=== PATIENT | male | born 1955 | race Caucasian/White ===

== ENCOUNTER → 2023-03-08 | Outpatient (CLI) | payer BC, SELFPAY ==
[2023-03-08 15:49] LABS: Bacteria 0 SEEN /hpf (None Seen); Mucous, Urine 0 SEEN /hpf (<or=2+); Squamous Epithelial Cells - UA 0 SEEN /hpf (0-5)
[2023-03-08 16:47] LABS: Absolute Lymphocyte Count 1.38 X10^3/uL (0.83-4.51); Absolute Neutrophil Count 6.7 X10^3/uL (2.0-7.7); Basophil# 0.11 X10^3/uL; Basophil% 1.2 % (0-1); Eosinophil# 0.16 X10^3/uL; Eosinophils% 1.8 % (0-5); Hematocrit 39.8 % (40-54); Hemoglobin 11.2 g/dL (13.0-16.5); Lymphocyte # 1.38 X10^3/ul (0.83-4.51); Lymphocyte % 15.4 % (19-41); Mean Corp Hgb Conc 28.1 g/dL (32-36); Mean Corpuscular Hgb 24.2 pg (27.0-32.0); Mean Corpuscular Volume 86.1 fL (80-94); Mean Platelet Vol. 9.8 fl (6.2-12.0); Monocyte# 0.64 X10^3/uL; Monocyte% 7.1 % (0-10); NRBC Flagged by Analyzer 0 % (0-5); Neutrophil # 6.67 X10^3/uL (2.7-7.7); Neutrophil % 74.3 % (47-70); Platelet Count 542 K/mm3 (150-450); RBC Distribution Width CV 19.8 % (11.6-14.6); RBC Distribution Width SD 61.5 fl (35.1-43.9); Red Blood Count 4.62 M/mm3 (4.6-6.2)
[2023-03-08 17:01] LABS: Color, Urine Yellow (Yellow); Glucose, Dipstick Normal (Normal); Ketone-Dipstick 15 mg/dl (Negative); Leukocyte Esterase-Dipstick Negative /ul (Negative); Nitrite-Dipstick Negative (Negative); Occult Blood-Urine Negative /ul (Negative); Protein-Dipstick Negative (Negative); Specific Gravity, Urine 1.015 (1.002-1.030); Urine Bilirubin Dipstick Negative (Negative); Urine Clarity Clear (Clear); Urine Urobilinogen Normal (Normal)
[2023-03-08 17:16] LABS: Vitamin D,25 Hydroxy 37.9 ng/mL
[2023-03-08 17:16] LABS: Red Blood Cells-Urine 0-5 SEEN /hpf (0-5); White Blood Cells 0-5 SEEN /hpf (0-5)
[2023-03-08 17:25] LABS: ALB/GLOB Ratio 0.9 RATIO (0.9-2.4); AST(SGOT) 18 U/L (15-37); Alanine Aminotransfer ALT/SGPT 22 U/L (16-61); Albumin, Serum 3.9 g/dL (3.2-5.0); Alkaline Phosphatase 112 U/L (45-117); Anion Gap 6 (5-15); BUN 17 mg/dL (7-18); BUN/Creat Ratio 18.3 RATIO (10-20); Chloride 103 mmol/L (98-107); Cholesterol 117 mg/dL (200); Creatinine, Serum 0.93 mg/dL (0.70-1.30); EST Glomerular Filtration Rate 86 mL/min (>60); Est Glom Filt Rate - Afr Amer 104 mL/min (>60); Globulin 4.3 g/dL (2.2-4.2); Glucose 106 mg/dL (74-106); High Density Lipoprotein 55 mg/dL; PSA,Total- Diagnostic 2.85 ng/mL (0.0-4.0); Potassium 4.1 mmol/L (3.5-5.1); Protein, Total 8.2 g/dL (6.4-8.2); Sodium Level 136 mmol/L (136-145); Thyroid Stim Hormone (TSH) 2.21 uIU/mL (0.358-3.74); Triglycerides 95 mg/dL; Very Low Density Lipoprotein 19 mg/dL (5-40)
== END | disposition home or self-care (01) ==
LOC: BIMLAB 15:38
PROVIDERS: PCP Internal Medicine; Visit Provider Internal Medicine
DX: Z13.6 Encounter for screening for cardiovascular disorders (principal); J44.9 Chronic obstructive pulmonary disease, unspecified; R39.11 Hesitancy of micturition; R10.9 Unspecified abdominal pain; F32.A Depression, unspecified
CPT/HCPCS: 36415; 80053; 80061; 81001; 82306; 84153; 84443; 85025

== ENCOUNTER 2023-03-27 11:08 | Inpatient (IN) | payer MEDICARE, SELFPAY ==
[2023-03-27] VITALS (24 sets, daily range): BP systolic 53–160; BP diastolic 38–92; PULSE 77–106; RESP 12–19; TEMP 36.2–37.3; O2SAT 81–100; BMI 18.8; BMI 18.5
--- NOTE | 2023-03-27 11:33 | EX.ED.DYSGE1 ---
HPI History of Present Illness Chief Complaint: Shortness of Breath Narrative Narrative: 67-year-old male presents via EMS with multiple complaints, mainly shortness of breath that he has had for at least the last few days if not longer. He states that his primary care provider is supposed to be doing a cancer work-up on him including CT scan and laboratory work. He states that with a history of bleeding ulcers, he has had vomiting over the last few days to weeks that is dark brown in color. Additionally, he has had black stools. His girlfriend/ at home called EMS today because he has not been feeling well and has been more short of breath. Per EMS, he was hypotensive in the 80s, and tachypneic. He may have had a low pulse ox as well. While he states that he has been short of breath, he does not see a sales architect, is a former smoker, and does not wear oxygen at home. [facility] Medical History Alcohol abuse Cataract COPD (chronic obstructive pulmonary disease) History of COVID-19 History of kidney stones History of pneumonia Ulcer Home Medications albuterol sulfate 90 mcg/actuation aerosol inhaler 2 puff inhalation Q6H PRN shortness of breath or wheezing #8.5 grams 02/14/23 [Rx Last Taken Unknown] fluticasone fur. 100 mcg-umeclid 62.5 mcg-vilant 25 mcg inhalat.powder (Trelegy Ellipta) 1 inh inhalation DAILY #28 ea 02/14/23 [Rx Last Taken Unknown] tamsulosin 0.4 mg capsule 0.4 mg PO DAILY #30 caps 02/14/23 [Rx Last Taken Unknown] albuterol sulfate 0.63 mg/3 mL solution for nebulization 0.63 mg (3 mL) inhalation Q6H PRN shortness of breath or wheezing #90 mL 03/08/23 [Rx Last Taken Unknown] blood pressure test kit-medium #1 ea 03/08/23 [Rx Last Taken Unknown] escitalopram oxalate 10 mg tablet (Lexapro) 10 mg PO DAILY #30 tabs 03/08/23 [Rx Last Taken Unknown] ipratropium bromide 0.02 % solution for inhalation 2.5 ml inhalation Q6H PRN shortness of breath or wheezing #150 mL 03/08/23 [Rx Last Taken Unknown] nebulizer and compressor (Comp-Air Nebulizer Compressor) #1 ea 03/08/23 [Rx Last Taken Unknown] Allergy/AdvReac Type Severity Reaction Status Date / Time No Known Allergies Allergy Verified 03/27/23 11:15 Family History Mother Heart disease Grandmother Cancer colon Surgical History History of eye surgery History of lithotripsy Social History household members: significant other current occupational status: retired current occupation: construction Smoking Status: Former smoker quit date: 04/10/19 pack-years: 90 Electronic Cigarette Use: not used alcohol intake: former year quit: 2012 substance use type: former substance user Date of last use: cocaine do you feel safe at home: Yes ROS ROS ED ROS Narrative Constitutional: No fever, no chills. HEENT: No sore throat. No neck pain. No loss of vision. No rhinorrhea. Cardiovascular: No chest pain. No palpitations. No pedal edema. Respiratory: No cough, positive shortness of breath. Abdominal: No abdominal pain. Positive nausea and vomiting with dark brown emesis, no bright red blood. Positive black stool. Genitourinary: No dysuria. No hematuria. Musculoskeletal: No myalgias. No arthralgias. Neurologic: No headaches. No dizziness. No lightheadedness. Skin: No rash. No change in color. Psychiatric: No depression. No anxiety. EXAM Physical Exam Narrative Exam Narrative: Afebrile. Vital signs noted. Cachexia. HEENT: Normocephalic. Atraumatic. PERRL, EOMI. Neck soft and supple. No point tenderness or step off. Cardiovascular: Positive tachycardia. No murmurs, rubs, or gallops appreciated. Respiratory: Mild tachypnea. Lungs clear to auscultation bilaterally. Gastrointestinal: Abdomen soft, nontender, with normoactive bowel sounds. No rebound or guarding. Neurological: Awake. Alert. Nonfocal, nonlateralizing. Skin: No rash. Normal color. No pallor. Musculoskeletal: No pedal edema. Full range of motion extremities. Const Vital Signs: 03/27/23 11:09 03/27/23 11:15 03/27/23 11:17 Temperature 97.2 F L Temperature Source Temporal Pulse Rate 106 H Respiratory Rate 19 H Respiratory Effort Short of Breath Respiratory Depth Respiratory Pattern Normal Blood Pressure 53/38 L 72/39 L Blood Pressure Mean 43 50 Pulse Ox 81 Oxygen Delivery Method Room Air Oxygen Flow Rate (L/min) 03/27/23 11:18 03/27/23 11:30 03/27/23 11:48 Temperature Temperature Source Pulse Rate Respiratory Rate Respiratory Effort Short of Breath Respiratory Depth Normal Respiratory Pattern Normal Blood Pressure Blood Pressure Mean Pulse Ox 100 93 Oxygen Delivery Method Nasal Cannula Nasal Cannula Nasal Cannula Oxygen Flow Rate (L/min) 6 4 4 03/27/23 12:21 03/27/23 12:21 03/27/23 13:03 Temperature 98.2 F 97.6 F L Temperature Source Temporal Core Pulse Rate 85 85 86 Respiratory Rate 14 14 13 Respiratory Effort Respiratory Depth Respiratory Pattern Blood Pressure 73/48 L 73/48 L 109/69 Blood Pressure Mean 56 56 82 Pulse Ox 87 87 93 Oxygen Delivery Method Nasal Cannula Nasal Cannula Nasal Cannula Oxygen Flow Rate (L/min) 4 4 4 03/27/23 13:03 03/27/23 13:08 03/27/23 13:29 Temperature 97.6 F L 97.6 F L 97.5 F L Temperature Source Core Core Core Pulse Rate 85 85 89 Respiratory Rate 13 15 16 Respiratory Effort Respiratory Depth Respiratory Pattern Blood Pressure 109/69 109/69 100/72 Blood Pressure Mean 82 82 81 Pulse Ox 93 98 90 Oxygen Delivery Method Nasal Cannula Nasal Cannula Nasal Cannula Oxygen Flow Rate (L/min) 4 3 3 Sepsis Attestation Sepsis Alert: Yes Sepsis Attestation: Agree w/Sepsis Date exam was performed: 03/27/23 Time exam was performed: 12:40 Possible Source of Sepsis: Pulmonary Sepsis Organ Dysfunction Criteria Present: SBP < 90 mmHg or MAP < 65 mmHg, Creatinine > 2.0 mg/dL and Lactic Acid > 2 mmol/L Fluid Resuscitation Fluid resuscitation indicated?: Yes Fluid Resuscitation ordered: 30 ml/kg fluid bolus ordered Amount of fluid ordered: 1,500 Sepsis Note Date exam was performed: 03/27/23 Time exam was performed: 13:42 Sepsis Attestation: Sepsis re-evaluation was performed Response to fluids: Fluid responsive hypotension MDM MDM MDM Narrative Medical decision making narrative: In the differential diagnosis is GI bleeding with COPD exacerbation, pneumonia, and sepsis. While he is hypotensive upon arrival, he is very thin and cachectic, but IV fluids will be started immediately. Sepsis work-up was pursued. Stool sample was obtained and sent for fecal occult blood as it is black in color. EKG was obtained and interpreted by myself independently as normal sinus rhythm at 82 bpm without ectopy or acute ST changes. No STEMI. I reviewed his laboratory work from today and he has elevated white count of 17.8, hemoglobin low at 6.5, hematocrit 22.3, with platelet count elevated at 519 which may be an acute phase reactant. His coagulation studies are negative with an INR of 1.8 and APTT T slightly elevated at 39.5. Of significance on his electrolyte panel is an elevated BUN of 66 with acute kidney injury with creatinine 2.09. This is suspicious for upper GI bleed. His glucose is elevated appropriately at 126 with a normal anion gap of 8. AST and ALT are elevated above the thousand in each which may be secondary to shock liver. Urinalysis was obtained via catheterization which shows no evidence of infection. Chest x-ray in 1 view interpreted by myself shows bibasilar infiltrates. I reviewed the radiology report which confirms my independent interpretation. He was started on antibiotics as he is meeting sepsis criteria. Additionally, given his hypotension he may be having septic shock, however after 1500 mL of IV fluids, he is no longer hypotensive. I do not feel pressors are indicated. I do feel with his acute kidney injury as well that he may be having more dehydration issues. Another liter of normal saline was added. He was started on antibiotics for his pneumonia in the form of azithromycin and Rocephin. Given his GI bleeding which is suspected to be upper, NG tube will be inserted, and additionally he will be consented for blood transfusion. I discussed the patient with the hospitalist for admission. As there are no ICU beds, but his blood pressure has improved without use of vasopressors, it was felt that he could be admitted to the PCU. Disposition is admit in guarded but stable condition. History & Record Review Discussion w/independent historian: Patient Additional record(s) reviewed:: Prior ED visit and Prior labs Lab Data Attestation: I reviewed the patient's lab results. Labs: Laboratory Results - last 24 hr 03/27/23 03/27/23 11:35 12:15 WBC 17.8 H RBC 2.69 L Hgb 6.5 L Hct 22.3 L MCV 82.9 MCH 24.2 L MCHC 29.1 L RDW Std Deviation 63.4 H RDW Coeff of Monalisa 21.0 H Plt Count 519 H MPV 9.9 Immature Gran % (Auto) 0.600 Neut % (Auto) 85.8 H Lymph % (Auto) 8.1 L Menard % (Auto) 4.8 Eos % (Auto) 0.3 Baso % (Auto) 0.4 Absolute Neuts (auto) 15.2 H Absolute Lymphs (auto) 1.44 Nucleated RBC % 0.2 Anisocytosis 1+ PT 20.6 H INR 1.8 APTT 39.5 H Sodium 138 Potassium 4.3 Chloride 106 Carbon Dioxide 24.0 Anion Gap 8 BUN 66 H Creatinine 2.09 H Estim Creat Clear Calc 24.44 Est GFR (MDRD) Af Amer 41 L Est GFR (MDRD) Non-Af 34 L BUN/Creatinine Ratio 31.6 H Glucose 126 H Lactic Acid 4.9 H* Calcium 8.5 Total Bilirubin 0.60 AST 1139 H ALT 1162 H Alkaline Phosphatase 101 Troponin I High Sens 9 Total Protein 5.8 L Albumin 2.1 L Globulin 3.7 Albumin/Globulin Ratio 0.6 L Urine Color Yellow Urine Clarity Sl. Cloudy Urine pH 6.0 Ur Specific [place] 1.015 Urine Protein 30 H Urine Glucose (UA) Normal Urine Ketones 5 H Urine Occult Blood 50 H Urine Nitrite Negative Urine Bilirubin 3 H Urine Urobilinogen Normal Ur Leukocyte Esterase 25 H Urine RBC 5-10 SEEN Urine WBC 0-5 SEEN Ur Squamous Epith Cells 0 SEEN Urine Bacteria RARE Urine Mucus 0 SEEN Crossmatch See Detail ABG Data ABG results: ABG 03/27/23 12:43 Specimen Type ART Sample Site L Radial pH 7.39 Bicarbonate Actual 23.1 Total CO2 24 Base Excess -2 O2 Saturation 99 O2 % 6.0 ABG pCO2 38.0 ABG pO2 116 H Ulysses Test Positive O2 Delivery Device Cannula Vent Mode Not entered Radiography Diagnostic Testing: Clinical Impression(s) from Imaging Studies Chest X-Ray 03/27/23 11:40 IMPRESSION: Bibasilar infiltrates more prominent on the left side. Electronically Signed: Vinicio Naqvi MD at 12:16 EDT , Management Discussion w/another healthcare provider: Hospitalist (Dr. Kyara Morley) Critical Care Time Critical Care Time: Yes Critical care time (excluding procedures): 30-74 minutes (32 minutes), Discussing w/Patient &/or Family/Acid Crane Operator, Discussing w/Consultants, Arranging Admission or Transfer and Performing Direct Patient Care at Bedside Discharge Plan Dx/Rx/DC Orders Clinical Impression: Acute kidney injury, Sepsis, Upper GI bleeding, Pneumonia Disposition Disposition: Acute Care Hospital [facility]
[2023-03-27] MEDS: 0.9% Normal Saline (1000mL) 1,000 ML 999 ML IV ×3 (11:39→13:25)
--- NOTE | 2023-03-27 11:40 | RAD_ITS ---
STUDY: X-RAY CHEST REASON FOR EXAM: Male, 67 years old. Shortness of Breath . 3 day history of nausea and vomiting. TECHNIQUE: Single AP portable view of the chest. COMPARISON: None. FINDINGS: EKG electrodes are seen. Increased markings at both lung bases more prominent at the left base suggestive of bibasilar infiltrates. There is no demonstrated pleural abnormality. Normal size heart. Normal mediastinum and danilo. Normal visualized pulmonary arteries. There is atherosclerotic calcification of the aortic arch with tortuosity. There are degenerative changes of the visualized thoracic spine. Normal visualized ribs, clavicles, and shoulders. There is no demonstrated abnormality of the visualized soft tissue structures of the upper abdomen. RAD/Chest 1 View (Portable) IMPRESSION: Bibasilar infiltrates more prominent on the left side. Electronically Signed: Vinicio Naqvi MD at 12:16 EDT ,
[2023-03-27 11:53] LABS: Absolute Lymphocyte Count 1.44 X10^3/uL (0.83-4.51); Absolute Neutrophil Count 15.2 X10^3/uL (2.0-7.7); Basophil# 0.08 X10^3/uL; Basophil% 0.4 % (0-1); Eosinophil# 0.06 X10^3/uL; Eosinophils% 0.3 % (0-5); Hematocrit 22.3 % (40-54); Hemoglobin 6.5 g/dL (13.0-16.5); Lymphocyte # 1.44 X10^3/ul (0.83-4.51); Lymphocyte % 8.1 % (19-41); Mean Corp Hgb Conc 29.1 g/dL (32-36); Mean Corpuscular Hgb 24.2 pg (27.0-32.0); Mean Corpuscular Volume 82.9 fL (80-94); Mean Platelet Vol. 9.9 fl (6.2-12.0); Monocyte# 0.85 X10^3/uL; Monocyte% 4.8 % (0-10); NRBC Flagged by Analyzer 0.2 % (0-5); Neutrophil # 15.24 X10^3/uL (2.7-7.7); Neutrophil % 85.8 % (47-70); POSITIVE MORPHOLOGY YES; Platelet Count 519 K/mm3 (150-450); RBC Distribution Width SD 63.4 fl (35.1-43.9); Red Blood Count 2.69 M/mm3 (4.6-6.2); White Blood Count 17.8 K/mm3 (4.4-11.0)
[2023-03-27 11:54] LABS: Differential Indicated SCAN CRITERIA MET
[2023-03-27 12:04] LABS: International Normalized Ratio 1.8; Prothrombin Time (Protime)PT. 20.6 SECONDS (11.7-14.9)
[2023-03-27 12:05] LABS: Partial Thromboplast Time 39.5 Seconds (24.1-36.2)
[2023-03-27 12:15] LABS: ALB/GLOB Ratio 0.6 RATIO (0.9-2.4); AST(SGOT) 1139 U/L (15-37); Alanine Aminotransfer ALT/SGPT 1162 U/L (16-61); Albumin, Serum 2.1 g/dL (3.2-5.0); Alkaline Phosphatase 101 U/L (45-117); Anion Gap 8 (5-15); BUN 66 mg/dL (7-18); BUN/Creat Ratio 31.6 RATIO (10-20); Calcium,Total 8.5 mg/dL (8.5-10.1); Chloride 106 mmol/L (98-107); Creatinine, Serum 2.09 mg/dL (0.70-1.30); EST Glomerular Filtration Rate 34 mL/min (>60); Est Glom Filt Rate - Afr Amer 41 mL/min (>60); Estimated Creatinine Clearance 24.44 ml/min; Globulin 3.7 g/dL (2.2-4.2); Glucose 126 mg/dL (74-106); Potassium 4.3 mmol/L (3.5-5.1); Protein, Total 5.8 g/dL (6.4-8.2); Sodium Level 138 mmol/L (136-145); Troponin-I HS 9 pg/mL (3.0-78.0)
[2023-03-27 12:21] LABS: Mucous, Urine 0 SEEN /hpf (<or=2+); Squamous Epithelial Cells - UA 0 SEEN /hpf (0-5)
[2023-03-27 12:26] LABS: Anisocytosis 1+
[2023-03-27 12:31] LABS: Lactic Acid 4.9 mmol/L (0.4-1.9)
--- NOTE | 2023-03-27 12:42 | NURSING ---
this rn confirmed with dr. odonnell that patient is to receive a total of 1500 mls of fluids as a part of sepsis fluid resuscitation. first 1000 mls is infused, remaining 500 mls is currently infusing.
[2023-03-27 12:47] LABS: Allen Test Positive; Base Excess -2 mmol/L (-2 to +2); Bicarbonate 23.1 mmol/L (22-26); Blood Gas Specimen Type ART; Mode Not entered; O2 Delivery Device Cannula; PO2 116 mmHG (75-100); SITE L Radial; SO2 99 % (95-99); Total Carbon Dioxide 24 mmol/L; pH 7.39 (7.35-7.45)
[2023-03-27 12:49] LABS: Color, Urine Yellow (Yellow); Glucose, Dipstick Normal (Normal); Ketone-Dipstick 5 mg/dl (Negative); Leukocyte Esterase-Dipstick 25 /ul (Negative); Nitrite-Dipstick Negative (Negative); Occult Blood-Urine 50 /ul (Negative); Protein-Dipstick 30 mg/dl (Negative); Specific Gravity, Urine 1.015 (1.002-1.030); Urine Clarity Sl. Cloudy (Clear); Urine Urobilinogen Normal (Normal)
[2023-03-27 12:52] LABS: Urine Bilirubin Dipstick 3 mg/dL (Negative)
[2023-03-27] MEDS: Ceftriaxone 2 GM in 0.9% Normal Saline (50mL MB+) 50 ML IV (12:59)
[2023-03-27] MEDS: Azithromycin 500 MG in Dextrose 5%-Water (250mL Bag) 250 ML 250 MG IV (12:59)
[2023-03-27 13:09] LABS: Red Blood Cells-Urine 5-10 SEEN /hpf (0-5); White Blood Cells 0-5 SEEN /hpf (0-5)
[2023-03-27 13:10] LABS: Bacteria RARE /hpf (None Seen)
--- NOTE | 2023-03-27 13:28 | CT_ITS ---
STUDY: CT CHEST, ABDOMEN T PELVIS WITHOUT CONTRAST REASON FOR EXAM: Male, 67 years old. anemia RADIATION DOSAGE (If Supplied By Facility): CTDIvol = ( ) mGy, DLP = ( ) mGycm TECHNIQUE: Transaxial imaging was performed without the administration of intravenous contrast material. Individualized dose optimization techniques were used for this CT. COMPARISON: No relevant priors. FINDINGS: CHEST Mild patchy consolidation is present in the posterior lateral aspect of the left upper lobe in the middle to inferior regions. Mild to moderate chronic appearing interstitial fibrosis and architectural distortion is present in the superior to middle one third aspect of the left lower lobe and base. Both lungs are hyperinflated with moderate cystic emphysematous changes. No visualized spiculated nodules or masses. A trace left pleural effusion is present. Normal heart and pericardium. There are calcifications of the coronary arteries. Normal mediastinum. Normal hilar regions. Normal unenhanced pulmonary arteries. There is atherosclerotic calcification of the aortic arch with tortuosity and elongation of the aortic arch and descending thoracic aorta. There are multi-level degenerative changes of the thoracic spine. There is no demonstrated abnormality of the visualized upper abdomen. ABDOMEN Normal liver. Normal gallbladder and extrahepatic biliary system. There are multiple benign calcified granulomata of the spleen. Normal pancreas. Normal bilateral adrenal glands. Large simple benign cyst is present in the upper pole of the right kidney measuring 7.93 cm and does not requiring additional imaging. Several smaller cysts are scattered throughout the remaining aspects of both kidneys. Multiple calyceal stones are scattered throughout both kidneys as well without active hydronephrosis. The largest stone on the right is in the midpole measuring 9.5 mm and on the left mid pole measuring 7.3 mm. High density fluid seen in the colon is presumably related to an [id number] oral preparation or small amount of oral contrast. If there is concern for GI bleeding obtained in [facility]''s nuclear medicine scan or CTA exam for further assessment. Normal visualized stomach. A feeding tube is present in the stomach. Normal small intestine. There are multiple colonic diverticula consistent with diverticulosis. The appendix is visualized and appears normal. There is diffuse atherosclerotic calcification of the abdominal aorta, without a demonstrated aneurysm. Normal inferior vena cava. Normal retroperitoneum. Normal abdominal wall. There are diffuse degenerative changes of the visualized lumbar spine. PELVIS Normal urinary bladder. Normal visualized small intestine. There are multiple colonic diverticula of the sigmoid colon consistent with chronic diverticulosis. There is no pelvic fluid. There is no pelvic lymphadenopathy or mass lesion. There is diffuse atherosclerotic calcification of the pelvic arteries. Normal abdominal wall. There are diffuse degenerative changes of the visualized lumbar spine. Chronic compression deformity of L3 and L1 vertebral bodies. CT/CT Chest, Abd, Pelvis WO Cont IMPRESSION: 1. Chest: Mild patchy pneumonic infiltrates of the left upper lobe 2. COPD 3. Interstitial fibrosis 4. Colonic diverticulosis 5. Multiple bilateral kidney stones without hydronephrosis 6. High density fluid seen in the colon is presumably related to an [id number] oral preparation or small amount of oral contrast. If there is concern for GI bleeding obtained in [facility]bc''s nuclear medicine scan or CTA exam for further assessment Electronically Signed: Jaskaran Hebert MD at 15:32 EDT ,
--- NOTE | 2023-03-27 13:48 | HP.PCM.HOS_ITS ---
HPI - General General Date of Service: 03/27/23 Chief Complaint: SOB/Poor Appetite HPI Narrative REGINALD LEVI, is a 67 M who presented to department at [facility] on 03/27/2023 with multiple complaints. Patient's had ongoing weight loss over the last 3 years. He states at baseline he typically weighs about 160 pounds and is now down to 110 pounds. He has remote history of tobacco abuse, cocaine abuse, and alcohol abuse all in remission. He states he is also had recent shortness of breath worse than his baseline. He states that he does have COPD at baseline but is not oxygen dependent typically. He has had some cough with sputum production above his baseline but denies fever or chills. He has had nausea and vomiting with intermittent abdominal pain worse in the epigastrium and right upper quadrant. His p.o. intake has been dramatically reduced and in the last 2 days he is really not had anything to eat or drink. His vomitus is been coffee-ground in nature and he believes his stool have been dark and tarry. He is concerned with his weight loss that he may have some kind of malignancy and states that he has seen a new primary care physician after he moved from [place] and they have been discussing work-up of detecting malignancy but nothing has been done as of yet. Vital signs on presentation yielded a temperature of 97.2, heart rate 106, blood pressure of 53/38, respiratory rate was 19 and oxygen saturations were 81% on room air. He was placed on nasal cannula 6 L and his sats came up to 100%. Since that time his oxygen has been weaned to 3 L with sats between 90 and 98. He was given 2-1/2 L bolus IV fluids and his blood pressure has improved dramatically now with a MAP of 82. Heart rates have normalized. CBC shows a leukocytosis with a left shift. White count is 17.8, hemoglobin was 6.5 with most recent hemoglobin being greater than 11 earlier this month, platelet count is elevated at 519,000. He has an 85.8% neutrophilia. His coags are abnormal and patient does not take any medications to affect his coagulation status. INR was 1.8. An ABG was obtained and his pH was 7.39 with a PCO2 of 38, PO2 was 116 on 4 L nasal cannula. His chemistry panel showed normal electrolytes however his BUN and creatinine were markedly elevated at 66 and 2.09 (baseline serum creatinine is between 0.8 and 1.0). His liver functions are markedly elevated with an AST of 1138 and an ALT of 1162. Bilirubin is normal. Has albumin is 2.1. His calcium is 4.9. His EKG shows normal sinus rhythm with low voltage, poor R wave progression but no ST-T wave changes concerning for acute ischemia. Intervals are normal. Chest x-ray shows hyperinflation with bibasilar infiltrates greater on the left than the right. [facility] Medical History Alcohol abuse Cataract COPD (chronic obstructive pulmonary disease) History of COVID-19 History of kidney stones History of pneumonia Tobacco abuse Ulcer Home Medications albuterol sulfate 90 mcg/actuation aerosol inhaler 2 puff inhalation Q6H PRN shortness of breath or wheezing #8.5 grams 02/14/23 [Rx Last Taken Unknown] fluticasone fur. 100 mcg-umeclid 62.5 mcg-vilant 25 mcg inhalat.powder (Trelegy Ellipta) 1 inh inhalation DAILY #28 ea 02/14/23 [Rx Last Taken Unknown] tamsulosin 0.4 mg capsule 0.4 mg PO DAILY #30 caps 02/14/23 [Rx Last Taken Unknown] albuterol sulfate 0.63 mg/3 mL solution for nebulization 0.63 mg (3 mL) inhalation Q6H PRN shortness of breath or wheezing #90 mL 03/08/23 [Rx Last Taken Unknown] blood pressure test kit-medium #1 ea 03/08/23 [Rx Last Taken Unknown] escitalopram oxalate 10 mg tablet (Lexapro) 10 mg PO DAILY #30 tabs 03/08/23 [Rx Last Taken Unknown] ipratropium bromide 0.02 % solution for inhalation 2.5 ml inhalation Q6H PRN shortness of breath or wheezing #150 mL 03/08/23 [Rx Last Taken Unknown] nebulizer and compressor (Comp-Air Nebulizer Compressor) #1 ea 03/08/23 [Rx Last Taken Unknown] Allergy/AdvReac Type Severity Reaction Status Date / Time No Known Allergies Allergy Verified 03/27/23 11:15 Family History Mother Heart disease Grandmother Cancer colon Surgical History History of eye surgery History of lithotripsy Social History household members: significant other current occupational status: retired current occupation: construction Smoking Status: Former smoker quit date: 04/10/19 pack-years: 90 Electronic Cigarette Use: not used alcohol intake: former year quit: 2012 substance use type: former substance user Date of last use: cocaine do you feel safe at home: Yes ROS Constitutional Constitutional: Reports anorexia, change in weight, fatigue, malaise and weakness; Denies chills, fever(s), night sweats or other Eyes Eyes: Denies blurry vision, change in eye color, change in vision, discharge from eye(s), double vision, erythema, eye pain, loss of vision or other ENT HEENT: Denies abnormal hearing, dysphagia, ear pain, epistaxis, headache(s), hearing loss, nasal congestion, nasal discharge, post nasal drip, sinus pressure, sore throat or other Cardiovascular Cardiovascular: Reports dyspnea on exertion; Denies chest pain, claudication, edema, lightheadedness, orthopnea, palpitations, paroxysmal nocturnal dyspnea, rapid heart rate, syncope or other Respiratory/Chest Respiratory/Chest: Reports cough, dyspnea, productive cough and shortness of breath with exertion; Denies excessive phlegm production, hemoptysis, shortness of breath at rest, wheezing or other Gastrointestinal Gastrointestinal: Reports abdominal pain, coffee ground emesis, dyspepsia, melena, nausea and vomiting; Denies constipation, diarrhea, hematemesis, hematochezia, loose stools or other Genitourinary Genitourinary: Reports difficulty urinating and urinary hesitancy; Denies burning urination, dysuria, hematuria, nocturia, urinary frequency, urinary incontinence, urinary urgency or other Musculoskeletal Musculoskeletal: Reports back pain; Denies arthralgias, joint pain, joint stiffness, joint swelling, myalgias, neck pain or other Neurologic Neurologic: Denies abnormal gait, abnormal speech, confusion, disequilibrium, dizziness, focal weakness, headache(s), numbness, paresthesias, seizure-like activity, seizures, syncope, tingling, tremor(s) or other Psychiatric Psychiatric: Reports depression; Denies anxiety, homicidal ideation, suicidal ideation or other Endocrine Endocrinology: Denies change in body appearance, cold intolerance, excessive sweating, heat intolerance, polydipsia, polyuria or other Hematologic/Lymphatic Hematologic/Lymphatic: Reports easy bruising; Denies anemia, easy bleeding, lymphadenopathy or other Allergic/Immunologic Allergic/Immunologic: Denies rhinitis, hives, eczemia, asthma or other Vital Signs Vital Signs Vital Signs: 03/27/23 11:09 03/27/23 11:15 03/27/23 11:17 Temperature 97.2 F L Temperature Source Temporal Pulse Rate 106 H Respiratory Rate 19 H Respiratory Effort Short of Breath Respiratory Depth Respiratory Pattern Normal Blood Pressure 53/38 L 72/39 L Blood Pressure Mean 43 50 Pulse Ox 81 Oxygen Delivery Method Room Air Oxygen Flow Rate (L/min) 03/27/23 11:18 03/27/23 11:30 03/27/23 11:48 Temperature Temperature Source Pulse Rate Respiratory Rate Respiratory Effort Short of Breath Respiratory Depth Normal Respiratory Pattern Normal Blood Pressure Blood Pressure Mean Pulse Ox 100 93 Oxygen Delivery Method Nasal Cannula Nasal Cannula Nasal Cannula Oxygen Flow Rate (L/min) 6 4 4 03/27/23 12:21 03/27/23 12:21 03/27/23 13:03 Temperature 98.2 F 97.6 F L Temperature Source Temporal Core Pulse Rate 85 85 86 Respiratory Rate 14 14 13 Respiratory Effort Respiratory Depth Respiratory Pattern Blood Pressure 73/48 L 73/48 L 109/69 Blood Pressure Mean 56 56 82 Pulse Ox 87 87 93 Oxygen Delivery Method Nasal Cannula Nasal Cannula Nasal Cannula Oxygen Flow Rate (L/min) 4 4 4 03/27/23 13:03 03/27/23 13:08 03/27/23 13:29 Temperature 97.6 F L 97.6 F L 97.5 F L Temperature Source Core Core Core Pulse Rate 85 85 89 Respiratory Rate 13 15 16 Respiratory Effort Respiratory Depth Respiratory Pattern Blood Pressure 109/69 109/69 100/72 Blood Pressure Mean 82 82 81 Pulse Ox 93 98 90 Oxygen Delivery Method Nasal Cannula Nasal Cannula Nasal Cannula Oxygen Flow Rate (L/min) 4 3 3 Weight Weight: 49.697 kg Body Mass Index (BMI) 18.8 Physical Exam Const alert, oriented x3 and no apparent distress; Negative for average body habitus, healthy appearing or well nourished Constitutional Narrative: Cachectic, upper middle-aged, white male, appears much older than stated age, appears comfortable and nontoxic currently after fluid resuscitation General Appearance: cooperative HEENT normocephalic, head/scalp atraumatic and hearing grossly normal bilaterally; Negative for moist oral mucous membranes or dentition normal HEENT Narrative: Dentition is poor, Mallampati is 1, no thrush, mucous membranes are exceedingly dry Eyes PERRL and EOMs intact bilaterally Eyes Narrative: Conjunctival are markedly pale, no scleral icterus Neck no lymphadenopathy, supple, no JVD and no carotid bruits Neck Narrative: Trachea midline, no thyroid enlargement Resp normal respiratory effort, no retractions and no use of accessory muscles Resp Narrative: Diffusely diminished but no adventitious sounds Auscultation: Negative for rales, rhonchi or wheezes Cardio regular rate, regular rhythm, S1 normal heart sound, S2 normal heart sound, no murmurs, no rub, no gallops and no clicks GI normal to inspection, nondistended, normoactive bowel sounds and soft to palpation GI Narrative: Mild tenderness in the epigastrium to right upper quadrant, scaphoid abdomen Extremity no clubbing, cyanosis or edema Extremity Narrative: Markedly reduced lean muscle mass Skin no rashes or lesions noted, no wounds, skin turgor normal, no jaundice, no petechiae and no mottling Skin Narrative: Few scattered tattoos, markedly pale Neuro oriented x3, CN's II-XII intact bilaterally, moves all extremities and no focal motor deficits Neuro Narrative: Significant generalized weakness noted with proximal musculature weaker than distal musculature upper and lower extremities bilaterally Speech: speech normal Psych affect normal Psych Narrative: Contact is good, patient interacts appropriately Results Lab / Micro Data 03/27/23 11:35 03/27/23 11:35 Labs: Laboratory Results - last 24 hr 03/27/23 11:35: WBC 17.8 H, RBC 2.69 L, Hgb 6.5 L, Hct 22.3 L, MCV 82.9, MCH 24.2 L, MCHC 29.1 L, RDW Std Deviation 63.4 H, RDW Coeff of Monalisa 21.0 H, Plt Count 519 H, MPV 9.9, Immature Gran % (Auto) 0.600, Neut % (Auto) 85.8 H, Lymph % (Auto) 8.1 L, Coal % (Auto) 4.8, Eos % (Auto) 0.3, Baso % (Auto) 0.4, Absolute Neuts (auto) 15.2 H, Absolute Lymphs (auto) 1.44, Nucleated RBC % 0.2, Anisocytosis 1+, PT 20.6 H, INR 1.8, APTT 39.5 H, Sodium 138, Potassium 4.3, Chloride 106, Carbon Dioxide 24.0, Anion Gap 8, BUN 66 H, Creatinine 2.09 H, Estim Creat Clear Calc 24.44, Est GFR (MDRD) Af Amer 41 L, Est GFR (MDRD) Non-Af 34 L, BUN/Creatinine Ratio 31.6 H, Glucose 126 H, Lactic Acid 4.9 H*, Calcium 8.5, Total Bilirubin 0.60, AST 1139 H, ALT 1162 H, Alkaline Phosphatase 101, Troponin I High Sens 9, Total Protein 5.8 L, Albumin 2.1 L, Globulin 3.7, Albumin/Globulin Ratio 0.6 L, Crossmatch See Detail 03/27/23 12:15: Urine Color Yellow, Urine Clarity Sl. Cloudy, Urine pH 6.0, Ur Specific [place] 1.015, Urine Protein 30 H, Urine Glucose (UA) Normal, Urine Ketones 5 H, Urine Occult Blood 50 H, Urine Nitrite Negative, Urine Bilirubin 3 H, Urine Urobilinogen Normal, Ur Leukocyte Esterase 25 H, Urine RBC 5-10 SEEN, Urine WBC 0-5 SEEN, Ur Squamous Epith Cells 0 SEEN, Urine Bacteria RARE, Urine Mucus 0 SEEN Micro: Microbiology 03/27/23 11:35 Stool Stool Occult Blood (PADMA) - Final Occult Blood Positive ABG Data ABG results: ABG 03/27/23 12:43 Specimen Type ART Sample Site L Radial pH 7.39 Bicarbonate Actual 23.1 Total CO2 24 Base Excess -2 O2 Saturation 99 O2 % 6.0 ABG pCO2 38.0 ABG pO2 116 H Ulysses Test Positive O2 Delivery Device Cannula Vent Mode Not entered Radiology Impression Chest X-Ray 03/27/23 11:40 IMPRESSION: Bibasilar infiltrates more prominent on the left side. Electronically Signed: Vinicio Naqvi MD at 12:16 EDT , Assessment & Plan Assessment/Plan (1) Hypoxia: (2) Sepsis: (3) Hypotension: (4) Severe anemia: (5) Transaminitis: (6) Coagulopathy: (7) Severe malnutrition: (8) Pneumonia: (9) Upper GI bleeding: (10) Acute kidney injury: (11) Poor fluid intake: (12) Leukocytosis: (13) Thrombocytosis: (14) Lactic acidosis: PLAN: Plan Sepsis secondary to suspected pneumonia -Meets sepsis criteria with shock liver, elevated serum creatinine, lactic acidosis, leukocytosis and a source -Has received 30 cc of IV fluids per kilogram in the emergency department and thus far blood pressure has been fluid responsive with current pressure 100/72 -Chest x-ray shows bilateral infiltrates -Check COVID-19 -Check respiratory viral panel -Check strep pneumo and Legionella antigens -Check CT of the chest -Ceftriaxone azithromycin initiated the emergency department and will continue on admission for now -Sputum, blood, urine cultures pending -Sepsis order set in place Hypoxia -Secondary to above -CT of the chest is pending -Continue antibiotics as above -I-S -Acapella as ordered -Duo nebs and as needed albuterol -Patient is not oxygen dependent at baseline but currently requiring 3 L to maintain oxygen saturations greater than 88% -Infectious work-up pending as noted above Lactic acidosis -4.9 on presentation -Likely multifactorial from hypotension and severe anemia -Repeat lactates per sepsis protocol Transaminitis -Likely related to shock liver -We will check acute hepatitis studies -Check Tylenol level -It appears that earlier this month his liver functions were within normal limits -Fluid resuscitation as above -Keep MAP greater than 65 -Check CT of the abdomen and pelvis without contrast due to renal function -GI consultation -Repeat CMP in a.m. BAKARI -Likely multifactorial from hypotension and severe anemia and dehydration/poor p.o. intake -Fluid resuscitation in progress and will continue IV fluids after boluses are completed -Hold home Flomax -We will hold on more extensive work-up for now but if does not improve may need further work-up including urine electrolytes and imaging -Place [place] -Patient does have history of nephrolithiasis -Baseline serum creatinine appears to be between 0.8 and 1 -Avoid nephrotoxins as able Coagulopathy -Etiology is unclear -May be from a liver disease versus poor nutrition -IV vitamin K x10 mg one-time -Repeat coags in a.m. Leukocytosis/thrombocytosis -Sepsis work-up in progress -Empiric antibiotics -Leukocytosis may also be related to dehydration and reactive from GI bleeding -Thrombocytosis could been from infection and anemia as well -We will trend Acute anemia -Hemoglobin earlier this month was greater than 11 -Currently 6.5 on presentation -Iron studies obtained and consistent with iron deficiency -We will dose with IV iron -Guaiac is positive -Cycle H&H every 6 hours -GI consultation GI bleed -Suspect upper -NG in place -History of peptic ulcer disease -Start Protonix drip after bolus -CT of chest/abdomen and pelvis is pending -Every 6 hour H&H's as above -GI consult pending-discussed with Dr. Calero Severe malnutrition/poor p.o. intake -Currently n.p.o. due to upper GI bleed -Dietitian consultation -We will likely require supplementation after p.o. can be reinitiated BPH -Hold home Flomax due to hypotension COPD -Hold home inhalers -As needed and scheduled aerosols as above History of nephrolithiasis -Imaging pending -Has had to have previous surgical intervention via lithotripsy Depression -Hold home Lexapro while n.p.o. and restart once able to start p.o. Tobacco abuse -Remote -Quit in 2019 with a [id number] history History of alcohol abuse -No use since 2013 History of cocaine abuse -Remote DVT prophylaxis -Subcu heparin 5000 units twice daily CODE STATUS Full code Sepsis Attestation Sepsis Alert: Yes Sepsis Attestation: Agree w/Sepsis Date exam was performed: 03/27/23 Time exam was performed: 13:55 Possible Source of Sepsis: Pulmonary Sepsis Organ Dysfunction Criteria Present: SBP < 90 mmHg or MAP < 65 mmHg, Creatinine > 2.0 mg/dL, INR > 1.5 or aPTT > 60 sec and Lactic Acid > 2 mmol/L Charges/Coding Visit Charges Inpatient E&M: 57374 Init Hosp L3
[2023-03-27] MEDS: Oxymetazoline 0.05% 1 SPRAY SPRAY.BTL 2 SPRAY NASAL (13:51)
[2023-03-27 13:52] LABS: Ferritin 267 ng/mL (26-388); Iron 20 ug/dL (65-175); Iron Binding Capacity,Total 315 ug/dL (250-450); PERCENT IRON SATURATION 6.3 % (15.0-55.0)
[2023-03-27 14:20] LABS: Acetaminophen (Tylenol) Level 4.5 ug/mL (10.0-30.0)
--- NOTE | 2023-03-27 14:25 | RAD_ITS ---
STUDY: X-RAY - ABDOMEN/PELVIS REASON FOR EXAM: Male, 67 years old. ng tube placement -- KUB with both diaphragms for NG/OG Verification TECHNIQUE: Single AP view of the abdomen / pelvis. COMPARISON: None. FINDINGS: The tip of the nasogastric tube is in the distal portion of the body of the stomach. There is an unremarkable bowel gas pattern. RAD/Abdomen Single View (Portable) IMPRESSION: The tip of the nasogastric tube is in the distal portion of the body of the stomach. Electronically Signed: Vinicio Naqvi MD at 14:41 EDT ,
[2023-03-27 15:47] LABS: Reflex Lactate? Y
[2023-03-27 17:12] LABS: Lactic Acid 1.4 mmol/L (0.4-1.9)
--- NOTE | 2023-03-27 17:38 | EX.PCM.CON.G ---
HPI Consult Data Date of Consult: 03/27/23 HPI Narrative Reason for Consultation: GI bleeding HPI Narrative: REGINALD LEVI, is a 67-year-old male with past medical history of COPD not on home oxygen, hypertension, weight loss presents via EMS with multiple complaints. His main issue is shortness of breath that he has had for at least the last few days if not longer. He states that his primary care provider is supposed to be doing a cancer work-up on him including CT scan and laboratory work. He states that with a history of bleeding ulcers, he has had vomiting over the last few days to weeks that is dark brown in color. Additionally, he has had black stools. His girlfriend/ at home called EMS today because he has not been feeling well and has been more short of breath. Per EMS, he was hypotensive in the 80s, and tachypneic. He may have had a low pulse ox as well. While he states that he has been short of breath, he does not see a emergency department, is a former smoker, and does not wear oxygen at home. He has had nausea and vomiting with intermittent abdominal pain worse in the epigastrium and right upper quadrant. His p.o. intake has been dramatically reduced and in the last 2 days he is really not had anything to eat or drink. His vomitus is been coffee-ground in nature and he believes his stool have been dark and tarry. He is concerned with his weight loss that he may have some kind of malignancy and states that he has seen a new primary care physician after he moved from [place] and they have been discussing work-up of detecting malignancy but nothing has been done as of yet. Vital signs- temperature of 97.2, heart rate 106, blood pressure of 53/38, respiratory rate was 19 and oxygen saturations were 81% on room air. He was placed on nasal cannula 6 L and his sats came up to 100%. S CBC shows a leukocytosis with a left shift. White count is 17.8, hemoglobin was 6.5 with most recent hemoglobin being greater than 11 earlier this month, platelet count is elevated at 519,000. He has an 85.8% neutrophilia. His coags are abnormal and patient does not take any medications to affect his coagulation status. INR was 1.8. An ABG was obtained and his pH was 7.39 with a PCO2 of 38, PO2 was 116 on 4 L nasal cannula. His chemistry panel showed normal electrolytes however his BUN and creatinine were markedly elevated at 66 and 2.09 (baseline serum creatinine is between 0.8 and 1.0). His liver functions are markedly elevated with an AST of 1138 and an ALT of 1162. [facility] Medical History Alcohol abuse Cataract COPD (chronic obstructive pulmonary disease) History of COVID-19 History of kidney stones History of pneumonia Tobacco abuse Ulcer Home Medications albuterol sulfate 90 mcg/actuation aerosol inhaler 2 puff inhalation Q6H PRN shortness of breath or wheezing #8.5 grams 02/14/23 [Rx Last Taken Unknown] fluticasone fur. 100 mcg-umeclid 62.5 mcg-vilant 25 mcg inhalat.powder (Trelegy Ellipta) 1 inh inhalation DAILY #28 ea 02/14/23 [Rx Last Taken Unknown] tamsulosin 0.4 mg capsule 0.4 mg PO DAILY #30 caps 02/14/23 [Rx Last Taken Unknown] albuterol sulfate 0.63 mg/3 mL solution for nebulization 0.63 mg (3 mL) inhalation Q6H PRN shortness of breath or wheezing #90 mL 03/08/23 [Rx Last Taken Unknown] blood pressure test kit-medium #1 ea 03/08/23 [Rx Last Taken Unknown] escitalopram oxalate 10 mg tablet (Lexapro) 10 mg PO DAILY #30 tabs 03/08/23 [Rx Last Taken Unknown] ipratropium bromide 0.02 % solution for inhalation 2.5 ml inhalation Q6H PRN shortness of breath or wheezing #150 mL 03/08/23 [Rx Last Taken Unknown] nebulizer and compressor (Comp-Air Nebulizer Compressor) #1 ea 03/08/23 [Rx Last Taken Unknown] Allergy/AdvReac Type Severity Reaction Status Date / Time No Known Allergies Allergy Verified 03/27/23 11:15 Family History Mother Heart disease Grandmother Cancer colon Surgical History History of eye surgery History of lithotripsy Social History household members: significant other current occupational status: retired current occupation: construction Smoking Status: Former smoker quit date: 04/10/19 pack-years: 90 Electronic Cigarette Use: not used alcohol intake: former year quit: 2012 substance use type: former substance user Date of last use: cocaine do you feel safe at home: Yes ROS Constitutional Constitutional: Reports anorexia, change in weight, fatigue, malaise and weakness; Denies chills, fever(s), night sweats or other Eyes Eyes: Denies blurry vision, change in eye color, change in vision, discharge from eye(s), double vision, erythema, eye pain, loss of vision or other ENT HEENT: Denies abnormal hearing, dysphagia, ear pain, epistaxis, headache(s), hearing loss, nasal congestion, nasal discharge, post nasal drip, sinus pressure, sore throat or other Cardiovascular Cardiovascular: Reports dyspnea on exertion; Denies chest pain, claudication, edema, lightheadedness, orthopnea, palpitations, paroxysmal nocturnal dyspnea, rapid heart rate, syncope or other Respiratory/Chest Respiratory/Chest: Reports cough, dyspnea, productive cough and shortness of breath with exertion; Denies excessive phlegm production, hemoptysis, shortness of breath at rest, wheezing or other Gastrointestinal Gastrointestinal: Reports abdominal pain, coffee ground emesis, dyspepsia, melena, nausea and vomiting; Denies constipation, diarrhea, hematemesis, hematochezia, loose stools or other Genitourinary Genitourinary: Reports difficulty urinating and urinary hesitancy; Denies burning urination, dysuria, hematuria, nocturia, urinary frequency, urinary incontinence, urinary urgency or other Musculoskeletal Musculoskeletal: Reports back pain; Denies arthralgias, joint pain, joint stiffness, joint swelling, myalgias, neck pain or other Neurologic Neurologic: Denies abnormal gait, abnormal speech, confusion, disequilibrium, dizziness, focal weakness, headache(s), numbness, paresthesias, seizure-like activity, seizures, syncope, tingling, tremor(s) or other Psychiatric Psychiatric: Reports depression; Denies anxiety, homicidal ideation, suicidal ideation or other Endocrine Endocrinology: Denies change in body appearance, cold intolerance, excessive sweating, heat intolerance, polydipsia, polyuria or other Hematologic/Lymphatic Hematologic/Lymphatic: Reports easy bruising; Denies anemia, easy bleeding, lymphadenopathy or other Allergic/Immunologic Allergic/Immunologic: Denies rhinitis, hives, eczemia, asthma or other Physical Exam Const alert, oriented x3 and no apparent distress; Negative for average body habitus, healthy appearing or well nourished Constitutional Narrative: Cachectic General Appearance: cooperative HEENT normocephalic, head/scalp atraumatic and hearing grossly normal bilaterally; Negative for moist oral mucous membranes or dentition normal HEENT Narrative: Dentition is poor, Mallampati is 1, no thrush, mucous membranes are exceedingly dry Eyes PERRL and EOMs intact bilaterally Eyes Narrative: Conjunctival are markedly pale, no scleral icterus Neck no lymphadenopathy, supple, no JVD and no carotid bruits Neck Narrative: Trachea midline, no thyroid enlargement Resp normal respiratory effort, no retractions and no use of accessory muscles Resp Narrative: Diffusely diminished but no adventitious sounds Auscultation: Negative for rales, rhonchi or wheezes Cardio regular rate, regular rhythm, S1 normal heart sound, S2 normal heart sound, no murmurs, no rub, no gallops and no clicks GI normal to inspection, nondistended, normoactive bowel sounds and soft to palpation GI Narrative: Mild tenderness in the epigastrium to right upper quadrant, scaphoid abdomen Extremity no clubbing, cyanosis or edema Extremity Narrative: Markedly reduced lean muscle mass Skin no rashes or lesions noted, no wounds, skin turgor normal, no jaundice, no petechiae and no mottling Skin Narrative: Few scattered tattoos, markedly pale Neuro oriented x3, CN's II-XII intact bilaterally, moves all extremities and no focal motor deficits Neuro Narrative: Significant generalized weakness noted with proximal musculature weaker than distal musculature upper and lower extremities bilaterally Speech: speech normal Psych affect normal Psych Narrative: Contact is good, patient interacts appropriately Lab / Micro Data 03/27/23 11:35 03/27/23 11:35 Labs: Laboratory Results - last 24 hr 03/27/23 11:35: WBC 17.8 H, RBC 2.69 L, Hgb 6.5 L, Hct 22.3 L, MCV 82.9, MCH 24.2 L, MCHC 29.1 L, RDW Std Deviation 63.4 H, RDW Coeff of Monalisa 21.0 H, Plt Count 519 H, MPV 9.9, Immature Gran % (Auto) 0.600, Neut % (Auto) 85.8 H, Lymph % (Auto) 8.1 L, Gage % (Auto) 4.8, Eos % (Auto) 0.3, Baso % (Auto) 0.4, Absolute Neuts (auto) 15.2 H, Absolute Lymphs (auto) 1.44, Nucleated RBC % 0.2, Anisocytosis 1+, PT 20.6 H, INR 1.8, APTT 39.5 H, Sodium 138, Potassium 4.3, Chloride 106, Carbon Dioxide 24.0, Anion Gap 8, BUN 66 H, Creatinine 2.09 H, Estim Creat Clear Calc 24.44, Est GFR (MDRD) Af Amer 41 L, Est GFR (MDRD) Non-Af 34 L, BUN/Creatinine Ratio 31.6 H, Glucose 126 H, Lactic Acid 4.9 H*, Calcium 8.5, Iron 20 L, TIBC 315, Iron Saturation 6.3 L, Ferritin 267, Total Bilirubin 0.60, AST 1139 H, ALT 1162 H, Alkaline Phosphatase 101, Troponin I High Sens 9, Total Protein 5.8 L, Albumin 2.1 L, Globulin 3.7, Albumin/Globulin Ratio 0.6 L, Acetaminophen 4.5 L, Blood Type O POSITIVE, Antibody Screen NEGATIVE, Crossmatch See Detail 03/27/23 12:15: Urine Color Yellow, Urine Clarity Sl. Cloudy, Urine pH 6.0, Ur Specific [place] 1.015, Urine Protein 30 H, Urine Glucose (UA) Normal, Urine Ketones 5 H, Urine Occult Blood 50 H, Urine Nitrite Negative, Urine Bilirubin 3 H, Urine Urobilinogen Normal, Ur Leukocyte Esterase 25 H, Urine RBC 5-10 SEEN, Urine WBC 0-5 SEEN, Ur Squamous Epith Cells 0 SEEN, Urine Bacteria RARE, Urine Mucus 0 SEEN 03/27/23 16:30: Lactic Acid 1.4 Micro: Microbiology 03/27/23 14:08 Nasal Secretion SARS-CoV-2 Antigen (Rapid) - Final 03/27/23 11:35 Stool Stool Occult Blood (PADMA) - Final Occult Blood Positive ABG Data ABG results: ABG 03/27/23 12:43 Specimen Type ART Sample Site L Radial pH 7.39 Bicarbonate Actual 23.1 Total CO2 24 Base Excess -2 O2 Saturation 99 O2 % 6.0 ABG pCO2 38.0 ABG pO2 116 H Ulysses Test Positive O2 Delivery Device Cannula Vent Mode Not entered Radiology Impression Chest X-Ray 03/27/23 11:40 IMPRESSION: Bibasilar infiltrates more prominent on the left side. Electronically Signed: Vinicio Naqvi MD at 12:16 EDT , Chest/Abdomen/Pelvis CT 03/27/23 13:28 IMPRESSION: 1. Chest: Mild patchy pneumonic infiltrates of the left upper lobe 2. COPD 3. Interstitial fibrosis 4. Colonic diverticulosis 5. Multiple bilateral kidney stones without hydronephrosis 6. High density fluid seen in the colon is presumably related to an [id number] oral preparation or small amount of oral contrast. If there is concern for GI bleeding obtained in rbc''s nuclear medicine scan or CTA exam for further assessment Electronically Signed: Jaskaran Hebert MD at 15:32 EDT , KUB X-Ray 03/27/23 14:25 IMPRESSION: The tip of the nasogastric tube is in the distal portion of the body of the stomach. Electronically Signed: Vinicio Naqvi MD at 14:41 EDT , Assessment & Plan Assessment/Plan (1) Hypoxia: (2) Sepsis: (3) Hypotension: (4) Severe anemia: (5) Transaminitis: (6) Coagulopathy: (7) Severe malnutrition: (8) Pneumonia: (9) Upper GI bleeding: (10) Acute kidney injury: (11) Poor fluid intake: (12) Leukocytosis: (13) Thrombocytosis: (14) Lactic acidosis: PLAN: Plan 67-year-old with progressive weight loss abdominal pain and melanotic stools who was discovered to have increased liver enzymes, anemia, lactic acidosis, acute kidney injury possibly secondary to underlying pneumonia. Transaminitis -Likely related to shock liver. Also the differential diagnosis would include ischemic hepatitis, autoimmune hepatitis, viral hepatitis. I will check ROBERT, ANCA, ESR, CRP, CPK and aldolase. -We will check acute hepatitis studies -Agree with Tylenol level -I will start on N-acetylcysteine GI bleed -Suspect upper -NG in place -History of peptic ulcer disease -Start Protonix drip after bolus -CT of chest/abdomen and pelvis is pending -Every 6 hour H&H's as above -Recommend EGD tomorrow Charges/Coding Visit Charges Inpatient E&M: 69841 Init Hosp L3
[2023-03-27] MEDS: Phytonadione (Vit K) 10 MG in 0.9% Normal Saline (50mL Bag) 50 ML 150 MG IV (18:26)
[2023-03-27] MEDS: 0.9% Saline Lock 10 ML Syringe IV (18:27)
[2023-03-27] MEDS: Pantoprazole Sodium 80 MG in 0.9% Normal Saline (50mL Bag) 15 ML 420 MG IV BOLUS (18:27)
[2023-03-27] MEDS: Pantoprazole Sodium 80 MG in 0.9% Normal Saline (100mL Bag) 80 ML 10 MG CONT INF (18:34)
[2023-03-27] MEDS: 0.9% Normal Saline (1000mL) 1,000 ML 75 ML IV (18:34)
[2023-03-27 18:48] LABS: AST(SGOT) 1171 U/L (15-37); Alanine Aminotransfer ALT/SGPT 1205 U/L (16-61); Albumin, Serum 2.2 g/dL (3.2-5.0); Alkaline Phosphatase 102 U/L (45-117); Bilirubin, Direct 0.22 mg/dL (0.00-0.30); Globulin 3.7 g/dL (2.2-4.2); Protein, Total 5.9 g/dL (6.4-8.2)
[2023-03-27] MEDS: Sodium Ferric Gluconat/Sucrose 250 MG in 0.9% Normal Saline (250mL Bag) 250 ML 135 MG IV (19:36)
[2023-03-27 21:04] LABS: Hemoglobin 8.9 g/dL (13.0-16.5)
[2023-03-27 21:24] LABS: Erythrocyte Sedimentation Rate 27 mm/hr (0-20)
[2023-03-28] VITALS (13 sets, daily range): BP systolic 116–160; BP diastolic 66–80; PULSE 84–98; RESP 14–20; TEMP 36.6–37.7; O2SAT 90–98
[2023-03-28] MEDS: Pantoprazole Sodium 80 MG in 0.9% Normal Saline (100mL Bag) 80 ML 10 MG CONT INF ×3 (02:15→23:43)
[2023-03-28] MEDS: 0.9% Normal Saline (1000mL) 1,000 ML 75 ML IV ×3 (05:44→23:43)
[2023-03-28 05:59] LABS: Absolute Lymphocyte Count 1.11 X10^3/uL (0.83-4.51); Absolute Neutrophil Count 14.6 X10^3/uL (2.0-7.7); Basophil% 0.6 % (0-1); Eosinophil# 0.38 X10^3/uL; Eosinophils% 2.2 % (0-5); Hematocrit 26.9 % (40-54); Hemoglobin 9.1 g/dL (13.0-16.5); Lymphocyte # 1.11 X10^3/ul (0.83-4.51); Lymphocyte % 6.4 % (19-41); Mean Corp Hgb Conc 33.8 g/dL (32-36); Mean Corpuscular Hgb 26.9 pg (27.0-32.0); Mean Corpuscular Volume 79.6 fL (80-94); Monocyte# 1.02 X10^3/uL; Monocyte% 5.9 % (0-10); NRBC Flagged by Analyzer 0 % (0-5); Neutrophil # 14.55 X10^3/uL (2.7-7.7); Platelet Count 367 K/mm3 (150-450); RBC Distribution Width CV 17.7 % (11.6-14.6); RBC Distribution Width SD 51.5 fl (35.1-43.9); Red Blood Count 3.38 M/mm3 (4.6-6.2); White Blood Count 17.3 K/mm3 (4.4-11.0)
[2023-03-28 06:08] LABS: International Normalized Ratio 1.5; Prothrombin Time (Protime)PT. 18.2 SECONDS (11.7-14.9)
[2023-03-28 06:33] LABS: ALB/GLOB Ratio 0.6 RATIO (0.9-2.4); AST(SGOT) 1160 U/L (15-37); Alanine Aminotransfer ALT/SGPT 1483 U/L (16-61); Alkaline Phosphatase 90 U/L (45-117); Anion Gap 7 (5-15); BUN 45 mg/dL (7-18); BUN/Creat Ratio 35.4 RATIO (10-20); Calcium,Total 7.3 mg/dL (8.5-10.1); Chloride 114 mmol/L (98-107); Creatinine, Serum 1.27 mg/dL (0.70-1.30); EST Glomerular Filtration Rate 60 mL/min (>60); Est Glom Filt Rate - Afr Amer 73 mL/min (>60); Estimated Creatinine Clearance 39.64 ml/min; Globulin 3.6 g/dL (2.2-4.2); Glucose 102 mg/dL (74-106); Magnesium 1.8 mg/dL (1.6-2.6); Phosphorus 1.4 mg/dL (2.5-4.9); Protein, Total 5.6 g/dL (6.4-8.2); Sodium Level 144 mmol/L (136-145)
[2023-03-28] MEDS: Sodium Ferric Gluconat/Sucrose 250 MG in 0.9% Normal Saline (250mL Bag) 250 ML 135 MG IV (09:25)
[2023-03-28] MEDS: Azithromycin 500 MG in Dextrose 5%-Water (250mL Bag) 250 ML 250 MG IV (09:26)
[2023-03-28] MEDS: 0.9% Saline Lock 10 ML Syringe IV ×2 (09:26→15:17)
[2023-03-28] MEDS: Ceftriaxone 2 GM in 0.9% Normal Saline (50mL MB+) 50 ML IV (10:54)
[2023-03-28] MEDS: Ipratropium/Albuterol Sulfate 3 ML AMPUL.NEB INHALATION (11:45)
--- NOTE | 2023-03-28 11:45 | EGD_PTH ---
PATIENT: REGINALD PAEZ LOC: [facility] U#:[id number] AGE/SX: 67/M ROOM: [facility] RE03/27/[address]: Dr. Enoch Reyes DO : 1955 BED: 1 DIS: 04/06/2023 SPEC #: [id number] RECD: 03/28/23 13:48 STATUS: ROXANA YUEN #: [id number] ARCADIO: 03/28/23 11:[address]: Kory Calero DEPT: SURGICAL PATHOLOGY RECD BY: Rahul Brito ENTERED: 03/29/23 07:38 SP TYPE: EGD BIOPSY [facility] DR: MD Dr. Cristina Raines DO Dr. Nicholas F Kotsonis, MD Tissues: Duodenum, NOS Procedures: Surgery Specimen Level IV HEADER OPERATION: EGD, biopsy PRE-OP DIAGNOSIS: Hypoxia, sepsis, severe anemia, severe malnutrition, upper GI bleeding TISSUE SUBMITTED: Duodenal bulb ulcer biopsy MICROSCOPIC DIAGNOSIS Duodenal bulb ulcer, biopsy: Fragments of duodenal mucosa with focal ulceration and associated acute inflammation. RANDALL:mic 03/30/2023 MICROSCOPIC DESCRIPTION Slides are reviewed. GROSS DESCRIPTION Received in fixative is one container labeled with the patient's name and designated duodenal bulb ulcer biopsy. The specimen consists of two irregular fragments of light davidson soft tissue that in aggregate measure 0.7 x 0.3 x 0.1 cm. The specimen is totally submitted in one cassette. / AM:mic 03/29/2023 TC:2 CPT: 40421
--- NOTE | 2023-03-28 12:50 | OP.CCLET_ITS ---
03/28/2023 Peggy Uribe Md Re : Upper GI endoscopy procedure for Yasir Acevedo Dear Rony This procedure was performed on Tuesday, March 28, 2023. My impressions and recommendations are as follows: Impressions : - Medium-sized hiatal hernia. - Normal stomach. - Oozing duodenal ulcer with a visible vessel. Injected. - Oozing duodenal ulcer with a visible vessel. Treated with a monopolar probe. - Non-bleeding duodenal ulcer with no stigmata of bleeding. Biopsied. - Chronic duodenitis. Recommendations : - [facility]. - Clear liquid diet. - Continue present medications. - Await pathology results. - Full liquids - Carafate 1 gm three times a day - Protonix 40mg IV Q12 -Gastric Emptying study -Possible Duodenal stent My findings are described in the full procedure note, which is enclosed. If I can be of further assistance, please feel free to contact me at . Sincerely, Kory Calero, 03/28/2023 12:50:15 PM This report has been signed electronically.
--- NOTE | 2023-03-28 12:50 | OP.EGD_ITS ---
Patient Name: Yasir Acevedo Procedure Date: 03/28/2023 12:14 PM Date of : 1955 Age: 67 Procedure: Upper GI endoscopy Indications: Iron deficiency anemia Providers: Kory Calero DO Medicines: Monitored Anesthesia Care Complications: No immediate complications. Procedure: Pre-Anesthesia Assessment: - Prior to the procedure, a History and Physical was performed, and patient medications and allergies were reviewed. The risks and benefits of the procedure and the sedation options and risks were discussed with the patient. All questions were answered and informed consent was obtained. Patient identification and proposed procedure were verified by the physician in the pre-procedure area. Mental Status Examination: alert and oriented. Airway Examination: normal oropharyngeal airway and neck mobility. Respiratory Examination: clear to auscultation. CV Examination: normal. Prophylactic Antibiotics: The patient does not require prophylactic antibiotics. Prior Anticoagulants: The patient has taken no anticoagulant or antiplatelet agents. ASA Grade Assessment: III - A patient with severe systemic disease. After reviewing the risks and benefits, the patient was deemed in satisfactory condition to undergo the procedure. The anesthesia plan was to use monitored anesthesia care (MAC). Immediately prior to administration of medications, the patient was re-assessed for adequacy to receive sedatives. The heart rate, respiratory rate, oxygen saturations, blood pressure, adequacy of pulmonary ventilation, and response to care were monitored throughout the procedure. The physical status of the patient was re-assessed after the procedure. After obtaining informed consent, the endoscope was passed under direct vision. Throughout the procedure, the patient's blood pressure, pulse, and oxygen saturations were monitored continuously. The gastroscope was introduced through the mouth, and advanced to the second part of duodenum. The upper GI endoscopy was accomplished without difficulty. The patient tolerated the procedure well. Scope In: 12:25:32 PM Scope Out: 12:34:41 PM Total Procedure Duration Time 0 hours 9 minutes 9 seconds Findings: A medium-sized hiatal hernia was present. The entire examined stomach was normal. One oozing cratered duodenal ulcer with a visible vessel was found in the duodenal bulb. The lesion was 21 mm in largest dimension. Area was successfully injected with 9 mL of a 0.1 mg/mL solution of epinephrine for drug delivery. Estimated blood loss was minimal. One oozing cratered duodenal ulcer with a visible vessel was found in the duodenal bulb. The lesion was 4 mm in largest dimension. Coagulation for hemostasis using monopolar probe was successful. One non-bleeding cratered duodenal ulcer with no stigmata of bleeding was found in the duodenal bulb. The lesion was 5 mm in largest dimension. Biopsies were taken with a cold forceps for histology. Verification of patient identification for the specimen was done. Estimated blood loss was minimal. Diffuse moderate inflammation characterized by congestion (edema), erosions, erythema, friability and granularity was found in the first portion of the duodenum, in the second portion of the duodenum and in the third portion of the duodenum. Impression: - Medium-sized hiatal hernia. - Normal stomach. - Oozing duodenal ulcer with a visible vessel. Injected. - Oozing duodenal ulcer with a visible vessel. Treated with a monopolar probe. - Non-bleeding duodenal ulcer with no stigmata of bleeding. Biopsied. - Chronic duodenitis. Recommendation: - Return patient to [facility] for ongoing care. - Clear liquid diet. - Continue present medications. - Await pathology results. - Full liquids - Carafate 1 gm three times a day - Protonix 40mg IV Q12 -Gastric Emptying study -Possible Duodenal stent Procedure Code(s): --- Professional --- 18775, 59, Esophagogastroduodenoscopy, flexible, transoral; with control of bleeding, any method 34810, Esophagogastroduodenoscopy, flexible, transoral; with biopsy, single or multiple 11598, 59,51, Esophagogastroduodenoscopy, flexible, transoral; with directed submucosal injection(s), any substance CPT copyright 2021 [employer]. All rights reserved. The codes documented in this report are preliminary and upon application development specialist review may be revised to meet current compliance requirements. Kory Calero DO 03/28/2023 12:50:15 PM This report has been signed electronically. Number of Addenda: 0 Note Initiated On: 03/28/2023 12:14 PM
--- NOTE | 2023-03-28 13:18 | CT_ITS ---
STUDY: CTA ABDOMEN AND PELVIS WITH CONTRAST REASON FOR EXAM: Male, 67 years old. Duodenal ulcer RADIATION DOSAGE (If Supplied By Facility): CTDIvol = ( 20.99 ) mGy, DLP = ( 310.61 ) mGycm TECHNIQUE: Transaxial images were obtained from the dome of the diaphragm to the symphysis pubis without oral contrast. IV 100mL Isovue-370 was administered. Sagittal and coronal images were reconstructed. 3-D images were reconstructed. Individualized dose optimization techniques were used for this CT. COMPARISON: Comparison is made with prior examination dated March 27, 2023. FINDINGS: Patchy infiltrate is seen in the posterior aspect of the lingular segment of the left upper lobe as well as small left pleural effusion and left basilar infiltrate. Mild increased markings at the right lung base. The visualized portions of the heart are within normal limits. There is decreased attenuation of the liver consistent with steatosis. Normal gallbladder and extrahepatic biliary system. There are multiple benign calcified granulomata of the spleen. Normal pancreas. Normal bilateral adrenal glands. Stable multiple bilateral renal cysts. The largest cyst in the right kidney measures 6.6 cm x 7.6 cm. This is at the upper pole. The largest cyst in the left kidney measures 6.3 cm x 5.5 cm in the posterior upper pole of the left kidney. There is evidence of bilateral cortical thinning. Once again, there are multiple nonobstructive bilateral intrarenal calculi. Normal visualized stomach. Normal small intestine. There is diverticulosis, with thickening of the colon wall, and pericolonic inflammation changes consistent with acute diverticulitis. There is non-visualization of the appendix. There is diffuse atherosclerotic calcification of the abdominal aorta, without a demonstrated aneurysm. Normal inferior vena cava. Normal retroperitoneum. A Guadalupe catheter is seen within the urinary bladder. There is a mild degree of diffuse bladder wall thickening. Normal abdominal wall. Demineralization of the lumbar vertebrae. Almost complete collapse of the L3 vertebrae with loss of height of the L1 vertebrae. CT/CTA Abd/Pelvis W/WO Contrast IMPRESSION: Left lower lobe and lingular infiltrates with small left pleural effusion. Mild increased markings at the right lung base. Diffuse fatty infiltration of the liver. Mild degree of sigmoid diverticulitis. Diffuse atherosclerotic calcification of the abdominal aorta. Multiple bilateral renal cysts as well as nonobstructive bilateral intrarenal calculi. Electronically Signed: Vinicio Naqvi MD at 15:13 EDT ,
--- NOTE | 2023-03-28 15:32 | PN.HOSP_ITS ---
Reason for Visit Reason for Visit: Diagnoses Sepsis, unspecified organism (03/27/23) Anemia, unspecified (03/27/23) Coagulation defect, unspecified (03/27/23) Elevated white blood cell count, unspecified (03/27/23) Thrombocytosis, unspecified (03/27/23) Unspecified severe protein-calorie malnutrition (03/27/23) Acidosis, unspecified (03/27/23) Hypotension, unspecified (03/27/23) Pneumonia, unspecified organism (03/27/23) Gastrointestinal hemorrhage, unspecified (03/27/23) Acute kidney failure, unspecified (03/27/23) Hypoxemia (03/27/23) Other symptoms and signs concerning food and fluid intake (03/27/23) Elevation of levels of liver transaminase levels (03/27/23) Subjective Subjective Feels a little bit better today he had his EGD which demonstrated some duodenal ulcers Objective Data Objective Data Vital Signs: Vital Signs Temp Pulse Resp BP Pulse Ox O2 Del Method O2 Flow Rate 98 F 88 18 135/76 H 94 Nasal Cannula 2 03/28/23 15:14 03/28/23 15:14 03/28/23 15:14 03/28/23 15:14 03/28/23 15:14 03/28/23 15:14 03/28/23 15:14 Oxygen Flow Rate (L/min) 2 Oxygen Delivery Method Nasal Cannula Weight: 108 lb Body Mass Index (BMI) 18.5 Intake & Output: Intake and Output for Last 24 Hours 03/27/23 03/28/23 03/29/23 03:59 03:59 03:59 Intake Total 3535.33 / 3535.33 2613.50 / 2613.50 Output Total 725 / 725 1500 / 1500 Balance 2810.33 / 2810.33 1113.50 / 1113.50 Lab / Micro Data 03/28/23 05:46 03/28/23 05:46 Labs: Laboratory Results - last 24 hr 03/27/23 11:35: Total Bilirubin 0.60, Direct Bilirubin 0.22, AST 1171 H, ALT 1205 H, Alkaline Phosphatase 102, C-React Prot Ext Range 99.40 H, Total Protein 5.9 L, Albumin 2.2 L, Globulin 3.7, Antibody Screen NEGATIVE, Crossmatch See Detail 03/27/23 16:30: Lactic Acid 1.4 03/27/23 20:45: Hgb 8.9 L, ESR 27 H 03/27/23 : Hgb Cancelled 03/28/23 01:30: Hgb 9.0 L 03/28/23 05:46: WBC 17.3 H, RBC 3.38 L, Hgb 9.1 L, Hct 26.9 L, MCV 79.6 L, MCH 26.9 L, MCHC 33.8 D, RDW Std Deviation 51.5 H, RDW Coeff of Monalisa 17.7 H, Plt Count 367, MPV 9.0, Immature Gran % (Auto) 0.900, Neut % (Auto) 84.0 H, Lymph % (Auto) 6.4 L, [place] % (Auto) 5.9, Eos % (Auto) 2.2, Baso % (Auto) 0.6, Absolute Neuts (auto) 14.6 H, Absolute Lymphs (auto) 1.11, Nucleated RBC % 0, PT 18.2 H, INR 1.5, Sodium 144, Potassium 3.0 L, Chloride 114 H, Carbon Dioxide 23.0, Anion Gap 7, BUN 45 H, Creatinine 1.27, Estim Creat Clear Calc 39.64, Est GFR (MDRD) Af Amer 73, Est GFR (MDRD) Non-Af 60, BUN/Creatinine Ratio 35.4 H, Glucose 102, Calcium 7.3 L, Phosphorus 1.4 L, Magnesium 1.8, Total Bilirubin 0.40, AST 1160 H , ALT 1483 H, Alkaline Phosphatase 90, Total Protein 5.6 L, Albumin 2.0 L, Glob ulin 3.6, Albumin/Globulin Ratio 0.6 L Micro: Microbiology 03/27/23 12:15 Urine Catheter - [facility]upe Legionella Antigen - Final 03/27/23 12:15 Urine Catheter - [facility] Streptococcus pneumoniae Antigen (M - Final 03/27/23 15:12 Mucosa - Nose Respiratory Panel (PCR) - Final 03/27/23 14:08 Nasal Secretion SARS-CoV-2 Antigen (Rapid) - Final 03/27/23 11:35 Stool Stool Occult Blood (PADMA) - Final Occult Blood Positive Radiography Diagnostic Testing: Radiology Impression Chest/Abdomen/Pelvis CT 03/27/23 13:28 IMPRESSION: 1. Chest: Mild patchy pneumonic infiltrates of the left upper lobe 2. COPD 3. Interstitial fibrosis 4. Colonic diverticulosis 5. Multiple bilateral kidney stones without hydronephrosis 6. High density fluid seen in the colon is presumably related to an [id number] oral preparation or small amount of oral contrast. If there is concern for GI bleeding obtained in rbc''s nuclear medicine scan or CTA exam for further assessment Electronically Signed: Jaskaran Hebert MD at 15:32 EDT , Abdomen/Pelvis CTA 03/28/23 13:18 IMPRESSION: Left lower lobe and lingular infiltrates with small left pleural effusion. Mild increased markings at the right lung base. Diffuse fatty infiltration of the liver. Mild degree of sigmoid diverticulitis. Diffuse atherosclerotic calcification of the abdominal aorta. Multiple bilateral renal cysts as well as nonobstructive bilateral intrarenal calculi. Electronically Signed: Vinicio Naqvi MD at 15:13 EDT , Physical Exam Narrative General: Alert, Oriented x3, Cooperative, No apparent distress HEENT: Atraumatic, PERRLA, EOMI, Normocephalic Oral: Moist Mucosa Neck: Supple, No JVD Lungs: Diminished, Normal air movement, No rhonchi, No wheeze, No rales Cardiovascular: Regular rate, Regular Rhythm, Normal S1, Normal S2, No murmurs Abdomen: Soft, Non Tender, Non-Distended, No Hepato-splenomegaly Extremities: No edema, Capillary Refill Less than 3 Seconds Skin: No rashes, No breakdown Musculoskeletal: No Tenderness to Palpation of Joints or Extremities Neurological: Cranial nerves II-XII grossly intact, Motor Exam 5/5 strength throughout, Sensory exam intact to light touch and pain Psych/Mental Status: Normal Affect, Appropriate Assessment & Plan Assessment/Plan (1) Hypoxia: (2) Sepsis: (3) Pneumonia: (4) Upper GI bleeding: (5) Acute kidney injury: PLAN: Plan 1. Sepsis secondary to community-acquired pneumonia with hypoxia in the setting of COPD/transaminitis from likely shock liver with coagulopathy/BAKARI ? He did receive sepsis fluids in the ER ? Viral studies are negative ? Continue with antibiotics ? Legionella antigen and streptococcal antigen are negative, sputum culture still pending ? Appreciate gastroenterology's assistance with both his transaminitis and likely GI bleed ? BAKARI has resolved we will monitor ? INR improved to 1.5 after the vitamin K, this could be due to malnutrition 2. Upper GI bleed with acute blood loss anemia ? Hemoglobin appears to be stable after transfusion ? Also received IV iron ? EGD demonstrates duodenal ulcers with visible vessel that was treated, will continue with PPI ? Appreciate gastroenterology's since 3. Severe malnutrition with poor p.o. intake ? Consult nutrition 4. Anxiety/depression ? Stable ? Can resume home medications 5. BPH ? Stable ? Can resume Flomax as he is able to take p.o. and blood pressures stabilized DVT: SCDs Charges/Coding Visit Charges Inpatient E&M: 03403 Subs Hosp L2
--- NOTE | 2023-03-28 18:07 | CASEMGMT ---
Social Work Attempted to meet with patient for initial CM/SW discharge planning assessment. Patient was on the phone and asked this tech writer to complete at a later time. Let patient know someone would be back on 03.29.23. Patient agreeable. -CK Alves
[2023-03-29] VITALS (21 sets, daily range): BP systolic 84–144; BP diastolic 43–89; PULSE 83–110; RESP 14–18; TEMP 36.3–37.3; O2SAT 92–100
[2023-03-29] MEDS: 0.9% Saline Lock 10 ML Syringe IV ×3 (09:35→17:08)
[2023-03-29] MEDS: Ceftriaxone 2 GM in 0.9% Normal Saline (50mL MB+) 50 ML IV (09:35)
[2023-03-29] MEDS: Azithromycin 500 MG in Dextrose 5%-Water (250mL Bag) 250 ML 250 MG IV (09:43)
[2023-03-29] MEDS: Pantoprazole Sodium 80 MG in 0.9% Normal Saline (100mL Bag) 80 ML 100 MG CONT INF (10:24)
[2023-03-29] MEDS: Sodium Ferric Gluconat/Sucrose 250 MG in 0.9% Normal Saline (250mL Bag) 250 ML 135 MG IV (10:25)
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
[2023-03-29] MEDS: 0.9% Normal Saline (1000mL) 1,000 ML 75 ML IV (12:17)
[2023-03-29] MEDS: Ipratropium/Albuterol Sulfate 3 ML AMPUL.NEB INHALATION (12:58)
[2023-03-29 13:07] LABS: Anti-Centromere B Ab <0.2 AI (0.0-0.9); Anti-Chromatin 2.2 AI (0.0-0.9); Anti-Jo <0.2 AI (0.0-0.9); Anti-Scleroderma-70 AB 1.6 AI (0.0-0.9); Anti-dsDNA Ab <1 IU/mL (0-9); RNP Ab 0.3 AI (0.0-0.9); SJOGREN'S Anti-SS-A test < 0.2 AI (0.0-0.9); SJOGREN'S Anti-SS-B test < 0.2 AI (0.0-0.9); Smith Ab <0.2 AI (0.0-0.9)
--- NOTE | 2023-03-29 13:10 | RAD_ITS ---
PROCEDURE: Duodenal stent placement. DATE OF EXAMINATION: March 29, 2023 INDICATION: Male, 67 years old. Duodenal ulcer. FLUOROSCOPY TIME (if supplied): (34.3 seconds) minutes/seconds. 4.3 mGy. 6 images were submitted. RAD/Fluoroscopy 1 Hr or Less IMPRESSION: Fluoroscopic imaging provided for endoluminal stent grafting of the duodenum. Electronically Signed: Vinicio Naqvi MD at 14:42 EDT ,
[2023-03-29] MEDS: 0.9% Normal Saline (Pres. free 10 ML Vial (14:20)
[2023-03-29] MEDS: Epinephrine (1 mg/ml) 1 MG/ML VIAL (14:20)
[2023-03-29 14:53] LABS: Hemoglobin 6.5 g/dL (13.0-16.5)
--- NOTE | 2023-03-29 15:03 | OP.EGD_ITS ---
Patient Name: Yasir Acevedo Procedure Date: 03/29/2023 12:48 PM Date of : 1955 Age: 67 Procedure: Upper GI endoscopy Indications: Epigastric abdominal pain, Melena, Stenosis of the duodenum Providers: Kory Calero DO Medicines: Monitored Anesthesia Care Patient Profile: This is a 67 year old male. Refer to note in patient chart for documentation of history and physical. Patient has symptoms of acute epigastric abdominal pain. His most recent EGD for treatment of bleeding was recently. Complications: No immediate complications. Procedure: Pre-Anesthesia Assessment: - Prior to the procedure, a History and Physical was performed, and patient medications and allergies were reviewed. The patient is competent. The risks and benefits of the procedure and the sedation options and risks were discussed with the patient. All questions were answered and informed consent was obtained. Patient identification and proposed procedure were verified by the physician. Mental Status Examination: alert and oriented. Airway Examination: normal oropharyngeal airway and neck mobility. Prophylactic Antibiotics: The patient does not require prophylactic antibiotics. Prior Anticoagulants: The patient has taken no anticoagulant or antiplatelet agents. ASA Grade Assessment: III - A patient with severe systemic disease. After reviewing the risks and benefits, the patient was deemed in satisfactory condition to undergo the procedure. The anesthesia plan was to use monitored anesthesia care (MAC). Immediately prior to administration of medications, the patient was re-assessed for adequacy to receive sedatives. The heart rate, respiratory rate, oxygen saturations, blood pressure, adequacy of pulmonary ventilation, and response to care were monitored throughout the procedure. The physical status of the patient was re-assessed after the procedure. After obtaining informed consent, the endoscope was passed under direct vision. Throughout the procedure, the patient's blood pressure, pulse, and oxygen saturations were monitored continuously. The Endoscope was introduced through the mouth, and advanced to the second part of duodenum. The upper GI endoscopy was accomplished without difficulty. The patient tolerated the procedure well. Scope In: 1:17:42 PM Scope Out: 2:24:45 PM Total Procedure Duration Time 1 hour 7 minutes 3 seconds Findings: The examined esophagus was normal. A medium-sized hiatal hernia was present. Red blood was found in the stomach. One spurting cratered duodenal ulcer with a visible vessel was found in the duodenal bulb. The lesion was 30 mm in largest dimension. Area was successfully injected with 10 mL of a 0.1 mg/mL solution of epinephrine for drug delivery. Estimated blood loss was minimal. Coagulation for hemostasis using heater probe was successful. Estimated blood loss was minimal. An acquired benign-appearing, intrinsic severe stenosis was found in the duodenal bulb and was traversed after dilation. A TTS dilator was passed through the scope. Dilation with a 15 mm pyloric balloon dilator was performed under fluoroscopic guidance. The dilation site was examined and showed moderate improvement in luminal narrowing. Estimated blood loss was minimal. This was stented with a 22 mm x 9 cm WallFlex stent under fluoroscopic guidance. Estimated blood loss was minimal. Impression: - Normal esophagus. - Medium-sized hiatal hernia. - Red blood in the stomach. - Spurting duodenal ulcer with a visible vessel. Injected. Treated with a heater probe. - No specimens collected. Recommendation: - [facility] patient to [facility] for [facility] care. - Clear liquid diet. - Continue present medications. Procedure Code(s): --- Professional --- 24682, Esophagogastroduodenoscopy, flexible, transoral; with placement of endoscopic stent (includes pre- and post-dilation and guide wire passage, when performed) 63463, 59, Esophagogastroduodenoscopy, flexible, transoral; with control of bleeding, any method 50903, 59, Esophagogastroduodenoscopy, flexible, transoral; with directed submucosal injection(s), any substance 76662, 26, Intraluminal dilation of strictures and/or obstructions (eg, esophagus), radiological supervision and interpretation CPT copyright 2021 [employer]. All rights reserved. The codes documented in this report are preliminary and upon certified medical records coder review may be revised to meet current compliance requirements. Kory Calero DO 03/29/2023 3:03:42 PM This report has been signed electronically. Number of Addenda: 0 Note Initiated On: 03/29/2023 12:48 PM
--- NOTE | 2023-03-29 15:04 | OP.CCLET_ITS ---
03/29/2023 Peggy Uribe Md Re : Upper GI endoscopy procedure for Yasir Acevedo Dear Rony This procedure was performed on March. My impressions and recommendations are as follows: Impressions : - Normal esophagus. - Medium-sized hiatal hernia. - Red blood in the stomach. - Spurting duodenal ulcer with a visible vessel. Injected. Treated with a heater probe. - No specimens collected. Recommendations : - Return patient to [facility] for ongoing care. - Clear liquid diet. - Continue present medications. My findings are described in the full procedure note, which is enclosed. If I can be of further assistance, please feel free to contact me at . Sincerely, Kory Calero, 03/29/2023 3:03:42 PM This report has been signed electronically.
--- NOTE | 2023-03-29 15:31 | PN.HOSP_ITS ---
Subjective Subjective No issues overnight, was seen after his EGD and he is sleepy from anesthesia Objective Data Objective Data Vital Signs: Vital Signs Temp Pulse Resp BP Pulse Ox O2 Del Method O2 Flow Rate 97.4 F L 104 H 16 137/65 H 97 Nasal Cannula 2 03/29/23 15:11 03/29/23 15:11 03/29/23 15:11 03/29/23 15:11 03/29/23 15:11 03/29/23 15:11 03/29/23 15:11 Oxygen Flow Rate (L/min) 2 Oxygen Delivery Method Nasal Cannula Weight: 108 lb 0.001 oz Body Mass Index (BMI) 18.5 Intake & Output: Intake and Output for Last 24 Hours 03/28/23 03/29/23 03/30/23 03:59 03:59 03:59 Intake Total 3535.33 / 3535.33 3441.58 / 3441.58 1347.5 / 1347.5 Output Total 725 / 725 2600 / 2600 1700 / 1700 Balance 2810.33 / 2810.33 841.58 / 841.58 -352.5 / -352.5 Medical Nutrition Assessment Dietitian: Malnutrition Criteria Met Start: 03/28/23 15:40 Freq: Status: Active Protocol: Document 03/28/23 15:51 AG (Rec: 03/28/23 15:51 AG [id number]) Nutrition Malnutrition Evidence of Malnutrition Exists Yes Malnutrition (severe): Chronic Evidenced By Suboptimal Energy Intake ( Severe),Physical Changes ( Severe) Clinical Problem Chronic Disease or Condition Related Malnutrition Etiology severe chronic malnutrition related to inadequate energy intake w/ possible increased energy needs d/t COPD, GI dysfunction Signs/Symptoms as evidenced by estimated PO intake meeting <75% of estimated energy needs > 3 months, severe muscle wasting/ fat loss per physical exam, BMI 18.5 Status Active Problem Recommendation Dietitian Recommendations/Changes recommend advance diet as tolerated to regular; ensure w / medpass when PO diet is advanced. Lab / Micro Data 03/29/23 14:08 03/28/23 05:46 Labs: Laboratory Results - last 24 hr 03/27/23 20:45: GAGE-1 Antibody <0.2, SS-A/Ro IgG Antibody < 0.2, SS-B/La IgG Anti body < 0.2, Sm ([place]) Antibody <0.2, ALPINE PATROLLER Antibody 0.3, Scl-70 Scleroderma Ab 1.6 H, Double Strand DNA Ab <1, Centromere B Antibody <0.2 03/29/23 14:08: Hgb 6.5 L, Hct 20.0 L Micro: Microbiology 03/27/23 12:15 Urine Catheter - [facility] Urine Culture - Final Culture exhibits no growth. 03/27/23 11:35 Blood Culture (Wb) - Anticubital Left Blood Culture - Preliminary No growth in 48 hours. 03/27/23 11:35 Blood Culture (Wb) - Anticubital Right Blood Culture - Preliminary No growth in 48 hours. 03/27/23 12:15 Urine Catheter - [facility]upe Legionella Antigen - Final 03/27/23 12:15 Urine Catheter - [facility] Streptococcus pneumoniae Antigen (M - Final 03/27/23 15:12 Mucosa - Nose Respiratory Panel (PCR) - Final 03/27/23 14:08 Nasal Secretion SARS-CoV-2 Antigen (Rapid) - Final 03/27/23 11:35 Stool Stool Occult Blood (PADMA) - Final Occult Blood Positive Radiography Diagnostic Testing: Radiology Impression Fluoroscopy 03/29/23 13:10 IMPRESSION: Fluoroscopic imaging provided for endoluminal stent grafting of the duodenum. Electronically Signed: Vinicio Naqvi MD at 14:42 EDT , Physical Exam Narrative General: Drowsy as he is returning from EGD, Cooperative, No apparent distress HEENT: Atraumatic, PERRLA, EOMI, Normocephalic Oral: Moist Mucosa Neck: Supple, No JVD Lungs: Diminished, Normal air movement, No rhonchi, No wheeze, No rales Cardiovascular: Tachycardic, Regular Rhythm, Normal S1, Normal S2, No murmurs Abdomen: Soft, Non Tender, Non-Distended, No Hepato-splenomegaly Extremities: No edema, Capillary Refill Less than 3 Seconds Skin: No rashes, No breakdown Musculoskeletal: No Tenderness to Palpation of Joints or Extremities Neurological: Cranial nerves II-XII grossly intact, Motor Exam 5/5 strength throughout, Sensory exam intact to light touch and pain Psych/Mental Status: Normal Affect, Appropriate Assessment & Plan Assessment/Plan (1) Hypoxia: (2) Sepsis: (3) Pneumonia: (4) Upper GI bleeding: (5) Acute kidney injury: PLAN: Plan 1. Sepsis secondary to community-acquired pneumonia with hypoxia in the setting of COPD/transaminitis from likely shock liver with coagulopathy/BAKARI ? He did receive sepsis fluids in the ER ? Viral studies are negative ? Continue with antibiotics ? Legionella antigen and streptococcal antigen are negative, sputum culture still pending ? Appreciate gastroenterology's assistance with both his transaminitis and GI bleed ? BAKARI has resolved we will monitor ? INR improved to 1.5 after the vitamin K, this could be due to malnutrition 2. Upper GI bleed with acute blood loss anemia ? Hemoglobin dropped to 6.5 today we will transfuse another 2 units on top of the 2 he received in the ER on admission ? Also received IV iron ? EGD demonstrates duodenal ulcers with visible vessel that was treated, will continue with PPI ? Appreciate gastroenterology's assistance, had a repeat EGD today for possible stent placement and was found to have another duodenal ulcer that was bleeding that was treated. 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 Severe malnutrition with poor p.o. intake ? Consult nutrition 4. Anxiety/depression ? Stable ? Can resume home medications 5. BPH ? Stable ? Can resume Flomax as he is able to take p.o. and blood pressures stabilized DVT: SCDs Charges/Coding Visit Charges Inpatient E&M: 25712 Subs Hosp L2
[2023-03-29] MEDS: Ensure Clear 120 ML Liquid PO (17:07)
[2023-03-29] MEDS: Potassium Phosphate 30 MM in 0.9% Normal Saline (250mL Bag) 250 ML 42 MM IV (17:07)
[2023-03-29] MEDS: HYDROmorphone Inj 0.2 MG/ML SYRINGE IV (20:55)
[2023-03-29] MEDS: Pantoprazole Sodium 80 MG in 0.9% Normal Saline (100mL Bag) 80 ML 10 MG CONT INF (20:55)
[2023-03-30] VITALS (11 sets, daily range): BP systolic 117–147; BP diastolic 61–70; PULSE 86–89; RESP 16–18; TEMP 36.5–37.3; O2SAT 94–100
[2023-03-30] MEDS: HYDROmorphone Inj 0.2 MG/ML SYRINGE IV ×7 (01:16→23:22)
[2023-03-30] MEDS: Pantoprazole Sodium 80 MG in 0.9% Normal Saline (100mL Bag) 80 ML 10 MG CONT INF ×2 (05:30→16:26)
[2023-03-30 06:27] LABS: Absolute Lymphocyte Count 0.76 X10^3/uL (0.83-4.51); Absolute Neutrophil Count 11.2 X10^3/uL (2.0-7.7); Basophil# 0.12 X10^3/uL; Basophil% 0.8 % (0-1); Eosinophil# 0.55 X10^3/uL; Eosinophils% 3.8 % (0-5); Hematocrit 29.5 % (40-54); Hemoglobin 9.6 g/dL (13.0-16.5); Lymphocyte # 0.76 X10^3/ul (0.83-4.51); Lymphocyte % 5.2 % (19-41); Mean Corp Hgb Conc 32.5 g/dL (32-36); Mean Corpuscular Hgb 27.3 pg (27.0-32.0); Mean Corpuscular Volume 83.8 fL (80-94); Mean Platelet Vol. 9.5 fl (6.2-12.0); Monocyte# 1.45 X10^3/uL; Monocyte% 9.9 % (0-10); NRBC Flagged by Analyzer 0.8 % (0-5); Neutrophil # 11.24 X10^3/uL (2.7-7.7); Neutrophil % 76.9 % (47-70); Platelet Count 339 K/mm3 (150-450); RBC Distribution Width SD 54.2 fl (35.1-43.9); Red Blood Count 3.52 M/mm3 (4.6-6.2); White Blood Count 14.6 K/mm3 (4.4-11.0)
[2023-03-30 06:54] LABS: International Normalized Ratio 1.1; Prothrombin Time (Protime)PT. 14.3 SECONDS (11.7-14.9)
[2023-03-30 06:57] LABS: Anion Gap 4 (5-15); BUN 15 mg/dL (7-18); BUN/Creat Ratio 18.1 RATIO (10-20); Calcium,Total 7.3 mg/dL (8.5-10.1); Chloride 110 mmol/L (98-107); Creatinine, Serum 0.83 mg/dL (0.70-1.30); EST Glomerular Filtration Rate 99 mL/min (>60); Est Glom Filt Rate - Afr Amer 119 mL/min (>60); Estimated Creatinine Clearance 60.66 ml/min; Glucose 96 mg/dL (74-106); Magnesium 1.7 mg/dL (1.6-2.6); Sodium Level 141 mmol/L (136-145)
[2023-03-30 07:06] LABS: Phosphorus 3.1 mg/dL (2.5-4.9)
[2023-03-30] MEDS: 0.9% Saline Lock 10 ML Syringe IV ×6 (08:51→18:44)
[2023-03-30] MEDS: Potassium Chloride Oral Tablet 20 MEQ 60 MEQ PO (09:58)
[2023-03-30] MEDS: Magnesium Sulfate 2 GM in Dextrose 5%-Water (100mL Bag) 100 ML IV (09:58)
[2023-03-30] MEDS: 0.9% Normal Saline (1000mL) 1,000 ML 75 ML IV (10:20)
[2023-03-30] MEDS: Ceftriaxone 2 GM in 0.9% Normal Saline (50mL MB+) 50 ML IV (10:21)
[2023-03-30] MEDS: Azithromycin 500 MG in Dextrose 5%-Water (250mL Bag) 250 ML 250 MG IV (11:14)
[2023-03-30] MEDS: Tamsulosin HCl 0.4 MG Capsule PO (11:16)
[2023-03-30] MEDS: Escitalopram Oxalate 10 MG Tablet PO (11:16)
--- NOTE | 2023-03-30 12:29 | PN.HOSP_ITS ---
Subjective Subjective Feels little bit better today after transfusions Objective Data Objective Data Vital Signs: Vital Signs Temp Pulse Resp BP Pulse Ox O2 Del Method O2 Flow Rate 97.7 F L 86 18 124/61 H 100 Nasal Cannula 3 03/30/23 09:05 03/30/23 09:05 03/30/23 09:05 03/30/23 09:05 03/30/23 09:05 03/30/23 09:05 03/30/23 09:05 Oxygen Flow Rate (L/min) 3 Oxygen Delivery Method Nasal Cannula Weight: 108 lb 0.001 oz Body Mass Index (BMI) 18.5 Intake & Output: Intake and Output for Last 24 Hours 03/29/23 03/30/23 03/31/23 03:59 03:59 03:59 Intake Total 3441.58 / 3441.58 3897.5 / 3897.5 515.83 / 515.83 Output Total 2600 / 2600 3250 / 3250 1400 / 1400 Balance 841.58 / 841.58 647.5 / 647.5 -884.17 / -884.17 Medical Nutrition Assessment Dietitian: Malnutrition Criteria Met Start: 03/28/23 15:40 Freq: Status: Active Protocol: Document 03/28/23 15:51 AG (Rec: 03/28/23 15:51 AG [id number]) Nutrition Malnutrition Evidence of Malnutrition Exists Yes Malnutrition (severe): Chronic Evidenced By Suboptimal Energy Intake ( Severe),Physical Changes ( Severe) Clinical Problem Chronic Disease or Condition Related Malnutrition Etiology severe chronic malnutrition related to inadequate energy intake w/ possible increased energy needs d/t COPD, GI dysfunction Signs/Symptoms as evidenced by estimated PO intake meeting <75% of estimated energy needs > 3 months, severe muscle wasting/ fat loss per physical exam, BMI 18.5 Status Active Problem Recommendation Dietitian Recommendations/Changes recommend advance diet as tolerated to regular; ensure w / medpass when PO diet is advanced. Lab / Micro Data 03/30/23 05:50 03/30/23 05:50 Labs: Laboratory Results - last 24 hr 03/27/23 11:35: Crossmatch See Detail 03/27/23 20:45: GAGE-1 Antibody <0.2, SS-A/Ro IgG Antibody < 0.2, SS-B/La IgG Antibody < 0.2, Sm ([place]) Antibody <0.2, [employer] Antibody 0.3, Scl-70 Scleroderma Ab 1.6 H, Double Strand DNA Ab <1, Centromere B Antibody <0.2 03/29/23 14:08: Hgb 6.5 L, Hct 20.0 L 03/30/23 05:50: WBC 14.6 H, RBC 3.52 L, Hgb 9.6 L, Hct 29.5 L, MCV 83.8 D, MCH 27.3, MCHC 32.5, RDW Std Deviation 54.2 H, RDW Coeff of Monalisa 18.0 H, Plt Count 339, MPV 9.5, Immature Gran % (Auto) 3.400 H, Neut % (Auto) 76.9 H, Lymph % (Auto) 5.2 L, [place] % (Auto) 9.9, Eos % (Auto) 3.8, Baso % (Auto) 0.8, Absolute Neuts (auto) 11.2 H, Absolute Lymphs (auto) 0.76 L, Nucleated RBC % 0.8, PT 14.3, INR 1.1, Sodium 141, Potassium 3.0 L, Chloride 110 H, Carbon Dioxide 27.0, Anion Gap 4 L, BUN 15, Creatinine 0.83, Estim Creat Clear Calc 60.66, Est GFR (MDRD) Af Amer 119, Est GFR (MDRD) Non-Af 99, BUN/Creatinine Ratio 18.1, Glucose 96, Calcium 7.3 L, Phosphorus 3.1, Magnesium 1.7 Micro: Microbiology 03/27/23 12:15 Urine Catheter - [place] Urine Culture - Final Culture exhibits no growth. 03/27/23 11:35 Blood Culture (Wb) - Anticubital Left Blood Culture - Preliminary No growth in 48 hours. 03/27/23 11:35 Blood Culture (Wb) - Anticubital Right Blood Culture - Preliminary No growth in 48 hours. 03/27/23 12:15 Urine Catheter - [place] Legionella Antigen - Final 03/27/23 12:15 Urine Catheter - [place] Streptococcus pneumoniae Antigen (M - Final 03/27/23 15:12 Mucosa - Nose Respiratory Panel (PCR) - Final 03/27/23 14:08 Nasal Secretion SARS-CoV-2 Antigen (Rapid) - Final 03/27/23 11:35 Stool Stool Occult Blood (PADMA) - Final Occult Blood Positive Radiography Diagnostic Testing: Radiology Impression Fluoroscopy 03/29/23 13:10 IMPRESSION: Fluoroscopic imaging provided for endoluminal stent grafting of the duodenum. Electronically Signed: Vinicio Naqvi MD at 14:42 EDT , Physical Exam Narrative General: Alert, oriented x3, Cooperative, No apparent distress HEENT: Atraumatic, PERRLA, EOMI, Normocephalic Oral: Moist Mucosa Neck: Supple, No JVD Lungs: Diminished, Normal air movement, No rhonchi, No wheeze, No rales Cardiovascular: Regular rate, Regular Rhythm, Normal S1, Normal S2, No murmurs Abdomen: Soft, Non Tender, Non-Distended, No Hepato-splenomegaly Extremities: No edema, Capillary Refill Less than 3 Seconds Skin: No rashes, No breakdown Musculoskeletal: No Tenderness to Palpation of Joints or Extremities Neurological: Cranial nerves II-XII grossly intact, Motor Exam 5/5 strength throughout, Sensory exam intact to light touch and pain Psych/Mental Status: Normal Affect, Appropriate Assessment & Plan Assessment/Plan (1) Hypoxia: (2) Sepsis: (3) Pneumonia: (4) Upper GI bleeding: (5) Acute kidney injury: PLAN: Plan 1. Sepsis secondary to community-acquired pneumonia with hypoxia in the setting of COPD/transaminitis from likely shock liver with coagulopathy/BAKARI ? He did receive sepsis fluids in the ER ? Viral studies are negative ? Continue with antibiotics ? Legionella antigen and streptococcal antigen are negative, sputum culture still pending ? Appreciate gastroenterology's assistance with both his transaminitis and GI bleed ? BAKARI has resolved we will monitor ? INR improved to 1.5 after the vitamin K, this could be due to malnutrition 2. Upper GI bleed with acute blood loss anemia ? Hemoglobin is 9.6 today after 2 units of blood yesterday, recheck H&H this afternoon ? Also received IV iron ? EGD demonstrates duodenal ulcers with visible vessel that was treated, will continue with PPI ? Appreciate gastroenterology's assistance, had a repeat EGD 03/29/2023 for possible stent placement and was found to have another duodenal ulcer that was bleeding that was treated. 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 Severe malnutrition with poor p.o. intake ? Consult nutrition 4. Anxiety/depression ? Stable ? Can resume home medications 5. BPH ? Stable ? Can resume Flomax as he is able to take p.o. and blood pressures stabilized DVT: SCDs Charges/Coding Visit Charges Inpatient E&M: 72237 Subs Hosp L2
[2023-03-30] MEDS: Ondansetron 4 MG/2 ML Vial IV ×2 (12:36→18:44)
[2023-03-30 13:17] LABS: Hematocrit 28.6 % (40-54); Hemoglobin 9.4 g/dL (13.0-16.5)
--- NOTE | 2023-03-30 18:49 | PN.GI_ITS ---
Subjective Subjective Patient underwent a repeat upper endoscopy yesterday for gastric outlet obstruction secondary to duodenal stricture along with the recurrent upper GI bleed secondary to large duodenal ulcer. Objective Data Objective Data Vital Signs: Vital Signs Temp Pulse Resp BP Pulse Ox O2 Del Method O2 Flow Rate 97.8 F 86 18 117/68 96 Nasal Cannula 2 03/30/23 15:15 03/30/23 18:00 03/30/23 18:00 03/30/23 15:15 03/30/23 18:00 03/30/23 18:00 03/30/23 18:00 Oxygen Flow Rate (L/min) 2 Oxygen Delivery Method Nasal Cannula Weight: 108 lb 0.001 oz Body Mass Index (BMI) 18.5 Intake & Output: Intake and Output for Last 24 Hours 03/28/23 03/29/23 03/30/23 23:59 23:59 23:59 Intake Total 3548.41 / 3548.41 3237.5 / 3237.5 2354.83 / 2354.83 Output Total 3025 / 3025 3250 / 3250 2600 / 2600 Balance 523.41 / 523.41 -12.5 / -12.5 -245.17 / -245.17 Medical Nutrition Assessment Dietitian: Malnutrition Criteria Met Start: 03/28/23 15:40 Freq: Status: Active Protocol: Document 03/28/23 15:51 AG (Rec: 03/28/23 15:51 [id number]) Nutrition Malnutrition Evidence of Malnutrition Exists Yes Malnutrition (severe): Chronic Evidenced By Suboptimal Energy Intake ( Severe),Physical Changes ( Severe) Clinical Problem Chronic Disease or Condition Related Malnutrition Etiology severe chronic malnutrition related to inadequate energy intake w/ possible increased energy needs d/t COPD, GI dysfunction Signs/Symptoms as evidenced by estimated PO intake meeting <75% of estimated energy needs > 3 months, severe muscle wasting/ fat loss per physical exam, BMI 18.5 Status Active Problem Recommendation Dietitian Recommendations/Changes recommend advance diet as tolerated to regular; ensure w / medpass when PO diet is advanced. Lab / Micro Data 03/30/23 13:03 03/30/23 05:50 Labs: Laboratory Results - last 24 hr 03/27/23 11:35: Crossmatch See Detail 03/30/23 05:50: WBC 14.6 H, RBC 3.52 L, Hgb 9.6 L, Hct 29.5 L, MCV 83.8 D, MCH 27.3, MCHC 32.5, RDW Std Deviation 54.2 H, RDW Coeff of Monalisa 18.0 H, Plt Count 339, MPV 9.5, Immature Gran % (Auto) 3.400 H, Neut % (Auto) 76.9 H, Lymph % (Auto) 5.2 L, [place] % (Auto) 9.9, Eos % (Auto) 3.8, Baso % (Auto) 0.8, Absolute Neuts (auto) 11.2 H, Absolute Lymphs (auto) 0.76 L, Nucleated RBC % 0.8, PT 14.3, INR 1.1, Sodium 141, Potassium 3.0 L, Chloride 110 H, Carbon Dioxide 27.0, Anion Gap 4 L, BUN 15, Creatinine 0.83, Estim Creat Clear Calc 60.66, Est GFR (MDRD) Af Amer 119, Est GFR (MDRD) Non-Af 99, BUN/Creatinine Ratio 18.1, Glucose 96, Calcium 7.3 L, Phosphorus 3.1, Magnesium 1.7 03/30/23 13:03: Hgb 9.4 L, Hct 28.6 L Micro: Microbiology 03/27/23 12:15 Urine Catheter - [place] Urine Culture - Final Culture exhibits no growth. 03/27/23 11:35 Blood Culture (Wb) - Anticubital Left Blood Culture - Preliminary No growth in 48 hours. 03/27/23 11:35 Blood Culture (Wb) - Anticubital Right Blood Culture - Preliminary No growth in 48 hours. 03/27/23 12:15 Urine Catheter - [place] Legionella Antigen - Final 03/27/23 12:15 Urine Catheter - [place] Streptococcus pneumoniae Antigen (M - Final 03/27/23 15:12 Mucosa - Nose Respiratory Panel (PCR) - Final 03/27/23 14:08 Nasal Secretion SARS-CoV-2 Antigen (Rapid) - Final 03/27/23 11:35 Stool Stool Occult Blood (PADMA) - Final Occult Blood Positive Physical Exam Narrative General: Alert, oriented x3, Cooperative, No apparent distress HEENT: Atraumatic, PERRLA, EOMI, Normocephalic Oral: Moist Mucosa Neck: Supple, No JVD Lungs: Diminished, Normal air movement, No rhonchi, No wheeze, No rales Cardiovascular: Regular rate, Regular Rhythm, Normal S1, Normal S2, No murmurs Abdomen: Soft, Non Tender, Non-Distended, No Hepato-splenomegaly Extremities: No edema, Capillary Refill Less than 3 Seconds Skin: No rashes, No breakdown Musculoskeletal: No Tenderness to Palpation of Joints or Extremities Neurological: Cranial nerves II-XII grossly intact, Motor Exam 5/5 strength throughout, Sensory exam intact to light touch and pain Psych/Mental Status: Normal Affect, Appropriate Assessment & Plan Assessment/Plan (1) Severe malnutrition: (2) Severe anemia: (3) Upper GI bleeding: (4) Gastric outlet obstruction: PLAN: Plan 67-year-old with severe weight loss, protein, nutrition, muscle wasting secondary to abdominal pain when eating and was discovered to have massive upper GI bleed secondary to duodenal ulcer resulting in gastric outlet obstruction. He had a temporary duodenal stent placed yesterday. He is tolerating a clear liquid diet. He can be advanced to a soft diet. Charges/Coding Visit Charges Inpatient E&M: 60427 Subs Hosp L3
--- NOTE | 2023-03-30 18:55 | NURSING ---
reviewed charting with Heidi Dominguez RN
[2023-03-31] VITALS (8 sets, daily range): BP systolic 121–144; BP diastolic 69–78; PULSE 96–105; RESP 14–18; TEMP 36.6–36.8; O2SAT 95–99
[2023-03-31] MEDS: Ondansetron 4 MG/2 ML Vial IV ×3 (01:03→20:27)
[2023-03-31] MEDS: 0.9% Normal Saline (1000mL) 1,000 ML 75 ML IV ×2 (01:03→17:46)
[2023-03-31] MEDS: Pantoprazole Sodium 80 MG in 0.9% Normal Saline (100mL Bag) 80 ML 10 MG CONT INF ×3 (01:04→23:35)
[2023-03-31] MEDS: HYDROmorphone Inj 0.2 MG/ML SYRINGE IV ×2 (02:28→05:54)
[2023-03-31 07:07] LABS: Absolute Lymphocyte Count 0.56 X10^3/uL (0.83-4.51); Absolute Neutrophil Count 17.1 X10^3/uL (2.0-7.7); Basophil# 0.05 X10^3/uL; Basophil% 0.3 % (0-1); Eosinophil# 0.43 X10^3/uL; Eosinophils% 2.2 % (0-5); Hematocrit 29.7 % (40-54); Hemoglobin 9.3 g/dL (13.0-16.5); Lymphocyte # 0.56 X10^3/ul (0.83-4.51); Lymphocyte % 2.8 % (19-41); Mean Corp Hgb Conc 31.3 g/dL (32-36); Mean Corpuscular Volume 86.1 fL (80-94); Mean Platelet Vol. 10.1 fl (6.2-12.0); Monocyte# 1.36 X10^3/uL; Monocyte% 6.9 % (0-10); NRBC Flagged by Analyzer 0.2 % (0-5); Neutrophil # 17.05 X10^3/uL (2.7-7.7); Neutrophil % 86.5 % (47-70); POSITIVE DIFFERENTIAL YES; Platelet Count 370 K/mm3 (150-450); RBC Distribution Width CV 18.9 % (11.6-14.6); RBC Distribution Width SD 57.8 fl (35.1-43.9); Red Blood Count 3.45 M/mm3 (4.6-6.2); White Blood Count 19.7 K/mm3 (4.4-11.0)
[2023-03-31 07:17] LABS: Differential Indicated SCAN CRITERIA MET
[2023-03-31] MEDS: Albuterol 2.5 MG/3 ML VIAL.NEB. INHALATION (07:35)
[2023-03-31 07:43] LABS: ALB/GLOB Ratio 0.5 RATIO (0.9-2.4); AST(SGOT) 58 U/L (15-37); Alanine Aminotransfer ALT/SGPT 447 U/L (16-61); Alkaline Phosphatase 81 U/L (45-117); Anion Gap 3 (5-15); BUN 6 mg/dL (7-18); BUN/Creat Ratio 9.4 RATIO (10-20); Calcium,Total 7.3 mg/dL (8.5-10.1); Chloride 105 mmol/L (98-107); Creatinine, Serum 0.64 mg/dL (0.70-1.30); EST Glomerular Filtration Rate 132 mL/min (>60); Est Glom Filt Rate - Afr Amer 160 mL/min (>60); Estimated Creatinine Clearance 50.35 ml/min; Globulin 3.7 g/dL (2.2-4.2); Glucose 114 mg/dL (74-106); Potassium 3.3 mmol/L (3.5-5.1); Protein, Total 5.7 g/dL (6.4-8.2); Sodium Level 138 mmol/L (136-145)
[2023-03-31 07:52] LABS: Hypersegmented Neutrophils 1+
[2023-03-31] MEDS: HYDROmorphone 0.5 MG/0.5 ML SYRINGE 0.2 MG IV (09:18)
[2023-03-31] MEDS: Ceftriaxone 2 GM in 0.9% Normal Saline (50mL MB+) 50 ML IV (10:29)
[2023-03-31] MEDS: Escitalopram Oxalate 10 MG Tablet PO (10:30)
[2023-03-31] MEDS: Tamsulosin HCl 0.4 MG Capsule PO (10:31)
--- NOTE | 2023-03-31 11:11 | PN.HOSP_ITS ---
Subjective Subjective Has some back pain likely from his duodenal ulcers. He feels fine otherwise Objective Data Objective Data Vital Signs: Vital Signs Temp Pulse Resp BP Pulse Ox O2 Del Method O2 Flow Rate 98.1 F 96 16 138/72 H 96 Nasal Cannula 2 03/31/23 08:51 03/31/23 08:51 03/31/23 08:51 03/31/23 08:51 03/31/23 08:51 03/31/23 08:51 03/31/23 08:51 Oxygen Flow Rate (L/min) 2 Oxygen Delivery Method Nasal Cannula Weight: 108 lb 0.001 oz Body Mass Index (BMI) 18.5 Intake & Output: Intake and Output for Last 24 Hours 03/30/23 03/31/23 04/01/23 03:59 03:59 03:59 Intake Total 3897.5 / 3897.5 3641.16 / 3641.16 50 / 50 Output Total 3250 / 3250 4325 / 4325 1200 / 1200 Balance 647.5 / 647.5 -683.84 / -683.84 -1150 / -1150 Medical Nutrition Assessment Dietitian: Malnutrition Criteria Met Start: 03/28/23 15:40 Freq: Status: Active Protocol: Document 03/28/23 15:51 AG (Rec: 03/28/23 15:51 AG [id number]) Nutrition Malnutrition Evidence of Malnutrition Exists Yes Malnutrition (severe): Chronic Evidenced By Suboptimal Energy Intake ( Severe),Physical Changes ( Severe) Clinical Problem Chronic Disease or Condition Related Malnutrition Etiology severe chronic malnutrition related to inadequate energy intake w/ possible increased energy needs d/t COPD, GI dysfunction Signs/Symptoms as evidenced by estimated PO intake meeting <75% of estimated energy needs > 3 months, severe muscle wasting/ fat loss per physical exam, BMI 18.5 Status Active Problem Recommendation Dietitian Recommendations/Changes recommend advance diet as tolerated to regular; ensure w / medpass when PO diet is advanced. Lab / Micro Data 03/31/23 06:45 03/31/23 06:45 Labs: Laboratory Results - last 24 hr 03/30/23 13:03: Hgb 9.4 L, Hct 28.6 L 03/31/23 06:45: WBC 19.7 H, RBC 3.45 L, Hgb 9.3 L, Hct 29.7 L, MCV 86.1, MCH 27.0, MCHC 31.3 L, RDW Std Deviation 57.8 H, RDW Coeff of Monalisa 18.9 H, Plt Count 370, MPV 10.1, Immature Gran % (Auto) 1.300 H, Neut % (Auto) 86.5 H, Lymph % (Auto) 2.8 L, [place] % (Auto) 6.9, Eos % (Auto) 2.2, Baso % (Auto) 0.3, Absolute Neuts (auto) 17.1 H, Absolute Lymphs (auto) 0.56 L, Nucleated RBC % 0.2, Diff Path Review October, Hypersegmented Neuts 1+ H, Sodium 138, Potassium 3.3 L, Chloride 105, Carbon Dioxide 30.0, Anion Gap 3 L, BUN 6 L, Creatinine 0.64 L, Estim Creat Clear Calc 50.35, Est GFR (MDRD) Af Amer 160, Est GFR (MDRD) Non-Af 132, BUN/Creatinine Ratio 9.4 L, Glucose 114 H, Calcium 7.3 L, Total Bilirubin 0.30, AST 58 H, ALT 447 H, Alkaline Phosphatase 81, Total Protein 5.7 L, Albumin 2.0 L, Globulin 3.7, Albumin/Globulin Ratio 0.5 L Micro: Microbiology 03/27/23 12:15 Urine Catheter - [place] Urine Culture - Final Culture exhibits no growth. 03/27/23 11:35 Blood Culture (Wb) - Anticubital Left Blood Culture - Preliminary No growth in 48 hours. 03/27/23 11:35 Blood Culture (Wb) - Anticubital Right Blood Culture - Preliminary No growth in 48 hours. 03/27/23 12:15 Urine Catheter - [place] Legionella Antigen - Final 03/27/23 12:15 Urine Catheter - [place] Streptococcus pneumoniae Antigen (M - Final 03/27/23 15:12 Mucosa - Nose Respiratory Panel (PCR) - Final 03/27/23 14:08 Nasal Secretion SARS-CoV-2 Antigen (Rapid) - Final 03/27/23 11:35 Stool Stool Occult Blood (PADMA) - Final Occult Blood Positive Physical Exam Narrative General: Alert, oriented x3, Cooperative, No apparent distress HEENT: Atraumatic, PERRLA, EOMI, Normocephalic Oral: Moist Mucosa Neck: Supple, No JVD Lungs: Diminished, Normal air movement, No rhonchi, No wheeze, No rales Cardiovascular: Regular rate, Regular Rhythm, Normal S1, Normal S2, No murmurs Abdomen: Soft, Non Tender, Non-Distended, No Hepato-splenomegaly Extremities: No edema, Capillary Refill Less than 3 Seconds Skin: No rashes, No breakdown Musculoskeletal: No Tenderness to Palpation of Joints or Extremities Neurological: Cranial nerves II-XII grossly intact, Motor Exam 5/5 strength throughout, Sensory exam intact to light touch and pain Psych/Mental Status: Normal Affect, Appropriate Assessment & Plan Assessment/Plan (1) Hypoxia: (2) Sepsis: (3) Pneumonia: (4) Upper GI bleeding: (5) Acute kidney injury: PLAN: Plan 1. Sepsis secondary to community-acquired pneumonia with hypoxia in the setting of COPD/transaminitis from likely shock liver with coagulopathy/BAKARI ? He did receive sepsis fluids in the ER ? Viral studies are negative ? Continue with antibiotics he did complete 3 days of azithromycin so this will be discontinued ? Legionella antigen and streptococcal antigen are negative, sputum culture still pending ? Appreciate gastroenterology's assistance with both his transaminitis and GI bleed ? BAKARI has resolved we will monitor 2. Upper GI bleed with acute blood loss anemia ?Hemoglobin is stable, will continue to monitor ? Also received IV iron ? EGD demonstrates duodenal ulcers with visible vessel that was treated, will continue with PPI ? Appreciate gastroenterology's assistance, had a repeat EGD 03/29/2023 for possible stent placement and was found to have another duodenal ulcer that was bleeding that was treated. 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 Severe malnutrition with poor p.o. intake ? Consult nutrition 4. Anxiety/depression ? Stable ? Can resume home medications 5. BPH ? Stable ? Can resume Flomax as he is able to take p.o. and blood pressures stabilized DVT: SCDs Charges/Coding Visit Charges Inpatient E&M: 46925 Subs Hosp L2
[2023-03-31] MEDS: oxyCODONE 5 MG Tablet PO ×2 (12:29→18:36)
--- NOTE | 2023-03-31 13:49 | CASEMGMT ---
Social Work SW met w/pt in room in regard to completing LW/POA. Pt is not up for completing the documents at this time. He may be up for it on Sunday. SW on Sunday to follow up w/pt as time allows. CECILE Rojas
[2023-03-31] MEDS: 0.9% Saline Lock 10 ML Syringe IV (20:28)
[2023-04-01] VITALS (12 sets, daily range): BP systolic 90–134; BP diastolic 61–76; PULSE 95–111; RESP 16–20; TEMP 36.3–36.8; O2SAT 96–100
[2023-04-01] MEDS: oxyCODONE 5 MG Tablet PO ×4 (00:42→20:09)
[2023-04-01] MEDS: 0.9% Normal Saline (1000mL) 1,000 ML 75 ML IV ×2 (05:19→18:22)
[2023-04-01 07:09] LABS: Absolute Lymphocyte Count 0.72 X10^3/uL (0.83-4.51); Absolute Neutrophil Count 14.7 X10^3/uL (2.0-7.7); Basophil# 0.08 X10^3/uL; Basophil% 0.5 % (0-1); Eosinophil# 0.38 X10^3/uL; Eosinophils% 2.2 % (0-5); Hematocrit 26.8 % (40-54); Hemoglobin 8.3 g/dL (13.0-16.5); Lymphocyte # 0.72 X10^3/ul (0.83-4.51); Lymphocyte % 4.2 % (19-41); Mean Corpuscular Hgb 27.1 pg (27.0-32.0); Mean Corpuscular Volume 87.6 fL (80-94); Mean Platelet Vol. 9.9 fl (6.2-12.0); Monocyte# 1.29 X10^3/uL; Monocyte% 7.5 % (0-10); NRBC Flagged by Analyzer 0.1 % (0-5); Neutrophil # 14.68 X10^3/uL (2.7-7.7); Neutrophil % 85.1 % (47-70); Platelet Count 429 K/mm3 (150-450); RBC Distribution Width CV 18.8 % (11.6-14.6); RBC Distribution Width SD 58.1 fl (35.1-43.9); Red Blood Count 3.06 M/mm3 (4.6-6.2); White Blood Count 17.2 K/mm3 (4.4-11.0)
[2023-04-01 07:42] LABS: ALB/GLOB Ratio 0.5 RATIO (0.9-2.4); AST(SGOT) 30 U/L (15-37); Alanine Aminotransfer ALT/SGPT 300 U/L (16-61); Albumin, Serum 1.9 g/dL (3.2-5.0); Alkaline Phosphatase 77 U/L (45-117); Anion Gap 1 (5-15); BUN 11 mg/dL (7-18); BUN/Creat Ratio 17.5 RATIO (10-20); Calcium,Total 7.1 mg/dL (8.5-10.1); Chloride 104 mmol/L (98-107); Creatinine, Serum 0.63 mg/dL (0.70-1.30); EST Glomerular Filtration Rate 135 mL/min (>60); Est Glom Filt Rate - Afr Amer 164 mL/min (>60); Estimated Creatinine Clearance 50.35 ml/min; Globulin 3.5 g/dL (2.2-4.2); Glucose 99 mg/dL (74-106); Potassium 3.2 mmol/L (3.5-5.1); Protein, Total 5.4 g/dL (6.4-8.2); Sodium Level 138 mmol/L (136-145)
[2023-04-01] MEDS: Mag Hydrox/Al Hydrox/Simeth 30 ML UDC PO (08:08)
[2023-04-01] MEDS: Ceftriaxone 2 GM in 0.9% Normal Saline (50mL MB+) 50 ML IV (08:08)
[2023-04-01] MEDS: Ensure Clear 120 ML Liquid PO (08:08)
[2023-04-01] MEDS: Escitalopram Oxalate 10 MG Tablet PO (08:09)
[2023-04-01] MEDS: Tamsulosin HCl 0.4 MG Capsule PO (08:09)
--- NOTE | 2023-04-01 09:37 | PCM.PN.HOSP ---
Subjective Subjective Little bit better, breathing little bit easier though he thinks that he would benefit from some inhalers he had some albuterol ordered as as needed but it does not appear that he is received any Objective Data Objective Data Vital Signs: Vital Signs Temp Pulse Resp BP Pulse Ox O2 Del Method O2 Flow Rate 98.0 F 99 16 120/69 100 Nasal Cannula 1 04/01/23 08:04 04/01/23 08:04 04/01/23 08:04 04/01/23 08:04 04/01/23 08:04 04/01/23 08:04 04/01/23 08:04 FiO2 1 04/01/23 01:14 Oxygen Flow Rate (L/min) 1 Oxygen Delivery Method Nasal Cannula Weight: 108 lb 0.001 oz Body Mass Index (BMI) 18.5 Intake & Output: Intake and Output for Last 24 Hours 03/31/23 04/01/23 04/02/23 03:59 03:59 03:59 Intake Total 3641.16 / 3641.16 1396 / 1396 866.25 / 866.25 Output Total 4325 / 4325 1550 / 1550 1050 / 1050 Balance -683.84 / -683.84 -154 / -154 -183.75 / -183.75 Medical Nutrition Assessment Dietitian: Malnutrition Criteria Met Start: 03/28/23 15:40 Freq: Status: Active Protocol: Document 03/28/23 15:51 AG (Rec: 03/28/23 15:51 AG [id number]) Nutrition Malnutrition Evidence of Malnutrition Exists Yes Malnutrition (severe): Chronic Evidenced By Suboptimal Energy Intake ( Severe),Physical Changes ( Severe) Clinical Problem Chronic Disease or Condition Related Malnutrition Etiology severe chronic malnutrition related to inadequate energy intake w/ possible increased energy needs d/t COPD, GI dysfunction Signs/Symptoms as evidenced by estimated PO intake meeting <75% of estimated energy needs > 3 months, severe muscle wasting/ fat loss per physical exam, BMI 18.5 Status Active Problem Recommendation Dietitian Recommendations/Changes recommend advance diet as tolerated to regular; ensure w / medpass when PO diet is advanced. Lab / Micro Data 04/01/23 06:05 04/01/23 06:05 Labs: Laboratory Results - last 24 hr 04/01/23 06:05: WBC 17.2 H, RBC 3.06 L, Hgb 8.3 L, Hct 26.8 L, MCV 87.6, MCH 27.1, MCHC 31.0 L, RDW Std Deviation 58.1 H, RDW Coeff of Monalisa 18.8 H, Plt Count 429, MPV 9.9, Immature Gran % (Auto) 0.500, Neut % (Auto) 85.1 H, Lymph % (Auto) 4.2 L, [place] % (Auto) 7.5, Eos % (Auto) 2.2, Baso % (Auto) 0.5, Absolute Neuts (auto) 14.7 H, Absolute Lymphs (auto) 0.72 L, Nucleated RBC % 0.1, Sodium 138, Potassium 3.2 L, Chloride 104, Carbon Dioxide 33.0 H, Anion Gap 1 L, BUN 11, Creatinine 0.63 L, Estim Creat Clear Calc 50.35, Est GFR (MDRD) Af Amer 164, Est GFR (MDRD) Non-Af 135, BUN/Creatinine Ratio 17.5, Glucose 99, Calcium 7.1 L, Total Bilirubin 0.30, AST 30, ALT 300 H, Alkaline Phosphatase 77, Total Protein 5.4 L, Albumin 1.9 L, Globulin 3.5, Albumin/Globulin Ratio 0.5 L Micro: Microbiology 03/27/23 12:15 Urine Catheter - [place] Urine Culture - Final Culture exhibits no growth. 03/27/23 11:35 Blood Culture (Wb) - Anticubital Left Blood Culture - Preliminary No growth in 48 hours. 03/27/23 11:35 Blood Culture (Wb) - Anticubital Right Blood Culture - Preliminary No growth in 48 hours. 03/27/23 12:15 Urine Catheter - [place] Legionella Antigen - Final 03/27/23 12:15 Urine Catheter - [place] Streptococcus pneumoniae Antigen (M - Final 03/27/23 15:12 Mucosa - Nose Respiratory Panel (PCR) - Final 03/27/23 14:08 Nasal Secretion SARS-CoV-2 Antigen (Rapid) - Final 03/27/23 11:35 Stool Stool Occult Blood (PADMA) - Final Occult Blood Positive Physical Exam Narrative General: Alert, oriented x3, Cooperative, No apparent distress HEENT: Atraumatic, PERRLA, EOMI, Normocephalic Oral: Moist Mucosa Neck: Supple, No JVD Lungs: Diminished, Normal air movement, No rhonchi, No wheeze, No rales Cardiovascular: Regular rate, Regular Rhythm, Normal S1, Normal S2, No murmurs Abdomen: Soft, Non Tender, Non-Distended, No Hepato-splenomegaly Extremities: No edema, Capillary Refill Less than 3 Seconds Skin: No rashes, No breakdown Musculoskeletal: No Tenderness to Palpation of Joints or Extremities Neurological: Cranial nerves II-XII grossly intact, Motor Exam 5/5 strength throughout, Sensory exam intact to light touch and pain Psych/Mental Status: Normal Affect, Appropriate Assessment & Plan Assessment/Plan (1) Hypoxia: (2) Sepsis: (3) Pneumonia: (4) Upper GI bleeding: (5) Acute kidney injury: PLAN: Plan 1. Sepsis secondary to community-acquired pneumonia with hypoxia in the setting of COPD/transaminitis from likely shock liver with coagulopathy/BAKARI ? He did receive sepsis fluids in the ER ? Viral studies are negative ? Continue with antibiotics he did complete 3 days of azithromycin so this will be discontinued ? Legionella antigen and streptococcal antigen are negative, sputum culture still pending ? Appreciate gastroenterology's assistance with both his transaminitis and GI bleed ? BAKARI has resolved we will monitor 2. Upper GI bleed with acute blood loss anemia ? Hemoglobin dropped to 8.3 from 9.3, will obtain an H&H at around noon ? He has received a total of 4 units of blood and a dose of IV iron ? EGD demonstrates duodenal ulcers with visible vessel that was treated, will continue with PPI ? Appreciate gastroenterology's assistance, had a repeat EGD 03/29/2023 for possible stent placement and was found to have another duodenal ulcer that was bleeding that was treated. 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 Severe malnutrition with poor p.o. intake ? Consult nutrition 4. Anxiety/depression ? Stable ? Can resume home medications 5. BPH ? Stable ? Can resume Flomax as he is able to take p.o. and blood pressures stabilized DVT: SCDs Charges/Coding Visit Charges Inpatient E&M: 21307 Subs Hosp L2
[2023-04-01] MEDS: Pantoprazole Sodium 80 MG in 0.9% Normal Saline (100mL Bag) 80 ML 10 MG CONT INF ×2 (10:45→20:09)
[2023-04-01] MEDS: Ipratropium/Albuterol Sulfate 3 ML AMPUL.NEB INHALATION ×3 (10:53→19:58)
[2023-04-01 11:53] LABS: Hematocrit 25.9 % (40-54); Hemoglobin 8.1 g/dL (13.0-16.5)
[2023-04-01] MEDS: Sucralfate 1 GM Tablet PO ×3 (12:34→22:09)
[2023-04-01] MEDS: Ensure Plus High Protein 120 ML LIQUID PO (18:23)
[2023-04-02] VITALS (12 sets, daily range): BP systolic 119–135; BP diastolic 70–80; PULSE 104–114; RESP 16–20; TEMP 36.5–36.9; O2SAT 95–98
[2023-04-02] MEDS: oxyCODONE 5 MG Tablet PO (02:05)
[2023-04-02] MEDS: 0.9% Saline Lock 10 ML Syringe IV ×2 (03:42→22:13)
[2023-04-02] MEDS: HYDROmorphone 0.5 MG/0.5 ML SYRINGE 0.2 MG IV ×2 (03:42→22:09)
[2023-04-02 03:57] LABS: Absolute Lymphocyte Count 0.68 X10^3/uL (0.83-4.51); Absolute Neutrophil Count 18.1 X10^3/uL (2.0-7.7); Basophil# 0.05 X10^3/uL; Basophil% 0.2 % (0-1); Eosinophil# 0.12 X10^3/uL; Eosinophils% 0.6 % (0-5); Hematocrit 25.3 % (40-54); Hemoglobin 7.7 g/dL (13.0-16.5); Lymphocyte # 0.68 X10^3/ul (0.83-4.51); Lymphocyte % 3.3 % (19-41); Mean Corp Hgb Conc 30.4 g/dL (32-36); Mean Corpuscular Hgb 26.8 pg (27.0-32.0); Mean Corpuscular Volume 88.2 fL (80-94); Mean Platelet Vol. 9.8 fl (6.2-12.0); Monocyte# 1.79 X10^3/uL; Monocyte% 8.6 % (0-10); NRBC Flagged by Analyzer 0.1 % (0-5); Neutrophil # 18.05 X10^3/uL (2.7-7.7); Neutrophil % 86.7 % (47-70); POSITIVE DIFFERENTIAL YES; Platelet Count 453 K/mm3 (150-450); RBC Distribution Width CV 19.7 % (11.6-14.6); RBC Distribution Width SD 59.2 fl (35.1-43.9); Red Blood Count 2.87 M/mm3 (4.6-6.2); White Blood Count 20.8 K/mm3 (4.4-11.0)
[2023-04-02 04:00] LABS: Differential Indicated SCAN CRITERIA MET
[2023-04-02 04:21] LABS: Anion Gap 2 (5-15); BUN 12 mg/dL (7-18); BUN/Creat Ratio 18.6 RATIO (10-20); Calcium,Total 7.3 mg/dL (8.5-10.1); Chloride 103 mmol/L (98-107); Creatinine, Serum 0.64 mg/dL (0.70-1.30); EST Glomerular Filtration Rate 132 mL/min (>60); Est Glom Filt Rate - Afr Amer 159 mL/min (>60); Estimated Creatinine Clearance 50.35 ml/min; Glucose 115 mg/dL (74-106); Sodium Level 139 mmol/L (136-145)
[2023-04-02] MEDS: 0.9% Normal Saline (1000mL) 1,000 ML 75 ML IV ×2 (04:57→22:19)
[2023-04-02] MEDS: Pantoprazole Sodium 80 MG in 0.9% Normal Saline (100mL Bag) 80 ML 10 MG CONT INF ×2 (04:57→17:26)
[2023-04-02 05:32] LABS: Anisocytosis 2+; Platelet Estimate SLT INC (ADEQ); Red Cell Morphology NORM C+C NORMAL (NORM C&C)
[2023-04-02 05:34] LABS: Hypochromasia 1+
[2023-04-02] MEDS: Sucralfate 1 GM Tablet PO ×3 (06:35→21:42)
[2023-04-02 07:53] LABS: Magnesium 1.6 mg/dL (1.6-2.6); Phosphorus 1.3 mg/dL (2.5-4.9)
[2023-04-02] MEDS: Ipratropium/Albuterol Sulfate 3 ML AMPUL.NEB INHALATION ×4 (07:55→20:07)
[2023-04-02] MEDS: Escitalopram Oxalate 10 MG Tablet PO (08:24)
[2023-04-02] MEDS: Tamsulosin HCl 0.4 MG Capsule PO (08:24)
[2023-04-02] MEDS: Ceftriaxone 2 GM in 0.9% Normal Saline (50mL MB+) 50 ML IV (08:24)
[2023-04-02] MEDS: Ensure Plus High Protein 120 ML LIQUID PO (08:27)
[2023-04-02] MEDS: Potassium Chloride 10mEq/100mL 10 MEQ/100 ML IV.SOLN. 100 MEQ IV BOLUS ×4 (09:15→18:49)
--- NOTE | 2023-04-02 09:52 | PN.HOSP_ITS ---
Subjective Subjective Has some abdominal pain with a rising white count he is also had some diarrhea. We will obtain a C. difficile and may need to proceed with a CT of the abdomen Objective Data Objective Data Vital Signs: Vital Signs Temp Pulse Resp BP Pulse Ox O2 Del Method O2 Flow Rate 98.1 F 110 H 16 125/70 H 98 Nasal Cannula 2 04/02/23 08:30 04/02/23 08:30 04/02/23 08:30 04/02/23 08:30 04/02/23 08:30 04/02/23 08:30 04/02/23 08:30 FiO2 1 04/01/23 01:14 Oxygen Flow Rate (L/min) 2 Oxygen Delivery Method Nasal Cannula Weight: 108 lb 0.001 oz Body Mass Index (BMI) 18.5 Intake & Output: Intake and Output for Last 24 Hours 04/01/23 04/02/23 04/03/23 03:59 03:59 03:59 Intake Total 1396 / 1396 2329.00 / 2329.00 881.75 / 881.75 Output Total 1550 / 1550 2049 / 2049 1200 / 1200 Balance -154 / -154 279.00 / 279.00 -318.25 / -318.25 Medical Nutrition Assessment Dietitian: Malnutrition Criteria Met Start: 03/28/23 15:40 Freq: Status: Active Protocol: Document 03/28/23 15:51 (Rec: 03/28/23 15:51 [id number]) Nutrition Malnutrition Evidence of Malnutrition Exists Yes Malnutrition (severe): Chronic Evidenced By Suboptimal Energy Intake ( Severe),Physical Changes ( Severe) Clinical Problem Chronic Disease or Condition Related Malnutrition Etiology severe chronic malnutrition related to inadequate energy intake w/ possible increased energy needs d/t COPD, GI dysfunction Signs/Symptoms as evidenced by estimated PO intake meeting <75% of estimated energy needs > 3 months, severe muscle wasting/ fat loss per physical exam, BMI 18.5 Status Active Problem Recommendation Dietitian Recommendations/Changes recommend advance diet as tolerated to regular; ensure w / medpass when PO diet is advanced. Lab / Micro Data 04/02/23 03:32 04/02/23 03:32 Labs: Laboratory Results - last 24 hr 04/01/23 11:40: Hgb 8.1 L, Hct 25.9 L 04/02/23 03:32: WBC 20.8 H, RBC 2.87 L, Hgb 7.7 L, Hct 25.3 L, MCV 88.2, MCH 26.8 L, MCHC 30.4 L, RDW Std Deviation 59.2 H, RDW Coeff of Monalisa 19.7 H, Plt Count 453 H, MPV 9.8, Immature Gran % (Auto) 0.600, Neut % (Auto) 86.7 H, Lymph % (Auto) 3.3 L, [place] % (Auto) 8.6, Eos % (Auto) 0.6, Baso % (Auto) 0.2, Absolute Neuts (auto) 18.1 H, Absolute Lymphs (auto) 0.68 L, Nucleated RBC % 0.1, Diff Path Review October, Platelet Estimate SLT INC, RBC Morphology NORM C+C, Hypochromasia 1+, Anisocytosis 2+, Sodium 139, Potassium 3.0 L, Chloride 103, Carbon Dioxide 34.0 H, Anion Gap 2 L, BUN 12, Creatinine 0.64 L, Estim Creat Clear Calc 50.35, Est GFR (MDRD) Af Amer 159, Est GFR (MDRD) Non-Af 132, BUN/Creatinine Ratio 18.6, Glucose 115 H, Calcium 7.3 L, Phosphorus 1.3 L, Magnesium 1.6 Micro: Microbiology 03/27/23 11:35 Blood Culture (Wb) - Anticubital Left Blood Culture - Final No growth in 5 days. 03/27/23 11:35 Blood Culture (Wb) - Anticubital Right Blood Culture - Final No growth in 5 days. 03/27/23 12:15 Urine Catheter - [place]upe Urine Culture - Final Culture exhibits no growth. 03/27/23 12:15 Urine Catheter - [place] Legionella Antigen - Final 03/27/23 12:15 Urine Catheter - [place] Streptococcus pneumoniae Antigen (M - Final 03/27/23 15:12 Mucosa - Nose Respiratory Panel (PCR) - Final 03/27/23 14:08 Nasal Secretion SARS-CoV-2 Antigen (Rapid) - Final 03/27/23 11:35 Stool Stool Occult Blood (PADMA) - Final Occult Blood Positive Physical Exam Narrative General: Alert, oriented x3, Cooperative, No apparent distress HEENT: Atraumatic, PERRLA, EOMI, Normocephalic Oral: Moist Mucosa Neck: Supple, No JVD Lungs: Diminished, poor air movement, No rhonchi, No wheeze, No rales Cardiovascular: Regular rate, Regular Rhythm, Normal S1, Normal S2, No murmurs Abdomen: Soft, mild tender, Non-Distended, No Hepato-splenomegaly Extremities: No edema, Capillary Refill Less than 3 Seconds Skin: No rashes, No breakdown Musculoskeletal: No Tenderness to Palpation of Joints or Extremities Neurological: Cranial nerves II-XII grossly intact, Motor Exam 5/5 strength throughout, Sensory exam intact to light touch and pain Psych/Mental Status: Normal Affect, Appropriate Assessment & Plan Assessment/Plan (1) Hypoxia: (2) Sepsis: (3) Pneumonia: (4) Upper GI bleeding: (5) Acute kidney injury: PLAN: Plan 1. Sepsis secondary to community-acquired pneumonia with hypoxia in the setting of COPD/transaminitis from likely shock liver with coagulopathy/ABKARI ? He did receive sepsis fluids in the ER ? Viral studies are negative, feels little bit better with the breathing treatments ? Continue with antibiotics he did complete 3 days of azithromycin so this will be discontinued ? Legionella antigen and streptococcal antigen are negative, sputum culture still pending ? Appreciate gastroenterology's assistance with both his transaminitis and GI bleed ? BAKARI has resolved we will monitor ? Given the rising white count with his abdominal pain and his diarrhea will obtain a C. difficile test especially since he has been on antibiotics for the last 7 days if this is negative may need to proceed with a CT scan ? Repeat blood cultures are also pending as well as urinalysis 2. Upper GI bleed with acute blood loss anemia ? Hemoglobin has continued to drop now down to 7.7, will repeat and monitor in the morning ? He has received a total of 4 units of blood and a dose of IV iron ? EGD demonstrates duodenal ulcers with visible vessel that was treated, will continue with PPI ? Appreciate gastroenterology's assistance, had a repeat EGD 03/29/2023 for possible stent placement and was found to have another duodenal ulcer that was bleeding that was treated. 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 Severe malnutrition with poor p.o. intake ? Consult nutrition 4. Anxiety/depression ? Stable ? Can resume home medications 5. BPH ? Stable ? Can resume Flomax as he is able to take p.o. and blood pressures stabilized DVT: SCDs Charges/Coding Visit Charges Inpatient E&M: 31709 Subs Hosp L2
[2023-04-02] MEDS: oxyCODONE 5 MG Tablet 10 MG PO ×2 (10:37→16:43)
[2023-04-02 13:18] LABS: Pathologist Review Reviewed
[2023-04-02 13:47] LABS: Bacteria 0 SEEN /hpf (None Seen); Mucous, Urine 0 SEEN /hpf (<or=2+); Red Blood Cells-Urine 0 SEEN /hpf (0-5); Squamous Epithelial Cells - UA 0 SEEN /hpf (0-5); White Blood Cells 0 SEEN /hpf (0-5)
[2023-04-02 14:01] LABS: Color, Urine Yellow (Yellow); Glucose, Dipstick Normal (Normal); Ketone-Dipstick Negative (Negative); Leukocyte Esterase-Dipstick Negative /ul (Negative); Nitrite-Dipstick Negative (Negative); Occult Blood-Urine Negative /ul (Negative); Protein-Dipstick 15 mg/dl (Negative); Specific Gravity, Urine 1.015 (1.002-1.030); Urine Bilirubin Dipstick Negative (Negative); Urine Clarity Clear (Clear); Urine Urobilinogen Normal (Normal); Urine pH 6.5 (5.0 - 8.0)
[2023-04-02] MEDS: Piperacil/Tazobactam 3.375 GM in 0.9% Normal Saline (50mL MB+) 50 ML IV ×2 (15:05→22:30)
[2023-04-02] MEDS: Vancomycin HCl 1,250 MG in 0.9% Normal Saline (250mL Bag) 250 ML 167 MG IV (16:01)
--- NOTE | 2023-04-02 17:41 | PCM.RX.CS ---
Consult Antibiotic Management Pharmacy has been consulted to manage selected antiobiotic: Vancomycin Type of Intervention Type of Consult: New start Suspected Infection Suspected Infection: Sepsis and Pneumonia Prior Doses of Antibiotics Prior Doses of Antibiotics Received/Current Regimen: Received 1250mg iv loading dose x 1. Labs Labs: Sodium 139 mmol/L (136-145) 04/02/23 03:32 Potassium 3.0 mmol/L (3.5-5.1) L 04/02/23 03:32 Chloride 103 mmol/L (98-107) 04/02/23 03:32 Carbon Dioxide 34.0 mmol/L (21.0-32.0) H 04/02/23 03:32 Anion Gap 2 (5-15) L 04/02/23 03:32 BUN 12 mg/dL (7-18) 04/02/23 03:32 Creatinine 0.64 mg/dL (0.70-1.30) L 04/02/23 03:32 Est GFR (MDRD) Af Amer 159 mL/min (>60) 04/02/23 03:32 Est GFR (MDRD) Non-Af 132 mL/min (>60) 04/02/23 03:32 BUN/Creatinine Ratio 18.6 RATIO (10-20) 04/02/23 03:32 Glucose 115 mg/dL (74-106) H 04/02/23 03:32 Microbiology Microbiology: Microbiology 03/27/23 11:35 Blood Culture (Wb) - Anticubital Left Blood Culture - Final No growth in 5 days. 03/27/23 11:35 Blood Culture (Wb) - Anticubital Right Blood Culture - Final No growth in 5 days. 03/27/23 12:15 Urine Catheter - [place]upe Urine Culture - Final Culture exhibits no growth. 03/27/23 12:15 Urine Catheter - [place] Legionella Antigen - Final 03/27/23 12:15 Urine Catheter - [place] Streptococcus pneumoniae Antigen (M - Final 03/27/23 15:12 Mucosa - Nose Respiratory Panel (PCR) - Final 03/27/23 14:08 Nasal Secretion SARS-CoV-2 Antigen (Rapid) - Final 03/27/23 11:35 Stool Stool Occult Blood (PADMA) - Final Occult Blood Positive Dosing Weight Weight used for dosin.9 kg Estimated Creatinine Clearance Estimated Creatinine Clearance: 50 ml/min Goal Trough Goal Trough: 15-20 mcg/mL Pharmacy Plan for Drug Dosing Pharmacy Plan for Drug Dosing: Recommend a starting dose of 500mg iv q12h with trough level before 4th dose. Pharmacy Service will continue to monitor and adjust dosing as required. Follow-Up Labs Follow-Up Labs: Trough: Vancomycin (10.4.23 @0330)
[2023-04-03] VITALS (16 sets, daily range): BP systolic 101–127; BP diastolic 58–77; PULSE 100–114; RESP 16–20; TEMP 36.7–36.9; O2SAT 83–98
[2023-04-03] MEDS: oxyCODONE 5 MG Tablet 10 MG PO ×3 (00:11→18:44)
[2023-04-03 00:14] LABS: Hematocrit 26.6 % (40-54); Hemoglobin 8.2 g/dL (13.0-16.5)
[2023-04-03] MEDS: Ipratropium/Albuterol Sulfate 3 ML AMPUL.NEB INHALATION ×5 (01:06→19:41)
[2023-04-03] MEDS: Pantoprazole Sodium 80 MG in 0.9% Normal Saline (100mL Bag) 80 ML 10 MG CONT INF ×3 (02:18→21:38)
[2023-04-03] MEDS: Vancomycin IV 500 MG/100 ML BAG 100 MG IV ×2 (04:14→17:56)
[2023-04-03] MEDS: guaiFENesin 600 MG Tablet PO ×2 (04:18→21:34)
[2023-04-03] MEDS: Piperacil/Tazobactam 3.375 GM in 0.9% Normal Saline (50mL MB+) 50 ML IV ×3 (05:47→21:36)
[2023-04-03] MEDS: Sucralfate 1 GM Tablet PO ×4 (06:25→21:32)
[2023-04-03 07:10] LABS: Absolute Lymphocyte Count 0.98 X10^3/uL (0.83-4.51); Absolute Neutrophil Count 19.5 X10^3/uL (2.0-7.7); Basophil# 0.08 X10^3/uL; Basophil% 0.4 % (0-1); Eosinophil# 0.31 X10^3/uL; Eosinophils% 1.4 % (0-5); Hematocrit 26.4 % (40-54); Lymphocyte # 0.98 X10^3/ul (0.83-4.51); Lymphocyte % 4.3 % (19-41); Mean Corp Hgb Conc 30.3 g/dL (32-36); Mean Corpuscular Hgb 27.3 pg (27.0-32.0); Mean Corpuscular Volume 90.1 fL (80-94); Mean Platelet Vol. 9.7 fl (6.2-12.0); Monocyte% 7.1 % (0-10); NRBC Flagged by Analyzer 0 % (0-5); Neutrophil # 19.54 X10^3/uL (2.7-7.7); Neutrophil % 86.3 % (47-70); POSITIVE DIFFERENTIAL YES; Platelet Count 555 K/mm3 (150-450); RBC Distribution Width CV 19.9 % (11.6-14.6); RBC Distribution Width SD 62.3 fl (35.1-43.9); Red Blood Count 2.93 M/mm3 (4.6-6.2); White Blood Count 22.6 K/mm3 (4.4-11.0)
[2023-04-03 07:16] LABS: Differential Indicated SCAN CRITERIA MET
[2023-04-03 07:40] LABS: ALB/GLOB Ratio 0.5 RATIO (0.9-2.4); AST(SGOT) 17 U/L (15-37); Alanine Aminotransfer ALT/SGPT 168 U/L (16-61); Alkaline Phosphatase 90 U/L (45-117); Anion Gap 2 (5-15); BUN 14 mg/dL (7-18); BUN/Creat Ratio 18.9 RATIO (10-20); Calcium,Total 7.3 mg/dL (8.5-10.1); Chloride 103 mmol/L (98-107); Creatinine, Serum 0.74 mg/dL (0.70-1.30); EST Glomerular Filtration Rate 112 mL/min (>60); Est Glom Filt Rate - Afr Amer 135 mL/min (>60); Estimated Creatinine Clearance 50.35 ml/min; Globulin 3.8 g/dL (2.2-4.2); Glucose 92 mg/dL (74-106); Protein, Total 5.8 g/dL (6.4-8.2); Sodium Level 138 mmol/L (136-145)
[2023-04-03 07:52] LABS: Differential Comment SCANNED
[2023-04-03 09:28] LABS: Pathologist Review Reviewed
--- NOTE | 2023-04-03 10:24 | PCM.CONS.GEN ---
Assessment & Plan Assessment/Plan (1) Leukocytosis: PLAN: Concern for new LUE infection vs DVT. Will order doppler and CT arm. Cont vanc/zosyn. Will follow, thank you (2) Transaminitis: (3) Pneumonia: (4) Acute kidney injury: (5) COPD (chronic obstructive pulmonary disease): QUALIFIERS: COPD type: unspecified COPD Qualified Code(s): J44.9 - Chronic obstructive pulmonary disease, unspecified HPI Consult Data Date of Consult: 04/03/23 HPI Narrative Reason for Consultation: leukocytosis HPI Narrative: REGINALD PAEZ, is a 67 M with h/o COPD, presented 03/27 with 50lb weight loss, abd pain, tarry stool. Found to have hypoxia, shock liver, BAKARI, and GI bleed. Admitted on azithro/ceftriaxone, seen by GI, EGD done 03/28 and 03/29. 04/02 some elevated wbc, loose stool, LUE swelling/redness/pain/reported purulence at old iv site. Abx changed to vanc/zosyn, cdiff was neg. Still some dry cough, some upper abd pain. Full ROS performed and neg except as noted above. [facility] Medical History Alcohol abuse Cataract COPD (chronic obstructive pulmonary disease) History of COVID-19 History of kidney stones History of pneumonia Tobacco abuse Ulcer Home Medications albuterol sulfate 90 mcg/actuation aerosol inhaler 2 puff inhalation Q6H PRN shortness of breath or wheezing #8.5 grams 02/14/23 [Rx Last Taken Unknown] fluticasone fur. 100 mcg-umeclid 62.5 mcg-vilant 25 mcg inhalat.powder (Trelegy Ellipta) 1 inh inhalation DAILY #28 ea 02/14/23 [Rx Last Taken Unknown] tamsulosin 0.4 mg capsule 0.4 mg PO DAILY #30 caps 02/14/23 [Rx Last Taken Unknown] albuterol sulfate 0.63 mg/3 mL solution for nebulization 0.63 mg (3 mL) inhalation Q6H PRN shortness of breath or wheezing #90 mL 03/08/23 [Rx Last Taken Unknown] blood pressure test kit-medium #1 ea 03/08/23 [Rx Last Taken Unknown] escitalopram oxalate 10 mg tablet (Lexapro) 10 mg PO DAILY #30 tabs 03/08/23 [Rx Last Taken Unknown] ipratropium bromide 0.02 % solution for inhalation 2.5 ml inhalation Q6H PRN shortness of breath or wheezing #150 mL 03/08/23 [Rx Last Taken Unknown] nebulizer and compressor (Comp-Air Nebulizer Compressor) #1 ea 03/08/23 [Rx Last Taken Unknown] Allergy/AdvReac Type Severity Reaction Status Date / Time No Known Allergies Allergy Verified 03/27/23 11:15 Family History Mother Heart disease Grandmother Cancer colon Surgical History History of eye surgery History of lithotripsy Social History household members: significant other current occupational status: retired current occupation: construction Smoking Status: Former smoker quit date: 04/10/19 pack-years: 90 Electronic Cigarette Use: not used alcohol intake: former year quit: 2012 substance use type: former substance user Date of last use: cocaine do you feel safe at home: Yes Physical Exam Const alert, oriented x3 and no apparent distress General Appearance: cooperative and well developed HEENT normocephalic and head/scalp atraumatic Eyes PERRL and EOMs intact bilaterally Neck supple and No nodes Resp Auscultation: diminished lung sounds Cardio regular rate and regular rhythm GI soft to palpation and non-distended GI Narrative: mild soreness Extremity Extremity Narrative: LUE diffuse swelling, redness, warmth Skin no rashes or lesions noted Neuro CN's II-XII intact bilaterally Medical Records Data Medical Nutrition Assessment Dietitian: Malnutrition Criteria Met Start: 03/28/23 15:40 Freq: Status: Active Protocol: Document 04/02/23 15:52 RMA (Rec: 04/02/23 15:52 RMA [id number]) Nutrition Malnutrition Evidence of Malnutrition Exists Yes Malnutrition (severe): Chronic Evidenced By Suboptimal Energy Intake ( Severe),Physical Changes ( Severe) Clinical Problem Chronic Disease or Condition Related Malnutrition Etiology severe chronic malnutrition related to inadequate energy intake w/ possible increased energy needs d/t COPD, GI dysfunction Signs/Symptoms as evidenced by estimated PO intake meeting <75% of estimated energy needs > 3 months, severe muscle wasting/ fat loss per physical exam, BMI 18.5, PO less than 50% meals x 2 days Status Active Problem Recommendation Dietitian Recommendations/Changes Continue regular diet and ensure plus high protein 3xdaily w/ medpass as ordered. Will add magic cup BID w/ lunch and dinner meals. Lab / Micro Data Attestation: I reviewed the patient's lab results. 04/03/23 06:25 04/03/23 06:25 Labs: Laboratory Results - last 24 hr 03/31/23 06:45: Diff Path Review Reviewed 04/02/23 03:32: Diff Path Review Reviewed 04/02/23 13:30: Urine Color Yellow, Urine Clarity Clear, Urine pH 6.5, Ur Specific [place] 1.015, Urine Protein 15 H, Urine Glucose (UA) Normal, Urine Ketones Negative, Urine Occult Blood Negative, Urine Nitrite Negative, Urine Bilirubin Negative, Urine Urobilinogen Normal, Ur Leukocyte Esterase Negative, Urine RBC 0 SEEN, Urine WBC 0 SEEN, Ur Squamous Epith Cells 0 SEEN, Urine Bacteria 0 SEEN, Urine Mucus 0 SEEN 04/02/23 23:57: Hgb 8.2 L, Hct 26.6 L 04/03/23 06:25: WBC 22.6 H, RBC 2.93 L, Hgb 8.0 L, Hct 26.4 L, MCV 90.1, MCH 27.3, MCHC 30.3 L, RDW Std Deviation 62.3 H, RDW Coeff of Monalisa 19.9 H, Plt Count 555 H, MPV 9.7, Immature Gran % (Auto) 0.500, Neut % (Auto) 86.3 H, Lymph % (Auto) 4.3 L, [place] % (Auto) 7.1, Eos % (Auto) 1.4, Baso % (Auto) 0.4, Absolute Neuts (auto) 19.5 H, Absolute Lymphs (auto) 0.98, Nucleated RBC % 0, Differential Comment SCANNED, Diff Path Review May foll, Sodium 138, Potassium 3.0 L, Chloride 103, Carbon Dioxide 33.0 H, Anion Gap 2 L, BUN 14, Creatinine 0.74, Estim Creat Clear Calc 50.35, Est GFR (MDRD) Af Amer 135, Est GFR (MDRD) Non-Af 112, BUN/Creatinine Ratio 18.9, Glucose 92, Calcium 7.3 L, Total Bilirubin 0.30, AST 17, ALT 168 H, Alkaline Phosphatase 90, Total Protein 5.8 L, Albumin 2.0 L, Globulin 3.8, Albumin/Globulin Ratio 0.5 L Micro: Microbiology 04/02/23 21:20 Stool C. difficile DNA Amplification - Final
--- NOTE | 2023-04-03 10:29 | VDUE_ITS ---
Reason For Study: Left arm swelling Left Proximal Left jugular vein is spontaneous, widely patent, phasic, with no intraluminal echogenicity noted. Left subclavian vein is spontaneous, widely patent, phasic, with no intraluminal echogenicity noted. Left Arm Left axillary vein is spontaneous, patent, phasic, competent, compressible and demonstrates augmentation. Left brachial vein is compressible. Superfical vein thrombosis is noted in the left cephalic vein from the mid bicep to wrist and median cubital vein. Left basilic vein is compressible. Left Lower Arm Left radial vein is compressible. Left ulnar vein is compressible. Patient Safety Preliminary report given to Sarah PRATER. VL/Venous Duplex US, Unilateral Interpretation Summary Superficial vein thrombosis noted in the left cephalic vein and median cubital vein Deep veins of the left upper extremity are patent and compressible segmentally. There is no evidence of deep vein thrombosis. Ordering Physician: Rebel Sung Referring Physician: Peggy Uribe Performed By: Keke Houston RVT ???
--- NOTE | 2023-04-03 10:29 | CT_ITS ---
STUDY: CT SCAN OF UPPER EXTREMITY LEFT REASON FOR EXAM: Male, 67 years old. Abscess due to IV infiltration. RADIATION DOSAGE (If Supplied By Facility): CTDIvol = ( 9.46 ) mGy, DLP = ( 402.85 ) mGycm. Individualized dose optimization techniques were used for this CT.? TECHNIQUE: Multiple axial tomographic images of the left upper extremity were obtained. Coronal and sagittal reconstruction was obtained as well. COMPARISON: None. FINDINGS: There is diffuse subcutaneous thickening more prominent in the proximal left upper extremity with overlying skin thickening. Fluid is seen surrounding the deep musculature of the left upper arm. This extends just distal to the elbow joint. No focal abscess is seen. CT/Extremity Upper WITH Contrast IMPRESSION: Diffuse subcutaneous infiltration of fluid with overlying skin thickening more prominent in the upper arm down to the region of the elbow joint. No focal abscess is seen. Electronically Signed: Vinicio Naqvi MD at 12:19 EDT ,
[2023-04-03] MEDS: Potassium Chloride Oral Tablet 20 MEQ 40 MEQ PO (11:26)
[2023-04-03] MEDS: 0.9% Normal Saline (1000mL) 1,000 ML 75 ML IV ×2 (11:27→22:55)
[2023-04-03] MEDS: Tamsulosin HCl 0.4 MG Capsule PO (11:29)
[2023-04-03] MEDS: Escitalopram Oxalate 10 MG Tablet PO (11:30)
[2023-04-03] MEDS: Ensure Plus High Protein 120 ML LIQUID PO ×2 (11:33→17:56)
[2023-04-03 13:29] LABS: Pathologist Review Reviewed
--- NOTE | 2023-04-03 13:37 | CASEMGMT ---
SW reviewed therapy notes and patient is not doing well. SW met with patient and discussed how he feels he is doing. Patient said he feels he is a lot weaker than normal. Patient said he doesn't want to go to a penitentiary, but he feels like he probably should. SW let patient know SW will print a list of facilities that take his insurance. Patient will then need to pick 3 or so facilities he would be okay with and SW will check with the facilities on availability. Lily Farooq [facility] NE[facility]
--- NOTE | 2023-04-03 14:28 | CASEMGMT ---
Discharge Planning A list of?SNF?providers including quality and resource use data and consistent with the patient's preferred geographic region, medical needs, and insurance network was created in [employer] Guide.? This list was provided to the SW. Patricia Dash, Discharge Planning Asst.
--- NOTE | 2023-04-03 15:18 | CASEMGMT ---
SW provided patient with a list of nursing home facility providers including quality and resource use data and consistent with patient?s preferred geographic region, medical needs, and insurance network were provided from the [employer] Guide. SW reminded patient that he needs to pick 3 or so places he would be okay with and SW will take care of contacting the facilities. Lily Farooq [employer]
--- NOTE | 2023-04-03 18:54 | PN.HOSP_ITS ---
Reason for Visit Reason for Visit: Diagnoses Sepsis, unspecified organism (03/27/23) Anemia, unspecified (03/27/23) Coagulation defect, unspecified (03/27/23) Elevated white blood cell count, unspecified (03/27/23) Thrombocytosis, unspecified (03/27/23) Unspecified severe protein-calorie malnutrition (03/27/23) Acidosis, unspecified (03/27/23) Hypotension, unspecified (03/27/23) Pneumonia, unspecified organism (03/27/23) Chronic obstructive pulmonary disease, unspecified (03/27/23) Adult hypertrophic pyloric stenosis (03/27/23) Gastrointestinal hemorrhage, unspecified (03/27/23) Acute kidney failure, unspecified (03/27/23) Hypoxemia (03/27/23) Other symptoms and signs concerning food and fluid intake (03/27/23) Elevation of levels of liver transaminase levels (03/27/23) Subjective Subjective Patient was seen and examined today, I had infectious diseases see the patient- he has a superficial phlebitis of his left arm, infectious diseases has elected to keep the patient on vancomycin and Zosyn for now. Patient's white count was elevated this morning. I have elected not to place the patient on aspirin at the present time due to his bleeding duodenal ulcer which was visualized on 03/29/2023. Objective Data Objective Data Vital Signs: Vital Signs Temp Pulse Resp BP Pulse Ox O2 Del Method O2 Flow Rate 98.5 F 109 H 16 101/63 96 Nasal Cannula 2 04/03/23 17:52 04/03/23 17:52 04/03/23 17:52 04/03/23 17:52 04/03/23 17:52 04/03/23 17:52 04/03/23 17:52 FiO2 1 04/01/23 01:14 Oxygen Flow Rate (L/min) 2 Oxygen Delivery Method Nasal Cannula Weight: 48.988 kg Body Mass Index (BMI) 18.5 Intake & Output: Intake and Output for Last 24 Hours 04/01/23 04/02/23 04/03/23 23:59 23:59 23:59 Intake Total 2329.00 / 2329.00 3116.75 / 3116.75 2423.67 / 2423.67 Output Total 1050 / 2050 3750 / 3750 1250 / 1250 Balance 1279.00 / 279.00 -633.25 / -633.25 1173.67 / 1173.67 Medical Nutrition Assessment Dietitian: Malnutrition Criteria Met Start: 03/28/23 15:40 Freq: Status: Active Protocol: Document 04/02/23 15:52 RMA (Rec: 04/02/23 15:52 RMA [id number]) Nutrition Malnutrition Evidence of Malnutrition Exists Yes Malnutrition (severe): Chronic Evidenced By Suboptimal Energy Intake ( Severe),Physical Changes ( Severe) Clinical Problem Chronic Disease or Condition Related Malnutrition Etiology severe chronic malnutrition related to inadequate energy intake w/ possible increased energy needs d/t COPD, GI dysfunction Signs/Symptoms as evidenced by estimated PO intake meeting <75% of estimated energy needs > 3 months, severe muscle wasting/ fat loss per physical exam, BMI 18.5, PO less than 50% meals x 2 days Status Active Problem Recommendation Dietitian Recommendations/Changes Continue regular diet and ensure plus high protein 3xdaily w/ medpass as ordered. Will add magic cup BID w/ lunch and dinner meals. Lab / Micro Data 04/03/23 06:25 04/03/23 06:25 Labs: Laboratory Results - last 24 hr 04/02/23 03:32: Diff Path Review Reviewed 04/02/23 23:57: Hgb 8.2 L, Hct 26.6 L 04/03/23 06:25: WBC 22.6 H, RBC 2.93 L, Hgb 8.0 L, Hct 26.4 L, MCV 90.1, MCH 27.3, MCHC 30.3 L, RDW Std Deviation 62.3 H, RDW Coeff of Monalisa 19.9 H, Plt Count 555 H, MPV 9.7, Immature Gran % (Auto) 0.500, Neut % (Auto) 86.3 H, Lymph % (Auto) 4.3 L, [place] % (Auto) 7.1, Eos % (Auto) 1.4, Baso % (Auto) 0.4, Absolute Neuts (auto) 19.5 H, Absolute Lymphs (auto) 0.98, Nucleated RBC % 0, Differential Comment SCANNED, Diff Path Review Reviewed, Sodium 138, Potassium 3.0 L, Chloride 103, Carbon Dioxide 33.0 H, Anion Gap 2 L, BUN 14, Creatinine 0.74, Estim Creat Clear Calc 50.35, Est GFR (MDRD) Af Amer 135, Est GFR (MDRD) Non-Af 112, BUN/Creatinine Ratio 18.9, Glucose 92, Calcium 7.3 L, Total Bilirubin 0.30, AST 17, ALT 168 H, Alkaline Phosphatase 90, Total Protein 5.8 L, Albumin 2.0 L, Globulin 3.8, Albumin/Globulin Ratio 0.5 L Micro: Microbiology 04/02/23 21:20 Stool C. difficile DNA Amplification - Final 03/27/23 11:35 Blood Culture (Wb) - Anticubital Left Blood Culture - Final No growth in 5 days. 03/27/23 11:35 Blood Culture (Wb) - Anticubital Right Blood Culture - Final No growth in 5 days. 03/27/23 12:15 Urine Catheter - Guadalupe Urine Culture - Final Culture exhibits no growth. 03/27/23 12:15 Urine Catheter - Guadalupe Legionella Antigen - Final 03/27/23 12:15 Urine Catheter - Guadalupe Streptococcus pneumoniae Antigen (M - Final 03/27/23 15:12 Mucosa - Nose Respiratory Panel (PCR) - Final 03/27/23 14:08 Nasal Secretion SARS-CoV-2 Antigen (Rapid) - Final 03/27/23 11:35 Stool Stool Occult Blood (PADMA) - Final Occult Blood Positive Radiography Diagnostic Testing: Radiology Impression Upper Extremity CT 04/03/23 10:29 IMPRESSION: Diffuse subcutaneous infiltration of fluid with overlying skin thickening more prominent in the upper arm down to the region of the elbow joint. No focal abscess is seen. Electronically Signed: Vinicio Naqvi MD at 12:19 EDT , Venous Doppler Study 04/03/23 10:29 Interpretation Summary Superficial vein thrombosis noted in the left cephalic vein and median cubital v ein Deep veins of the left upper extremity are patent and compressible segmentally. There is no evidence of deep vein thrombosis. Ordering Physician: Rebel Sung Referring Physician: Peggy Uribe Performed By: Keke Houston RVT ??? Physical Exam Const alert, oriented x3 and no apparent distress Constitutional Narrative: Patient appears much older than his stated age General Appearance: cooperative, well kempt and well developed Orientation / Consciousness: awake, oriented to person, oriented to place and oriented to time HEENT normocephalic, head/scalp atraumatic and moist oral mucous membranes Eyes PERRL, EOMs intact bilaterally and conjunctivae normal Neck supple, no JVD, thyroid normal and no carotid bruits General: trachea midline Resp normal respiratory effort, no retractions, no use of accessory muscles and clear to auscultation bilaterally Auscultation: Negative for rales, rhonchi or wheezes Cardio regular rate, regular rhythm, S1 normal heart sound, S2 normal heart sound, no murmurs, no rub and no gallops GI normal to inspection, nondistended, normoactive bowel sounds, soft to palpation, non-tender and non-distended Extremity no clubbing, cyanosis or edema Skin no rashes or lesions noted General Skin Exam: no breakdown Neuro CN's II-XII intact bilaterally, moves all extremities, no focal motor deficits and no sensory deficits noted Sensorium / Orientation: awake, alert, oriented to person and oriented to place Speech: speech normal Psych affect normal Assessment & Plan Assessment/Plan (1) Severe malnutrition: PLAN: Plan 1. Sepsis secondary to community-acquired pneumonia with hypoxia and overlying COPD-patient is currently on Zosyn and vancomycin, infectious diseases is participating in his care #2 upper GI bleed with acute blood loss anemia requiring blood transfusion- patient's hemoglobin today was 8 which is similar to his hemoglobin yesterday. CBC will be rechecked tomorrow #3 severe chronic protein and caloric malnutrition-related to inadequate energy intake due to COPD and GI dysfunction as evidenced by estimated p.o. intake meeting less than 75% of estimated energy needs for more than 3 months, severe muscle wasting/fat loss for physical exam-patient remains on a regular diet with Ensure with [employer], nutritional services is seeing patient #4 hypoxia secondary to suspected pneumonia-patient's currently requiring 2 L of oxygen via nasal cannula #5 duodenal ulcer with acute upper GI bleed-patient is on Carafate and Protonix #6 chronic obstructive pulmonary disease-patient is on aerosol treatments, pulse ox is being monitored #7 superficial phlebitis of the left arm-due to the patient's recent upper GI bleed, patient cannot be placed on antiplatelet drugs or anticoagulants #8 possible left upper extremity cellulitis-again patient is on Zosyn and vancomycin, patient is being seen by infectious diseases #9 hypokalemia-patient was given supplemental oral potassium today, labs will be rechecked tomorrow Total clinical time spent by myself addressing the patient's medical issues, rev iewing all of his data, and collaborating with patient's care team: 35 minutes Charges/Coding Visit Charges Inpatient E&M: 13218 Subs Hosp L2
[2023-04-03] MEDS: HYDROmorphone 0.5 MG/0.5 ML SYRINGE 0.2 MG IV (23:11)
[2023-04-03] MEDS: 0.9% Saline Lock 10 ML Syringe IV (23:25)
[2023-04-04] VITALS (11 sets, daily range): BP systolic 100–130; BP diastolic 60–76; PULSE 91–117; RESP 16–18; TEMP 36.6–36.8; O2SAT 88–96
[2023-04-04] MEDS: oxyCODONE 5 MG Tablet 10 MG PO ×3 (03:48→23:31)
[2023-04-04 05:36] LABS: Absolute Lymphocyte Count 0.98 X10^3/uL (0.83-4.51); Absolute Neutrophil Count 16.3 X10^3/uL (2.0-7.7); Basophil# 0.07 X10^3/uL; Basophil% 0.4 % (0-1); Eosinophil# 0.37 X10^3/uL; Eosinophils% 1.9 % (0-5); Hematocrit 25.8 % (40-54); Hemoglobin 7.5 g/dL (13.0-16.5); Lymphocyte # 0.98 X10^3/ul (0.83-4.51); Lymphocyte % 5.1 % (19-41); Mean Corp Hgb Conc 29.1 g/dL (32-36); Mean Corpuscular Hgb 26.7 pg (27.0-32.0); Mean Corpuscular Volume 91.8 fL (80-94); Mean Platelet Vol. 10.1 fl (6.2-12.0); Monocyte# 1.54 X10^3/uL; Monocyte% 7.9 % (0-10); NRBC Flagged by Analyzer 0.1 % (0-5); Neutrophil # 16.32 X10^3/uL (2.7-7.7); Neutrophil % 84.2 % (47-70); POSITIVE DIFFERENTIAL YES; POSITIVE MORPHOLOGY YES; Platelet Count 597 K/mm3 (150-450); RBC Distribution Width CV 20.2 % (11.6-14.6); RBC Distribution Width SD 64.6 fl (35.1-43.9); Red Blood Count 2.81 M/mm3 (4.6-6.2); White Blood Count 19.4 K/mm3 (4.4-11.0)
[2023-04-04 05:39] LABS: Differential Indicated SCAN CRITERIA MET
[2023-04-04] MEDS: Vancomycin HCl 750 MG in 0.9% Normal Saline (250mL Bag) 250 ML 250 MG IV (05:50)
--- NOTE | 2023-04-04 05:57 | PCM.RX.CS ---
Consult Antibiotic Management Pharmacy has been consulted to manage selected antiobiotic: Vancomycin Type of Intervention Type of Consult: Follow-up Suspected Infection Suspected Infection: Sepsis Microbiology Microbiology: Microbiology 04/02/23 21:20 Stool C. difficile DNA Amplification - Final 03/27/23 11:35 Blood Culture (Wb) - Anticubital Left Blood Culture - Final No growth in 5 days. 03/27/23 11:35 Blood Culture (Wb) - Anticubital Right Blood Culture - Final No growth in 5 days. 03/27/23 12:15 Urine Catheter - Guadalupe Urine Culture - Final Culture exhibits no growth. 03/27/23 12:15 Urine Catheter - Guadalupe Legionella Antigen - Final 03/27/23 12:15 Urine Catheter - Guadalupe Streptococcus pneumoniae Antigen (M - Final 03/27/23 15:12 Mucosa - Nose Respiratory Panel (PCR) - Final 03/27/23 14:08 Nasal Secretion SARS-CoV-2 Antigen (Rapid) - Final 03/27/23 11:35 Stool Stool Occult Blood (PADMA) - Final Occult Blood Positive Dosing Weight Weight used for dosin kg Estimated Creatinine Clearance Estimated Creatinine Clearance: 50 Goal Trough Goal Trough: 15-20 mcg/mL Pharmacy Plan for Drug Dosing Pharmacy Plan for Drug Dosing: Vancomycin trough level (received during [employer] computer downtime) was 11.5. This was below the target range of 15-20. Will increase dose to 750mg q12h and re-draw a trough prior to fourth dose of the new regimen. Pharmacy Service will continue to monitor and adjust dosing as required. Follow-Up Labs Follow-Up Labs: Trough: Vancomycin Date/Time Labs Ordered Labs to be done on [date and time ordered]: 04/05/23 @1711
[2023-04-04 06:14] LABS: Anisocytosis 2+
[2023-04-04 06:15] LABS: Hypochromasia 1+
[2023-04-04 06:25] LABS: Anion Gap 1 (5-15); BUN 12 mg/dL (7-18); BUN/Creat Ratio 17.5 RATIO (10-20); Calcium,Total 7.6 mg/dL (8.5-10.1); Chloride 108 mmol/L (98-107); Creatinine, Serum 0.68 mg/dL (0.70-1.30); EST Glomerular Filtration Rate 123 mL/min (>60); Est Glom Filt Rate - Afr Amer 149 mL/min (>60); Estimated Creatinine Clearance 50.35 ml/min; Glucose 108 mg/dL (74-106); Potassium 3.2 mmol/L (3.5-5.1); Sodium Level 143 mmol/L (136-145)
[2023-04-04] MEDS: Sucralfate 1 GM Tablet PO ×3 (06:54→21:21)
[2023-04-04] MEDS: Pantoprazole Sodium 80 MG in 0.9% Normal Saline (100mL Bag) 80 ML 10 MG CONT INF ×2 (06:55→20:48)
[2023-04-04] MEDS: Piperacil/Tazobactam 3.375 GM in 0.9% Normal Saline (50mL MB+) 50 ML IV ×3 (06:55→21:21)
[2023-04-04 07:09] LABS: Albumin 2.5 g/dL (2.9-4.4); Alpha-1-Globulins 0.3 g/dL (0.0-0.4); Alpha-2-Globulins 0.7 g/dL (0.4-1.0); Anti-Smooth Muscle ABS 9 Units (0-19); Ceruloplasmin 16.7 mg/dL (16.0-31.0); Copper, Serum or Plasma 83 ug/dL (69-132); Cytoplasmic Ab (C-ANCA) 1:20 titer (Neg:<1:20); Gamma Globulin 0.8 g/dL (0.4-1.8); Immunoglobulin A 241 mg/dL (61-437); Immunoglobulin G 889 mg/dL (603-1613); Immunoglobulin M 50 mg/dL (20-172); Perinuclear Ab (P-ANCA) <1:20 titer (Neg:<1:20)
[2023-04-04] MEDS: Ipratropium/Albuterol Sulfate 3 ML AMPUL.NEB INHALATION ×4 (07:14→19:30)
[2023-04-04] MEDS: Tamsulosin HCl 0.4 MG Capsule PO (08:02)
[2023-04-04] MEDS: Escitalopram Oxalate 10 MG Tablet PO (08:02)
[2023-04-04] MEDS: Ensure Plus High Protein 120 ML LIQUID PO ×2 (08:02→17:03)
--- NOTE | 2023-04-04 09:20 | CASEMGMT ---
Per physician patient is interested in [place]. SW asked Patricia d/c retail planning manager to please send a referral to [place]. Lily Farooq JAZZ MUSICIAN [employer]
--- NOTE | 2023-04-04 09:22 | CASEMGMT ---
Discharge Planning Referral sent to [facility] via [facility]. Patricia Dash, Discharge Planning Asst.
[2023-04-04 09:50] LABS: Vancomycin, Trough Level 11.5 ug/mL (5.0-15.0)
--- NOTE | 2023-04-04 13:09 | PCM.PN.ID ---
Physical Exam Narrative Still abd pain, arm feels a little better, no fever Const alert and no apparent distress General Appearance: cooperative Resp normal air movement and clear to auscultation bilaterally Cardio regular rate and regular rhythm GI soft to palpation and non-distended GI Narrative: mild tender Extremity General Extremity: edema Skin Skin Narrative: LUE swollen, a little less red ID ID: Route of nutrition/ use of supplements: [] Nutritional Intake: [] IV Site: [] Guadalupe Catheter: [] Assessment & Plan Assessment/Plan (1) Leukocytosis: PLAN: Doppler shows LUE SVT. Will stop vanc, cont zosyn for now. Will follow (2) Transaminitis: (3) Pneumonia: (4) Acute kidney injury: (5) COPD (chronic obstructive pulmonary disease): QUALIFIERS: COPD type: unspecified COPD Qualified Code(s): J44.9 - Chronic obstructive pulmonary disease, unspecified
[2023-04-04] MEDS: 0.9% Normal Saline (1000mL) 1,000 ML 75 ML IV (13:24)
--- NOTE | 2023-04-04 14:31 | PN.HOSP_ITS ---
Reason for Visit Reason for Visit: Diagnoses Sepsis, unspecified organism (03/27/23) Anemia, unspecified (03/27/23) Coagulation defect, unspecified (03/27/23) Elevated white blood cell count, unspecified (03/27/23) Thrombocytosis, unspecified (03/27/23) Unspecified severe protein-calorie malnutrition (03/27/23) Acidosis, unspecified (03/27/23) Hypotension, unspecified (03/27/23) Pneumonia, unspecified organism (03/27/23) Chronic obstructive pulmonary disease, unspecified (03/27/23) Adult hypertrophic pyloric stenosis (03/27/23) Gastrointestinal hemorrhage, unspecified (03/27/23) Acute kidney failure, unspecified (03/27/23) Hypoxemia (03/27/23) Other symptoms and signs concerning food and fluid intake (03/27/23) Elevation of levels of liver transaminase levels (03/27/23) Subjective Subjective Patient was seen and examined today, his white blood cell count was improved today, there is slightly less edema in the patient's left forearm noted today. I talked briefly with the patient concerning discharge planning, he feels he may be too weak to go home at this point and he has agreed to try temporary skilled placement at [facility], I let the social worker psychiatric know about this. Objective Data Objective Data Vital Signs: Vital Signs Temp Pulse Resp BP Pulse Ox O2 Del Method O2 Flow Rate 98.1 F 110 H 16 100/60 94 Nasal Cannula 2 04/04/23 11:55 04/04/23 11:55 04/04/23 11:55 04/04/23 11:55 04/04/23 11:55 04/04/23 11:55 04/04/23 11:55 FiO2 1 04/01/23 01:14 Oxygen Flow Rate (L/min) 2 Oxygen Delivery Method Nasal Cannula Weight: 48.988 kg Body Mass Index (BMI) 18.5 Intake & Output: Intake and Output for Last 24 Hours 04/02/23 04/03/23 04/04/23 23:59 23:59 23:59 Intake Total 3116.75 / 3116.75 3466.50 / 3466.50 1577.83 / 1577.83 Output Total 3750 / 3750 1250 / 1250 1100 / 1100 Balance -633.25 / -633.25 2216.50 / 2216.50 477.83 / 477.83 Medical Nutrition Assessment Dietitian: Malnutrition Criteria Met Start: 03/28/23 15:40 Freq: Status: Active Protocol: Document 04/02/23 15:52 RMA (Rec: 04/02/23 15:52 RMA [id number]) Nutrition Malnutrition Evidence of Malnutrition Exists Yes Malnutrition (severe): Chronic Evidenced By Suboptimal Energy Intake ( Severe),Physical Changes ( Severe) Clinical Problem Chronic Disease or Condition Related Malnutrition Etiology severe chronic malnutrition related to inadequate energy intake w/ possible increased energy needs d/t COPD, GI dysfunction Signs/Symptoms as evidenced by estimated PO intake meeting <75% of estimated energy needs > 3 months, severe muscle wasting/ fat loss per physical exam, BMI 18.5, PO less than 50% meals x 2 days Status Active Problem Recommendation Dietitian Recommendations/Changes Continue regular diet and ensure plus high protein 3xdaily w/ medpass as ordered. Will add magic cup BID w/ lunch and dinner meals. Lab / Micro Data 04/04/23 03:40 04/04/23 03:40 Labs: Laboratory Results - last 24 hr 03/27/23 20:45: Total Protein (PEP) 5.0 L, Globulin 2.5, Ceruloplasmin 16.7, Serum Copper 83, IgG 889, IgA 241, IgM 50, Immunofixation Screen Comment, Albumin (NORMA) 2.5 L, Albumin/Globulin (NORMA) 1.1, Sflic-[id number] NORMA 0.3, Ywxig-1-Ugoqqydoq NORMA 0.7, Beta-Globulins (NORMA) 0.6 L, Gamma Globulins (NORMA) 0.8, NORMA M-Candido , NORMA Comments Comment, c-ANCA Antibody 1:20 H, Atypical p-ANCA <1:20, p-ANCA Antibody <1:20, Anti-Smooth Muscle Ab 9 04/04/23 03:40: WBC 19.4 H, RBC 2.81 L, Hgb 7.5 L, Hct 25.8 L, MCV 91.8, MCH 26.7 L, MCHC 29.1 L, RDW Std Deviation 64.6 H, RDW Coeff of Monalisa 20.2 H, Plt Count 597 H, MPV 10.1, Immature Gran % (Auto) 0.500, Neut % (Auto) 84.2 H, Lymph % (Auto) 5.1 L, [place] % (Auto) 7.9, Eos % (Auto) 1.9, Baso % (Auto) 0.4, Absolute Neuts (auto) 16.3 H, Absolute Lymphs (auto) 0.98, Nucleated RBC % 0.1, Diff Path Review May foll, Hypochromasia 1+, Anisocytosis 2+, Sodium 143, Potassium 3.2 L, Chloride 108 H, Carbon Dioxide 34.0 H, Anion Gap 1 L, BUN 12, Creatinine 0.68 L, Estim Creat Clear Calc 50.35, Est GFR (MDRD) Af Amer 149, Est GFR (MDRD) Non-Af 123, BUN/Creatinine Ratio 17.5, Glucose 108 H, Calcium 7.6 L, Vancomycin Trough 11.5 Micro: Microbiology 04/02/23 07:39 Blood Culture (Wb) - Right Wrist Blood Culture - Preliminary No growth in 48 hours. 04/02/23 08:06 Blood Culture (Wb) - Left Hand Blood Culture - Preliminary No growth in 48 hours. 04/02/23 21:20 Stool C. difficile DNA Amplification - Final 03/27/23 11:35 Blood Culture (Wb) - Anticubital Left Blood Culture - Final No growth in 5 days. 03/27/23 11:35 Blood Culture (Wb) - Anticubital Right Blood Culture - Final No growth in 5 days. 03/27/23 12:15 Urine Catheter - Guadalupe Urine Culture - Final Culture exhibits no growth. 03/27/23 12:15 Urine Catheter - Guadalupe Legionella Antigen - Final 03/27/23 12:15 Urine Catheter - Guadalupe Streptococcus pneumoniae Antigen (M - Final 03/27/23 15:12 Mucosa - Nose Respiratory Panel (PCR) - Final 03/27/23 14:08 Nasal Secretion SARS-CoV-2 Antigen (Rapid) - Final 03/27/23 11:35 Stool Stool Occult Blood (PADMA) - Final Occult Blood Positive Radiography Diagnostic Testing: Radiology Impression Venous Doppler Study 04/03/23 10:29 Interpretation Summary Superficial vein thrombosis noted in the left cephalic vein and median cubital vein Deep veins of the left upper extremity are patent and compressible segmentally. There is no evidence of deep vein thrombosis. Ordering Physician: Rebel Sung Referring Physician: Peggy Uribe Performed By: Keke Houston RVT ??? Physical Exam Narrative alert, oriented x3 and no apparent distress Constitutional Narrative: Patient appears much older than his stated age General Appearance: cooperative, well kempt and well developed Orientation / Consciousness: awake, oriented to person, oriented to place and oriented to time HEENT normocephalic, head/scalp atraumatic and moist oral mucous membranes Eyes PERRL, EOMs intact bilaterally and conjunctivae normal Neck supple, no JVD, thyroid normal and no carotid bruits General: trachea midline Resp normal respiratory effort, no retractions, no use of accessory muscles and clear to auscultation bilaterally Auscultation: Negative for rales, rhonchi or wheezes Cardio regular rate, regular rhythm, S1 normal heart sound, S2 normal heart sound, no murmurs, no rub and no gallops GI normal to inspection, nondistended, normoactive bowel sounds, soft to palpation, non-tender and non-distended Extremity There is generalized edema noted over the patient's left forearm along with some induration and redness Skin no rashes or lesions noted General Skin Exam: no breakdown Neuro CN's II-XII intact bilaterally, moves all extremities, no focal motor deficits and no sensory deficits noted Sensorium / Orientation: awake, alert, oriented to person and oriented to place Speech: speech normal Psych affect normal Assessment & Plan Assessment/Plan (1) Upper GI bleeding: (2) Severe malnutrition: PLAN: Plan 1. Sepsis secondary to community-acquired pneumonia with hypoxia and overlying COPD-patient is currently on Zosyn and vancomycin, infectious diseases is participating in his care, patient's white blood cell count is improving #2 upper GI bleed with acute blood loss anemia requiring blood transfusion- patient's hemoglobin today was 7.5 which is similar to his hemoglobin yesterday. CBC will be rechecked tomorrow. #3 severe chronic protein and caloric malnutrition-related to inadequate energy intake due to COPD and GI dysfunction as evidenced by estimated p.o. intake meeting less than 75% of estimated energy needs for more than 3 months, severe muscle wasting/fat loss for physical exam-patient remains on a regular diet with Ensure with [employer], nutritional services is seeing patient #4 hypoxia secondary to suspected pneumonia-patient's currently requiring 2 L of oxygen via nasal cannula #5 duodenal ulcer with acute upper GI bleed-patient is on Carafate and Protonix #6 chronic obstructive pulmonary disease-patient is on aerosol treatments, pulse ox is being monitored #7 superficial phlebitis of the left arm-due to the patient's recent upper GI bleed, patient cannot be placed on antiplatelet drugs or anticoagulants #8 possible left upper extremity cellulitis-again patient is on Zosyn and van comycin, patient is being seen by infectious diseases #9 hypokalemia-patient was given supplemental oral potassium today, labs will be rechecked tomorrow Total clinical time spent by myself addressing the patient's medical issues, reviewing all of his data, and collaborating with patient's care team: 35 minutes Charges/Coding Visit Charges Inpatient E&M: 50749 Subs Hosp L2
[2023-04-04] MEDS: Potassium Chloride Oral Tablet 20 MEQ 40 MEQ PO (15:17)
[2023-04-04] MEDS: guaiFENesin 600 MG Tablet PO (15:25)
[2023-04-04] MEDS: Ondansetron 4 MG/2 ML Vial IV (20:08)
[2023-04-05] VITALS (18 sets, daily range): BP systolic 106–144; BP diastolic 55–94; PULSE 91–115; RESP 16–20; TEMP 36.6–37.1; O2SAT 92–100
[2023-04-05] MEDS: 0.9% Normal Saline (1000mL) 1,000 ML 75 ML IV ×2 (02:35→15:39)
[2023-04-05] MEDS: Piperacil/Tazobactam 3.375 GM in 0.9% Normal Saline (50mL MB+) 50 ML IV ×3 (05:07→22:15)
[2023-04-05] MEDS: oxyCODONE 5 MG Tablet 10 MG PO ×2 (06:15→18:03)
[2023-04-05] MEDS: Sucralfate 1 GM Tablet PO ×4 (06:17→22:17)
[2023-04-05] MEDS: Pantoprazole Sodium 80 MG in 0.9% Normal Saline (100mL Bag) 80 ML 10 MG CONT INF ×2 (06:24→16:55)
[2023-04-05 06:44] LABS: Absolute Lymphocyte Count 1.23 X10^3/uL (0.83-4.51); Absolute Neutrophil Count 11.6 X10^3/uL (2.0-7.7); Basophil# 0.07 X10^3/uL; Basophil% 0.5 % (0-1); Eosinophil# 0.34 X10^3/uL; Eosinophils% 2.3 % (0-5); Hemoglobin 6.5 g/dL (13.0-16.5); Lymphocyte # 1.23 X10^3/ul (0.83-4.51); Lymphocyte % 8.2 % (19-41); Mean Corp Hgb Conc 28.3 g/dL (32-36); Mean Corpuscular Hgb 26.6 pg (27.0-32.0); Mean Corpuscular Volume 94.3 fL (80-94); Mean Platelet Vol. 9.8 fl (6.2-12.0); Monocyte# 1.67 X10^3/uL; Monocyte% 11.1 % (0-10); NRBC Flagged by Analyzer 0.3 % (0-5); Neutrophil # 11.61 X10^3/uL (2.7-7.7); Neutrophil % 77.4 % (47-70); POSITIVE DIFFERENTIAL YES; POSITIVE MORPHOLOGY YES; Platelet Count 611 K/mm3 (150-450); RBC Distribution Width CV 20.1 % (11.6-14.6); RBC Distribution Width SD 67.4 fl (35.1-43.9); Red Blood Count 2.44 M/mm3 (4.6-6.2)
[2023-04-05 06:51] LABS: Differential Indicated SCAN CRITERIA MET
[2023-04-05] MEDS: Ipratropium/Albuterol Sulfate 3 ML AMPUL.NEB INHALATION ×4 (07:20→19:33)
[2023-04-05 07:23] LABS: Anisocytosis 2+; Platelet Estimate MKD INC (ADEQ)
[2023-04-05 07:28] LABS: Anion Gap 5 (5-15); BUN 9 mg/dL (7-18); BUN/Creat Ratio 11.5 RATIO (10-20); Calcium,Total 7.3 mg/dL (8.5-10.1); Chloride 110 mmol/L (98-107); Creatinine, Serum 0.78 mg/dL (0.70-1.30); EST Glomerular Filtration Rate 106 mL/min (>60); Est Glom Filt Rate - Afr Amer 128 mL/min (>60); Estimated Creatinine Clearance 50.35 ml/min; Glucose 94 mg/dL (74-106); Potassium 3.6 mmol/L (3.5-5.1); Sodium Level 145 mmol/L (136-145)
--- NOTE | 2023-04-05 08:07 | EKG12_ITS ---
Test Reason : CHEST PAIN Blood Pressure : / mmHG Vent. Rate : 115 BPM Atrial Rate : 115 BPM P-R Int : 154 ms QRS Dur : 076 ms QT Int : 316 ms P-R-T Axes : 080 059 073 degrees QTc Int : 437 ms Sinus tachycardia Otherwise normal ECG When compared with ECG of 27-MAR-2023 11:55, No significant change was found Confirmed by JONN GUERRA, MEI ([id number]), multimedia editor DONNA WARD ([id number]) on 04/19/2023 11:02:21 AM Referred By: Confirmed By:MEI LUNSFORD MD
[2023-04-05] MEDS: Escitalopram Oxalate 10 MG Tablet PO (09:17)
[2023-04-05] MEDS: Tamsulosin HCl 0.4 MG Capsule PO (09:17)
[2023-04-05] MEDS: Ensure Plus High Protein 120 ML LIQUID PO ×2 (09:17→15:40)
--- NOTE | 2023-04-05 09:53 | PCM.PN.ID ---
Physical Exam Narrative Feeling better, arm improved, no dyspnea, no fever Const alert and no apparent distress General Appearance: cooperative Resp normal air movement and clear to auscultation bilaterally Cardio regular rate and regular rhythm GI soft to palpation, non-tender and non-distended Skin no rashes or lesions noted ID ID: Route of nutrition/ use of supplements: [] Nutritional Intake: [] IV Site: [] Guadalupe Catheter: [] Assessment & Plan Assessment/Plan (1) Leukocytosis: PLAN: Doppler shows LUE SVT. On abx for CAP since 03/27, plan on stopping zosyn tomorrow. Wbc steadily improving. Will follow (2) Transaminitis: (3) Pneumonia: (4) Acute kidney injury: (5) COPD (chronic obstructive pulmonary disease): QUALIFIERS: COPD type: unspecified COPD Qualified Code(s): J44.9 - Chronic obstructive pulmonary disease, unspecified
[2023-04-05 09:57] LABS: Pathologist Review Reviewed
[2023-04-05 10:45] LABS: Pathologist Review Reviewed
--- NOTE | 2023-04-05 11:31 | CASEMGMT ---
Discharge Planning Updates sent to [facility] with request to submit precert. Patricia Dash, Discharge Planning Asst.
--- NOTE | 2023-04-05 12:24 | CASEMGMT ---
[facility] accepted patient and will start pre-cert. SW went to patient's room and let him know that [facility] accepted him and will work with his insurance to get approval. Plan: d/c to [facility] pending patient being medically ready and insurance approval. Lily Farooq DEHYDROGENATION SUPERVISOR VAL
--- NOTE | 2023-04-05 18:42 | PN.HOSP_ITS ---
Reason for Visit Reason for Visit: Diagnoses Sepsis, unspecified organism (03/27/23) Anemia, unspecified (03/27/23) Coagulation defect, unspecified (03/27/23) Elevated white blood cell count, unspecified (03/27/23) Thrombocytosis, unspecified (03/27/23) Unspecified severe protein-calorie malnutrition (03/27/23) Acidosis, unspecified (03/27/23) Hypotension, unspecified (03/27/23) Pneumonia, unspecified organism (03/27/23) Chronic obstructive pulmonary disease, unspecified (03/27/23) Adult hypertrophic pyloric stenosis (03/27/23) Gastrointestinal hemorrhage, unspecified (03/27/23) Acute kidney failure, unspecified (03/27/23) Hypoxemia (03/27/23) Other symptoms and signs concerning food and fluid intake (03/27/23) Elevation of levels of liver transaminase levels (03/27/23) Subjective Subjective Patient was seen and examined today, his hemoglobin today was 6.5, he had a brief episode of some chest discomfort that lasted about 20 minutes but it resolved on its own and he did not state that it was severe. According to infectious disease notes, they recommend stopping the patient's Zosyn tomorrow. Patient's white blood cell count today was improved. Objective Data Objective Data Vital Signs: Vital Signs Temp Pulse Resp BP Pulse Ox O2 Del Method O2 Flow Rate 98.6 F 115 H 16 122/72 H 92 Nasal Cannula 3 04/05/23 17:52 04/05/23 17:52 04/05/23 17:52 04/05/23 17:52 04/05/23 17:52 04/05/23 17:52 04/05/23 17:52 FiO2 1 04/01/23 01:14 Oxygen Flow Rate (L/min) 3 Oxygen Delivery Method Nasal Cannula Weight: 48.988 kg Body Mass Index (BMI) 18.5 Intake & Output: Intake and Output for Last 24 Hours 04/03/23 04/04/23 04/05/23 23:59 23:59 23:59 Intake Total 3466.50 / 3466.50 1847.83 / 1957.83 3578.75 / 3578.75 Output Total 1250 / 1250 1100 / 2350 2800 / 2800 Balance 2216.50 / 2216.50 747.83 / -392.17 778.75 / 778.75 Medical Nutrition Assessment Dietitian: Malnutrition Criteria Met Start: 03/28/23 15:40 Freq: Status: Active Protocol: Document 04/02/23 15:52 RMA (Rec: 04/02/23 15:52 RMA [id number]) Nutrition Malnutrition Evidence of Malnutrition Exists Yes Malnutrition (severe): Chronic Evidenced By Suboptimal Energy Intake ( Severe),Physical Changes ( Severe) Clinical Problem Chronic Disease or Condition Related Malnutrition Etiology severe chronic malnutrition related to inadequate energy intake w/ possible increased energy needs d/t COPD, GI dysfunction Signs/Symptoms as evidenced by estimated PO intake meeting <75% of estimated energy needs > 3 months, severe muscle wasting/ fat loss per physical exam, BMI 18.5, PO less than 50% meals x 2 days Status Active Problem Recommendation Dietitian Recommendations/Changes Continue regular diet and ensure plus high protein 3xdaily w/ medpass as ordered. Will add magic cup BID w/ lunch and dinner meals. Lab / Micro Data 04/05/23 06:04 04/05/23 06:04 Labs: Laboratory Results - last 24 hr 04/04/23 03:40: Diff Path Review Reviewed 04/05/23 06:04: WBC 15.0 H, RBC 2.44 L, Hgb 6.5 L, Hct 23.0 L, MCV 94.3 H, MCH 26.6 L, MCHC 28.3 L, RDW Std Deviation 67.4 H, RDW Coeff of Monalisa 20.1 H, Plt Count 611 H, MPV 9.8, Immature Gran % (Auto) 0.500, Neut % (Auto) 77.4 H, Lymph % (Auto) 8.2 L, Grainger % (Auto) 11.1 H, Eos % (Auto) 2.3, Baso % (Auto) 0.5, Absolute Neuts (auto) 11.6 H, Absolute Lymphs (auto) 1.23, Nucleated RBC % 0.3, Diff Path Review Reviewed, Platelet Estimate MKD INC, Anisocytosis 2+, Sodium 145, Potassium 3.6, Chloride 110 H, Carbon Dioxide 30.0, Anion Gap 5, BUN 9, Creatinine 0.78, Estim Creat Clear Calc 50.35, Est GFR (MDRD) Af Amer 128, Est GFR (MDRD) Non-Af 106, BUN/Creatinine Ratio 11.5, Glucose 94, Calcium 7.3 L 04/05/23 09:47: Blood Type O POSITIVE, Antibody Screen NEGATIVE, Crossmatch See Detail Micro: Microbiology 04/02/23 07:39 Blood Culture (Wb) - Right Wrist Blood Culture - Preliminary No growth in 48 hours. 04/02/23 08:06 Blood Culture (Wb) - Left Hand Blood Culture - Preliminary No growth in 48 hours. 04/02/23 21:20 Stool C. difficile DNA Amplification - Final 03/27/23 11:35 Blood Culture (Wb) - Anticubital Left Blood Culture - Final No growth in 5 days. 03/27/23 11:35 Blood Culture (Wb) - Anticubital Right Blood Culture - Final No growth in 5 days. 03/27/23 12:15 Urine Catheter - [place] Urine Culture - Final Culture exhibits no growth. 03/27/23 12:15 Urine Catheter - [place] Legionella Antigen - Final 03/27/23 12:15 Urine Catheter - [place] Streptococcus pneumoniae Antigen (M - Final 03/27/23 15:12 Mucosa - Nose Respiratory Panel (PCR) - Final 03/27/23 14:08 Nasal Secretion SARS-CoV-2 Antigen (Rapid) - Final 03/27/23 11:35 Stool Stool Occult Blood (PADMA) - Final Occult Blood Positive Physical Exam Narrative alert, oriented x3 and no apparent distress Constitutional Narrative: Patient appears much older than his stated age General Appearance: cooperative, well kempt and well developed Orientation / Consciousness: awake, oriented to person, oriented to place and oriented to time HEENT normocephalic, head/scalp atraumatic and moist oral mucous membranes Eyes PERRL, EOMs intact bilaterally and conjunctivae normal Neck supple, no JVD, thyroid normal and no carotid bruits General: trachea midline Resp normal respiratory effort, no retractions, no use of accessory muscles and clear to auscultation bilaterally Auscultation: Negative for rales, rhonchi or wheezes Cardio regular rate, regular rhythm, S1 normal heart sound, S2 normal heart sound, no murmurs, no rub and no gallops GI normal to inspection, nondistended, normoactive bowel sounds, soft to palpation, non-tender and non-distended Extremity There is generalized edema noted over the patient's left forearm along with some induration and redness Skin no rashes or lesions noted General Skin Exam: no breakdown Neuro CN's II-XII intact bilaterally, moves all extremities, no focal motor deficits and no sensory deficits noted Sensorium / Orientation: awake, alert, oriented to person and oriented to place Speech: speech normal Psych affect normal Assessment & Plan Assessment/Plan (1) Severe anemia: (2) Upper GI bleeding: (3) Severe malnutrition: PLAN: Plan 1. Sepsis secondary to community-acquired pneumonia with hypoxia and overlying COPD-patient is currently on Zosyn and vancomycin, infectious diseases is participating in his care, patient's white blood cell count is improving #2 upper GI bleed with acute blood loss anemia requiring blood transfusion- patient's hemoglobin today was 7.5 which is similar to his hemoglobin yesterday. CBC will be rechecked tomorrow. #3 severe chronic protein and caloric malnutrition-related to inadequate energy intake due to COPD and GI dysfunction as evidenced by estimated p.o. intake meeting less than 75% of estimated energy needs for more than 3 months, severe muscle wasting/fat loss for physical exam-patient remains on a regular diet with Ensure with [facility], nutritional services is seeing patient #4 hypoxia secondary to suspected pneumonia-patient's currently requiring 2 L of oxygen via nasal cannula #5 duodenal ulcer with acute upper GI bleed-patient is on Carafate and Protonix #6 chronic obstructive pulmonary disease-patient is on aerosol treatments, pulse ox is being monitored #7 superficial phlebitis of the left arm-due to the patient's recent upper GI bleed, patient cannot be placed on antiplatelet drugs or anticoagulants #8 possible left upper extremity cellulitis-again patient is on Zosyn and vancomycin, patient is being seen by infectious diseases #9 hypokalemia-patient was given supplemental oral potassium today, labs will be rechecked tomorrow Total clinical time spent by myself addressing the patient's medical issues, reviewing all of his data, and collaborating with patient's care team: 35 minutes Charges/Coding Visit Charges Inpatient E&M: 95382 Subs Hosp L2
--- NOTE | 2023-04-05 20:07 | PCM.HOSP.N ---
Hospitalist Note Patient on last unit PRBC, crackles noted, oxygenation requirements increased, will dose with lasix 20 mg x 1.
[2023-04-05] MEDS: Furosemide 20 MG/2 ML VIAL IV (20:44)
[2023-04-05] MEDS: HYDROmorphone Inj 0.2 MG/ML SYRINGE IV (21:12)
[2023-04-06] VITALS (7 sets, daily range): BP systolic 86–126; BP diastolic 57–114; PULSE 78–115; RESP 15–18; TEMP 36.1–36.9; O2SAT 90–100
[2023-04-06] MEDS: oxyCODONE 5 MG Tablet 10 MG PO ×3 (00:26→15:34)
[2023-04-06] MEDS: 0.9% Normal Saline (1000mL) 1,000 ML 75 ML IV (03:33)
[2023-04-06] MEDS: Pantoprazole Sodium 80 MG in 0.9% Normal Saline (100mL Bag) 80 ML 10 MG CONT INF ×2 (03:33→13:59)
[2023-04-06] MEDS: Ondansetron 4 MG/2 ML Vial IV (03:33)
[2023-04-06] MEDS: Piperacil/Tazobactam 3.375 GM in 0.9% Normal Saline (50mL MB+) 50 ML IV (06:12)
[2023-04-06] MEDS: Sucralfate 1 GM Tablet PO ×3 (06:13→15:36)
[2023-04-06 06:19] LABS: Absolute Lymphocyte Count 0.93 X10^3/uL (0.83-4.51); Absolute Neutrophil Count 8.4 X10^3/uL (2.0-7.7); Basophil# 0.08 X10^3/uL; Basophil% 0.7 % (0-1); Eosinophil# 0.29 X10^3/uL; Eosinophils% 2.6 % (0-5); Hematocrit 28.5 % (40-54); Hemoglobin 9.1 g/dL (13.0-16.5); Lymphocyte # 0.93 X10^3/ul (0.83-4.51); Lymphocyte % 8.3 % (19-41); Mean Corp Hgb Conc 31.9 g/dL (32-36); Mean Corpuscular Hgb 29.1 pg (27.0-32.0); Mean Corpuscular Volume 91.1 fL (80-94); Monocyte# 1.38 X10^3/uL; Monocyte% 12.3 % (0-10); NRBC Flagged by Analyzer 1.2 % (0-5); Neutrophil # 8.42 X10^3/uL (2.7-7.7); Neutrophil % 75.4 % (47-70); POSITIVE MORPHOLOGY YES; Platelet Count 514 K/mm3 (150-450); RBC Distribution Width CV 17.7 % (11.6-14.6); RBC Distribution Width SD 57.3 fl (35.1-43.9); Red Blood Count 3.13 M/mm3 (4.6-6.2); White Blood Count 11.2 K/mm3 (4.4-11.0)
[2023-04-06 06:21] LABS: Differential Indicated SCAN CRITERIA MET
[2023-04-06 06:46] LABS: Anisocytosis 1+; Platelet Estimate MOD INC (ADEQ); Platelet Morphology LARGE; Polychromasia 1+
[2023-04-06] MEDS: Ipratropium/Albuterol Sulfate 3 ML AMPUL.NEB INHALATION ×3 (07:09→15:31)
[2023-04-06] MEDS: Escitalopram Oxalate 10 MG Tablet PO (08:12)
[2023-04-06] MEDS: Tamsulosin HCl 0.4 MG Capsule PO (08:13)
[2023-04-06] MEDS: Ensure Plus High Protein 120 ML LIQUID PO ×3 (08:56→15:36)
--- NOTE | 2023-04-06 13:37 | CASEMGMT ---
Discharge Planning [facility] has obtained auth. SW updated. Patricia Dash, Discharge Planning Asst.
--- NOTE | 2023-04-06 13:39 | CASEMGMT ---
SW notified physician that patient was approved for [facility]. Physician will send patient today. SW completed a PASRR in [facility] system. Plan: d/c to [facility] under skilled level of care on a PASRR. Physicians will transport patient. Lily NEAL
--- NOTE | 2023-04-06 13:49 | TREXTCAR_ITS ---
Diet Diet Order/Speech Therapy: 03/31/23 11:19 Diet: Regular - General Food consistency:: Regular Liquid Consistency:: Regular/Thin Type of Dietary Supplement:: Magic Cup Dessert Is pt able to select menu?: No Diet Comments: magic cup w/ lunch and dinner meals Routine Orders/Code Status O2 Liters per Minute: 3 O2 Frequency: Continuous Routine Lab Work: CBC (on 04/09/23) Code Status: Full Code Therapies Weight Bearing: Full weight bearing Physical Therapy: Eval and Treat Occupational Therapy: Eval and Treat Problem/Diagnosis (1) Severe anemia: Status: Acute Code(s): D64.9 - Anemia, unspecified (2) Upper GI bleeding: Status: Acute Code(s): K92.2 - Gastrointestinal hemorrhage, unspecified (3) Severe malnutrition: Status: Acute Code(s): E43 - Unspecified severe protein-calorie malnutrition (4) Osteoarthritis: Status: Acute Code(s): M19.90 - Unspecified osteoarthritis, unspecified site Plan 1. Sepsis secondary to community-acquired pneumonia with hypoxia and overlying COPD-patient is currently on Zosyn and vancomycin, infectious diseases is participating in his care, patient's white blood cell count is improving #2 upper GI bleed with acute blood loss anemia requiring blood transfusion- patient's hemoglobin today was 7.5 which is similar to his hemoglobin yesterday. CBC will be rechecked tomorrow. #3 severe chronic protein and caloric malnutrition-related to inadequate energy intake due to COPD and GI dysfunction as evidenced by estimated p.o. intake meeting less than 75% of estimated energy needs for more than 3 months, severe muscle wasting/fat loss for physical exam-patient remains on a regular diet with Ensure with [employer], nutritional services is seeing patient #4 hypoxia secondary to suspected pneumonia-patient's currently requiring 3 L of oxygen via nasal cannula #5 duodenal ulcer with acute upper GI bleed-patient is on Carafate and Protonix #6 chronic obstructive pulmonary disease-patient is on aerosol treatments, pulse ox is being monitored #7 superficial phlebitis of the left arm-due to the patient's recent upper GI bleed, patient cannot be placed on antiplatelet drugs or anticoagulants #8 possible left upper extremity cellulitis-again patient is on Zosyn and vancomycin, patient is being seen by infectious diseases #9 hypokalemia-patient was given supplemental oral potassium today, labs will be rechecked tomorrow #10 chemical cellulitis of the left arm-this appears to be resolving slowly Total clinical time spent by myself addressing the patient's medical issues, reviewing all of his data, and collaborating with patient's care team: 35 minutes Allergies/Procedures Done in Hospital Allergies No Known Allergies Allergy (Verified 03/27/23 11:15) Procedures: Blood transfusion and EGD Type of Care/Length of Stay Estimated LOS: Convalescent Care Less Than 30 days Type of Care Needed: Skilled Rehab Potential: Good Prognosis: Good Additional Orders/Day of Discharge H&P will serve as current which was dated: 03/27/23 Day of Discharge: 04/06/23 Dietary and Speech Recommendations Dietitian Recommendations/Changes: Continue regular diet and ensure plus high protein 3xdaily w/ medpass as ordered. Will add magic cup BID w/ lunch and dinner meals. Discharge Plan Admission Admit Date/Time: 03/27/23 13:35 Primary Reason for Your Visit: Sepsis secondary to pneumonia, hypoxia, anemia, acute kidney injury Attending Provider: Enoch Reyes Primary Care Provider: Peggy Uribe Consulting Providers: Cristina Morley; Jeremy Villafana; Rebel Sung Instructions Additional Instructions / Restrictions: Recommend no use of nonsteroidal anti-inflammatory medications for pain due to history of GI bleed No use of aspirin recommended due to history of GI bleed Follow-up with gastroenterology( Dr. Calero) for removal of duodenal stent-this has to occur in 2 months Discharge Orders/Prescriptions Prescriptions: New oxycodone 5 mg Tablet 10 mg PO Q6H PRN PRN (Reason: Pain Score 6-10) 2 Days Qty: 15 0RF Ensure Plus High Protein 0.08 gram-1.5 kcal/mL Liquid 120 ml PO TIDCM Qty: 1 0RF sucralfate 1 gram Tablet 1 g PO 1HR_ACHS Qty: 0 0RF pantoprazole [Protonix] 40 mg tablet,delayed release (DR/EC) 40 mg PO BID Qty: 1 0RF Continued albuterol sulfate 0.63 mg/3 mL solution for nebulization 0.63 mg inhalation Q6H PRN (Reason: shortness of breath or wheezing) Qty: 90 5RF escitalopram oxalate [Lexapro] 10 mg tablet 10 mg PO DAILY Qty: 30 1RF Trelegy Ellipta 100-62.5-25 mcg blister with device 1 inh inhalation DAILY Qty: 28 1RF tamsulosin 0.4 mg capsule 0.4 mg PO DAILY Qty: 30 1RF Discontinued ipratropium bromide 0.02 % solution 2.5 ml inhalation Q6H PRN (Reason: shortness of breath or wheezing) Qty: 150 1RF albuterol sulfate 90 mcg/actuation HFA aerosol inhaler 2 puff inhalation Q6H PRN (Reason: shortness of breath or wheezing) Qty: 8.5 1RF No Action (DME) blood pressure test kit-medium Kit See Rx Instructions .Route Qty: 1 0RF Rx Instructions: As directed (DME) nebulizer and compressor [Comp-Air Nebulizer Compressor] Device See Rx Instructions .ROUTE .COMPLEX Qty: 1 0RF Dose Instruction: USE DIRECTED Rx Instructions: USE DIRECTED Referrals / Follow Up: Peggy Uribe MD [Primary Care Provider] - Kory Calero DO [Med Staff - Active Staff] - See Referral Note (Follow-up in 2 months for duodenal stent removal) Disposition Disposition (needs filled in before D/C Order can be placed): Residential Facility
--- NOTE | 2023-04-06 14:32 | PCM.DC.SUM ---
Providers Date of Admission: 03/27/23 Date of Discharge: 04/06/23 Primary Care Physician: Dr. Peggy Uribe MD Consultations 03/27/23 17:31 Consult: Gastroenterology Routine Consulting Provider: [facility] Reason for Consult: Severe Anemia EMERGENT Consult: No Notified: Yes Date Notified: 03/27/23 Time Notified: 13:42 Method of Notification: Verbal 04/03/23 08:32 Consult: Infectious Disease Routine Consulting Provider: Rebel Sung Reason for Consult: antibiotic de-escalation EMERGENT Consult: No Notified: Yes Date Notified: 04/03/23 Time Notified: 08:33 Method of Notification: Text Reason For Visit: SEPSIS 2/2 PNA SEVERE ANEMIA Diagnosis Discharge Diagnosis (1) Severe anemia: Status: Acute Code(s): D64.9 - Anemia, unspecified (2) Upper GI bleeding: Status: Acute Code(s): K92.2 - Gastrointestinal hemorrhage, unspecified (3) Severe malnutrition: Status: Acute Code(s): E43 - Unspecified severe protein-calorie malnutrition (4) Osteoarthritis: Status: Acute Code(s): M19.90 - Unspecified osteoarthritis, unspecified site Plan 1. Sepsis secondary to community-acquired pneumonia with hypoxia and overlying COPD-patient is currently on Zosyn and vancomycin, infectious diseases is participating in his care, patient's white blood cell count is improving #2 upper GI bleed with acute blood loss anemia requiring blood transfusion-patient's hemoglobin today was 7.5 which is similar to his hemoglobin yesterday. CBC will be rechecked tomorrow. #3 severe chronic protein and caloric malnutrition-related to inadequate energy intake due to COPD and GI dysfunction as evidenced by estimated p.o. intake meeting less than 75% of estimated energy needs for more than 3 months, severe muscle wasting/fat loss for physical exam-patient remains on a regular diet with Ensure with [employer], nutritional services is seeing patient #4 hypoxia secondary to suspected pneumonia-patient's currently requiring 3 L of oxygen via nasal cannula #5 duodenal ulcer with acute upper GI bleed-patient is on Carafate and Protonix #6 chronic obstructive pulmonary disease-patient is on aerosol treatments, pulse ox is being monitored #7 superficial phlebitis of the left arm-due to the patient's recent upper GI bleed, patient cannot be placed on antiplatelet drugs or anticoagulants #8 possible left upper extremity cellulitis-again patient is on Zosyn and vancomycin, patient is being seen by infectious diseases #9 hypokalemia-patient was given supplemental oral potassium today, labs will be rechecked tomorrow #10 chemical cellulitis of the left arm-this appears to be resolving slowly Total clinical time spent by myself addressing the patient's medical issues, reviewing all of his data, and collaborating with patient's care team: 35 minutes Medications at Discharge Home Medications fluticasone fur. 100 mcg-umeclid 62.5 mcg-vilant 25 mcg inhalat.powder (Trelegy Ellipta) 1 inh inhalation DAILY #28 ea 02/14/23 tamsulosin 0.4 mg capsule 0.4 mg PO DAILY #30 caps 02/14/23 albuterol sulfate 0.63 mg/3 mL solution for nebulization 0.63 mg (3 mL) inhalation Q6H PRN shortness of breath or wheezing #90 mL 03/08/23 blood pressure test kit-medium #1 ea 03/08/23 escitalopram oxalate 10 mg tablet (Lexapro) 10 mg PO DAILY #30 tabs 03/08/23 nebulizer and compressor (Comp-Air Nebulizer Compressor) #1 ea 03/08/23 food supplemt, lactose-reduced 0.08 gram-1.5 kcal/mL oral liquid (Ensure Plus High Protein) 120 ml PO TIDCM #1 mL 04/06/23 oxycodone 5 mg tablet 10 mg (2 x 5 mg) PO Q6H PRN PRN Pain Score 6-10 2 days #15 tabs 04/06/23 pantoprazole 40 mg tablet,delayed release (Protonix) 40 mg PO BID #1 TAB 04/06/23 sucralfate 1 gram tablet 1 g PO 1HR_ACHS #0 tabs 04/06/23 Hospital Course Operations None Procedures EGD (With duodenal stent placement) Summary of Care Provided Minutes Spent on Discharge: 31 Hospital Course: This 67-year-old white male was seen in the emergency room at [facility] with complaints of shortness of breath times several days. Patient also complained of black stools. Evaluation in the emergency room revealed the patient to be hypotensive and requiring supplemental oxygen on room air. CBC revealed a low hemoglobin at 6.5, white blood cell count was elevated at 17.8, BUN was elevated at 66 and creatinine was elevated at 2.09. Patient's chest x-ray showed bibasilar infiltrates, he was started on antibiotics and his blood pressure responded to fluids in the emergency room. Patient was admitted for sepsis and he was placed on PCU on IV antibiotics and fluids. Iron studies were obtained and revealed he was iron deficient, patient was given IV iron and due to guaiac positive stools, GI was consulted, patient received blood transfusions, and NG was inserted and the patient was placed on a Protonix drip. Patient underwent an EGD which showed oozing duodenal ulcer with a visible vessel which was injected, there was also another duodenal ulcer that was treated with a monopolar probe. The following day, the patient underwent a second EGD or a duodenal stent was placed, a duodenal ulcer with a visible vessel was injected and treated with a heater probe. Patient was seen in consultation by PT and OT, he was maintained on IV antibiotics and Protonix and Carafate, patient had some swelling of his left forearm after an IV infiltrated, he was seen in consultation by infectious diseases who ordered a venous duplex of the left arm-this showed only a superficial phlebitis, patient was not a candidate to go on aspirin due to the fact he had a GI bleed. Patient was transfused a total of 6 units of packed red blood cells during his hospitalization. On 04/06/2023, patient was seen and examined:alert, oriented x3 and no apparent distress Constitutional Narrative: Patient appears much older than his stated age General Appearance: cooperative, well kempt and well developed Orientation / Consciousness: awake, oriented to person, oriented to place and oriented to time HEENT normocephalic, head/scalp atraumatic and moist oral mucous membranes Eyes PERRL, EOMs intact bilaterally and conjunctivae normal Neck supple, no JVD, thyroid normal and no carotid bruits General: trachea midline Resp normal respiratory effort, no retractions, no use of accessory muscles and clear to auscultation bilaterally Auscultation: Negative for rales, rhonchi or wheezes Cardio regular rate, regular rhythm, S1 normal heart sound, S2 normal heart sound, no murmurs, no rub and no gallops GI normal to inspection, nondistended, normoactive bowel sounds, soft to palpation, non-tender and non-distended Extremity There is generalized edema noted over the patient's left forearm along with some induration and redness Skin no rashes or lesions noted General Skin Exam: no breakdown Neuro CN's II-XII intact bilaterally, moves all extremities, no focal motor deficits and no sensory deficits noted Sensorium / Orientation: awake, alert, oriented to person and oriented to place Speech: speech normal Psych affect normal Patient appears stable for discharge to an extended care facility for short-term rehab services on 04/06/2023. Medical Records Data Medical Nutrition Assessment Dietitian: Malnutrition Criteria Met Start: 03/28/23 15:40 Freq: Status: Active Protocol: Document 04/02/23 15:52 RMA (Rec: 04/02/23 15:52 RMA [id number]) Nutrition Malnutrition Evidence of Malnutrition Exists Yes Malnutrition (severe): Chronic Evidenced By Suboptimal Energy Intake ( Severe),Physical Changes ( Severe) Clinical Problem Chronic Disease or Condition Related Malnutrition Etiology severe chronic malnutrition related to inadequate energy intake w/ possible increased energy needs d/t COPD, GI dysfunction Signs/Symptoms as evidenced by estimated PO intake meeting <75% of estimated energy needs > 3 months, severe muscle wasting/ fat loss per physical exam, BMI 18.5, PO less than 50% meals x 2 days Status Active Problem Recommendation Dietitian Recommendations/Changes Continue regular diet and ensure plus high protein 3xdaily w/ medpass as ordered. Will add magic cup BID w/ lunch and dinner meals. Weight / BMI Weight Weight: 48.988 kg Body Mass Index (BMI) 18.5 ABG / Lab / Microbiology Data 04/06/23 06:08 04/05/23 06:04 Laboratory: Laboratory Results - last 24 hr 04/05/23 09:47: Blood Type O POSITIVE, Antibody Screen NEGATIVE, Crossmatch See Detail 04/06/23 06:08: WBC 11.2 H, RBC 3.13 L, Hgb 9.1 L, Hct 28.5 L, MCV 91.1, MCH 29.1, MCHC 31.9 L D, RDW Std Deviation 57.3 H, RDW Coeff of Monalisa 17.7 H, Plt Count 514 H, MPV 9.0, Immature Gran % (Auto) 0.700, Neut % (Auto) 75.4 H, Lymph % (Auto) 8.3 L, [place] % (Auto) 12.3 H, Eos % (Auto) 2.6, Baso % (Auto) 0.7, Absolute Neuts (auto) 8.4 H, Absolute Lymphs (auto) 0.93, Nucleated RBC % 1.2, Platelet Estimate MOD INC, Plt Morphology Comment LARGE, Polychromasia 1+, Anisocytosis 1+ Microbiology: Microbiology 04/02/23 07:39 Blood Culture (Wb) - Right Wrist Blood Culture - Preliminary No growth in 48 hours. 04/02/23 08:06 Blood Culture (Wb) - Left Hand Blood Culture - Preliminary No growth in 48 hours. 04/02/23 21:20 Stool C. difficile DNA Amplification - Final 03/27/23 11:35 Blood Culture (Wb) - Anticubital Left Blood Culture - Final No growth in 5 days. 03/27/23 11:35 Blood Culture (Wb) - Anticubital Right Blood Culture - Final No growth in 5 days. 03/27/23 12:15 Urine Catheter - [place] Urine Culture - Final Culture exhibits no growth. 03/27/23 12:15 Urine Catheter - [place] Legionella Antigen - Final 03/27/23 12:15 Urine Catheter - [place] Streptococcus pneumoniae Antigen (M - Final 03/27/23 15:12 Mucosa - Nose Respiratory Panel (PCR) - Final 03/27/23 14:08 Nasal Secretion SARS-CoV-2 Antigen (Rapid) - Final 03/27/23 11:35 Stool Stool Occult Blood (PADMA) - Final Occult Blood Positive Meaningful Use Info Meaningful Use Diagnoses (Choose all that apply): None applicable Discharge Plan Admission Admit Date/Time: 03/27/23 13:35 Primary Reason for Your Visit: Sepsis secondary to pneumonia, hypoxia, anemia, acute kidney injury Attending Provider: Enoch Reyes Primary Care Provider: Peggy Uribe Consulting Providers: Cristina Morley; Jeremy Villafana; Rebel Sung Instructions Additional Instructions / Restrictions: Recommend no use of nonsteroidal anti-inflammatory medications for pain due to history of GI bleed No use of aspirin recommended due to history of GI bleed Follow-up with gastroenterology( Dr. Calero) for removal of duodenal stent-this has to occur in 2 months Discharge Orders/Prescriptions Prescriptions: New oxycodone 5 mg Tablet 10 mg PO Q6H PRN PRN (Reason: Pain Score 6-10) 2 Days Qty: 15 0RF Ensure Plus High Protein 0.08 gram-1.5 kcal/mL Liquid 120 ml PO TIDCM Qty: 1 0RF sucralfate 1 gram Tablet 1 g PO 1HR_ACHS Qty: 0 0RF pantoprazole [Protonix] 40 mg tablet,delayed release (DR/EC) 40 mg PO BID Qty: 1 0RF Continued albuterol sulfate 0.63 mg/3 mL solution for nebulization 0.63 mg inhalation Q6H PRN (Reason: shortness of breath or wheezing) Qty: 90 5RF escitalopram oxalate [Lexapro] 10 mg tablet 10 mg PO DAILY Qty: 30 1RF Trelegy Ellipta 100-62.5-25 mcg blister with device 1 inh inhalation DAILY Qty: 28 1RF tamsulosin 0.4 mg capsule 0.4 mg PO DAILY Qty: 30 1RF Discontinued ipratropium bromide 0.02 % solution 2.5 ml inhalation Q6H PRN (Reason: shortness of breath or wheezing) Qty: 150 1RF albuterol sulfate 90 mcg/actuation HFA aerosol inhaler 2 puff inhalation Q6H PRN (Reason: shortness of breath or wheezing) Qty: 8.5 1RF No Action (DME) blood pressure test kit-medium Kit See Rx Instructions .Route Qty: 1 0RF Rx Instructions: As directed (DME) nebulizer and compressor [Comp-Air Nebulizer Compressor] Device See Rx Instructions .ROUTE .COMPLEX Qty: 1 0RF Dose Instruction: USE DIRECTED Rx Instructions: USE DIRECTED Referrals / Follow Up: Peggy Uribe MD [Primary Care Provider] - Kory Calero DO [Med Staff - Active Staff] - See Referral Note (Follow-up in 2 months for duodenal stent removal) Disposition Disposition (needs filled in before D/C Order can be placed): Group Home Facility Charges/Coding Visit Charges Inpatient E&M: 60940 Disch Hosp >30min
--- NOTE | 2023-04-06 14:40 | PHA.DC_ITS ---
Pharmacy [place] Med Reconciliation Pharmacy Service has performed discharge medication reconciliation for this patient upon transfer to [facility]. The patient's discharge medication list was reviewed for discrepancies and discrepancies were resolved. Medications at Discharge Home Medications fluticasone fur. 100 mcg-umeclid 62.5 mcg-vilant 25 mcg inhalat.powder (Trelegy Ellipta) 1 inh inhalation DAILY #28 ea 02/14/23 tamsulosin 0.4 mg capsule 0.4 mg PO DAILY #30 caps 02/14/23 albuterol sulfate 0.63 mg/3 mL solution for nebulization 0.63 mg (3 mL) inhalation Q6H PRN shortness of breath or wheezing #90 mL 03/08/23 blood pressure test kit-medium #1 ea 03/08/23 escitalopram oxalate 10 mg tablet (Lexapro) 10 mg PO DAILY #30 tabs 03/08/23 nebulizer and compressor (Comp-Air Nebulizer Compressor) #1 ea 03/08/23 food supplemt, lactose-reduced 0.08 gram-1.5 kcal/mL oral liquid (Ensure Plus High Protein) 120 ml PO TIDCM #1 mL 04/06/23 oxycodone 5 mg tablet 10 mg (2 x 5 mg) PO Q6H PRN PRN Pain Score 6-10 2 days #15 tabs 04/06/23 pantoprazole 40 mg tablet,delayed release (Protonix) 40 mg PO BID #1 TAB 04/06/23 sucralfate 1 gram tablet 1 g PO 1HR_ACHS #0 tabs 04/06/23
--- NOTE | 2023-04-06 15:57 | CASEMGMT ---
YOLETTE sent patient's Covid test to [place] via [facility]. Lily Farooq [employer]
--- NOTE | 2023-04-06 15:59 | CASEMGMT ---
Discharge Planning Discharge orders, signed med list, covid results, and transport time sent to [facility] via [facility]. [facility] will transport patient by wheelchair at 4p. Nursing, SW, and patient updated. Patricia Dash, Discharge Planning Asst.
== END 2023-04-06 17:00 | DRG 871 ==
LOC: ED 13:35 → PCU 16:00
PROVIDERS: Family Medicine; Internal Medicine Gastroenterology; Admitting Provider Internal Medicine; Emergency Provider Emergency Medicine; PCP Internal Medicine; Visit Provider Internal Medicine
PROC: 0DJ08ZZ Inspection of Upper Intestinal Tract, Via Natural or Artificial Opening Endoscopic (ICD-10-PCS; CPT 43235; principal; 2023-03-28 11:40)
DX: A41.9 Sepsis, unspecified organism (principal); K26.4 Chronic or unspecified duodenal ulcer with hemorrhage; K72.00 Acute and subacute hepatic failure without coma; E43 Unspecified severe protein-calorie malnutrition; K29.81 Duodenitis with bleeding; J18.9 Pneumonia, unspecified organism; K57.11 Diverticulosis of small intestine without perforation or abscess with bleeding; K31.1 Adult hypertrophic pyloric stenosis; N17.9 Acute kidney failure, unspecified; J44.0 Chronic obstructive pulmonary disease with (acute) lower respiratory infection; D62 Acute posthemorrhagic anemia; I82.612 Acute embolism and thrombosis of superficial veins of left upper extremity; K31.5 Obstruction of duodenum; Z68.1 Body mass index [BMI] 19.9 or less, adult; L03.114 Cellulitis of left upper limb; F14.11 Cocaine abuse, in remission; D50.9 Iron deficiency anemia, unspecified; F10.11 Alcohol abuse, in remission; F32.A Depression, unspecified; I80.8 Phlebitis and thrombophlebitis of other sites; K44.9 Diaphragmatic hernia without obstruction or gangrene; E87.6 Hypokalemia; F41.9 Anxiety disorder, unspecified; Y90.9 Presence of alcohol in blood, level not specified; N40.0 Benign prostatic hyperplasia without lower urinary tract symptoms; R09.02 Hypoxemia; Z79.899 Other long term (current) drug therapy; Z86.16 Personal history of COVID-19; Z87.442 Personal history of urinary calculi; Z87.891 Personal history of nicotine dependence
CPT/HCPCS: 36415; 36600; 51702; 71045; 71250; 73201; 74018; 74174; 74176; 76000; 80048; 80053; 80076; 80202; 80329; 81001; 82274; 82390; 82525; 82728; 82784; 82803; 83516; 83540; 83550; 83605; 83735; 84100; 84165; 84484; 85014; 85018; 85025; 85610; 85652; 85730; 86140; 86225; 86235; 86256; 86334; 86850; 86900; 86901; 86920; 86922; 87040; 87086; 87449; 87493; 87633; 87811; 88305; 93005; 93971; 94640; 94668; 94762; 97110; 97162; 97165; 97530; 97535; 97802; 97803; 99252; 99285; J7030; J7040; J7050; P9016; Q9967; A4216; G0463; G0480; J0696; J1940; J2405; J2916; J3490

== ENCOUNTER 2023-04-07 02:00 | Emergency (ER) | payer MEDICARE, SELFPAY ==
[2023-04-07] VITALS (10 sets, daily range): BP systolic 111–135; BP diastolic 52–72; PULSE 110–120; RESP 14–22; TEMP 37.1–38.3; O2SAT 64–100; BMI 22.0
--- NOTE | 2023-04-07 02:41 | ED.VIS.GI ---
HPI HPI - GI History of Present Illness Chief Complaint: GI Bleed Detail of Chief Complaint: GI bleed. Fever. Informant: patient and SNF Abdominal Pain/Flank Pain Onset: Today Context: Gradual Onset Timing: Intermittent Nausea/Vomiting/Emesis GI Symptom: Negative for Nausea or Vomiting Diarrhea/Melena/Hematochezia GI Symptom: Positive for Hematochezia; Negative for Diarrhea or Melena Severity: Mild Associated Symptoms Associated Symptoms: Negative for Dysuria, Frequency or Hematuria Narrative Narrative: 67-year-old male history of alcohol abuse but he quit drinking. COPD, anemia and recent hospitalization for GI bleed. Patient was discharged from the hospital within the last 24 hours to [facility] for rehabilitation. They noticed bright red blood per rectum and sent him to be evaluated. Patient denies any nausea, vomiting or diarrhea. No anticoagulation. States he recently was diagnosed with peptic ulcer disease that was bleeding. Prior similar symptoms: Yes Recent Illness/Hospitalization: Yes [facility] Medical History Acute duodenal ulcer with hemorrhage Acute kidney failure, unspecified Alcohol abuse BPH (benign prostatic hyperplasia) Cataract COPD (chronic obstructive pulmonary disease) Depression Elevation of levels of liver transaminase levels Gastrointestinal hemorrhage, unspecified History of COVID-19 History of kidney stones History of pneumonia Pneumonia, unspecified organism Tobacco abuse Ulcer Home Medications fluticasone fur. 100 mcg-umeclid 62.5 mcg-vilant 25 mcg inhalat.powder (Trelegy Ellipta) 1 inh inhalation DAILY #28 ea 02/14/23 [Rx Last Taken Unknown] tamsulosin 0.4 mg capsule 0.4 mg PO DAILY #30 caps 02/14/23 [Rx Last Taken Unknown] albuterol sulfate 0.63 mg/3 mL solution for nebulization 0.63 mg (3 mL) inhalation Q6H PRN shortness of breath or wheezing #90 mL 03/08/23 [Rx Last Taken Unknown] blood pressure test kit-medium #1 ea 03/08/23 [Rx Last Taken Unknown] escitalopram oxalate 10 mg tablet (Lexapro) 10 mg PO DAILY #30 tabs 03/08/23 [Rx Last Taken Unknown] nebulizer and compressor (Comp-Air Nebulizer Compressor) #1 ea 03/08/23 [Rx Last Taken Unknown] food supplemt, lactose-reduced 0.08 gram-1.5 kcal/mL oral liquid (Ensure Plus High Protein) 120 ml PO TIDCM #1 mL 04/06/23 [Rx Last Taken Unknown] oxycodone 5 mg tablet 10 mg (2 x 5 mg) PO Q6H PRN PRN Pain Score 6-10 2 days #15 tabs 04/06/23 [Rx Last Taken Unknown] pantoprazole 40 mg tablet,delayed release (Protonix) 40 mg PO BID #1 TAB 04/06/23 [Rx Last Taken Unknown] sucralfate 1 gram tablet 1 g PO 1HR_ACHS #0 tabs 04/06/23 [Rx Last Taken Unknown] Allergy/AdvReac Type Severity Reaction Status Date / Time No Known Allergies Allergy Verified 04/07/23 02:26 Family History Mother Heart disease Grandmother Cancer colon Surgical History History of eye surgery History of lithotripsy Social History household members: significant other current occupational status: retired current occupation: construction Smoking Status: Former smoker quit date: 04/10/19 pack-years: 90 Electronic Cigarette Use: not used alcohol intake: former year quit: 2012 substance use type: former substance user Date of last use: cocaine do you feel safe at home: Yes ROS ROS ED ROS Narrative Fever. Review of Systems ROS Unobtainable: Denies due to encephalopathy Constitutional Constitutional ED: Reports fever(s) and subjective; Denies chills ENT ENT ED: Denies ear pain Cardiovascular Cardiovascular: Denies chest pain Respiratory/Chest Respiratory/Chest: Denies cough or dyspnea Gastrointestinal Gastrointestinal: Denies abdominal pain Genitourinary Genitourinary ED: Denies dysuria or hematuria Musculoskeletal Musculoskeletal: Denies arthralgias or back pain Integumentary Denies abscess or Abrasions Neurologic Neurologic: Denies headache(s) Psychiatric Psychiatric: Denies anxiety or depression Endocrine Endocrinology: Denies polydipsia Hematologic/Lymphatic Hematologic/Lymphatic: Denies easy bleeding Allergic/Immunologic Allergic/Immunologic ED: Denies mouth swelling or tongue swelling EXAM Physical Exam Narrative Exam Narrative: 67-year-old male. Vital signs are stable he is tachycardic at 120. Temperature 100.9. Initial blood pressure 135/62. He does not look septic or toxic. HEENT exam unremarkable. Posterior pharynx unremarkable. Moist mucous membranes. Neck nontender. No lymphadenopathy. No meningismus. Lungs clear to auscultation bilaterally. Heart tachycardic 120 no murmur. Chest wall nontender. Abdomen soft nontender. No peritoneal signs. Rectal exam no external hemorrhoids. No gross blood. Loose brown stool. No mass. Moving all 4 extremities. Nontender. Neurologically is awake and alert. Answering questions following commands. Moving all 4 extremities. Const Vital Signs: 04/07/23 02:01 04/07/23 02:26 04/07/23 02:20 Temperature 100.9 F H 100.9 F H Temperature Source Temporal Temporal Pulse Rate 120 H 117 H Respiratory Rate 20 H 20 H Blood Pressure 135/62 H 135/62 H Blood Pressure Mean 86 86 Pulse Ox 94 96 64 Oxygen Delivery Method Nasal Cannula Room Air Room Air Oxygen Flow Rate (L/min) 3 04/07/23 02:35 04/07/23 05:06 04/07/23 03:21 Temperature 100 F H Temperature Source Temporal Pulse Rate 114 H 112 H Respiratory Rate 15 14 Blood Pressure 111/57 L 133/72 H Blood Pressure Mean 75 92 Pulse Ox 98 100 98 Oxygen Delivery Method Nasal Cannula Nasal Cannula Oxygen Flow Rate (L/min) 3 04/07/23 04:21 04/07/23 05:00 04/07/23 05:30 Temperature 99.1 F 99 F 98.7 F Temperature Source Temporal Temporal Oral Pulse Rate 112 H 112 H 112 H Respiratory Rate 16 16 22 H Blood Pressure 111/57 L 111/65 111/52 L Blood Pressure Mean 75 80 71 Pulse Ox 99 99 100 Oxygen Delivery Method Oxygen Flow Rate (L/min) Positive well nourished and well developed; Negative for obese, cachectic, contractures or unkempt General Appearance ED: well developed and NAD; Negative for unkempt, cachectic, contractures or pallor Nutritional Appearance: Negative for cachectic or obese HEENT Reports moist mucous membranes normocephalic and atraumatic; Negative for trauma or tenderness Eyes PERRL and EOMs intact bilaterally General Eye ED: Negative for pale conjunctiva or scleral icterus Neck no lymphadenopathy, supple and no JVD General: Negative for tenderness Carotids: Negative for other Lymph Lymphatic: Negative for other Resp normal respiratory effort and clear to auscultation bilaterally Effort and Inspection: Negative for respiratory distress Auscultation: Negative for rales, rhonchi or wheezes Cardio regular rhythm, S1 normal heart sound, S2 normal heart sound and no murmurs; Negative for regular rate Rate: tachycardic Rhythm: Negative for abnormal rhythm GI non-tender, non-distended and no masses Inspection: Negative for abdominal distention Auscultation: normoactive bowel sounds Palpation: soft; Negative for tender or guarding Back/Spine no CVA tenderness General Back: Negative for CVA tenderness Cervical Spine: Negative for cervical spine tenderness Thoracic Spine / Upper Back: Negative for thoracic spinal tenderness Lumbar Spine / Lower Back: Negative for lumbar spinal tenderness Extremity full ROM General Extremety ED: Negative for edema or tenderness General Extremity: Negative for edema Neuro CN's II-XII intact bilaterally and moves all extremities Sensorium / Orientation: alert, oriented to person, oriented to place and oriented to time Motor Exam: strength 5/5 throughout Psych mental status grossly normal and thought process normal Appearance: Negative for unkempt Attitude: No agitated Mood & Affect: Negative for depressed or anxious Skin no wounds General Skin Exam: Negative for jaundice or pallor Lesions: no lesions Rashes: no rashes Trauma: Negative for abrasion or other Nails: Negative for discolored MDM MDM MDM Narrative Medical decision making narrative: 67-year-old male. Recently discharged from the hospital for an upper GI bleed. Sent in for possible rectal bleeding. He also has a low-grade fever 100.9. Undergoing infectious work-up. Also rule out acute bleeding. Repeat exam at 4:03 AM patient is doing well. Repeat exam at 5:55 AM patient is doing well. Resting comfortably. Exam unchanged. Vital signs are stable. He is currently afebrile after his p.o. Tylenol. I reviewed his labs and compared them to his prior labs are basically his baseline. There is no significant change in his chest x-ray. I am comfortable the patient going back to the [place] [facility]. Patient is comfortable with that plan also. History & Record Review Discussion w/independent historian: Patient Additional record(s) reviewed:: Prior inpatient record, Prior outpatient record, Prior ED visit and Prior labs Lab Data Attestation: I reviewed the patient's lab results. Lab results narrative: CBC shows a white count of 11.1. H&H is 7.5 and 24.2. Platelets 496. This is around his baseline anemia. Lites show a potassium of 3.1. Gap of 4. Normal BUN of 10 and creatinine 0.8. Glucose 108. Lactic acid is normal at 1.4. Liver enzymes are unremarkable. Urinalysis is negative. No infection. Labs: Laboratory Results - last 24 hr 04/07/23 04/07/23 02:45 02:53 WBC 11.1 H RBC 2.65 L Hgb 7.5 L Hct 24.2 L MCV 91.3 MCH 28.3 MCHC 31.0 L RDW Std Deviation 57.0 H RDW Coeff of Monalisa 17.4 H Plt Count 496 H MPV 8.9 Immature Gran % (Auto) 0.400 Neut % (Auto) 82.8 H Lymph % (Auto) 5.8 L [place] % (Auto) 8.0 Eos % (Auto) 2.5 Baso % (Auto) 0.5 Absolute Neuts (auto) 9.2 H Absolute Lymphs (auto) 0.64 L Nucleated RBC % 0.4 Differential Comment SCANNED Stomatocytes 1+ Sodium 144 Potassium 3.1 L Chloride 106 Carbon Dioxide 34.0 H Anion Gap 4 L BUN 10 Creatinine 0.80 Estim Creat Clear Calc 74.90 Est GFR (MDRD) Af Amer 124 Est GFR (MDRD) Non-Af 102 BUN/Creatinine Ratio 12.5 Glucose 108 H Lactic Acid 1.4 Calcium 7.4 L Total Bilirubin 0.30 AST 22 ALT 66 H Alkaline Phosphatase 74 Total Protein 5.7 L Albumin 1.8 L Globulin 3.9 Albumin/Globulin Ratio 0.5 L Urine Color Yellow Urine Clarity Clear Urine pH 6.0 Ur Specific [place] 1.015 Urine Protein 30 H Urine Glucose (UA) Normal Urine Ketones 15 H Urine Occult Blood 10 H Urine Nitrite Negative Urine Bilirubin Negative Urine Urobilinogen Normal Ur Leukocyte Esterase 25 H Urine RBC 0-5 SEEN Urine WBC 0-5 SEEN Ur Squamous Epith Cells 0 SEEN Calcium Oxalate Crystal 2+ Urine Bacteria 0 SEEN Urine Mucus 0 SEEN Radiography Chest X-Ray - ED: 1 View, Read by ED Physician, Heart, Lungs, Mediastinum, Bony Structures, No Acute Disease and Chronic Changes Diagnostic Testing: Chest x-ray, portable, single view, interpreted by myself shows no acute abnormality. Normal cardiac silhouette. Normal mediastinum. There are chronic lung changes and scarring but unchanged from recent chest x-ray taken about 1-1/2 to 2 weeks ago. Discharge Plan Triage Chief Complaint: GI Bleed ED Provider: Antione Reid Dx/Rx/DC Orders Clinical Impression: History of COPD, Fever, History of GI bleed, Chronic anemia Instructions: ED Lower GI Bleeding (Stable) Prescriptions: No Action albuterol sulfate 0.63 mg/3 mL solution for nebulization 0.63 mg inhalation Q6H PRN (Reason: shortness of breath or wheezing) Qty: 90 5RF (DME) blood pressure test kit-medium Kit See Rx Instructions .Route Qty: 1 0RF Rx Instructions: As directed escitalopram oxalate [Lexapro] 10 mg tablet 10 mg PO DAILY Qty: 30 1RF oxycodone 5 mg Tablet 10 mg PO Q6H PRN PRN (Reason: Pain Score 6-10) 2 Days Qty: 15 0RF Ensure Plus High Protein 0.08 gram-1.5 kcal/mL Liquid 120 ml PO TIDCM Qty: 1 0RF sucralfate 1 gram Tablet 1 g PO 1HR_ACHS Qty: 0 0RF pantoprazole [Protonix] 40 mg tablet,delayed release (DR/EC) 40 mg PO BID Qty: 1 0RF Trelegy Ellipta 100-62.5-25 mcg blister with device 1 inh inhalation DAILY Qty: 28 1RF tamsulosin 0.4 mg capsule 0.4 mg PO DAILY Qty: 30 1RF (DME) nebulizer and compressor [Comp-Air Nebulizer Compressor] Device See Rx Instructions .ROUTE .COMPLEX Qty: 1 0RF Dose Instruction: USE DIRECTED Rx Instructions: USE DIRECTED Primary Care Provider: Peggy Uribe Referrals: Peggy Uribe MD [Primary Care Provider] - 3-5 Days Activity Restrictions/Additional Instructions: Patient's labs are his baseline. Have his blood count rechecked in the next 3 days to ensure that does not getting significantly lower. Follow-up with his primary care physician. Disposition Disposition: Home, Self Care
[2023-04-07 02:53] LABS: Absolute Lymphocyte Count 0.64 X10^3/uL (0.83-4.51); Absolute Neutrophil Count 9.2 X10^3/uL (2.0-7.7); Basophil# 0.06 X10^3/uL; Basophil% 0.5 % (0-1); Eosinophil# 0.28 X10^3/uL; Eosinophils% 2.5 % (0-5); Hematocrit 24.2 % (40-54); Hemoglobin 7.5 g/dL (13.0-16.5); Lymphocyte # 0.64 X10^3/ul (0.83-4.51); Lymphocyte % 5.8 % (19-41); Mean Corpuscular Hgb 28.3 pg (27.0-32.0); Mean Corpuscular Volume 91.3 fL (80-94); Mean Platelet Vol. 8.9 fl (6.2-12.0); Monocyte# 0.89 X10^3/uL; NRBC Flagged by Analyzer 0.4 % (0-5); Neutrophil % 82.8 % (47-70); POSITIVE MORPHOLOGY YES; Platelet Count 496 K/mm3 (150-450); RBC Distribution Width CV 17.4 % (11.6-14.6); Red Blood Count 2.65 M/mm3 (4.6-6.2); White Blood Count 11.1 K/mm3 (4.4-11.0)
[2023-04-07 02:55] LABS: Differential Indicated SCAN CRITERIA MET
--- NOTE | 2023-04-07 03:00 | RAD_ITS ---
INDICATION: fever EXAMINATION/TECHNIQUE: X-RAY - XR Chest 1 View COMPARISON: March 27, [address] FINDINGS: LINES/DEVICES: None. LUNGS: Increased patchy airspace opacification in the left mid and lower lung. Mild chronic interstitial coarsening with relative hyperlucency in the right lung left upper lung. No effusion. No pneumothorax. MEDIASTINUM AND CARDIOVASCULAR STRUCTURES: Cardiac silhouette not enlarged. Mild aortic atherosclerosis. BONES AND SOFT TISSUES: Unremarkable. RAD/Chest 1 View (Portable) IMPRESSION: Findings concerning for left mid and lower lung pneumonia, superimposed on chronic obstructive pulmonary disease. Radiographic follow-up recommended after treatment to ensure resolution. Electronically Signed: Paulo Zamarripa MD at 5:55 EDT ,
[2023-04-07 03:04] LABS: Bacteria 0 SEEN /hpf (None Seen); Color, Urine Yellow (Yellow); Glucose, Dipstick Normal (Normal); Ketone-Dipstick 15 mg/dl (Negative); Leukocyte Esterase-Dipstick 25 /ul (Negative); Mucous, Urine 0 SEEN /hpf (<or=2+); Nitrite-Dipstick Negative (Negative); Occult Blood-Urine 10 /ul (Negative); Protein-Dipstick 30 mg/dl (Negative); Specific Gravity, Urine 1.015 (1.002-1.030); Squamous Epithelial Cells - UA 0 SEEN /hpf (0-5); Urine Bilirubin Dipstick Negative (Negative); Urine Clarity Clear (Clear); Urine Urobilinogen Normal (Normal)
[2023-04-07] MEDS: Acetaminophen 500 MG Tablet 1000 MG PO (03:04)
[2023-04-07] MEDS: 0.9% Normal Saline (500mL Bag) 500 ML 1000 ML IV (03:07)
[2023-04-07 03:15] LABS: ALB/GLOB Ratio 0.5 RATIO (0.9-2.4); AST(SGOT) 22 U/L (15-37); Alanine Aminotransfer ALT/SGPT 66 U/L (16-61); Albumin, Serum 1.8 g/dL (3.2-5.0); Alkaline Phosphatase 74 U/L (45-117); Anion Gap 4 (5-15); BUN 10 mg/dL (7-18); BUN/Creat Ratio 12.5 RATIO (10-20); Calcium,Total 7.4 mg/dL (8.5-10.1); Chloride 106 mmol/L (98-107); EST Glomerular Filtration Rate 102 mL/min (>60); Est Glom Filt Rate - Afr Amer 124 mL/min (>60); Globulin 3.9 g/dL (2.2-4.2); Glucose 108 mg/dL (74-106); Lactic Acid 1.4 mmol/L (0.4-1.9); Potassium 3.1 mmol/L (3.5-5.1); Protein, Total 5.7 g/dL (6.4-8.2); Sodium Level 144 mmol/L (136-145)
[2023-04-07 03:17] LABS: Differential Comment SCANNED
[2023-04-07 03:18] LABS: Stomatocyte 1+
[2023-04-07 03:49] LABS: White Blood Cells 0-5 SEEN /hpf (0-5)
[2023-04-07 03:52] LABS: Calcium Oxalate Crystals Ur 2+ /hpf (<or=2+); Red Blood Cells-Urine 0-5 SEEN /hpf (0-5)
--- NOTE | 2023-04-07 06:04 | NURSING ---
[facility] CALLED ETA 45 MIN
--- NOTE | 2023-04-07 06:10 | ED.RN ---
report called to [facility].
== END 2023-04-07 06:42 | disposition home or self-care (01) ==
PROVIDERS: Emergency Provider Emergency Medicine; PCP Internal Medicine; Visit Provider Emergency Medicine
DX: Z00.00 Encounter for general adult medical examination without abnormal findings (principal)
CPT/HCPCS: 51702; 99285; 36415; 71045; 80053; 81001; 83605; 85025; 87040; 87428; 90471; J7030; A4216

== ENCOUNTER 2023-04-09 11:21 | Inpatient (IN) | payer MEDICARE, SELFPAY ==
[2023-04-09] VITALS (17 sets, daily range): BP systolic 96–128; BP diastolic 57–82; PULSE 96–108; RESP 14–20; TEMP 36.3–37.2; O2SAT 94–100; BMI 24.7; BMI 22.0
--- NOTE | 2023-04-09 11:37 | EDS_ITS ---
<Statement entered by Antonio Brannon MD - 04/09/23 15:19> I have personally performed a face to face assessment of the patient and have reviewed the KARIN Note. HPI <BENJY Gomez - Last Filed: 04/09/23 13:27> History of Present Illness Chief Complaint: Abn Labs Narrative Narrative: 67-year-old male with history of alcohol abuse, COPD, currently dealing with multiple GI bleeds diagnosed with peptic ulcer disease, who presents to the emergency department for low hemoglobin of 5.5 at the skilled nursing. Patient states that he has intermittent abdominal pain, he was seen here on April 07, his hemoglobin is 7.7 he was sent back to the skilled nursing. He continues to have blood in his stool. Patient is now severely anemic and is here for evaluation and possible admission. He denies any fever or chills. Denies any nausea or vomiting, denies any blood in his vomit. He notes that his stool is black to maroon-colored. PFS <BENJY Gomez - Last Filed: 04/09/23 13:27> [facility] Medical History Acute duodenal ulcer with hemorrhage Acute kidney failure, unspecified Alcohol abuse BPH (benign prostatic hyperplasia) Cataract COPD (chronic obstructive pulmonary disease) Depression Elevation of levels of liver transaminase levels Gastrointestinal hemorrhage, unspecified History of COVID-19 History of kidney stones History of pneumonia Pneumonia, unspecified organism Tobacco abuse Ulcer Home Medications fluticasone fur. 100 mcg-umeclid 62.5 mcg-vilant 25 mcg inhalat.powder (Trelegy Ellipta) 1 inh inhalation DAILY SHORTNESS OF BREATH/WHEEZING #28 ea 02/14/23 [Rx Last Taken 04/09/23] tamsulosin 0.4 mg capsule 0.4 mg PO DAILY PROSTATE #30 caps 02/14/23 [Rx Last Taken 04/09/23] albuterol sulfate 0.63 mg/3 mL solution for nebulization 0.63 mg (3 mL) inhalation Q6H PRN SHORTNESS OF BREATH/WHEEZING #90 mL 03/08/23 [Rx Last Taken Unknown] blood pressure test kit-medium #1 ea 03/08/23 [Rx Last Taken Unknown] escitalopram oxalate 10 mg tablet (Lexapro) 10 mg PO DAILY DEPRESSION #30 tabs 03/08/23 [Rx Last Taken 04/09/23] nebulizer and compressor (Comp-Air Nebulizer Compressor) #1 ea 03/08/23 [Rx Last Taken Unknown] food supplemt, lactose-reduced 0.08 gram-1.5 kcal/mL oral liquid (Ensure Plus High Protein) 120 ml PO TIDCM SUPPLEMENT #1 mL 04/06/23 [Rx Last Taken 04/09/23] pantoprazole 40 mg tablet,delayed release (Protonix) 40 mg PO BID ACID REFLUX #1 TAB 04/06/23 [Rx Last Taken 04/09/23] oxycodone 5 mg tablet 10 mg PO Q6H PRN Pain Score 6-10 04/09/23 [History Last Taken Unknown] sucralfate 1 gram tablet 1 g PO 1HR_ACHS ULCERS 04/09/23 [History Last Taken 04/09/23] Allergy/AdvReac Type Severity Reaction Status Date / Time No Known Allergies Allergy Verified 04/07/23 02:26 Family History Mother Heart disease Grandmother Cancer colon Surgical History History of eye surgery History of lithotripsy Social History household members: significant other current occupational status: retired current occupation: construction Smoking Status: Former smoker quit date: 04/10/19 pack-years: 90 Electronic Cigarette Use: not used alcohol intake: former year quit: 2012 substance use type: former substance user Date of last use: cocaine do you feel safe at home: Yes ROS <BENJY Gomez - Last Filed: 04/09/23 13:27> ROS ED ROS Narrative Constitutional: Negative for fever, chills, weight loss. Positive for weakness Eyes: Negative for vision loss, vision change, double vision ENT: Negative for any sore throat, ear pain, congestion Cardiovascular: Negative for any chest pain, tightness, palpitations Respiratory: Negative for any cough, sputum production, hemoptysis, dyspnea, dyspnea on exertion, orthopnea Gastrointestinal: Negative for any nausea, vomiting, diarrhea, constipation,blood in vomit. Positive for blood in stool, generalized abdominal pain : Negative for any urinary frequency, dysuria, retention, blood in urine Muscle skeletal: Negative for any muscle joint pain, stiffness, myalgias, arthralgias, neck pain, back pain Neurological: Negative for any headache, syncope, numbness or tingling, dizziness Skin: Negative for any rashes, lumps, itching, abrasions, lacerations Psychiatric: Negative for any depression, anxiety, stress, suicidal ideation, homicidal ideation Hematologic: Negative for any easy bruising, excessive bruising, easy bleeding Allergies: Negative for any eczema, hives, rash EXAM <BENJY Gomez - Last Filed: 04/09/23 13:27> Physical Exam Narrative Exam Narrative: Vital signs reviewed. Patient is pale appearing. Patient alert and orient x4. HEET: Head normocephalic atraumatic, TMs clear bilaterally. Posterior pharynx is clear, moist mucous membranes. Nares clear bilaterally. Neck: Supple with no lymphadenopathy or tenderness. No signs of meningismus, negative jolt sign. Cardiac: Regular rate and rhythm no murmurs gallops or rubs, equal peripheral pulses bilaterally. Respiratory: Rhonchorous lung sounds. No chest tenderness. Abdomen: Soft. No abdominal bruit or pulsatile masses. No hepatosplenomegaly. Positive for mild distention, no peritoneal signs Extremities: No peripheral edema, no signs of gross trauma or deformity. Active full range of motion of all extremities. Neuro: Cranial nerves II through XII intact, no focal neurological deficits. Skin: Clean dry and intact with no rash, purpura, petechiae, vesicles or pustules. Backs/flank: No CVA tenderness, no midline spinal tenderness, no deformity. Psych: Normal mood and affect. No SI, HI or acute psychosis. Rectal: Rectal exam was completed with female nurse lens edge grinder machine. As well as ER physician. Patient did have maroon-colored stool, no gross hemorrhage, no byron blood. No acute hemorrhoids. Const Vital Signs: 04/09/23 11:22 04/09/23 11:36 04/09/23 13:16 Temperature 97.9 F Temperature Source Temporal Pulse Rate 99 107 H Respiratory Rate 18 19 H Respiratory Pattern Normal Blood Pressure 100/61 100/61 Blood Pressure Mean 74 74 Pulse Ox 94 94 Oxygen Delivery Method Nasal Cannula Oxygen Flow Rate (L/min) 2 Positive cachectic and unkempt General Appearance ED: unkempt and cachectic Nutritional Appearance: cachectic Psych Appearance: unkempt <Dr. Antonio Brannon MD - Last Filed: 04/09/23 15:22> Physical Exam Const Vital Signs: 04/09/23 11:22 04/09/23 11:36 04/09/23 13:16 Temperature 97.9 F Temperature Source Temporal Pulse Rate 99 107 H Respiratory Rate 18 19 H Respiratory Pattern Normal Blood Pressure 100/61 100/61 Blood Pressure Mean 74 74 Pulse Ox 94 94 Oxygen Delivery Method Nasal Cannula Oxygen Flow Rate (L/min) 2 MDM <BENJY Gomez - Last Filed: 04/09/23 13:27> MDM Lab Data Labs: Laboratory Results - last 24 hr 04/09/23 04/09/23 04/09/23 12:16 12:16 12:30 WBC 11.1 H RBC 2.04 L Hgb 5.8 L* Hct 19.3 L MCV 94.6 H MCH 28.4 MCHC 30.1 L RDW Std Deviation 62.3 H RDW Coeff of Monalisa 18.6 H Plt Count 495 H MPV 8.9 Immature Gran % (Auto) 2.000 H Neut % (Auto) 75.2 H Lymph % (Auto) 11.2 L [place] % (Auto) 8.7 Eos % (Auto) 2.4 Baso % (Auto) 0.5 Absolute Neuts (auto) 8.3 H Absolute Lymphs (auto) 1.24 Nucleated RBC % 0.7 Diff Path Review May foll Sodium 144 Potassium 3.1 L Chloride 105 Carbon Dioxide 37.0 H Anion Gap 2 L BUN 18 Creatinine 1.00 Estim Creat Clear Calc 58.48 Est GFR (MDRD) Af Amer 96 Est GFR (MDRD) Non-Af 79 BUN/Creatinine Ratio 18.0 Glucose 127 H Calcium 7.7 L Total Bilirubin 0.20 Direct Bilirubin 0.08 AST 29 ALT 46 Alkaline Phosphatase 77 Total Protein 5.6 L Albumin 1.7 L Globulin 3.9 Lipase < 10 L Urine Color Yellow Urine Clarity Clear Urine pH 6.5 Ur Specific [place] 1.010 Urine Protein 15 H Urine Glucose (UA) Normal Urine Ketones Negative Urine Occult Blood 10 H Urine Nitrite Negative Urine Bilirubin Negative Urine Urobilinogen Normal Ur Leukocyte Esterase 100 H Urine RBC 0-5 SEEN Urine WBC 0-5 SEEN Ur Squamous Epith Cells 0-5 SEEN Calcium Oxalate Crystal RARE Urine Bacteria 0 SEEN Urine Mucus 0 SEEN Blood Type O POSITIVE Antibody Screen NEGATIVE Crossmatch See Detail See Detail Radiography Diagnostic Testing: Clinical Impression(s) from Imaging Studies Chest X-Ray 04/09/23 12:55 IMPRESSION: Interval exam. Electronically Signed: Drew Colmenares MD at 13:55 EDT , EKG Atrial fibrillation: Interpretation: Atrial Fibrillation Comments: Rate 103 bpm, QRS duration [address] elevation, no acute infarct noted. Treatment and Re-Evaluation :: Patient on initial arrival did have a known hemoglobin of 5.5. Patient looks to be in no obvious distress however patient is slightly hypotensive, with a blood pressure of 90 systolic. Patient is alert and oriented x4. Patient will receive type and screen, transfuse 2 units of packed red blood cells, patient will receive further laboratory testing. Liver panel, lipase, PT/INR. I did reach out to Dr. Calero, he will see the patient inpatient. Patient will need to be admitted to the hospital for lower GI bleed, anemia that is significant. Patient is happy with the plan of care, I will discuss this case with the hospitalist. I spoke with hospitalist, patient will be admitted to PCU for. Patient received 2 units of packed red blood cells, I did give the patient Protonix. Patient's blood pressure remains 100 systolic. On reevaluation, the patient was in no discomfort. Patient stable for admission <Dr. Antonio Brannon MD - Last Filed: 04/09/23 15:22> [facility] MDM Narrative Medical decision making narrative: The patient was hypotensive, however now developed significant improvement in blood pressure, hemoglobin is 5.8. Patient be admitted to the stepdown unit. We discussed with GI and medicine. Lab Data Labs: Laboratory Results - last 24 hr 04/09/23 04/09/23 04/09/23 12:16 12:16 12:30 WBC 11.1 H RBC 2.04 L Hgb 5.8 L* Hct 19.3 L MCV 94.6 H MCH 28.4 MCHC 30.1 L RDW Std Deviation 62.3 H RDW Coeff of M[place]isa 18.6 H Plt Count 495 H MPV 8.9 Immature Gran % (Auto) 2.000 H Neut % (Auto) 75.2 H Lymph % (Auto) 11.2 L [place] % (Auto) 8.7 Eos % (Auto) 2.4 Baso % (Auto) 0.5 Absolute Neuts (auto) 8.3 H Absolute Lymphs (auto) 1.24 Nucleated RBC % 0.7 Diff Path Review May foll Sodium 144 Potassium 3.1 L Chloride 105 Carbon Dioxide 37.0 H Anion Gap 2 L BUN 18 Creatinine 1.00 Estim Creat Clear Calc 58.48 Est GFR (MDRD) Af Amer 96 Est GFR (MDRD) Non-Af 79 BUN/Creatinine Ratio 18.0 Glucose 127 H Calcium 7.7 L Total Bilirubin 0.20 Direct Bilirubin 0.08 AST 29 ALT 46 Alkaline Phosphatase 77 Total Protein 5.6 L Albumin 1.7 L Globulin 3.9 Lipase < 10 L Urine Color Yellow Urine Clarity Clear Urine pH 6.5 Ur Specific [place] 1.010 Urine Protein 15 H Urine Glucose (UA) Normal Urine Ketones Negative Urine Occult Blood 10 H Urine Nitrite Negative Urine Bilirubin Negative Urine Urobilinogen Normal Ur Leukocyte Esterase 100 H Urine RBC 0-5 SEEN Urine WBC 0-5 SEEN Ur Squamous Epith Cells 0-5 SEEN Calcium Oxalate Crystal RARE Urine Bacteria 0 SEEN Urine Mucus 0 SEEN Blood Type O POSITIVE Antibody Screen NEGATIVE Crossmatch See Detail See Detail Radiography Diagnostic Testing: Clinical Impression(s) from Imaging Studies Chest X-Ray 04/09/23 12:55 IMPRESSION: Interval exam. Electronically Signed: Drew Colmenares MD at 13:55 EDT , <Dr. Antonio Brannon MD - Last Filed: 04/09/23 15:22> Critical Care Time Critical Care Time: Yes Critical care time (excluding procedures): 30-74 minutes, Discussing w/Patient &/or Family/Straight Truck Driver, Discussing w/Consultants, Arranging Admission or Transfer, Performing Direct Patient Care at Bedside and - (35 minutes) Discharge Plan Dx/Rx/DC Orders Clinical Impression: Acute GI bleeding, Hypotension, Acute blood loss anemia Disposition Disposition: Acute Care Hospital [facility] Discharge Date/Time: 04/09/23 14:38
--- NOTE | 2023-04-09 11:47 | EKG12_ITS ---
Test Reason : ABN LAB Blood Pressure : / mmHG Vent. Rate : 103 BPM Atrial Rate : 000 BPM P-R Int : 000 ms QRS Dur : 080 ms QT Int : 344 ms P-R-T Axes : 000 067 077 degrees QTc Int : 450 ms Atrial fibrillation with rapid ventricular response Abnormal ECG Confirmed by JONN GUERRA, MEI ([id number]), associate editor FREDA MOELLER ([id number]) on 04/11/2023 10:42:23 AM Referred By: Confirmed By:MEI LUNSFORD MD
[2023-04-09 12:25] LABS: Absolute Lymphocyte Count 1.24 X10^3/uL (0.83-4.51); Absolute Neutrophil Count 8.3 X10^3/uL (2.0-7.7); Basophil# 0.06 X10^3/uL; Basophil% 0.5 % (0-1); Eosinophil# 0.27 X10^3/uL; Eosinophils% 2.4 % (0-5); Hematocrit 19.3 % (40-54); Hemoglobin 5.8 g/dL (13.0-16.5); Lymphocyte # 1.24 X10^3/ul (0.83-4.51); Lymphocyte % 11.2 % (19-41); Mean Corp Hgb Conc 30.1 g/dL (32-36); Mean Corpuscular Hgb 28.4 pg (27.0-32.0); Mean Corpuscular Volume 94.6 fL (80-94); Mean Platelet Vol. 8.9 fl (6.2-12.0); Monocyte# 0.97 X10^3/uL; Monocyte% 8.7 % (0-10); NRBC Flagged by Analyzer 0.7 % (0-5); Neutrophil # 8.33 X10^3/uL (2.7-7.7); Neutrophil % 75.2 % (47-70); POSITIVE COUNT YES; Platelet Count 495 K/mm3 (150-450); RBC Distribution Width CV 18.6 % (11.6-14.6); RBC Distribution Width SD 62.3 fl (35.1-43.9); Red Blood Count 2.04 M/mm3 (4.6-6.2); White Blood Count 11.1 K/mm3 (4.4-11.0)
[2023-04-09] MEDS: Pantoprazole Sodium 40 MG in 0.9% Normal Saline (100mL MB+) 100 ML 330 MG IV (12:25)
[2023-04-09 12:28] LABS: Differential Indicated SCAN CRITERIA MET
--- NOTE | 2023-04-09 12:32 | CM.ED ---
Social Work SW performed chart review; patient has not completed AD. Patient previously voiced interest in completing AD. SW met with patient and introduced self and role as [facility] SW. Patient lying in hospital bed and agreeable to speak with SW. SW engaged patient in conversation regarding completion of ADs. Patient confirmed LW and HCPOA documents have not been completed at this time. Patient declined assistance to complete the documents while in ED. Patient explained he isn't feeling up to it and is exhausted by his frequent visits between ED and SNF. SW provided emotional support and reviewed ways patient can be assisted in the future to complete documents in the community or at [facility]. Patient voiced understanding and reports no other needs. Kayleigh MARIE, VAL
[2023-04-09 12:35] LABS: Bacteria 0 SEEN /hpf (None Seen); Mucous, Urine 0 SEEN /hpf (<or=2+)
[2023-04-09 12:36] LABS: Color, Urine Yellow (Yellow); Glucose, Dipstick Normal (Normal); Ketone-Dipstick Negative (Negative); Leukocyte Esterase-Dipstick 100 /ul (Negative); Nitrite-Dipstick Negative (Negative); Occult Blood-Urine 10 /ul (Negative); Protein-Dipstick 15 mg/dl (Negative); Urine Bilirubin Dipstick Negative (Negative); Urine Clarity Clear (Clear); Urine Urobilinogen Normal (Normal); Urine pH 6.5 (5.0 - 8.0)
[2023-04-09 12:45] LABS: AST(SGOT) 29 U/L (15-37); Alanine Aminotransfer ALT/SGPT 46 U/L (16-61); Albumin, Serum 1.7 g/dL (3.2-5.0); Alkaline Phosphatase 77 U/L (45-117); Anion Gap 2 (5-15); BUN 18 mg/dL (7-18); Bilirubin, Direct 0.08 mg/dL (0.00-0.30); Calcium,Total 7.7 mg/dL (8.5-10.1); Chloride 105 mmol/L (98-107); EST Glomerular Filtration Rate 79 mL/min (>60); Est Glom Filt Rate - Afr Amer 96 mL/min (>60); Estimated Creatinine Clearance 58.48 ml/min; Globulin 3.9 g/dL (2.2-4.2); Glucose 127 mg/dL (74-106); Lipase < 10 U/L (13-75); Potassium 3.1 mmol/L (3.5-5.1); Protein, Total 5.6 g/dL (6.4-8.2); Sodium Level 144 mmol/L (136-145)
--- NOTE | 2023-04-09 12:55 | RAD_ITS ---
STUDY: X-RAY CHEST REASON FOR EXAM: Male, 67 years old. Cough TECHNIQUE: Frontal view of the chest COMPARISON: 04/07/2023 FINDINGS: There are stable patchy airspace opacity in the left mid to lower lung field. The right lung is clear. There are no pleural effusions. There is no pneumothorax. The heart is normal in size. The visualized osseous structures are within normal limits. RAD/Chest 1 View (Portable) IMPRESSION: Interval exam. Electronically Signed: Drew Colmenares MD at 13:55 EDT ,
[2023-04-09 12:56] LABS: Calcium Oxalate Crystals Ur RARE /hpf (<or=2+); Red Blood Cells-Urine 0-5 SEEN /hpf (0-5); Squamous Epithelial Cells - UA 0-5 SEEN /hpf (0-5); White Blood Cells 0-5 SEEN /hpf (0-5)
[2023-04-09 13:15] LABS: Pathologist Review May foll
[2023-04-09] MEDS: Pantoprazole Sodium 80 MG in 0.9% Normal Saline (100mL Bag) 80 ML 10 MG CONT INF ×2 (15:20→23:37)
[2023-04-09] MEDS: Albuterol 2.5 MG/3 ML VIAL.NEB. INHALATION (15:23)
[2023-04-09] MEDS: 0.9% Normal Saline (1000mL) 1,000 ML 75 ML IV (15:30)
[2023-04-09] MEDS: Morphine 2 MG/ML Syringe IV ×2 (17:50→21:24)
--- NOTE | 2023-04-09 17:52 | HP.PCM.HOS_ITS ---
HPI - General General Date of Admission: 04/09/23 Date of Service: 04/09/23 Chief Complaint: Anemia HPI Narrative REGINALD PAEZ, is a 67 M who presents to the emergency room at [facility] due to a low hemoglobin which was obtained from a blood test ordered while the patient was in an extended care facility, he was just transported there a few days ago from [facility] after a prolonged hospitalization for GI bleed and blood loss anemia. Labs obtained in the emergency room showed his hemoglobin to be 5.8, white blood cell count was 11.1, potassium was 3.1. Gastroenterology was contacted and agreed to see the patient while he was hospitalized, patient will be admitted to PCU for acute blood loss anemia from upper GI bleeding, he will be placed on a Protonix drip and he will be seen by gastroenterology, patient will be n.p.o., he will be given 2 units of packed red blood cells and labs will be monitored. [facility] Medical History Acute duodenal ulcer with hemorrhage Acute kidney failure, unspecified Alcohol abuse BPH (benign prostatic hyperplasia) Cataract COPD (chronic obstructive pulmonary disease) Depression Elevation of levels of liver transaminase levels Gastrointestinal hemorrhage, unspecified History of COVID-19 History of kidney stones History of pneumonia Pneumonia, unspecified organism Tobacco abuse Ulcer Home Medications fluticasone fur. 100 mcg-umeclid 62.5 mcg-vilant 25 mcg inhalat.powder (Trelegy Ellipta) 1 inh inhalation DAILY SHORTNESS OF BREATH/WHEEZING #28 ea 02/14/23 [Rx Last Taken 04/09/23] tamsulosin 0.4 mg capsule 0.4 mg PO DAILY PROSTATE #30 caps 02/14/23 [Rx Last Taken 04/09/23] albuterol sulfate 0.63 mg/3 mL solution for nebulization 0.63 mg (3 mL) inhalation Q6H PRN SHORTNESS OF BREATH/WHEEZING #90 mL 03/08/23 [Rx Last Taken Unknown] blood pressure test kit-medium #1 ea 03/08/23 [Rx Last Taken Unknown] escitalopram oxalate 10 mg tablet (Lexapro) 10 mg PO DAILY DEPRESSION #30 tabs 03/08/23 [Rx Last Taken 04/09/23] nebulizer and compressor (Comp-Air Nebulizer Compressor) #1 ea 03/08/23 [Rx Last Taken Unknown] food supplemt, lactose-reduced 0.08 gram-1.5 kcal/mL oral liquid (Ensure Plus High Protein) 120 ml PO TIDCM SUPPLEMENT #1 mL 04/06/23 [Rx Last Taken 04/09/23] pantoprazole 40 mg tablet,delayed release (Protonix) 40 mg PO BID ACID REFLUX #1 TAB 04/06/23 [Rx Last Taken 04/09/23] oxycodone 5 mg tablet 10 mg PO Q6H PRN Pain Score 6-10 04/09/23 [History Last Taken Unknown] sucralfate 1 gram tablet 1 g PO 1HR_ACHS ULCERS 04/09/23 [History Last Taken 04/09/23] Allergy/AdvReac Type Severity Reaction Status Date / Time No Known Allergies Allergy Verified 04/07/23 02:26 Family History Mother Heart disease Grandmother Cancer colon Surgical History History of eye surgery History of lithotripsy Social History household members: significant other current occupational status: retired current occupation: construction Smoking Status: Former smoker quit date: 04/10/19 pack-years: 90 Electronic Cigarette Use: not used alcohol intake: former year quit: 2012 substance use type: former substance user Date of last use: cocaine do you feel safe at home: Yes ROS Constitutional Constitutional: Denies anorexia, change in weight, chills, fatigue, fever(s), night sweats or weakness Eyes Eyes: Denies blurry vision, change in vision, discharge from eye(s) or eye pain Cardiovascular Cardiovascular: Denies chest pain, claudication, dyspnea on exertion, edema or palpitations Respiratory/Chest Respiratory/Chest: Denies cough, hemoptysis, shortness of breath at rest or shortness of breath with exertion Gastrointestinal Gastrointestinal: Reports abdominal pain and melena; Denies constipation, diarrhea, hematemesis, hematochezia, nausea or vomiting Genitourinary Genitourinary: Denies dysuria, hematuria, urinary frequency, urinary hesitancy, urinary incontinence or urinary urgency Musculoskeletal Musculoskeletal: Denies back pain, joint pain, joint stiffness, joint swelling, myalgias or neck pain Neurologic Neurologic: Denies abnormal gait, abnormal speech, confusion, disequilibrium, dizziness, focal weakness, headache(s), loss of vision, numbness, other visual disturbances, paresthesias, syncope or tingling Psychiatric Psychiatric: Denies anxiety, cognitive impairment, depression, irritability, mood swings or suicidal ideation Endocrine Endocrinology: Denies change in body appearance, cold intolerance, excessive sweating, heat intolerance, polydipsia or polyuria Hematologic/Lymphatic Hematologic/Lymphatic: Denies none, anemia, easy bleeding, easy bruising or lymphadenopathy Allergic/Immunologic Allergic/Immunologic: Denies rhinitis, urticaria, eczemia or asthma Vital Signs Vital Signs Vital Signs: 04/09/23 11:22 04/09/23 11:36 04/09/23 13:16 Temperature 97.9 F Temperature Source Temporal Pulse Rate 99 107 H Respiratory Rate 18 19 H Respiratory Pattern Normal Blood Pressure 100/61 100/61 Blood Pressure [BP] Blood Pressure Mean 74 74 Blood Pressure Mean [BP] Blood Pressure Source Blood Pressure Source [BP] Blood Pressure Position Blood Pressure Position [BP] Blood Pressure Location Pulse Ox 94 94 Oxygen Delivery Method Nasal Cannula Oxygen Flow Rate (L/min) 2 04/09/23 13:30 04/09/23 14:59 04/09/23 15:03 Temperature 97.6 F L 97.6 F L Temperature Source Tympanic Pulse Rate 102 H 104 H Respiratory Rate 18 14 Respiratory Pattern Blood Pressure 100/61 Blood Pressure [BP] 96/58 L Blood Pressure Mean 74 Blood Pressure Mean [BP] 70 Blood Pressure Source Blood Pressure Source [BP] Monitor Blood Pressure Position Blood Pressure Position [BP] Semi-Fowlers Blood Pressure Location Pulse Ox 96 94 Oxygen Delivery Method Nasal Cannula Oxygen Flow Rate (L/min) 04/09/23 15:24 04/09/23 15:24 04/09/23 17:10 Temperature 97.9 F Temperature Source Tympanic Pulse Rate 104 H 104 H Respiratory Rate 18 14 Respiratory Pattern Normal Blood Pressure 105/60 Blood Pressure [BP] Blood Pressure Mean 75 Blood Pressure Mean [BP] Blood Pressure Source Monitor Blood Pressure Source [BP] Blood Pressure Position Supine Blood Pressure Position [BP] Blood Pressure Location Right Arm Pulse Ox 100 Oxygen Delivery Method Nasal Cannula Nasal Cannula Oxygen Flow Rate (L/min) 2 2 04/09/23 17:25 Temperature 97.4 F L Temperature Source Tympanic Pulse Rate 96 Respiratory Rate 14 Respiratory Pattern Blood Pressure 96/78 Blood Pressure [BP] Blood Pressure Mean 84 Blood Pressure Mean [BP] Blood Pressure Source Monitor Blood Pressure Source [BP] Blood Pressure Position Semi-Fowlers Blood Pressure Position [BP] Blood Pressure Location Right Arm Pulse Ox Oxygen Delivery Method Nasal Cannula Oxygen Flow Rate (L/min) 2 Weight Weight: 56.5 kg Body Mass Index (BMI) 22.0 Physical Exam Const alert and no apparent distress Constitutional Narrative: Patient appears older than his stated age, he appears unwell General Appearance: cooperative, well kempt and well developed Orientation / Consciousness: awake, oriented to person and oriented to place HEENT normocephalic, head/scalp atraumatic, hearing grossly normal bilaterally and moist oral mucous membranes Eyes PERRL, EOMs intact bilaterally and conjunctivae normal Neck supple, no JVD, thyroid normal and no carotid bruits General: trachea midline Resp normal respiratory effort, no retractions, no use of accessory muscles and clear to auscultation bilaterally Auscultation: Negative for rales, rhonchi or wheezes Cardio regular rate, regular rhythm, S1 normal heart sound, S2 normal heart sound, no murmurs, no rub and no gallops GI normal to inspection, nondistended, normoactive bowel sounds, soft to palpation, non-tender and non-distended Extremity no clubbing, cyanosis or edema Skin no rashes or lesions noted General Skin Exam: no breakdown Neuro CN's II-XII intact bilaterally, moves all extremities, no focal motor deficits and no sensory deficits noted Sensorium / Orientation: awake, alert, oriented to person and oriented to place Speech: speech normal Psych affect normal Results Lab / Micro Data 04/09/23 12:16 04/09/23 12:16 Labs: Laboratory Results - last 24 hr 04/09/23 12:16: WBC 11.1 H, RBC 2.04 L, Hgb 5.8 L*, Hct 19.3 L, MCV 94.6 H, MCH 28.4, MCHC 30.1 L, RDW Std Deviation 62.3 H, RDW Coeff of Monalisa 18.6 H, Plt Count 495 H, MPV 8.9, Immature Gran % (Auto) 2.000 H, Neut % (Auto) 75.2 H, Lymph % (Auto) 11.2 L, [place] % (Auto) 8.7, Eos % (Auto) 2.4, Baso % (Auto) 0.5, Absolute Neuts (auto) 8.3 H, Absolute Lymphs (auto) 1.24, Nucleated RBC % 0.7, Diff Path Review October, Sodium 144, Potassium 3.1 L, Chloride 105, Carbon Dioxide 37.0 H, Anion Gap 2 L, BUN 18, Creatinine 1.00, Estim Creat Clear Calc 58.48, Est GFR (MDRD) Af Amer 96, Est GFR (MDRD) Non-Af 79, BUN/Creatinine Ratio 18.0, Glucose 127 H, Calcium 7.7 L, Total Bilirubin 0.20, Direct Bilirubin 0.08, AST 29, ALT 46, Alkaline Phosphatase 77, Total Protein 5.6 L, Albumin 1.7 L, Globulin 3.9, Lipase < 10 L, Blood Type O POSITIVE, Antibody Screen NEGATIVE, Crossmatch See Detail 04/09/23 12:16: Crossmatch See Detail 04/09/23 12:30: Urine Color Yellow, Urine Clarity Clear, Urine pH 6.5, Ur Specific [place] 1.010, Urine Protein 15 H, Urine Glucose (UA) Normal, Urine Ketones Negative, Urine Occult Blood 10 H, Urine Nitrite Negative, Urine Bilirubin Negative, Urine Urobilinogen Normal, Ur Leukocyte Esterase 100 H, Urine RBC 0-5 SEEN, Urine WBC 0-5 SEEN, Ur Squamous Epith Cells 0-5 SEEN, Calcium Oxalate Crystal RARE, Urine Bacteria 0 SEEN, Urine Mucus 0 SEEN Radiology Impression Chest X-Ray 04/09/23 12:55 IMPRESSION: Interval exam. Electronically Signed: Drew Colmenares MD at 13:55 EDT , Assessment & Plan Assessment/Plan (1) Acute blood loss anemia: PLAN: Plan 1. Acute blood loss anemia secondary to upper GI bleed-patient will be admitted to PCU, he will be placed on Protonix drip, labs will be monitored, he will receive 2 units of packed red blood cells. Patient will be seen by gastroenterology. #2 hypotension secondary to acute blood loss anemia-patient will be given IV fluids and packed red blood cells, blood pressure will be monitored #3 hypokalemia-patient will be given IV potassium #4 chronic obstructive pulmonary disease-patient will receive aerosol treatments, complicates care, medical course, recovery, and prognosis #5 severe protein and caloric malnutrition-related to inadequate energy intake due to COPD and GI dysfunction-patient will be seen by nutritional services #6 chronic hypoxic respiratory failure-patient is currently on 2 L/min via nasal cannula, pulse ox will be monitored Total clinical time spent by myself addressing the patient's medical issues, reviewing all of his data, and collaborating with patient's care team: 55 minutes Charges/Coding Visit Charges Inpatient E&M: 39319 Init Hosp L2
[2023-04-09] MEDS: Ipratropium/Albuterol Sulfate 3 ML AMPUL.NEB INHALATION (20:00)
[2023-04-10] VITALS (28 sets, daily range): BP systolic 84–136; BP diastolic 50–85; PULSE 81–115; RESP 12–24; TEMP 36.3–37; O2SAT 84–100; BMI 22.0
[2023-04-10] MEDS: 0.9% Saline Lock 10 ML Syringe IV (00:49)
[2023-04-10] MEDS: Morphine 2 MG/ML Syringe IV ×6 (00:49→23:58)
[2023-04-10] MEDS: Potassium Chloride 10mEq/100mL 10 MEQ/100 ML IV.SOLN. 100 MEQ IV BOLUS ×2 (00:54→02:17)
[2023-04-10] MEDS: Ipratropium/Albuterol Sulfate 3 ML AMPUL.NEB INHALATION ×4 (01:23→19:44)
[2023-04-10] MEDS: Ondansetron 4 MG/2 ML Vial IV ×2 (04:12→14:32)
[2023-04-10] MEDS: Albuterol 2.5 MG/3 ML VIAL.NEB. INHALATION (04:45)
--- NOTE | 2023-04-10 05:55 | EKG12_ITS ---
Test Reason : AM EKG Blood Pressure : / mmHG Vent. Rate : 102 BPM Atrial Rate : 102 BPM P-R Int : 168 ms QRS Dur : 082 ms QT Int : 354 ms P-R-T Axes : 080 045 053 degrees QTc Int : 461 ms Sinus tachycardia Otherwise normal ECG When compared with ECG of 09-APR-2023 12:07, MANUAL COMPARISON REQUIRED, DATA IS UNCONFIRMED Confirmed by JONN GUERRA, MEI ([id number]), video tape editor DONNA WARD ([id number]) on 04/26/2023 11:29:29 AM Referred By: Confirmed By:MEI LUNSFORD MD
--- NOTE | 2023-04-10 06:16 | PCM.PN.BLA ---
Progress Note Process the patient's left forearm is red and swollen from last admission IV infiltration and now it is using blood and pus. Wound culture ordered. ordered Keflex.
[2023-04-10 06:41] LABS: Absolute Lymphocyte Count 1.16 X10^3/uL (0.83-4.51); Absolute Neutrophil Count 7.5 X10^3/uL (2.0-7.7); Basophil# 0.06 X10^3/uL; Basophil% 0.6 % (0-1); Eosinophil# 0.14 X10^3/uL; Eosinophils% 1.4 % (0-5); Hematocrit 21.3 % (40-54); Hemoglobin 6.5 g/dL (13.0-16.5); Lymphocyte # 1.16 X10^3/ul (0.83-4.51); Lymphocyte % 11.4 % (19-41); Mean Corp Hgb Conc 30.5 g/dL (32-36); Mean Corpuscular Hgb 28.4 pg (27.0-32.0); Monocyte# 0.95 X10^3/uL; Monocyte% 9.4 % (0-10); NRBC Flagged by Analyzer 1.1 % (0-5); Neutrophil # 7.53 X10^3/uL (2.7-7.7); Neutrophil % 74.1 % (47-70); Platelet Count 359 K/mm3 (150-450); RBC Distribution Width SD 58.2 fl (35.1-43.9); Red Blood Count 2.29 M/mm3 (4.6-6.2); White Blood Count 10.2 K/mm3 (4.4-11.0)
[2023-04-10 07:05] LABS: International Normalized Ratio 1.2; Partial Thromboplast Time 31.8 Seconds (24.1-36.2); Prothrombin Time (Protime)PT. 15.2 SECONDS (11.7-14.9)
[2023-04-10 07:08] LABS: Anion Gap 0 (5-15); BUN 16 mg/dL (7-18); BUN/Creat Ratio 21.7 RATIO (10-20); Chloride 110 mmol/L (98-107); Creatinine, Serum 0.74 mg/dL (0.70-1.30); EST Glomerular Filtration Rate 113 mL/min (>60); Est Glom Filt Rate - Afr Amer 136 mL/min (>60); Estimated Creatinine Clearance 57.28 ml/min; Glucose 97 mg/dL (74-106); Potassium 3.8 mmol/L (3.5-5.1); Sodium Level 146 mmol/L (136-145)
[2023-04-10] MEDS: Pantoprazole Sodium 80 MG in 0.9% Normal Saline (100mL Bag) 80 ML 10 MG CONT INF ×2 (09:45→18:51)
[2023-04-10] MEDS: Menthol/Lanolin/Calamine/Znox 113 GM Tube 1 APPLIC TOPICAL ×2 (10:22→21:10)
--- NOTE | 2023-04-10 11:12 | CASEMGMT ---
Discharge Planning Updates sent to [facility] Patricia Dash, Discharge Planning Asst.
[2023-04-10] MEDS: 0.9% Normal Saline (1000mL) 1,000 ML 75 ML IV ×2 (13:14→17:09)
--- NOTE | 2023-04-10 13:30 | CASEMGMT ---
Discharge Planning Therapy evals sent to [facility] via [facility]. Patricia Dash, Discharge Planning Asst.
[2023-04-10] MEDS: 0.9% Normal Saline (Pres. free 10 ML Vial (15:11)
[2023-04-10] MEDS: Epinephrine (1 mg/ml) 1 MG/ML VIAL (15:11)
--- NOTE | 2023-04-10 15:50 | OP.EGD_ITS ---
Patient Name: Yasir Acevedo Procedure Date: 04/10/2023 2:55 PM Date of : 1955 Age: 68 Procedure: Upper GI endoscopy Indications: Melena Providers: Kory Calero DO Medicines: Monitored Anesthesia Care Patient Profile: This is a 68 year old male. Refer to note in patient chart for documentation of history and physical. Patient has symptoms. Complications: No immediate complications. Procedure: Pre-Anesthesia Assessment: - Prior to the procedure, a History and Physical was performed, and patient medications and allergies were reviewed. The patient is competent. The risks and benefits of the procedure and the sedation options and risks were discussed with the patient. All questions were answered and informed consent was obtained. Patient identification and proposed procedure were verified by the physician in the pre-procedure area. Mental Status Examination: alert and oriented. Airway Examination: normal oropharyngeal airway and neck mobility. Respiratory Examination: clear to auscultation. CV Examination: normal. Prophylactic Antibiotics: The patient does not require prophylactic antibiotics. Prior Anticoagulants: The patient has taken no anticoagulant or antiplatelet agents. ASA Grade Assessment: III - A patient with severe systemic disease. After reviewing the risks and benefits, the patient was deemed in satisfactory condition to undergo the procedure. The anesthesia plan was to use monitored anesthesia care (MAC). Immediately prior to administration of medications, the patient was re-assessed for adequacy to receive sedatives. The heart rate, respiratory rate, oxygen saturations, blood pressure, adequacy of pulmonary ventilation, and response to care were monitored throughout the procedure. The physical status of the patient was re-assessed after the procedure. After obtaining informed consent, the endoscope was passed under direct vision. Throughout the procedure, the patient's blood pressure, pulse, and oxygen saturations were monitored continuously. The Endoscope was introduced through the mouth, and advanced to the second part of duodenum. The upper GI endoscopy was accomplished without difficulty. The patient tolerated the procedure well. Scope In: 3:03:35 PM Scope Out: 3:25:28 PM Total Procedure Duration Time 0 hours 21 minutes 53 seconds Findings: The examined esophagus was normal. A medium-sized hiatal hernia was present. Red blood was found in the stomach. Fluid aspiration was performed through the scope suction channel. The amount of fluid collected was 500 mL. The fluid opaque. Verification of patient identification for the specimen was done. Estimated blood loss was minimal. One spurting cratered duodenal ulcer with a visible vessel was found in the duodenal bulb. The lesion was 21 mm in largest dimension. Area was successfully injected with 10 mL of a 0.1 mg/mL solution of epinephrine for drug delivery. Coagulation for hemostasis using heater probe was successful. Estimated blood loss was minimal. Impression: - Normal esophagus. - Medium-sized hiatal hernia. - Red blood in the stomach. Fluid aspiration performed. - Spurting duodenal ulcer with a visible vessel. Injected. Treated with a heater probe. Recommendation: - [facility]. - Full liquid diet today. - Continue present medications. Procedure Code(s): --- Professional --- 16511, Esophagogastroduodenoscopy, flexible, transoral; with control of bleeding, any method 50541, 59,51, Esophagogastroduodenoscopy, flexible, transoral; with directed submucosal injection(s), any substance CPT copyright 2021 [employer]. All rights reserved. The codes documented in this report are preliminary and upon textile machine operator review may be revised to meet current compliance requirements. Kory Calero DO 04/10/2023 3:49:50 PM This report has been signed electronically. Number of Addenda: 0 Note Initiated On: 04/10/2023 2:55 PM
--- NOTE | 2023-04-10 15:50 | OP.CCLET_ITS ---
04/10/2023 Peggy Uribe Md Re : Upper GI endoscopy procedure for Yasir Acevedo Dear Rony This procedure was performed on Monday, April 10, 2023. My impressions and recommendations are as follows: Impressions : - Normal esophagus. - Medium-sized hiatal hernia. - Red blood in the stomach. Fluid aspiration performed. - Spurting duodenal ulcer with a visible vessel. Injected. Treated with a heater probe. Recommendations : - Return [facility] to [facility] for [facility] care. - Full liquid diet today. - Continue present medications. My findings are described in the full procedure note, which is enclosed. If I can be of further assistance, please feel free to contact me at . Sincerely, Kory Calero, 04/10/2023 3:49:50 PM This report has been signed electronically.
--- NOTE | 2023-04-10 17:01 | PCM.PN.HOSP ---
Reason for Visit Reason for Visit: Diagnoses Acute posthemorrhagic anemia (04/09/23) Subjective Subjective Patient was seen and examined today, his hemoglobin this morning was low, I wrote for 2 units of packed red blood cells to be transfused. Patient had an EGD today which showed a bleeding duodenal ulcer. The night hospitalist early this morning placed the patient on Keflex due to concerns of a left forearm site that was oozing purulent material and blood. I have elected to continue the Keflex for now. Objective Data Objective Data Vital Signs: Vital Signs Temp Pulse Resp BP Pulse Ox O2 Del Method O2 Flow Rate 97.4 F L 108 H 16 136/72 H 99 Room Air 4 04/10/23 16:00 04/10/23 16:00 04/10/23 16:00 04/10/23 16:30 04/10/23 16:00 04/10/23 16:00 04/10/23 15:45 Oxygen Flow Rate (L/min) 4 Oxygen Delivery Method Room Air Weight: 56.5 kg Body Mass Index (BMI) 22.0 Intake & Output: Intake and Output for Last 24 Hours 04/08/23 04/09/23 04/10/23 23:59 23:59 23:59 Intake Total 1174.08 / 1174.08 1918.75 / 1918.75 Output Total 825 / 825 800 / 800 Balance 349.08 / 349.08 1118.75 / 1118.75 Lab / Micro Data 04/10/23 06:32 04/10/23 06:32 Labs: Laboratory Results - last 24 hr 04/09/23 12:16: Blood Type O POSITIVE, Antibody Screen NEGATIVE, Crossmatch See Detail 04/09/23 12:16: Crossmatch See Detail 04/10/23 06:32: WBC 10.2, RBC 2.29 L, Hgb 6.5 L, Hct 21.3 L, MCV 93.0, MCH 28.4, MCHC 30.5 L, RDW Std Deviation 58.2 H, RDW Coeff of Monalisa 18.0 H, Plt Count 359, MPV 9.0, Immature Gran % (Auto) 3.100 H, Neut % (Auto) 74.1 H, Lymph % (Auto) 11.4 L, [place] % (Auto) 9.4, Eos % (Auto) 1.4, Baso % (Auto) 0.6, Absolute Neuts (auto) 7.5, Absolute Lymphs (auto) 1.16, Nucleated RBC % 1.1, PT 15.2 H, INR 1.2, APTT 31.8, Sodium 146 H, Potassium 3.8, Chloride 110 H, Carbon Dioxide 36.0 H, Anion Gap 0 L, BUN 16, Creatinine 0.74, Estim Creat Clear Calc 57.28, Est GFR (MDRD) Af Amer 136, Est GFR (MDRD) Non-Af 113, BUN/Creatinine Ratio 21.7 H, Glucose 97, Calcium 7.0 L Micro: Microbiology 04/10/23 04:35 Wound - Arm Left Gram Stain - Final Physical Exam Narrative alert and no apparent distress Constitutional Narrative: Patient appears older than his stated age, he appears unwell General Appearance: cooperative, well kempt and well developed Orientation / Consciousness: awake, oriented to person and oriented to place HEENT normocephalic, head/scalp atraumatic, hearing grossly normal bilaterally and moist oral mucous membranes Eyes PERRL, EOMs intact bilaterally and conjunctivae normal Neck supple, no JVD, thyroid normal and no carotid bruits General: trachea midline Resp normal respiratory effort, no retractions, no use of accessory muscles and clear to auscultation bilaterally Auscultation: Negative for rales, rhonchi or wheezes Cardio regular rate, regular rhythm, S1 normal heart sound, S2 normal heart sound, no murmurs, no rub and no gallops GI normal to inspection, nondistended, normoactive bowel sounds, soft to palpation, non-tender and non-distended Extremity no clubbing, cyanosis or edema Skin There is some mild edema in the patient's left forearm, it is nontender to palpation Neuro CN's II-XII intact bilaterally, moves all extremities, no focal motor deficits and no sensory deficits noted Sensorium / Orientation: awake, alert, oriented to person and oriented to place Speech: speech normal Psych affect normal Assessment & Plan Assessment/Plan (1) Acute blood loss anemia: PLAN: Plan 1. Acute blood loss anemia secondary to upper GI bleed from duodenal ulcer-gastroenterology is participating in his care, continue IV Protonix, patient received 2 units of packed red blood cells today, repeat CBC at 9:00 tonight and again tomorrow morning #2 hypotension secondary to acute blood loss anemia-resolved at this time, monitor patient's blood pressure #3 hypokalemia-resolved at this time #4 chronic obstructive pulmonary disease-patient will receive aerosol treatments, complicates care, medical course, recovery, and prognosis #5 severe protein and caloric malnutrition-related to inadequate energy intake due to COPD and GI dysfunction-patient will be seen by nutritional services #6 chronic hypoxic respiratory failure-patient is currently on 2 L/min via nasal cannula, pulse ox will be monitored #7 localized cellulitis of the patient's left forearm-cultures were taken from the patient's left forearm earlier this morning, he was placed on Keflex, I will increase the Keflex to 3 times daily, await culture results #8 generalized debility-acute on chronic, patient will need to return to an extended care facility for short-term rehab services, he will need preapproval before this happens. Total clinical time spent by myself addressing the patient's medical issues, reviewing all of his data, and collaborating with patient's care team: 35 minutes Charges/Coding Visit Charges Inpatient E&M: 82641 Subs Hosp L2
[2023-04-10] MEDS: Octreotide 0.5 MG in Dextrose 5%-Water (250mL Bag) 249 ML 25 MG CONT INF (17:09)
[2023-04-10] MEDS: Cephalexin 500 MG Capsule PO (21:10)
[2023-04-10 21:25] LABS: Absolute Lymphocyte Count 0.88 X10^3/uL (0.83-4.51); Absolute Neutrophil Count 13.9 X10^3/uL (2.0-7.7); Basophil# 0.08 X10^3/uL; Basophil% 0.5 % (0-1); Eosinophil# 0.06 X10^3/uL; Eosinophils% 0.4 % (0-5); Hematocrit 24.2 % (40-54); Hemoglobin 7.6 g/dL (13.0-16.5); Lymphocyte # 0.88 X10^3/ul (0.83-4.51); Lymphocyte % 5.6 % (19-41); Mean Corp Hgb Conc 31.4 g/dL (32-36); Mean Corpuscular Hgb 29.8 pg (27.0-32.0); Mean Corpuscular Volume 94.9 fL (80-94); Mean Platelet Vol. 9.2 fl (6.2-12.0); Monocyte# 0.65 X10^3/uL; Monocyte% 4.1 % (0-10); NRBC Flagged by Analyzer 0.5 % (0-5); Neutrophil # 13.91 X10^3/uL (2.7-7.7); Neutrophil % 88.1 % (47-70); Platelet Count 324 K/mm3 (150-450); RBC Distribution Width CV 16.4 % (11.6-14.6); RBC Distribution Width SD 54.2 fl (35.1-43.9); Red Blood Count 2.55 M/mm3 (4.6-6.2); White Blood Count 15.8 K/mm3 (4.4-11.0)
[2023-04-11] VITALS (10 sets, daily range): BP systolic 95–130; BP diastolic 66–81; PULSE 90–100; RESP 14–20; TEMP 36.8–37.2; O2SAT 87–100
[2023-04-11] MEDS: Ipratropium/Albuterol Sulfate 3 ML AMPUL.NEB INHALATION ×4 (01:50→19:49)
[2023-04-11] MEDS: Octreotide 0.5 MG in Dextrose 5%-Water (250mL Bag) 249 ML 25 MG CONT INF ×3 (02:38→23:20)
[2023-04-11] MEDS: Morphine 2 MG/ML Syringe IV ×2 (03:04→06:16)
[2023-04-11] MEDS: Pantoprazole Sodium 80 MG in 0.9% Normal Saline (100mL Bag) 80 ML 10 MG CONT INF ×2 (04:10→17:32)
[2023-04-11] MEDS: 0.9% Normal Saline (1000mL) 1,000 ML 75 ML IV ×2 (04:11→17:37)
[2023-04-11] MEDS: Cephalexin 500 MG Capsule PO ×3 (06:22→21:42)
[2023-04-11 06:39] LABS: Absolute Lymphocyte Count 1.68 X10^3/uL (0.83-4.51); Absolute Neutrophil Count 12.7 X10^3/uL (2.0-7.7); Basophil# 0.09 X10^3/uL; Basophil% 0.5 % (0-1); Eosinophil# 0.46 X10^3/uL; Eosinophils% 2.8 % (0-5); Hematocrit 25.4 % (40-54); Hemoglobin 7.8 g/dL (13.0-16.5); Lymphocyte # 1.68 X10^3/ul (0.83-4.51); Lymphocyte % 10.1 % (19-41); Mean Corp Hgb Conc 30.7 g/dL (32-36); Mean Corpuscular Hgb 29.1 pg (27.0-32.0); Mean Corpuscular Volume 94.8 fL (80-94); Mean Platelet Vol. 9.2 fl (6.2-12.0); Monocyte# 1.48 X10^3/uL; Monocyte% 8.9 % (0-10); NRBC Flagged by Analyzer 0.5 % (0-5); Neutrophil # 12.72 X10^3/uL (2.7-7.7); Neutrophil % 76.3 % (47-70); Platelet Count 369 K/mm3 (150-450); Red Blood Count 2.68 M/mm3 (4.6-6.2); White Blood Count 16.7 K/mm3 (4.4-11.0)
[2023-04-11] MEDS: Morphine 4 MG/ML Syringe (09:19)
[2023-04-11] MEDS: 0.9% Saline Lock 10 ML Syringe IV (09:19)
[2023-04-11] MEDS: Menthol/Lanolin/Calamine/Znox 113 GM Tube 1 APPLIC TOPICAL ×2 (10:50→21:40)
--- NOTE | 2023-04-11 12:04 | PN.HOSP_ITS ---
Reason for Visit Reason for Visit: Diagnoses Acute posthemorrhagic anemia (04/09/23) Subjective Subjective Still has abdominal pain. Morphine helps, but wears off. Objective Data Objective Data Vital Signs: Vital Signs Temp Pulse Resp BP Pulse Ox O2 Del Method O2 Flow Rate 37.2 C 100 16 130/75 H 100 Nasal Cannula 5 04/11/23 09:26 04/11/23 09:26 04/11/23 09:26 04/11/23 09:26 04/11/23 10:49 04/11/23 10:47 04/11/23 10:49 Oxygen Flow Rate (L/min) 5 Oxygen Delivery Method Nasal Cannula Weight: 56.5 kg Body Mass Index (BMI) 22.0 Intake & Output: Intake and Output for Last 24 Hours 04/09/23 04/10/23 04/11/23 23:59 23:59 23:59 Intake Total 1174.08 / 1174.08 2803.50 / 3403.50 1956.09 / 1956.09 Output Total 825 / 825 1450 / 2050 1100 / 1100 Balance 349.08 / 349.08 1353.50 / 1353.50 856.09 / 856.09 Lab / Micro Data 04/11/23 06:26 04/10/23 06:32 Labs: Laboratory Results - last 24 hr 04/09/23 12:16: Crossmatch See Detail 04/09/23 12:16: Crossmatch See Detail 04/10/23 21:15: WBC 15.8 H, RBC 2.55 L, Hgb 7.6 L, Hct 24.2 L, MCV 94.9 H, MCH 29.8, MCHC 31.4 L, RDW Std Deviation 54.2 H, RDW Coeff of Monalisa 16.4 H, Plt Count 324, MPV 9.2, Immature Gran % (Auto) 1.300 H, Neut % (Auto) 88.1 H, Lymph % (Auto) 5.6 L, [place] % (Auto) 4.1, Eos % (Auto) 0.4, Baso % (Auto) 0.5, Absolute Neuts (auto) 13.9 H, Absolute Lymphs (auto) 0.88, Nucleated RBC % 0.5 04/11/23 06:26: WBC 16.7 H, RBC 2.68 L, Hgb 7.8 L, Hct 25.4 L, MCV 94.8 H, MCH 29.1, MCHC 30.7 L, RDW Std Deviation 55.0 H, RDW Coeff of Monalisa 17.0 H, Plt Count 369, MPV 9.2, Immature Gran % (Auto) 1.400 H, Neut % (Auto) 76.3 H, Lymph % (Auto) 10.1 L, [place] % (Auto) 8.9, Eos % (Auto) 2.8, Baso % (Auto) 0.5, Absolute Neuts (auto) 12.7 H, Absolute Lymphs (auto) 1.68, Nucleated RBC % 0.5 Micro: Microbiology 04/10/23 04:35 Wound - Arm Left Gram Stain - Final 04/10/23 04:35 Wound - Arm Left Wound Culture - Preliminary No growth-Final to follow Physical Exam Const alert and no apparent distress HEENT head/scalp atraumatic Resp normal respiratory effort, no retractions, no use of accessory muscles and clear to auscultation bilaterally Cardio regular rate, regular rhythm, S1 normal heart sound and S2 normal heart sound GI normal to inspection, nondistended, normoactive bowel sounds, soft to palpation, non-tender and non-distended Psych affect normal Assessment & Plan Assessment/Plan (1) Acute blood loss anemia: PLAN: improved s/p 2 units of PRBCs monitor (2) Acute GI bleeding: PLAN: 2/2 spurting duodenal ulcer. Treated with injection and heater probe On patoprazole gtt and octreotide gtt. GI following (3) Hypotension: QUALIFIERS: Hypotension type: other hypotension type Qualified Code(s): I95.89 - Other hypotension PLAN: resolved 2/2 anemia PLAN: Plan Chronic conditions: * chronic obstructive pulmonary disease-patient will receive aerosol treatments * severe protein and caloric malnutrition-related to inadequate energy intake due to COPD and GI dysfunction-patient will be seen by nutritional services * chronic hypoxic respiratory failure-patient is currently on 2 L/min via nasal cannula, pulse ox will be monitored * localized cellulitis of the patient's left forearm-cultures were taken from the patient's left forearm earlier this morning, he was placed on Keflex, I will increase the Keflex to 3 times daily, await culture results * generalized debility-acute on chronic, patient will need to return to an [facility] care facility for short-term rehab services, he will need preapproval before this happens. VTE prophylaxis: SCDs Charges/Coding Visit Charges Inpatient E&M: 69823 Subs Hosp L2
--- NOTE | 2023-04-11 13:13 | PN.GI_ITS ---
Subjective Subjective Patient underwent an upper endoscopy yesterday for acute GI bleeding. He did have big bloody bowel movement after the procedure. His hemoglobin seems to be stable at 7.6. Objective Data Objective Data Vital Signs: Vital Signs Temp Pulse Resp BP Pulse Ox O2 Del Method O2 Flow Rate 98.9 F 100 16 130/75 H 100 Nasal Cannula 5 04/11/23 09:26 04/11/23 09:26 04/11/23 09:26 04/11/23 09:26 04/11/23 10:49 04/11/23 10:47 04/11/23 10:49 Oxygen Flow Rate (L/min) 5 Oxygen Delivery Method Nasal Cannula Weight: 124 lb 8.979 oz Body Mass Index (BMI) 22.0 Intake & Output: Intake and Output for Last 24 Hours 04/09/23 04/10/23 04/11/23 23:59 23:59 23:59 Intake Total 1174.08 / 1174.08 2803.50 / 3403.50 2156.09 / 2156.09 Output Total 825 / 825 1450 / 2050 1900 / 1900 Balance 349.08 / 349.08 1353.50 / 1353.50 256.09 / 256.09 Lab / Micro Data 04/11/23 06:26 04/10/23 06:32 Labs: Laboratory Results - last 24 hr 04/09/23 12:16: Crossmatch See Detail 04/10/23 21:15: WBC 15.8 H, RBC 2.55 L, Hgb 7.6 L, Hct 24.2 L, MCV 94.9 H, MCH 29.8, MCHC 31.4 L, RDW Std Deviation 54.2 H, RDW Coeff of Monalisa 16.4 H, Plt Count 324, MPV 9.2, Immature Gran % (Auto) 1.300 H, Neut % (Auto) 88.1 H, Lymph % (Auto) 5.6 L, [place] % (Auto) 4.1, Eos % (Auto) 0.4, Baso % (Auto) 0.5, Absolute Neuts (auto) 13.9 H, Absolute Lymphs (auto) 0.88, Nucleated RBC % 0.5 04/11/23 06:26: WBC 16.7 H, RBC 2.68 L, Hgb 7.8 L, Hct 25.4 L, MCV 94.8 H, MCH 29.1, MCHC 30.7 L, RDW Std Deviation 55.0 H, RDW Coeff of Monalisa 17.0 H, Plt Count 369, MPV 9.2, Immature Gran % (Auto) 1.400 H, Neut % (Auto) 76.3 H, Lymph % (Auto) 10.1 L, [place] % (Auto) 8.9, Eos % (Auto) 2.8, Baso % (Auto) 0.5, Absolute Neuts (auto) 12.7 H, Absolute Lymphs (auto) 1.68, Nucleated RBC % 0.5 Micro: Microbiology 04/10/23 04:35 Wound - Arm Left Gram Stain - Final 04/10/23 04:35 Wound - Arm Left Wound Culture - Preliminary No growth-Final to follow Physical Exam Narrative alert and no apparent distress Constitutional Narrative: Patient appears older than his stated age, he appears unwell General Appearance: cooperative, well kempt and well developed Orientation / Consciousness: awake, oriented to person and oriented to place HEENT normocephalic, head/scalp atraumatic, hearing grossly normal bilaterally and moist oral mucous membranes Eyes PERRL, EOMs intact bilaterally and conjunctivae normal Neck supple, no JVD, thyroid normal and no carotid bruits General: trachea midline Resp normal respiratory effort, no retractions, no use of accessory muscles and clear to auscultation bilaterally Auscultation: Negative for rales, rhonchi or wheezes Cardio regular rate, regular rhythm, S1 normal heart sound, S2 normal heart sound, no murmurs, no rub and no gallops GI normal to inspection, nondistended, normoactive bowel sounds, soft to palpation, non-tender and non-distended Extremity no clubbing, cyanosis or edema Skin There is some mild edema in the patient's left forearm, it is nontender to palpation Neuro CN's II-XII intact bilaterally, moves all extremities, no focal motor deficits and no sensory deficits noted Sensorium / Orientation: awake, alert, oriented to person and oriented to place Speech: speech normal Psych affect normal Assessment & Plan Assessment/Plan (1) Acute blood loss anemia: PLAN: Plan Acute blood loss anemia secondary to upper GI bleed from duodenal ulcer- gastroenterology is participating in his care, continue IV Protonix, . The PPI drip and aprreotide can be stopped. PPI can be given 40 mg IV every 12 hours. hypotension secondary to acute blood loss anemia-resolved at this time, monitor patient's blood pressure severe protein and caloric malnutrition-related to inadequate energy intake due to COPD and GI dysfunction-patient will be seen by nutritional services Charges/Coding Visit Charges Inpatient E&M: 84226 [facility] Hosp L3
--- NOTE | 2023-04-11 13:17 | CASEMGMT ---
Discharge Planning Updates sent to [facility] via [employer]. Asked for precert to be started. Patricia Dash, Discharge Planning Asst.
[2023-04-11] MEDS: Acetaminophen 325 MG Tablet 650 MG PO ×3 (13:40→21:39)
[2023-04-11] MEDS: oxyCODONE 5 MG Tablet PO ×3 (13:40→21:39)
[2023-04-12] VITALS (10 sets, daily range): BP systolic 98–129; BP diastolic 58–81; PULSE 86–100; RESP 16–20; TEMP 36.6–36.9; O2SAT 95–100
[2023-04-12] MEDS: Ipratropium/Albuterol Sulfate 3 ML AMPUL.NEB INHALATION ×3 (00:17→19:50)
[2023-04-12] MEDS: oxyCODONE 5 MG Tablet PO ×5 (01:40→21:16)
[2023-04-12] MEDS: Acetaminophen 325 MG Tablet 650 MG PO ×5 (01:41→21:17)
[2023-04-12] MEDS: Pantoprazole Sodium 80 MG in 0.9% Normal Saline (100mL Bag) 80 ML 10 MG CONT INF (03:06)
[2023-04-12] MEDS: Albuterol 2.5 MG/3 ML VIAL.NEB. INHALATION (03:33)
[2023-04-12] MEDS: Cephalexin 500 MG Capsule PO ×3 (06:04→21:18)
[2023-04-12] MEDS: 0.9% Normal Saline (1000mL) 1,000 ML 75 ML IV ×2 (06:05→19:31)
[2023-04-12 06:16] LABS: Absolute Lymphocyte Count 0.81 X10^3/uL (0.83-4.51); Absolute Neutrophil Count 19.1 X10^3/uL (2.0-7.7); Basophil# 0.09 X10^3/uL; Basophil% 0.4 % (0-1); Eosinophil# 0.33 X10^3/uL; Eosinophils% 1.5 % (0-5); Hematocrit 24.3 % (40-54); Hemoglobin 7.4 g/dL (13.0-16.5); Lymphocyte # 0.81 X10^3/ul (0.83-4.51); Lymphocyte % 3.7 % (19-41); Mean Corp Hgb Conc 30.5 g/dL (32-36); Mean Corpuscular Hgb 29.5 pg (27.0-32.0); Mean Corpuscular Volume 96.8 fL (80-94); Mean Platelet Vol. 9.1 fl (6.2-12.0); NRBC Flagged by Analyzer 0.1 % (0-5); Neutrophil # 19.08 X10^3/uL (2.7-7.7); Neutrophil % 87.6 % (47-70); Platelet Count 362 K/mm3 (150-450); RBC Distribution Width CV 17.6 % (11.6-14.6); Red Blood Count 2.51 M/mm3 (4.6-6.2); White Blood Count 21.8 K/mm3 (4.4-11.0)
[2023-04-12 06:51] LABS: Anion Gap 4 (5-15); BUN 11 mg/dL (7-18); BUN/Creat Ratio 15.1 RATIO (10-20); Chloride 101 mmol/L (98-107); Creatinine, Serum 0.73 mg/dL (0.70-1.30); EST Glomerular Filtration Rate 114 mL/min (>60); Est Glom Filt Rate - Afr Amer 138 mL/min (>60); Estimated Creatinine Clearance 57.28 ml/min; Glucose 136 mg/dL (74-106); Potassium 4.2 mmol/L (3.5-5.1); Sodium Level 137 mmol/L (136-145)
--- NOTE | 2023-04-12 08:23 | PN.HOSP_ITS ---
Reason for Visit Reason for Visit: Diagnoses Acute posthemorrhagic anemia (04/09/23) Other hypotension (04/09/23) Gastrointestinal hemorrhage, unspecified (04/09/23) Subjective Subjective Still with abdominal pain. No BM in days. Objective Data Objective Data Vital Signs: Vital Signs Temp Pulse Resp BP Pulse Ox O2 Del Method O2 Flow Rate 36.9 C 89 18 129/71 H 100 Nasal Cannula 3 04/12/23 03:30 04/12/23 07:29 04/12/23 07:29 04/12/23 03:30 04/12/23 07:29 04/12/23 07:29 04/12/23 07:29 Oxygen Flow Rate (L/min) 3 Oxygen Delivery Method Nasal Cannula Weight: 56.5 kg Body Mass Index (BMI) 22.0 Intake & Output: Intake and Output for Last 24 Hours 04/10/23 04/11/23 04/12/23 23:59 23:59 23:59 Intake Total 2803.50 / 3403.50 4255.67 / 4655.67 1855.50 / 1855.50 Output Total 1450 / 2050 2500 / 3100 1200 / 1200 Balance 1353.50 / 1353.50 1755.67 / 1555.67 655.50 / 655.50 Lab / Micro Data 04/12/23 06:04 04/12/23 06:04 Labs: Laboratory Results - last 24 hr 04/12/23 06:04: WBC 21.8 H, RBC 2.51 L, Hgb 7.4 L, Hct 24.3 L, MCV 96.8 H, MCH 29.5, MCHC 30.5 L, RDW Std Deviation 56.0 H, RDW Coeff of Monalisa 17.6 H, Plt Count 362, MPV 9.1, Immature Gran % (Auto) 0.800, Neut % (Auto) 87.6 H, Lymph % (Auto) 3.7 L, [place] % (Auto) 6.0, Eos % (Auto) 1.5, Baso % (Auto) 0.4, Absolute Neuts (auto) 19.1 H, Absolute Lymphs (auto) 0.81 L, Nucleated RBC % 0.1, Sodium 137, Potassium 4.2, Chloride 101, Carbon Dioxide 32.0, Anion Gap 4 L, BUN 11, Creatinine 0.73, Estim Creat Clear Calc 57.28, Est GFR (MDRD) Af Amer 138, Est GFR (MDRD) Non-Af 114, BUN/Creatinine Ratio 15.1, Glucose 136 H, Calcium 7.0 L Micro: Microbiology 04/10/23 04:35 Wound - Arm Left Gram Stain - Final 04/10/23 04:35 Wound - Arm Left Wound Culture - Preliminary No growth-Final to follow Physical Exam Const alert and no apparent distress HEENT head/scalp atraumatic and moist oral mucous membranes Resp normal respiratory effort, no retractions, no use of accessory muscles and clear to auscultation bilaterally Cardio regular rate, regular rhythm, S1 normal heart sound, S2 normal heart sound and no murmurs GI normal to inspection, nondistended, normoactive bowel sounds, soft to palpation, non-tender and non-distended Extremity normal to inspection Assessment & Plan Assessment/Plan (1) Acute blood loss anemia: PLAN: improved s/p 2 units of PRBCs monitor (2) Acute GI bleeding: PLAN: 2/2 spurting duodenal ulcer. Treated with injection and heater probe on PPI. GI following (3) Hypotension: QUALIFIERS: Hypotension type: other hypotension type Qualified Code(s): I95.89 - Other hypotension PLAN: resolved 2/2 anemia PLAN: Plan Chronic conditions: * chronic obstructive pulmonary disease-patient will receive aerosol treatments * severe protein and caloric malnutrition-related to inadequate energy intake due to COPD and GI dysfunction-patient will be seen by nutritional services * chronic hypoxic respiratory failure-patient is currently on 2 L/min via nasal cannula, pulse ox will be monitored * localized cellulitis of the patient's left forearm-cultures were taken from the patient's left forearm earlier this morning, he was placed on Keflex, I will increase the Keflex to 3 times daily, await culture results * generalized debility-acute on chronic, patient will need to return to an ex [facility] care facility for short-term rehab services, he will need preapproval before this happens. VTE prophylaxis: SCDs Disposition: to SNF pending insurance authorization. Charges/Coding Visit Charges Inpatient E&M: 63601 Subs Hosp L2
[2023-04-12] MEDS: Pantoprazole Sodium 40 MG Tablet PO ×2 (10:13→21:17)
[2023-04-12] MEDS: Menthol/Lanolin/Calamine/Znox 113 GM Tube 1 APPLIC TOPICAL ×2 (10:13→21:18)
[2023-04-12] MEDS: Escitalopram Oxalate 10 MG Tablet PO (10:17)
[2023-04-12] MEDS: Bisacodyl 5 MG Tablet PO (10:18)
[2023-04-12] MEDS: Ondansetron 4 MG/2 ML Vial IV ×2 (11:38→21:18)
--- NOTE | 2023-04-12 13:35 | PN.GI_ITS ---
Subjective Subjective Patient is on a lot better today. He is tolerating a diet without any problems. There is slight decrease in his hemoglobin today. Objective Data Objective Data Vital Signs: Vital Signs Temp Pulse Resp BP Pulse Ox O2 Del Method O2 Flow Rate 98.0 F 100 18 98/58 L 99 Nasal Cannula 3 04/12/23 08:28 04/12/23 08:28 04/12/23 08:28 04/12/23 08:28 04/12/23 08:28 04/12/23 08:48 04/12/23 08:48 Oxygen Flow Rate (L/min) 3 Oxygen Delivery Method Nasal Cannula Weight: 124 lb 8.979 oz Body Mass Index (BMI) 22.0 Intake & Output: Intake and Output for Last 24 Hours 04/10/23 04/11/23 04/12/23 23:59 23:59 23:59 Intake Total 2803.50 / 3403.50 4255.67 / 4655.67 1855.50 / 1855.50 Output Total 1450 / 2050 2500 / 3100 1200 / 1200 Balance 1353.50 / 1353.50 1755.67 / 1555.67 655.50 / 655.50 Lab / Micro Data 04/12/23 06:04 04/12/23 06:04 Labs: Laboratory Results - last 24 hr 04/09/23 12:16: Crossmatch See Detail 04/12/23 06:04: WBC 21.8 H, RBC 2.51 L, Hgb 7.4 L, Hct 24.3 L, MCV 96.8 H, MCH 29.5, MCHC 30.5 L, RDW Std Deviation 56.0 H, RDW Coeff of Monalisa 17.6 H, Plt Count 362, MPV 9.1, Immature Gran % (Auto) 0.800, Neut % (Auto) 87.6 H, Lymph % (Auto) 3.7 L, [place] % (Auto) 6.0, Eos % (Auto) 1.5, Baso % (Auto) 0.4, Absolute Neuts (auto) 19.1 H, Absolute Lymphs (auto) 0.81 L, Nucleated RBC % 0.1, Sodium 137, Potassium 4.2, Chloride 101, Carbon Dioxide 32.0, Anion Gap 4 L, BUN 11, Creatinine 0.73, Estim Creat Clear Calc 57.28, Est GFR (MDRD) Af Amer 138, Est GFR (MDRD) Non-Af 114, BUN/Creatinine Ratio 15.1, Glucose 136 H, Calcium 7.0 L Micro: Microbiology 04/10/23 04:35 Wound - Arm Left Gram Stain - Final 04/10/23 04:35 Wound - Arm Left Wound Culture - Final No growth aerobically. Physical Exam Const alert and no apparent distress HEENT head/scalp atraumatic and moist oral mucous membranes Resp normal respiratory effort, no retractions, no use of accessory muscles and clear to auscultation bilaterally Cardio regular rate, regular rhythm, S1 normal heart sound, S2 normal heart sound and no murmurs GI normal to inspection, nondistended, normoactive bowel sounds, soft to palpation, non-tender and non-distended Extremity normal to inspection Assessment & Plan Assessment/Plan (1) Acute blood loss anemia: PLAN: improved s/p 2 units of PRBCs monitor (2) Acute GI bleeding: PLAN: 2/2 spurting duodenal ulcer. Treated with injection and heater probe on PPI. Advance diet as tolerated (3) Hypotension: QUALIFIERS: Hypotension type: other hypotension type Qualified Code(s): I95.89 - Other hypotension PLAN: resolved 2/2 anemia PLAN: Plan Chronic conditions: * chronic obstructive pulmonary disease-patient will receive aerosol treatments * severe protein and caloric malnutrition-related to inadequate energy intake due to COPD and GI dysfunction-patient will be seen by nutritional services * chronic hypoxic respiratory failure-patient is currently on 2 L/min via nasal cannula, pulse ox will be monitored * localized cellulitis of the patient's left forearm-cultures were taken from the patient's left forearm earlier this morning, he was placed on Keflex, I will increase the Keflex to 3 times daily, await culture results * generalized debility-acute on chronic, patient will need to return to an ext ended care facility for short-term rehab services, he will need preapproval before this happens. VTE prophylaxis: SCDs Disposition: to SNF pending insurance authorization. Charges/Coding Visit Charges Inpatient E&M: 15185 Subs Hosp L3
[2023-04-12] MEDS: proCHLORPERazine 10 MG/2 ML Vial 5 MG IV (16:34)
[2023-04-12] MEDS: 0.9% Saline Lock 10 ML Syringe IV (21:16)
[2023-04-13] VITALS (7 sets, daily range): BP systolic 100–104; BP diastolic 66–67; PULSE 80–88; RESP 16–21; TEMP 36.3–36.6; O2SAT 98–100
[2023-04-13] MEDS: Ipratropium/Albuterol Sulfate 3 ML AMPUL.NEB INHALATION ×3 (00:17→12:59)
[2023-04-13] MEDS: 0.9% Saline Lock 10 ML Syringe IV (01:16)
[2023-04-13] MEDS: proCHLORPERazine 10 MG/2 ML Vial 5 MG IV (01:16)
[2023-04-13] MEDS: oxyCODONE 5 MG Tablet PO ×3 (01:17→12:37)
[2023-04-13] MEDS: Acetaminophen 325 MG Tablet 650 MG PO ×3 (01:18→12:37)
[2023-04-13] MEDS: Ondansetron 4 MG/2 ML Vial IV (05:23)
[2023-04-13] MEDS: Cephalexin 500 MG Capsule PO ×2 (05:25→15:27)
[2023-04-13] MEDS: 0.9% Normal Saline (1000mL) 1,000 ML 75 ML IV (08:33)
--- NOTE | 2023-04-13 08:52 | PCM.PN.HOSP ---
Reason for Visit Reason for Visit: Diagnoses Acute posthemorrhagic anemia (04/09/23) Other hypotension (04/09/23) Gastrointestinal hemorrhage, unspecified (04/09/23) Subjective Subjective Had some vomiting yesterday, but currently resolved. Was able to tolerate some PO. Objective Data Objective Data Vital Signs: Vital Signs Temp Pulse Resp BP Pulse Ox O2 Del Method O2 Flow Rate 36.3 C L 88 21 H 104/67 98 Nasal Cannula 3 04/13/23 04:00 04/13/23 07:30 04/13/23 07:30 04/13/23 04:00 04/13/23 08:28 04/13/23 08:28 04/13/23 08:28 Oxygen Flow Rate (L/min) 3 Oxygen Delivery Method Nasal Cannula Weight: 56.5 kg Body Mass Index (BMI) 22.0 Intake & Output: Intake and Output for Last 24 Hours 04/11/23 04/12/23 04/13/23 23:59 23:59 23:59 Intake Total 4255.67 / 4655.67 3255.50 / 3825.50 2117.5 / 2117.5 Output Total 2500 / 3100 2250 / 2550 800 / 800 Balance 1755.67 / 1555.67 1005.50 / 1275.50 1317.5 / 1317.5 Lab / Micro Data 04/12/23 06:04 04/12/23 06:04 Labs: Laboratory Results - last 24 hr 04/09/23 12:16: Crossmatch See Detail Micro: Microbiology 04/10/23 04:35 Wound - Arm Left Gram Stain - Final 04/10/23 04:35 Wound - Arm Left Wound Culture - Final No growth aerobically. Physical Exam Const alert and no apparent distress HEENT head/scalp atraumatic and moist oral mucous membranes Resp normal respiratory effort, no retractions, no use of accessory muscles and clear to auscultation bilaterally Cardio regular rate, regular rhythm, S1 normal heart sound and S2 normal heart sound GI GI Narrative: distended. nontender. Assessment & Plan Assessment/Plan (1) Acute blood loss anemia: PLAN: improved s/p 2 units of PRBCs monitor (2) Acute GI bleeding: PLAN: 2/2 spurting duodenal ulcer. Treated with injection and heater probe on PPI. GI follow up as outpt. (3) Hypotension: QUALIFIERS: Hypotension type: other hypotension type Qualified Code(s): I95.89 - Other hypotension PLAN: Transient and resolved. Likely 2/2 anemia. PLAN: Plan Chronic conditions: chronic obstructive pulmonary disease-patient will receive aerosol treatments severe protein and caloric malnutrition-related to inadequate energy intake due to COPD and GI dysfunction-patient will be seen by nutritional services chronic hypoxic respiratory failure-patient is currently on 2 L/min via nasal cannula, pulse ox will be monitored localized cellulitis of the patient's left forearm-cultures were taken from the patient's left forearm Cxs are negative. Keflex TID generalized debility-acute on chronic, patient will need to return to an extended care facility for short-term rehab services, he will need preapproval before this happens. VTE prophylaxis: SCDs Disposition: to [facility] ([facility]
--- NOTE | 2023-04-13 08:56 | CASEMGMT ---
Discharge Planning Msg sent via [employer] to [facility] regarding the status of precert. Awaiting response. Patricia Dash, Discharge Planning Asst.
--- NOTE | 2023-04-13 09:52 | CASEMGMT ---
Discharge Planning [facility] has obtain auth. SW updated. Patricia Dash, Discharge Planning Asst.
[2023-04-13] MEDS: Pantoprazole Sodium 40 MG Tablet PO (10:47)
[2023-04-13] MEDS: Escitalopram Oxalate 10 MG Tablet PO (10:47)
[2023-04-13] MEDS: Menthol/Lanolin/Calamine/Znox 113 GM Tube 1 APPLIC TOPICAL (10:48)
--- NOTE | 2023-04-13 11:50 | PCM.TXEXTCAR ---
Diet Diet Order/Speech Therapy: 04/12/23 08:50 Diet: Transitional Is pt able to select menu?: No Routine Orders/Code Status O2 Frequency: Continuous Keep PO Greater than or Equal to (%): 90 Routine Lab Work: CBC (Mondays) and BMP (Mondays) Code Status: Full Code Wound(s) left nastril: Wound Type: Pressure Injury left fa: Wound Type: Puncture right hand: Wound Type: Puncture right posterior fa: Wound Type: Abrasion Therapies Physical Therapy: Eval and Treat Occupational Therapy: Eval and Treat Problem/Diagnosis (1) Acute blood loss anemia: Status: Acute Code(s): D62 - Acute posthemorrhagic anemia Plan: improved s/p 2 units of PRBCs monitor (2) Acute GI bleeding: Status: Acute Code(s): K92.2 - Gastrointestinal hemorrhage, unspecified Plan: 2/2 spurting duodenal ulcer. Treated with injection and heater probe on PPI. GI follow up as outpt. (3) Hypotension: Status: Acute Code(s): I95.9 - Hypotension, unspecified Plan: Transient and resolved. Likely 2/2 anemia. Plan Chronic conditions: chronic obstructive pulmonary disease-patient will receive aerosol treatments severe protein and caloric malnutrition-related to inadequate energy intake due to COPD and GI dysfunction-patient will be seen by nutritional services chronic hypoxic respiratory failure-patient is currently on 2 L/min via nasal cannula, pulse ox will be monitored localized cellulitis of the patient's left forearm-cultures were taken from the patient's left forearm Cxs are negative. Keflex TID generalized debility-acute on chronic, patient will need to return to an extended care facility for short-term rehab services, he will need preapproval before this happens. VTE prophylaxis: SCDs Disposition: to SNF ([facility]) Allergies/Procedures Done in Hospital Allergies No Known Allergies Allergy (Verified 04/07/23 02:26) Procedures: EGD Type of Care/Length of Stay Estimated LOS: Convalescent Care Less Than 30 days Type of Care Needed: Skilled Rehab Potential: Fair Prognosis: Good Additional Orders/Day of Discharge Day of Discharge: 04/13/23 Dietary and Speech Recommendations Dietitian Recommendations/Changes: Recommend advance diet as tolerated to Transitional with goal of Regular diet. Will add 120mL ensure clear 4 times per day w/ medpass. Additional ONS prn as diet advanced. Discharge Plan Admission Admit Date/Time: 04/09/23 13:23 Primary Reason for Your Visit: Gi bleed. Acute blood loss anemia. Attending Provider: Saúl Rollins Primary Care Provider: Peggy Uribe Consulting Providers: Enoch Reyes Discharge Orders/Prescriptions Prescriptions: New acetaminophen 325 mg Tablet 650 mg PO Q4H PRN PRN (Reason: Pain 1-10 Or Fever) Qty: 0 0RF cephalexin 500 mg Capsule 500 mg PO TID 2 Days Qty: 6 0RF menthol-zinc oxide [Calmoseptine] 0.44-20.6 % Ointment 1 applic topical BID Qty: 0 0RF Protocol: *Topical Application Instructions APPLICATION INSTRUCTIONS: rectal area Continued albuterol sulfate 0.63 mg/3 mL solution for nebulization 0.63 mg inhalation Q6H PRN (Reason: SHORTNESS OF BREATH/WHEEZING ) Qty: 90 5RF (DME) blood pressure test kit-medium Kit See Rx Instructions .Route Qty: 1 0RF Rx Instructions: As directed escitalopram oxalate [Lexapro] 10 mg tablet 10 mg PO DAILY Qty: 30 1RF Ensure Plus High Protein 0.08 gram-1.5 kcal/mL Liquid 120 ml PO TIDCM Qty: 1 0RF pantoprazole [Protonix] 40 mg tablet,delayed release (DR/EC) 40 mg PO BID Qty: 1 0RF sucralfate 1 gram Tablet 1 g PO 1HR_ACHS Rx Instructions: TAKE ONE TABLET BY MOUTH BEFORE MEALS AND AT BEDTIME Trelegy Ellipta 100-62.5-25 mcg blister with device 1 inh inhalation DAILY Qty: 28 1RF tamsulosin 0.4 mg capsule 0.4 mg PO DAILY Qty: 30 1RF (DME) nebulizer and compressor [Comp-Air Nebulizer Compressor] Device See Rx Instructions .ROUTE .COMPLEX Qty: 1 0RF Dose Instruction: USE DIRECTED Rx Instructions: USE DIRECTED Changed oxycodone 5 mg Tablet 5 mg PO Q6H PRN (Reason: Pain Score 6-10) 3 Days Qty: 12 0RF Referrals / Follow Up: [facility] [Provider Group] - Within 3 Months Peggy Uribe MD [Primary Care Provider] - Within 2 Weeks Disposition Disposition (needs filled in before D/C Order can be placed): [facility] Facility (3) Hypotension Qualifiers: Hypotension type: other hypotension type Qualified Code(s): I95.89 - Other hypotension
--- NOTE | 2023-04-13 11:57 | DS.PCM_ITS ---
Providers Date of Admission: 04/09/23 Primary Care Physician: Dr. Peggy Uribe MD Consultations 04/09/23 14:54 Consult: Gastroenterology Routine Consulting Provider: [facility] Reason for Consult: anemia, upper gi bleed EMERGENT Consult: No MD Notified: Yes Date Notified: 04/09/23 Time Notified: 13:25 Method of Notification: Verbal Reason For Visit: ACUTE BLOOD LOSS ANEMIA Diagnosis Discharge Diagnosis (1) Acute blood loss anemia: Status: Acute Code(s): D62 - Acute posthemorrhagic anemia Plan: improved s/p 2 units of PRBCs monitor (2) Acute GI bleeding: Status: Acute Code(s): K92.2 - Gastrointestinal hemorrhage, unspecified Plan: 2/2 spurting duodenal ulcer. Treated with injection and heater probe on PPI. GI follow up as outpt. (3) Hypotension: Status: Acute Code(s): I95.9 - Hypotension, unspecified Qualifiers: Hypotension type: other hypotension type Qualified Code(s): I95.89 - Other hypotension Plan: Transient and resolved. Likely 2/2 anemia. Plan Chronic conditions: * chronic obstructive pulmonary disease-patient will receive aerosol treatments * severe protein and caloric malnutrition-related to inadequate energy intake due to COPD and GI dysfunction-patient will be seen by nutritional services * chronic hypoxic respiratory failure-patient is currently on 2 L/min via nasal cannula, pulse ox will be monitored * localized cellulitis of the patient's left forearm-cultures were taken from the patient's left forearm Cxs are negative. Keflex TID * generalized debility-acute on chronic, patient will need to return to an extended care facility for short-term rehab services, he will need preapproval before this happens. VTE prophylaxis: SCDs Disposition: to SNF ([facility]) Medications at Discharge Home Medications fluticasone fur. 100 mcg-umeclid 62.5 mcg-vilant 25 mcg inhalat.powder (Trelegy Ellipta) 1 inh inhalation DAILY SHORTNESS OF BREATH/WHEEZING #28 ea 02/14/23 tamsulosin 0.4 mg capsule 0.4 mg PO DAILY PROSTATE #30 caps 02/14/23 albuterol sulfate 0.63 mg/3 mL solution for nebulization 0.63 mg (3 mL) inhalation Q6H PRN SHORTNESS OF BREATH/WHEEZING #90 mL 03/08/23 blood pressure test kit-medium #1 ea 03/08/23 escitalopram oxalate 10 mg tablet (Lexapro) 10 mg PO DAILY DEPRESSION #30 tabs 03/08/23 nebulizer and compressor (Comp-Air Nebulizer Compressor) #1 ea 03/08/23 food supplemt, lactose-reduced 0.08 gram-1.5 kcal/mL oral liquid (Ensure Plus High Protein) 120 ml PO TIDCM SUPPLEMENT #1 mL 04/06/23 pantoprazole 40 mg tablet,delayed release (Protonix) 40 mg PO BID ACID REFLUX #1 TAB 04/06/23 sucralfate 1 gram tablet 1 g PO 1HR_ACHS ULCERS 04/09/23 acetaminophen 325 mg tablet 650 mg (2 x 325 mg) PO Q4H PRN PRN Pain 1-10 Or Fever #0 tabs 04/13/23 cephalexin 500 mg capsule 500 mg PO TID 2 days #6 caps 04/13/23 menthol 0.44 %-zinc oxide 20.6 % topical ointment (Calmoseptine) 1 applic topical BID #0 grams 04/13/23 oxycodone 5 mg tablet 5 mg PO Q6H PRN Pain Score 6-10 3 days #12 tabs 04/13/23 Hospital Course Operations None Procedures EGD Summary of Care Provided Minutes Spent on Discharge: 35 Hospital Course: Six 8-year-old male presents to the emergency room with low hemoglobin. Hemoglobin found to be 5.8. Patient was transfused 3 units of packed red blood cells. Hemoglobin has remained stable in the sevens. Patient did undergo an EGD that showed a spurting duodenal ulcer with visible vessel. The vessel was injected and treated with heater probe. Patient was on Protonix as well as octreotide drip. Those were discontinued and patient was transitioned back over to twice daily pantoprazole. Patient did have some issues regards to abdominal pain and nausea vomiting but this seems to be improved. Patient will be discharged to [facility] in stable condition. Weight / BMI Weight Weight: 56.5 kg Body Mass Index (BMI) 22.0 ABG / Lab / Microbiology Data 04/12/23 06:04 04/12/23 06:04 Laboratory: Laboratory Results - last 24 hr 04/09/23 12:16: Crossmatch See Detail Microbiology: Microbiology 04/10/23 04:35 Wound - Arm Left Gram Stain - Final 04/10/23 04:35 Wound - Arm Left Wound Culture - Final No growth aerobically. D/C Instructions Discharge Diet: Bananas, Rice, Applesauce and [place] (Advance as tolerated) Meaningful Use Info Meaningful Use Diagnoses (Choose all that apply): None applicable Discharge Plan Admission Admit Date/Time: 04/09/23 13:23 Primary Reason for Your Visit: Gi bleed. Acute blood loss anemia. Attending Provider: Saúl Rollins Primary Care Provider: Peggy Uribe Consulting Providers: Enoch Reyes Discharge Orders/Prescriptions Prescriptions: New acetaminophen 325 mg Tablet 650 mg PO Q4H PRN PRN (Reason: Pain 1-10 Or Fever) Qty: 0 0RF cephalexin 500 mg Capsule 500 mg PO TID 2 Days Qty: 6 0RF menthol-zinc oxide [Calmoseptine] 0.44-20.6 % Ointment 1 applic topical BID Qty: 0 0RF Protocol: *Topical Application Instructions APPLICATION INSTRUCTIONS: rectal area Continued albuterol sulfate 0.63 mg/3 mL solution for nebulization 0.63 mg inhalation Q6H PRN (Reason: SHORTNESS OF BREATH/WHEEZING ) Qty: 90 5RF (DME) blood pressure test kit-medium Kit See Rx Instructions .Route Qty: 1 0RF Rx Instructions: As directed escitalopram oxalate [Lexapro] 10 mg tablet 10 mg PO DAILY Qty: 30 1RF Ensure Plus High Protein 0.08 gram-1.5 kcal/mL Liquid 120 ml PO TIDCM Qty: 1 0RF pantoprazole [Protonix] 40 mg tablet,delayed release (DR/EC) 40 mg PO BID Qty: 1 0RF sucralfate 1 gram Tablet 1 g PO 1HR_ACHS Rx Instructions: TAKE ONE TABLET BY MOUTH BEFORE MEALS AND AT BEDTIME Trelegy Ellipta 100-62.5-25 mcg blister with device 1 inh inhalation DAILY Qty: 28 1RF tamsulosin 0.4 mg capsule 0.4 mg PO DAILY Qty: 30 1RF (DME) nebulizer and compressor [Comp-Air Nebulizer Compressor] Device See Rx Instructions .ROUTE .COMPLEX Qty: 1 0RF Dose Instruction: USE DIRECTED Rx Instructions: USE DIRECTED Changed oxycodone 5 mg Tablet 5 mg PO Q6H PRN (Reason: Pain Score 6-10) 3 Days Qty: 12 0RF Referrals / Follow Up: [facility] [Provider Group] - Within 3 Months Peggy Uribe MD [Primary Care Provider] - Within 2 Weeks Disposition Disposition (needs filled in before D/C Order can be placed): [facility] Facility Charges/Coding Visit Charges Inpatient E&M: 53265 Disch Hosp >30min
--- NOTE | 2023-04-13 12:07 | CASEMGMT ---
Patient is ready for discharge back to [facility]. Plan: d/c back to [facility] under skilled level of care. [facility] will transport patient. Lily NEAL
--- NOTE | 2023-04-13 14:13 | CASEMGMT ---
Discharge Planning Discharge orders, signed med list, covid results, and transport time sent to [facility] via [facility]. [facility] transport patient by wheelchair at 3:30p. Nursing, SW, patient and his sig other updated. Patrciia Dash, Discharge Planning Asst.
--- NOTE | 2023-04-13 15:01 | PHA.DC_ITS ---
Pharmacy [facility] has performed discharge medication reconciliation and counseling for this patient. The patient's discharge medication list was reviewed for discrepancies and discrepancies were resolved. The patient was counseled on the following discharge medications and changes in medications for homegoing were reviewed. The Reason for Use, instructions for use, and potential side effects were reviewed for all new medications. The patient's questions regarding all of their medications were answered. 1. Cephalexin 500 mg PO TID x 2 days The patient was able to verbally demonstrate an understanding of their discharge medications. Medications at Discharge Home Medications fluticasone fur. 100 mcg-umeclid 62.5 mcg-vilant 25 mcg inhalat.powder (Trelegy Ellipta) 1 inh inhalation DAILY SHORTNESS OF BREATH/WHEEZING #28 ea 02/14/23 tamsulosin 0.4 mg capsule 0.4 mg PO DAILY PROSTATE #30 caps 02/14/23 albuterol sulfate 0.63 mg/3 mL solution for nebulization 0.63 mg (3 mL) inhalation Q6H PRN SHORTNESS OF BREATH/WHEEZING #90 mL 03/08/23 blood pressure test kit-medium #1 ea 03/08/23 escitalopram oxalate 10 mg tablet (Lexapro) 10 mg PO DAILY DEPRESSION #30 tabs 03/08/23 nebulizer and compressor (Comp-Air Nebulizer Compressor) #1 ea 03/08/23 food supplemt, lactose-reduced 0.08 gram-1.5 kcal/mL oral liquid (Ensure Plus High Protein) 120 ml PO TIDCM SUPPLEMENT #1 mL 04/06/23 pantoprazole 40 mg tablet,delayed release (Protonix) 40 mg PO BID ACID REFLUX #1 TAB 04/06/23 sucralfate 1 gram tablet 1 g PO 1HR_ACHS ULCERS 04/09/23 acetaminophen 325 mg tablet 650 mg (2 x 325 mg) PO Q4H PRN PRN Pain 1-10 Or Fever #0 tabs 04/13/23 cephalexin 500 mg capsule 500 mg PO TID 2 days #6 caps 04/13/23 menthol 0.44 %-zinc oxide 20.6 % topical ointment (Calmoseptine) 1 applic topical BID #0 grams 04/13/23 oxycodone 5 mg tablet 5 mg PO Q6H PRN Pain Score 6-10 3 days #12 tabs 04/13/23
--- NOTE | 2023-04-13 15:07 | NURSING ---
report called to Gregory martinez. grain picker [id number]
== END 2023-04-13 16:28 | disposition skilled nursing facility (03) | DRG 377 ==
LOC: ED 12:54 → PCU 14:13
PROVIDERS: Anesthesiology; Internal Medicine Gastroenterology; Nurse Practitioner; Admitting Provider Internal Medicine; Emergency Provider Emergency Medicine; PCP Internal Medicine
PROC: 0DJ08ZZ Inspection of Upper Intestinal Tract, Via Natural or Artificial Opening Endoscopic (ICD-10-PCS; CPT 43235; principal; 2023-04-10 14:40)
DX: K26.4 Chronic or unspecified duodenal ulcer with hemorrhage (principal); E43 Unspecified severe protein-calorie malnutrition; J96.11 Chronic respiratory failure with hypoxia; D62 Acute posthemorrhagic anemia; L03.114 Cellulitis of left upper limb; I95.89 Other hypotension; J44.9 Chronic obstructive pulmonary disease, unspecified; E87.6 Hypokalemia; F14.90 Cocaine use, unspecified, uncomplicated; K44.9 Diaphragmatic hernia without obstruction or gangrene; Z86.16 Personal history of COVID-19; Z87.891 Personal history of nicotine dependence; Z68.22 Body mass index [BMI] 22.0-22.9, adult
CPT/HCPCS: 36415; 51702; 71045; 80048; 80053; 80076; 81001; 83605; 83690; 85025; 85610; 85730; 86850; 86900; 86901; 86920; 86922; 87040; 87070; 87205; 87428; 87811; 90471; 93005; 94640; 96360; 97110; 97162; 97166; 97535; 97802; 97803; 99285; J7030; J7040; P9016; A4216; J2405; J3490

== ENCOUNTER 2023-04-17 10:26 | Outpatient (CLI) | payer MEDICARE, SELFPAY ==
[2023-04-17] MEDS: 0.9% Normal Saline (500mL Bag) 500 ML 15 ML IV (10:44)
[2023-04-17] MEDS: 0.9% NaCl Peripheral Flush Adult/Peds IV (10:44)
[2023-04-17 10:52] VITALS: BP 106/58; PULSE 96; RESP 18; TEMP 36.7; O2SAT 100; BMI 20.9
[2023-04-17 11:29] VITALS: BP 112/63; PULSE 94; RESP 16; TEMP 36.7; O2SAT 100
[2023-04-17 13:13] VITALS: BP 118/64; PULSE 90; RESP 16; TEMP 36.7
== END 2023-04-17 10:27 | disposition home or self-care (01) ==
LOC: MEDOUTP 10:27
PROVIDERS: PCP Internal Medicine; Referring Provider Nurse Practitioner Adult Health; Visit Provider Nurse Practitioner Adult Health
DX: Z00.00 Encounter for general adult medical examination without abnormal findings (principal)
CPT/HCPCS: 36430; 86850; 86900; 86901; 86920; 86922; J7040; P9016; A4216

== ENCOUNTER 2023-04-17 16:24 | Inpatient (IN) | payer MEDICARE, SELFPAY ==
[2023-04-17 16:25] VITALS: TEMP 37.3; BMI 25.2
[2023-04-17 16:31] VITALS: BP 125/72; PULSE 97; RESP 91
--- NOTE | 2023-04-17 16:57 | EDS_ITS ---
HPI History of Present Illness Chief Complaint: GI Bleed Narrative Narrative: Patient presents secondary to the recurrent or continued GI bleed. Patient was recently hospitalized for GI bleed. He states he had upper and lower scopes performed. He came in today for an outpatient transfusion. When he got back to the [facility] they noted bright red blood in his depends. Dr. Calero was contacted and advised patient should come back to the ER for admission. [facility] Medical History Acute duodenal ulcer with hemorrhage Acute kidney failure, unspecified Alcohol abuse BPH (benign prostatic hyperplasia) Cataract COPD (chronic obstructive pulmonary disease) Depression Elevation of levels of liver transaminase levels Gastrointestinal hemorrhage, unspecified History of COVID-19 History of kidney stones History of pneumonia Pneumonia, unspecified organism Tobacco abuse Ulcer Home Medications fluticasone fur. 100 mcg-umeclid 62.5 mcg-vilant 25 mcg inhalat.powder (Trelegy Ellipta) 1 inh inhalation DAILY SHORTNESS OF BREATH/WHEEZING #28 ea 02/14/23 [Rx Last Taken 04/09/23] tamsulosin 0.4 mg capsule 0.4 mg PO DAILY PROSTATE #30 caps 02/14/23 [Rx Last Taken 04/09/23] albuterol sulfate 0.63 mg/3 mL solution for nebulization 0.63 mg (3 mL) inhalation Q6H PRN SHORTNESS OF BREATH/WHEEZING #90 mL 03/08/23 [Rx Last Taken Unknown] blood pressure test kit-medium #1 ea 03/08/23 [Rx Last Taken Unknown] escitalopram oxalate 10 mg tablet (Lexapro) 10 mg PO DAILY DEPRESSION #30 tabs 03/08/23 [Rx Last Taken 04/09/23] nebulizer and compressor (Comp-Air Nebulizer Compressor) #1 ea 03/08/23 [Rx Last Taken Unknown] food supplemt, lactose-reduced 0.08 gram-1.5 kcal/mL oral liquid (Ensure Plus High Protein) 120 ml PO TIDCM SUPPLEMENT #1 mL 04/06/23 [Rx Last Taken 04/09/23] pantoprazole 40 mg tablet,delayed release (Protonix) 40 mg PO BID ACID REFLUX #1 TAB 04/06/23 [Rx Last Taken 04/09/23] sucralfate 1 gram tablet 1 g PO 1HR_ACHS ULCERS 04/09/23 [History Last Taken 04/09/23] acetaminophen 325 mg tablet 650 mg (2 x 325 mg) PO Q4H PRN PRN Pain 1-10 Or Fever #0 tabs 04/13/23 [Rx Last Taken Unknown] menthol 0.44 %-zinc oxide 20.6 % topical ointment (Calmoseptine) 1 applic topical BID #0 grams 04/13/23 [Rx Last Taken Unknown] oxycodone 5 mg tablet 5 mg PO Q6H PRN Pain Score 6-10 8 days #30 tabs 04/14/23 [Rx Last Taken Unknown] Allergy/AdvReac Type Severity Reaction Status Date / Time No Known Allergies Allergy Verified 04/17/23 10:50 Family History Mother Heart disease Grandmother Cancer colon Surgical History History of eye surgery History of lithotripsy Social History household members: significant other current occupational status: retired current occupation: construction Smoking Status: Former smoker quit date: 04/10/19 pack-years: 90 Electronic Cigarette Use: not used alcohol intake: former year quit: 2012 substance use type: former substance user Date of last use: cocaine do you feel safe at home: Yes ROS ROS ED Constitutional Constitutional ED: Denies chills or fever(s) Eyes Eyes: Denies discharge from eye(s) ENT ENT ED: Denies discharge from eye(s), rhinorrhea or sore throat Cardiovascular Cardiovascular: Denies chest pain or palpitations Respiratory/Chest Respiratory/Chest: Denies cough or dyspnea Gastrointestinal Gastrointestinal: Reports abdominal pain Musculoskeletal Musculoskeletal: Denies back pain or extremity pain Integumentary Denies Abrasions or rash Neurologic Neurologic: Reports weakness; Denies headache(s) Allergic/Immunologic Allergic/Immunologic ED: Denies lip swelling or urticaria EXAM Physical Exam Const Vital Signs: 04/17/23 16:25 04/17/23 16:31 Temperature 99.1 F Temperature Source Temporal Pulse Rate 97 Respiratory Rate 91 H Blood Pressure 125/72 H Blood Pressure Mean 89 Oxygen Delivery Method Nasal Cannula Oxygen Flow Rate (L/min) 4 Positive well nourished and well developed General Appearance ED: well developed HEENT Reports normocephalic and head/scalp atraumatic Eyes PERRL and EOMs intact bilaterally Neck supple Chest Wall inspection of chest normal and palpation of chest normal Resp normal respiratory effort Resp Narrative: Diminished breath sounds bilateral bases. Cardio regular rate and regular rhythm GI GI Narrative: Abdomen soft and slightly distended. Mild diffuse tenderness. No guarding or rebound. Palpation: soft Extremity normal to inspection Neuro oriented x3 and no sensory deficits noted Sensorium / Orientation: alert Psych mental status grossly normal Skin no rashes or lesions noted MDM MDM MDM Narrative Medical decision making narrative: IV line established. Labwork obtained to evaluate for leukocytosis, anemia, and electrolyte derangement. Patient given IV fluids. History & Record Review Discussion w/independent historian: Patient Additional record(s) reviewed:: Prior ED visit and Prior labs Lab Data Attestation: I reviewed the patient's lab results. Labs: Laboratory Results - last 24 hr 04/17/23 17:03 WBC 7.8 RBC 3.27 L Hgb 9.7 L Hct 31.0 L MCV 94.8 H MCH 29.7 MCHC 31.3 L D RDW Std Deviation 58.7 H RDW Coeff of Monalisa 17.4 H Plt Count 677 H MPV 9.2 Immature Gran % (Auto) 0.600 Neut % (Auto) 80.0 H Lymph % (Auto) 8.3 L [place] % (Auto) 9.6 Eos % (Auto) 0.9 Baso % (Auto) 0.6 Absolute Neuts (auto) 6.3 Absolute Lymphs (auto) 0.65 L Nucleated RBC % 0 PT 12.1 INR 0.9 APTT 21.9 L Sodium 140 Potassium 3.9 Chloride 100 Carbon Dioxide 37.0 H Anion Gap 3 L BUN 7 Creatinine 0.64 L Estim Creat Clear Calc 57.69 Est GFR (MDRD) Af Amer 160 Est GFR (MDRD) Non-Af 132 BUN/Creatinine Ratio 10.9 Glucose 131 H Calcium 7.0 L Total Bilirubin 0.20 Direct Bilirubin 0.12 AST 19 ALT 15 L Alkaline Phosphatase 96 Total Protein 5.3 L Albumin 1.4 L Globulin 3.9 Treatment and Re-Evaluation :: CBC was normal white count of 7.8 with hemoglobin of 9.7. Patient's hemoglobin was 7.0 prior to his transfusion today. Coags are unremarkable. Chemistry studies are normal. LFTs unremarkable. I spoke with Dr. Calero. He states the patient had upper scopes done but did not have a colonoscopy. I told the patient reports having bright red blood from his rectum since he was discharged and has been complaining of left lower quadrant abdominal pain. He states in light of this patient needs to be admitted for colonoscopy tomorrow. I will speak with hospitalist. He would like the patient to be given GoLytely to be cleaned out for his scope. Patient has been updated and is in agreement with the plan. Discharge Plan Triage Chief Complaint: GI Bleed ED Provider: Shannan Beltrán Dx/Rx/DC Orders Clinical Impression: Lower GI bleed Prescriptions: No Action albuterol sulfate 0.63 mg/3 mL solution for nebulization 0.63 mg inhalation Q6H PRN (Reason: SHORTNESS OF BREATH/WHEEZING ) Qty: 90 5RF (DME) blood pressure test kit-medium Kit See Rx Instructions .Route Qty: 1 0RF Rx Instructions: As directed escitalopram oxalate [Lexapro] 10 mg tablet 10 mg PO DAILY Qty: 30 1RF Ensure Plus High Protein 0.08 gram-1.5 kcal/mL Liquid 120 ml PO TIDCM Qty: 1 0RF pantoprazole [Protonix] 40 mg tablet,delayed release (DR/EC) 40 mg PO BID Qty: 1 0RF sucralfate 1 gram Tablet 1 g PO 1HR_ACHS Rx Instructions: TAKE ONE TABLET BY MOUTH BEFORE MEALS AND AT BEDTIME acetaminophen 325 mg Tablet 650 mg PO Q4H PRN PRN (Reason: Pain 1-10 Or Fever) Qty: 0 0RF menthol-zinc oxide [Calmoseptine] 0.44-20.6 % Ointment 1 applic topical BID Qty: 0 0RF Protocol: *Topical Application Instructions APPLICATION INSTRUCTIONS: rectal area Trelegy Ellipta 100-62.5-25 mcg blister with device 1 inh inhalation DAILY Qty: 28 1RF tamsulosin 0.4 mg capsule 0.4 mg PO DAILY Qty: 30 1RF (DME) nebulizer and compressor [Comp-Air Nebulizer Compressor] Device See Rx Instructions .ROUTE .COMPLEX Qty: 1 0RF Dose Instruction: USE DIRECTED Rx Instructions: USE DIRECTED oxycodone 5 mg tablet 5 mg PO Q6H PRN (Reason: Pain Score 6-10) 8 Days Qty: 30 0RF Primary Care Provider: Peggy Uribe Referrals: Peggy Uribe MD [Primary Care Provider] - Disposition Disposition: Acute Care [facility]
[2023-04-17 17:10] LABS: Absolute Lymphocyte Count 0.65 X10^3/uL (0.83-4.51); Absolute Neutrophil Count 6.3 X10^3/uL (2.0-7.7); Basophil# 0.05 X10^3/uL; Basophil% 0.6 % (0-1); Eosinophil# 0.07 X10^3/uL; Eosinophils% 0.9 % (0-5); Hemoglobin 9.7 g/dL (13.0-16.5); Lymphocyte # 0.65 X10^3/ul (0.83-4.51); Lymphocyte % 8.3 % (19-41); Mean Corp Hgb Conc 31.3 g/dL (32-36); Mean Corpuscular Hgb 29.7 pg (27.0-32.0); Mean Corpuscular Volume 94.8 fL (80-94); Mean Platelet Vol. 9.2 fl (6.2-12.0); Monocyte# 0.75 X10^3/uL; Monocyte% 9.6 % (0-10); NRBC Flagged by Analyzer 0 % (0-5); Neutrophil # 6.27 X10^3/uL (2.7-7.7); Platelet Count 677 K/mm3 (150-450); RBC Distribution Width CV 17.4 % (11.6-14.6); RBC Distribution Width SD 58.7 fl (35.1-43.9); Red Blood Count 3.27 M/mm3 (4.6-6.2); White Blood Count 7.8 K/mm3 (4.4-11.0)
[2023-04-17 17:18] LABS: International Normalized Ratio 0.9; Prothrombin Time (Protime)PT. 12.1 SECONDS (11.7-14.9)
[2023-04-17 17:19] LABS: Partial Thromboplast Time 21.9 Seconds (24.1-36.2)
[2023-04-17 17:31] LABS: AST(SGOT) 19 U/L (15-37); Alanine Aminotransfer ALT/SGPT 15 U/L (16-61); Albumin, Serum 1.4 g/dL (3.2-5.0); Alkaline Phosphatase 96 U/L (45-117); Anion Gap 3 (5-15); BUN 7 mg/dL (7-18); BUN/Creat Ratio 10.9 RATIO (10-20); Bilirubin, Direct 0.12 mg/dL (0.00-0.30); Chloride 100 mmol/L (98-107); Creatinine, Serum 0.64 mg/dL (0.70-1.30); EST Glomerular Filtration Rate 132 mL/min (>60); Est Glom Filt Rate - Afr Amer 160 mL/min (>60); Estimated Creatinine Clearance 57.69 ml/min; Globulin 3.9 g/dL (2.2-4.2); Glucose 131 mg/dL (74-106); Potassium 3.9 mmol/L (3.5-5.1); Protein, Total 5.3 g/dL (6.4-8.2); Sodium Level 140 mmol/L (136-145)
[2023-04-17] MEDS: 0.9% Normal Saline (1000mL) 1,000 ML 150 ML IV (17:48)
--- NOTE | 2023-04-17 18:05 | HP.PCM.HOS_ITS ---
HPI - General General Date of Admission: 04/17/23 Date of Service: 04/17/23 Chief Complaint: BRBPR, abdominal discomfort, PRBC administration on day of presentation. HPI Narrative The patient is a 68 y/o M w/ PMHx: Severe Chronic Protein-Calorie Malnutrition, Former EtOH abuse, Chronic anemia/Fe deficiency anemia, HTN, HLD, BPH, COPD w/ Chronic Hypoxic Respiratory Failure (2L NC), Former Tobacco use, Chronic LFT elevations, Anxiety and Depression, Hx Polysubstance abuse (cocaine), recent discharge 04/13/2023 following again recurrent admission for acute blood loss anemia with upper GI bleed secondary to spurting duodenal ulcer which was treated with injection and heater probe with PRBC administration during that admission who now represents to the [facility] ED on 04/17/23 with history of presentation for planned blood transfusion secondary to hemoglobin 04/16/2023 7.0 with 2 unit PRBC administered however upon return to facility staff noted bright red blood in the depends prompting call to his diet counselor Dr. Calero who advised patient to present to the ED for further evaluation and likely admission. He notes the discomfort is primarily in the left lower quadrant and he has had this chronically for many years but he does note that over the last 24 hours it has been worsened it is more crampy and aching but can be worsened by palpation as well. Patient was discharged on 04/13/2023 and since then repeat hemoglobins included as noted 04/16/2023 7.0. Work-up in the ED included T99.1, heart rate 97, BP 125/72, respiratory rate 16, 91% on 4 L nasal cannula, CBC with WC 7.8, hemoglobin 9.7, MCV 94.8, platelets 677 with lymphopenia, coags with PTT 21.9 otherwise not marked appearing, CMP with carbon oxide 37, BUN/creatinine 7/0.64, glucose 131, calcium 7.0 otherwise [place] profile not marked appearing. During had during recent presentations both upper and lower scopes with upper endoscopy most recently on 04/10/2023 notable for normal esophagus, medium size hiatal hernia, red blood in the stomach with fluid aspiration performed with noted spurting duodenal ulcer with visible vessel which was injected and treated with heater probe. He he also had upper scopes 03/28/2023, repeat 03/29/2023 secondary to gastric outlet obstruction secondary to duodenal stricture with recurrent upper GI bleeding with intervention for bleeding associated with duodenal ulcers. Patient also had recent localized left forearm cellulitis treated with Keflex and also the admission prior to this patient was also treated for sepsis secondary to community acquired pneumonia. In the ED patient administered maintenance IV fluids. [facility] Medical History (Updated 04/17/23 @ 18:[address] Jerilyn Lee MD) BPH (benign prostatic hyperplasia) Cataract Chronic hypoxic respiratory failure COPD (chronic obstructive pulmonary disease) Elevation of levels of liver transaminase levels Former tobacco use History of alcohol abuse History of COVID-19 History of duodenal ulcer History of GI bleed History of kidney stones Severe malnutrition Home Medications fluticasone fur. 100 mcg-umeclid 62.5 mcg-vilant 25 mcg inhalat.powder (Trelegy Ellipta) 1 inh inhalation DAILY SHORTNESS OF BREATH/WHEEZING #28 ea 02/14/23 [Rx Last Taken 04/09/23] tamsulosin 0.4 mg capsule 0.4 mg PO DAILY PROSTATE #30 caps 02/14/23 [Rx Last Taken 04/09/23] albuterol sulfate 0.63 mg/3 mL solution for nebulization 0.63 mg (3 mL) inhalation Q6H PRN SHORTNESS OF BREATH/WHEEZING #90 mL 03/08/23 [Rx Last Taken Unknown] blood pressure test kit-medium #1 ea 03/08/23 [Rx Last Taken Unknown] escitalopram oxalate 10 mg tablet (Lexapro) 10 mg PO DAILY DEPRESSION #30 tabs 03/08/23 [Rx Last Taken 04/09/23] nebulizer and compressor (Comp-Air Nebulizer Compressor) #1 ea 03/08/23 [Rx Last Taken Unknown] food supplemt, lactose-reduced 0.08 gram-1.5 kcal/mL oral liquid (Ensure Plus High Protein) 120 ml PO TIDCM SUPPLEMENT #1 mL 04/06/23 [Rx Last Taken 04/09/23] pantoprazole 40 mg tablet,delayed release (Protonix) 40 mg PO BID ACID REFLUX #1 TAB 04/06/23 [Rx Last Taken 04/09/23] sucralfate 1 gram tablet 1 g PO 1HR_ACHS ULCERS 04/09/23 [History Last Taken 1 ] acetaminophen 325 mg tablet 650 mg (2 x 325 mg) PO Q4H PRN PRN Pain 1-10 Or Fever #0 tabs 04/13/23 [Rx Last Taken Unknown] menthol 0.44 %-zinc oxide 20.6 % topical ointment (Calmoseptine) 1 applic topical BID #0 grams 04/13/23 [Rx Last Taken Unknown] oxycodone 5 mg tablet 5 mg PO Q6H PRN Pain Score 6-10 8 days #30 tabs 04/14/23 [Rx Last Taken Unknown] Allergy/AdvReac Type Severity Reaction Status Date / Time No Known Allergies Allergy Verified 04/17/23 10:50 Family History Mother Heart disease Grandmother Cancer colon Surgical History History of eye surgery History of lithotripsy S/P endoscopy Social History (Updated 04/17/23 @ 18:[address] Jerilyn Lee MD) housing: custodial current occupational status: retired current occupation: construction Smoking Status: Former smoker quit date: 04/10/19 pack-years: 90 Electronic Cigarette Use: not used alcohol intake: former year quit: 2012 substance use type: former substance user Date of last use: cocaine do you feel safe at home: Yes ROS ROS Narrative Admission Review of Systems: CONSTITUTIONAL: No weight loss, fever, chills, + weakness or fatigue. HEENT: Eyes: No visual loss, blurred vision, double vision or yellow sclerae. Ears, Nose, Throat: No hearing loss, sneezing, congestion, runny nose or sore throat. SKIN: No rash or itching, lesions, wounds. CARDIOVASCULAR: No chest pain, chest pressure or chest discomfort, palpitations, edema, orthopnea, syncopal events. RESPIRATORY: + Chronic dyspnea/oxygen supplementation. No new cough or sputum, wheezing, hemoptysis. GASTROINTESTINAL: + anorexia, abdominal discomfort, SNF reported BRPBR. No mar ked nausea, vomiting, diarrhea, melena. GENITOURINARY: + Chronic frequent. No dysuria, urgency or retention. NEUROLOGICAL: No headache, dizziness, syncope, paralysis, ataxia, numbness or tingling in the extremities, focal weakness, change in bowel or bladder control, seizure. MUSCULOSKELETAL: + muscle, back pain, joint pain or stiffness. HEMATOLOGIC: + anemia, bleeding or bruising. LYMPHATICS: No enlarged nodes. No history of splenectomy. PSYCHIATRIC: + history of depression or anxiety. ENDOCRINOLOGIC: No reports of sweating, cold or heat intolerance. No polyuria or polydipsia. ALLERGIES: No history of asthma, hives, eczema or rhinitis. Vital Signs Vital Signs Vital Signs: 04/17/23 16:25 04/17/23 16:31 Temperature 99.1 F Temperature Source Temporal Pulse Rate 97 Respiratory Rate 91 H Blood Pressure 125/72 H Blood Pressure Mean 89 Oxygen Delivery Method Nasal Cannula Oxygen Flow Rate (L/min) 4 Weight Weight: 142 lb 6.698 oz Body Mass Index (BMI) 25.2 Physical Exam Narrative Physical Examination: General: Awake, alert, oriented x 3 and cooperative, seated upright in the ED bed in no apparent distress, denies any lightheadedness or dizziness but does admit to ongoing left lower quadrant discomfort above his previous chronic baseline. Skin: Normal color, normal turgor, no icterus, no cyanosis except for very staged ecchymoses. HEENT: AT/NC, EOMI, PERRLA, mildly dry MM, no carotid bruits or JVD noted. Lungs: Mildly diminished, greater bases, appropriate effort, no rales, ronchi or wheezing. Heart: Regular rate and rhythm; no gallop, rub audible. Abdomen: Soft, mild discomfort to palpation in the left lower quadrant but no rebound or guarding, mildly tympanitic, hyperactive BS, no appreciated HSM. : Guadalupe catheter in place. Extremities: No cyanosis, no clubbing, significant pedal to proximal vasquez 3+ pitting edema. Neurological: Patient awake, alert, oriented as noted, cognitive function intact; pupils equally reactive to light and accommodation, cranial nerves II- XII grossly normal, moving all 4 extremities, no focal deficits, strength moderately to severely global decreased. Psychiatric: Affect appears fatigued otherwise normal, no acute evidence of depr essive or anxiety feelings. Results Lab / Micro Data 04/17/23 17:03 04/17/23 17:03 Labs: Laboratory Results - last 24 hr 04/17/23 17:03: WBC 7.8, RBC 3.27 L, Hgb 9.7 L, Hct 31.0 L, MCV 94.8 H, MCH 29.7, MCHC 31.3 L D, RDW Std Deviation 58.7 H, RDW Coeff of Monalisa 17.4 H, Plt Count 677 H, MPV 9.2, Immature Gran % (Auto) 0.600, Neut % (Auto) 80.0 H, Lymph % (Auto) 8.3 L, [place] % (Auto) 9.6, Eos % (Auto) 0.9, Baso % (Auto) 0.6, Absolute Neuts (auto) 6.3, Absolute Lymphs (auto) 0.65 L, Nucleated RBC % 0, PT 12.1, INR 0.9, APTT 21.9 L, Sodium 140, Potassium 3.9, Chloride 100, Carbon Dioxide 37.0 H , Anion Gap 3 L, BUN 7, Creatinine 0.64 L, Estim Creat Clear Calc 57.69, Est GFR (MDRD) Af Amer 160, Est GFR (MDRD) Non-Af 132, BUN/Creatinine Ratio 10.9, Glucose 131 H, Calcium 7.0 L, Total Bilirubin 0.20, Direct Bilirubin 0.12, AST 19, ALT 15 L, Alkaline Phosphatase 96, Total Protein 5.3 L, Albumin 1.4 L, Globulin 3.9 Assessment & Plan Assessment/Plan (1) Lower GI bleed: PLAN: Plan The patient is a 68 y/o M w/ PMHx: Severe Chronic Protein-Calorie Malnutrition, Former EtOH abuse, Chronic anemia/Fe deficiency anemia, HTN, HLD, BPH, COPD w/ Chronic Hypoxic Respiratory Failure (2L NC), Former Tobacco use, Chronic LFT elevations, Anxiety and Depression, Hx Polysubstance abuse (cocaine), recent discharge 04/13/2023 following again recurrent admission for acute blood loss anemia with upper GI bleed secondary to spurting duodenal ulcer which was treated with injection and heater probe with PRBC administration during that admission who now represents to the [facility] ED on 04/17/23 with history of presentation for planned blood transfusion secondary to hemoglobin 04/16/2023 7.0 with 2 unit PRBC administered however upon return to facility staff noted bright red blood in the depends prompting call to his diet counselor Dr. Calero who advised patient to present to the ED for further evaluation and likely admission. #1. Acute Recurrent GI Bleed w/ Chronic anemia/Fe deficiency anemia s/p recent outpatient PRBC administration with history of recent upper GI bleed specifically secondary to duodenal ulcer bleeding w/ associated stricture causing gastric outlet obstruction requiring chart reported temporary duodenal stent placement: Admission hemoglobin 9.7 however day prior was 7.0 and patient did receive PRBC administration outpatient is on day of presentation, will admit to [facility], will obtain serial H+Hs, type and screen initiated per ED physician, will maintain on IV PPI, continue sucralfate, will start golytely prep for planned c- scope 04/18/23, GI aware of patient and is consulted, pending evaluation. #2. COPD w/ Chronic Hypoxic Respiratory Failure (2L NC) w/ Hypoxia above recent baseline: Suspect secondary to ongoing GI bleeding as noted #1, will maintain on oxygen with wean as tolerated to home oxygen supplementation, continue ATC Darin legy, PRN albuterol, HOB, IS parameters. #3. Severe Chronic Protein-Calorie Malnutrition: Secondary to inadequate energy intake secondary to his underlying comorbidities including COPD and GI dysfun ction as evidenced by decreased oral intake, severe muscle wasting/fat loss, nutrition consulted. #4. Hypertension: Noted history, not on regimen, PRN IV hydralazine. #5. Hyperlipidemia: Not on statin, defer to outpatient. #6. Former EtOH abuse: Encouraged continued sobriety. #7. Former tobacco use: Encourage continued tobacco cessation. #8. Anxiety and depression: We will continue patient home escitalopram regimen. #9. BPH: We will continue patient on Flomax regimen. #10. Hx Polysubstance abuse: Clean status, prior usage of cocaine per chart history. #11. DVT Prophylaxis: SCDs. #12. CODE STATUS: Full code. Charges/Coding Visit Charges Inpatient E&M: 99268 Init Hosp L3
[2023-04-17 18:22] VITALS: BP 135/78; PULSE 64; RESP 14; TEMP 36.4; O2SAT 99
[2023-04-17 18:39] LABS: Magnesium 1.4 mg/dL (1.6-2.6); Phosphorus 2.3 mg/dL (2.5-4.9)
[2023-04-17 18:47] VITALS: BMI 23.7
[2023-04-17 18:50] VITALS: BP 121/91; PULSE 88; RESP 18; TEMP 36.4; O2SAT 100
[2023-04-17] MEDS: Acetaminophen 325 MG Tablet 650 MG PO (19:25)
[2023-04-17] MEDS: 0.9% Saline Lock 10 ML Syringe IV (19:26)
[2023-04-17] MEDS: Bisacodyl 5 MG Tablet 20 MG PO (19:26)
[2023-04-17] MEDS: oxyCODONE 5 MG Tablet PO (19:26)
[2023-04-17] MEDS: 0.9% Normal Saline (1000mL) 1,000 ML 75 ML IV (19:37)
[2023-04-17] MEDS: Pantoprazole Sodium 40 MG in 0.9% Normal Saline (100mL MB+) 100 ML 330 MG IV (19:38)
[2023-04-17] MEDS: Sucralfate 1 GM Tablet PO (19:38)
[2023-04-17] MEDS: Menthol/Lanolin/Calamine/Znox 113 GM Tube 1 APPLIC TOPICAL (19:41)
[2023-04-17] MEDS: Ipratropium/Albuterol Sulfate 3 ML AMPUL.NEB INHALATION (19:51)
[2023-04-17 19:52] VITALS: PULSE 86; RESP 18; O2SAT 94
[2023-04-17] MEDS: Budesonide Respules 0.5 MG/2 ML AMPUL.NEB. INHALATION (19:52)
[2023-04-17] MEDS: Polyethylene Glycol 3350 BOWEL PREP PO (20:37)
[2023-04-17 21:45] LABS: Hemoglobin 9.2 g/dL (13.0-16.5)
--- NOTE | 2023-04-17 23:00 | CON.PCM.GI_ITS ---
HPI Consult Data Date of Consult: 04/17/23 HPI Narrative Reason for Consultation: GI bleed HPI Narrative: REGINALD PAEZ, is a 68 M who presents with lower GI bleed from longterm. He has a past medical history of severe protein calorie malnutrition, alcohol abuse without known cirrhosis, polysubstance abuse ,recent large duodenal ulcer with gastric outlet obstruction and active bleeding. He underwent 2 upper endoscopies in order to control the bleeding and place a temporary duodenal stent. He notes the discomfort is primarily in the left lower quadrant and he has had this chronically for many years but he does note that over the last 24 hours it has been worsened it is more crampy and aching but can be worsened by palpation as well. Patient was discharged on 04/13/2023 and since then repeat hemoglobins included as noted 04/16/2023 to be 7 g/dL.. Patient also had recent localized left forearm cellulitis treated with Keflex and also the admission prior to this patient was also treated for sepsis secondary to community acquired pneumonia. In the ED patient administered maintenance IV fluids. [facility] Medical History (Updated 04/17/23 @ 18:[address] Jerilyn Lee MD) BPH (benign prostatic hyperplasia) Cataract Chronic hypoxic respiratory failure COPD (chronic obstructive pulmonary disease) Elevation of levels of liver transaminase levels Former tobacco use History of alcohol abuse History of COVID-19 History of duodenal ulcer History of GI bleed History of kidney stones Severe malnutrition Home Medications fluticasone fur. 100 mcg-umeclid 62.5 mcg-vilant 25 mcg inhalat.powder (Trelegy Ellipta) 1 inh inhalation DAILY SHORTNESS OF BREATH/WHEEZING #28 ea 02/14/23 [Rx Last Taken 04/09/23] tamsulosin 0.4 mg capsule 0.4 mg PO DAILY PROSTATE #30 caps 02/14/23 [Rx Last Taken 04/09/23] albuterol sulfate 0.63 mg/3 mL solution for nebulization 0.63 mg (3 mL) inhalation Q6H PRN SHORTNESS OF BREATH/WHEEZING #90 mL 03/08/23 [Rx Last Taken Unknown] blood pressure test kit-medium #1 ea 03/08/23 [Rx Last Taken Unknown] escitalopram oxalate 10 mg tablet (Lexapro) 10 mg PO DAILY DEPRESSION #30 tabs 03/08/23 [Rx Last Taken 04/09/23] nebulizer and compressor (Comp-Air Nebulizer Compressor) #1 ea 03/08/23 [Rx Last Taken Unknown] food supplemt, lactose-reduced 0.08 gram-1.5 kcal/mL oral liquid (Ensure Plus High Protein) 120 ml PO TIDCM SUPPLEMENT #1 mL 04/06/23 [Rx Last Taken 04/09/23] pantoprazole 40 mg tablet,delayed release (Protonix) 40 mg PO BID ACID REFLUX #1 TAB 04/06/23 [Rx Last Taken 04/09/23] sucralfate 1 gram tablet 1 g PO 1HR_ACHS ULCERS 04/09/23 [History Last Taken 04/09/23] acetaminophen 325 mg tablet 650 mg (2 x 325 mg) PO Q4H PRN PRN Pain 1-10 Or Fever #0 tabs 04/13/23 [Rx Last Taken Unknown] menthol 0.44 %-zinc oxide 20.6 % topical ointment (Calmoseptine) 1 applic topical BID #0 grams 04/13/23 [Rx Last Taken Unknown] oxycodone 5 mg tablet 5 mg PO Q6H PRN Pain Score 6-10 8 days #30 tabs 04/14/23 [Rx Last Taken Unknown] Allergy/AdvReac Type Severity Reaction Status Date / Time No Known Allergies Allergy Verified 04/17/23 10:50 Family History Mother Heart disease Grandmother Cancer colon Surgical History History of eye surgery History of lithotripsy S/P endoscopy Social History (Updated 04/17/23 @ 18:[address] Jerilyn Lee MD) housing: longterm current occupational status: retired current occupation: construction Smoking Status: Former smoker quit date: 04/10/19 pack-years: 90 Electronic Cigarette Use: not used alcohol intake: former year quit: 2012 substance use type: former substance user Date of last use: cocaine do you feel safe at home: Yes ROS ROS Narrative Admission Review of Systems: CONSTITUTIONAL: No weight loss, fever, chills, + weakness or fatigue. HEENT: Eyes: No visual loss, blurred vision, double vision or yellow sclerae. Ears, Nose, Throat: No hearing loss, sneezing, congestion, runny nose or sore throat. SKIN: No rash or itching, lesions, wounds. CARDIOVASCULAR: No chest pain, chest pressure or chest discomfort, palpitations, edema, orthopnea, syncopal events. RESPIRATORY: + Chronic dyspnea/oxygen supplementation. No new cough or sputum, wheezing, hemoptysis. GASTROINTESTINAL: + anorexia, abdominal discomfort, SNF reported BRPBR. No marked nausea, vomiting, diarrhea, melena. GENITOURINARY: + Chronic frequent. No dysuria, urgency or retention. NEUROLOGICAL: No headache, dizziness, syncope, paralysis, ataxia, numbness or tingling in the extremities, focal weakness, change in bowel or bladder control, seizure. MUSCULOSKELETAL: + muscle, back pain, joint pain or stiffness. HEMATOLOGIC: + anemia, bleeding or bruising. LYMPHATICS: No enlarged nodes. No history of splenectomy. PSYCHIATRIC: + history of depression or anxiety. ENDOCRINOLOGIC: No reports of sweating, cold or heat intolerance. No polyuria or polydipsia. ALLERGIES: No history of asthma, hives, eczema or rhinitis. Physical Exam Narrative Physical Examination: General: Awake, alert, oriented x 3 and cooperative, seated upright in the ED bed in no apparent distress, denies any lightheadedness or dizziness but does admit to ongoing left lower quadrant discomfort above his previous chronic baseline. Skin: Normal color, normal turgor, no icterus, no cyanosis except for very staged ecchymoses. HEENT: AT/NC, EOMI, PERRLA, mildly dry MM, no carotid bruits or JVD noted. Lungs: Mildly diminished, greater bases, appropriate effort, no rales, ronchi or wheezing. Heart: Regular rate and rhythm; no gallop, rub audible. Abdomen: Soft, mild discomfort to palpation in the left lower quadrant but no rebound or guarding, mildly tympanitic, hyperactive BS, no appreciated HSM. : Guadalupe catheter in place. Extremities: No cyanosis, no clubbing, significant pedal to proximal vasquez 3+ pitting edema. Neurological: Patient awake, alert, oriented as noted, cognitive function intact; pupils equally reactive to light and accommodation, cranial nerves II- XII grossly normal, moving all 4 extremities, no focal deficits, strength moderately to severely global decreased. Psychiatric: Affect appears fatigued otherwise normal, no acute evidence of depressive or anxiety feelings. Medical Records Data Medical Nutrition Assessment Dietitian: Malnutrition Criteria Met Start: 04/18/23 09:44 Freq: Status: Active Protocol: Document 04/18/23 09:44 AG (Rec: 04/18/23 09:49 AG Desktop) Nutrition Malnutrition Evidence of Malnutrition Exists Yes Malnutrition (severe): Chronic Evidenced By Suboptimal Energy Intake ( Severe),Physical Changes ( Severe) Clinical Problem Chronic Disease or Condition Related Malnutrition Etiology severe, chronic malnutrition related to inadequate energy intake Signs/Symptoms as evidenced by estimated PO intake meeting <75% of estimated energy needs > 3 months, severe muscle wasting/ fat loss per physical exam Status Active Problem Recommendation Dietitian Recommendations/Changes recommend advance diet as tolerated to regular, ensure w / medpass when diet advanced. Lab / Micro Data 04/18/23 07:00 04/18/23 02:50 Labs: Laboratory Results - last 24 hr 04/17/23 17:03: WBC 7.8, RBC 3.27 L, Hgb 9.7 L, Hct 31.0 L, MCV 94.8 H, MCH 29.7, MCHC 31.3 L D, RDW Std Deviation 58.7 H, RDW Coeff of Monalisa 17.4 H, Plt Count 677 H, MPV 9.2, Immature Gran % (Auto) 0.600, Neut % (Auto) 80.0 H, Lymph % (Auto) 8.3 L, [place] % (Auto) 9.6, Eos % (Auto) 0.9, Baso % (Auto) 0.6, Absolute Neuts (auto) 6.3, Absolute Lymphs (auto) 0.65 L, Nucleated RBC % 0, PT 12.1, INR 0.9, APTT 21.9 L, Sodium 140, Potassium 3.9, Chloride 100, Carbon Dioxide 37.0 H , Anion Gap 3 L, BUN 7, Creatinine 0.64 L, Estim Creat Clear Calc 57.69, Est GFR (MDRD) Af Amer 160, Est GFR (MDRD) Non-Af 132, BUN/Creatinine Ratio 10.9, Glucose 131 H, Calcium 7.0 L, Phosphorus 2.3 L, Magnesium 1.4 L, Total Bilirubin 0.20, Direct Bilirubin 0.12, AST 19, ALT 15 L, Alkaline Phosphatase 96, Total Protein 5.3 L, Albumin 1.4 L, Globulin 3.9 10/17/23 21:40: Hgb 9.2 L, Hct 30.0 L 04/18/23 02:50: Hgb 8.3 L, Hct 27.5 L, Sodium 141, Potassium 3.8, Chloride 104, Carbon Dioxide 36.0 H, Anion Gap 1 L, BUN 6 L, Creatinine 0.44 L, Estim Creat Cl ear Calc 57.69, Est GFR (MDRD) Af Amer 251, Est GFR (MDRD) Non-Af 207, BUN/Creatinine Ratio 13.8, Glucose 92, Calcium 6.5 L*, Total Bilirubin 0.10 L, AST 20, ALT 13 L, Alkaline Phosphatase 77, Total Protein 4.4 L, Albumin 1.1 L, Globulin 3.3, Albumin/Globulin Ratio 0.3 L 04/18/23 07:00: WBC 6.9, RBC 2.81 L, Hgb 8.1 L, Hct 27.1 L, MCV 96.4 H, MCH 28.8, MCHC 29.9 L, RDW Std Deviation 59.2 H, RDW Coeff of Monalisa 17.2 H, Plt Count 636 H, MPV 8.6, Immature Gran % (Auto) 1.300 H, Neut % (Auto) 71.0 H, Lymph % (Auto) 11.9 L, [place] % (Auto) 11.0 H, Eos % (Auto) 3.9, Baso % (Auto) 0.9, Absolute Neuts (auto) 4.9, Absolute Lymphs (auto) 0.82 L, Nucleated RBC % 0 Assessment & Plan Assessment/Plan (1) Lower GI bleed: PLAN: The differential diagnosis for lower GI bleed in the setting of weight loss and progressive anemia requiring blood transfusions includes colorectal neoplasia, angiodysplasia, telangiectasia, stercoral ulcer because he has had a history of constipation. He should undergo colonoscopy. He was explained alternatives, risk, benefits include not withstanding bleeding, infection, sepsis, perforation, need for return to . He will have an ASA of 3. Charges/Coding Visit Charges Inpatient E&M: 25499 Init Hosp L3
[2023-04-18] VITALS (13 sets, daily range): BP systolic 94–148; BP diastolic 54–86; PULSE 72–98; RESP 14–18; TEMP 36–36.6; O2SAT 94–100; BMI 23.7
--- NOTE | 2023-04-18 00:17 | NURSING ---
Pt took PO dulcolax as ordered and drank about half of the miralax bowel prep. Pt states he cannot drink anymore, despite this RN's encouragement and education on medications and plan of care.
[2023-04-18 03:02] LABS: Hematocrit 27.5 % (40-54); Hemoglobin 8.3 g/dL (13.0-16.5)
[2023-04-18 03:25] LABS: ALB/GLOB Ratio 0.3 RATIO (0.9-2.4); AST(SGOT) 20 U/L (15-37); Alanine Aminotransfer ALT/SGPT 13 U/L (16-61); Albumin, Serum 1.1 g/dL (3.2-5.0); Alkaline Phosphatase 77 U/L (45-117); Anion Gap 1 (5-15); BUN 6 mg/dL (7-18); BUN/Creat Ratio 13.8 RATIO (10-20); Calcium,Total 6.5 mg/dL (8.5-10.1); Chloride 104 mmol/L (98-107); Creatinine, Serum 0.44 mg/dL (0.70-1.30); EST Glomerular Filtration Rate 207 mL/min (>60); Est Glom Filt Rate - Afr Amer 251 mL/min (>60); Estimated Creatinine Clearance 57.69 ml/min; Globulin 3.3 g/dL (2.2-4.2); Glucose 92 mg/dL (74-106); Potassium 3.8 mmol/L (3.5-5.1); Protein, Total 4.4 g/dL (6.4-8.2); Sodium Level 141 mmol/L (136-145)
[2023-04-18] MEDS: Calcium Gluconate IV 2 GM in 0.9% Normal Saline (100mL Bag) 100 ML IV (05:33)
[2023-04-18] MEDS: 0.9% Saline Lock 10 ML Syringe IV (05:35)
[2023-04-18 07:17] LABS: Absolute Lymphocyte Count 0.82 X10^3/uL (0.83-4.51); Absolute Neutrophil Count 4.9 X10^3/uL (2.0-7.7); Basophil# 0.06 X10^3/uL; Basophil% 0.9 % (0-1); Eosinophil# 0.27 X10^3/uL; Eosinophils% 3.9 % (0-5); Hematocrit 27.1 % (40-54); Hemoglobin 8.1 g/dL (13.0-16.5); Lymphocyte # 0.82 X10^3/ul (0.83-4.51); Lymphocyte % 11.9 % (19-41); Mean Corp Hgb Conc 29.9 g/dL (32-36); Mean Corpuscular Hgb 28.8 pg (27.0-32.0); Mean Corpuscular Volume 96.4 fL (80-94); Mean Platelet Vol. 8.6 fl (6.2-12.0); Monocyte# 0.76 X10^3/uL; NRBC Flagged by Analyzer 0 % (0-5); Neutrophil # 4.89 X10^3/uL (2.7-7.7); Platelet Count 636 K/mm3 (150-450); RBC Distribution Width CV 17.2 % (11.6-14.6); RBC Distribution Width SD 59.2 fl (35.1-43.9); Red Blood Count 2.81 M/mm3 (4.6-6.2); White Blood Count 6.9 K/mm3 (4.4-11.0)
[2023-04-18] MEDS: Ipratropium/Albuterol Sulfate 3 ML AMPUL.NEB INHALATION ×3 (07:17→18:55)
[2023-04-18] MEDS: Budesonide Respules 0.5 MG/2 ML AMPUL.NEB. INHALATION ×2 (07:17→18:55)
[2023-04-18] MEDS: oxyCODONE 5 MG Tablet PO ×3 (08:24→23:22)
[2023-04-18] MEDS: Acetaminophen 325 MG Tablet 650 MG PO ×3 (08:25→23:21)
[2023-04-18] MEDS: Pantoprazole Sodium 40 MG in 0.9% Normal Saline (100mL MB+) 100 ML 330 MG IV ×2 (10:12→20:51)
[2023-04-18] MEDS: Menthol/Lanolin/Calamine/Znox 113 GM Tube 1 APPLIC TOPICAL ×2 (10:13→20:57)
--- NOTE | 2023-04-18 10:45 | CASEMGMT ---
Discharge Planning Updates sent to [facility] via [facility]. Patricia Dash, Discharge Planning Asst.
[2023-04-18] MEDS: Lactated Ringers 1,000 ML 15 ML IV (11:35)
--- NOTE | 2023-04-18 12:59 | OP.COLON_ITS ---
Patient Name: Yasir Acevedo Procedure Date: 04/18/2023 12:23 PM Date of : 1955 Age: 68 Procedure: Colonoscopy Indications: Hematochezia Providers: Kory Calero DO Medicines: Monitored Anesthesia Care Patient Profile: This is a 68 year old male. Refer to note in patient chart for documentation of history and physical. Last Colonoscopy: date unknown. Unable to locate last colonoscopy report. Complications: No immediate complications. Procedure: Pre-Anesthesia Assessment: - Prior to the procedure, a History and Physical was performed, and patient medications and allergies were reviewed. The patient is competent. The risks and benefits of the procedure and the sedation options and risks were discussed with the patient. All questions were answered and informed consent was obtained. Patient identification and proposed procedure were verified by the physician in the pre-procedure area. Mental Status Examination: alert and oriented. Respiratory Examination: clear to auscultation. CV Examination: normal. Prophylactic Antibiotics: The patient does not require prophylactic antibiotics. Prior Anticoagulants: The patient has taken no anticoagulant or antiplatelet agents. ASA Grade Assessment: III - A patient with severe systemic disease. After reviewing the risks and benefits, the patient was deemed in satisfactory condition to undergo the procedure. The anesthesia plan was to use monitored anesthesia care (MAC). Immediately prior to administration of medications, the patient was re-assessed for adequacy to receive sedatives. The heart rate, respiratory rate, oxygen saturations, blood pressure, adequacy of pulmonary ventilation, and response to care were monitored throughout the procedure. The physical status of the patient was re-assessed after the procedure. After I obtained informed consent, the scope was passed under direct vision. Throughout the procedure, the patient's blood pressure, pulse, and oxygen saturations were monitored continuously. The Colonoscope was introduced through the anus and advanced to the cecum, identified by appendiceal orifice and ileocecal valve. The colonoscopy was performed without difficulty. The patient tolerated the procedure well. The quality of the bowel preparation was fair. The ileocecal valve, appendiceal orifice, and rectum were photographed. Scope In: 12:31:02 PM Scope Withdrawal Time 0 hours 12 minutes 17 seconds Scope Out: 12:47:41 PM Total Procedure Duration Time 0 hours 16 minutes 39 seconds Findings: The perianal and digital rectal examinations were normal. Many small and large-mouthed diverticula were found in the recto-sigmoid colon and sigmoid colon. A single medium-mouthed diverticulum was found in the sigmoid colon. To stop active bleeding, one hemostatic clip was successfully placed. Clip canopy stringer: [employer]. There was no bleeding at the end of the procedure. Area was tattooed with an injection of 2 mL of Jannette ink. Stool was found in the rectum, in the recto-sigmoid colon, in the sigmoid colon, in the descending colon, at the hepatic flexure and in the cecum. An anal fissure was found on perianal exam. Impression: - Preparation of the colon was fair. - Diverticulosis in the recto-sigmoid colon and in the sigmoid colon. - Diverticulosis in the sigmoid colon. Clip was placed. Clip canopy stringer: [employer]. Tattooed. - Stool in the rectum, in the recto-sigmoid colon, in the sigmoid colon, in the descending colon, at the hepatic flexure and in the cecum. - No specimens collected. Recommendation: - [facility]. - Advance diet as tolerated today. - Continue present medications. - Repeat colonoscopy in 6 months because the bowel preparation was poor. Procedure Code(s): --- Professional --- 47448, Colonoscopy, flexible; with control of bleeding, any method 51458, 59, Colonoscopy, flexible; with directed submucosal injection(s), any substance CPT copyright 2022 [employer]. All rights reserved. The codes documented in this report are preliminary and upon top installer review may be revised to meet current compliance requirements. Kory Calero DO 04/18/2023 12:58:30 PM This report has been signed electronically. Number of Addenda: 0 Note Initiated On: 04/18/2023 12:23 PM
--- NOTE | 2023-04-18 12:59 | OP.CCLET_ITS ---
04/18/2023 Peggy Uribe Md Re : Colonoscopy procedure for Yasir Acevedo Dear Rony This procedure was performed on Tuesday, April 18, 2023. My impressions and recommendations are as follows: Impressions : - Preparation of the colon was fair. - Diverticulosis in the recto-sigmoid colon and in the sigmoid colon. - Diverticulosis in the sigmoid colon. Clip was placed. 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 Tattooed. - Stool in the rectum, in the recto-sigmoid colon, in the sigmoid colon, in the descending colon, at the hepatic flexure and in the cecum. - No specimens collected. Recommendations : - Return patient to [facility] for [facility] care. - Advance diet as tolerated today. - Continue present medications. - Repeat colonoscopy in 6 months because the bowel preparation was poor. My findings are described in the full procedure note, which is enclosed. If I can be of further assistance, please feel free to contact me at . Sincerely, Kory Calero, 04/18/2023 12:58:30 PM This report has been signed electronically.
[2023-04-18] MEDS: Sucralfate 1 GM Tablet PO ×2 (16:07→20:51)
--- NOTE | 2023-04-18 16:51 | PCM.PN.HOSP ---
Reason for Visit Reason for Visit: Diagnoses Gastrointestinal hemorrhage, unspecified (04/17/23) Subjective Subjective Patient was seen and examined today, he underwent a colonoscopy, a diverticulum was clipped, patient's hemoglobin this morning was 8.1 Objective Data Objective Data Vital Signs: Vital Signs Temp Pulse Resp BP Pulse Ox O2 Del Method O2 Flow Rate 97.6 F L 91 16 134/82 H 94 Nasal Cannula 2 04/18/23 16:24 04/18/23 16:24 04/18/23 16:24 04/18/23 16:24 04/18/23 16:24 04/18/23 16:24 04/18/23 16:24 Oxygen Flow Rate (L/min) 2 Oxygen Delivery Method Nasal Cannula Weight: 60.7 kg Body Mass Index (BMI) 23.7 Intake & Output: Intake and Output for Last 24 Hours 04/16/23 04/17/23 04/18/23 23:59 23:59 23:59 Intake Total 397.5 / 397.5 1230 / 1230 Output Total 650 / 650 1350 / 1350 Balance -252.5 / -252.5 -120 / -120 Medical Nutrition Assessment Dietitian: Malnutrition Criteria Met Start: 04/18/23 09:44 Freq: Status: Active Protocol: Document 04/18/23 09:44 AG (Rec: 04/18/23 09:49 AG Desktop) Nutrition Malnutrition Evidence of Malnutrition Exists Yes Malnutrition (severe): Chronic Evidenced By Suboptimal Energy Intake ( Severe),Physical Changes ( Severe) Clinical Problem Chronic Disease or Condition Related Malnutrition Etiology severe, chronic malnutrition related to inadequate energy intake Signs/Symptoms as evidenced by estimated PO intake meeting <75% of estimated energy needs > 3 months, severe muscle wasting/ fat loss per physical exam Status Active Problem Recommendation Dietitian Recommendations/Changes recommend advance diet as tolerated to regular, ensure w / medpass when diet advanced. Lab / Micro Data 04/18/23 07:00 04/18/23 02:50 Labs: Laboratory Results - last 24 hr 04/17/23 17:03: WBC 7.8, RBC 3.27 L, Hgb 9.7 L, Hct 31.0 L, MCV 94.8 H, MCH 29.7, MCHC 31.3 L D, RDW Std Deviation 58.7 H, RDW Coeff of Monalisa 17.4 H, Plt Count 677 H, MPV 9.2, Immature Gran % (Auto) 0.600, Neut % (Auto) 80.0 H, Lymph % (Auto) 8.3 L, Summers % (Auto) 9.6, Eos % (Auto) 0.9, Baso % (Auto) 0.6, Absolute Neuts (auto) 6.3, Absolute Lymphs (auto) 0.65 L, Nucleated RBC % 0, PT 12.1, INR 0.9, APTT 21.9 L, Sodium 140, Potassium 3.9, Chloride 100, Carbon Dioxide 37.0 H, Anion Gap 3 L, BUN 7, Creatinine 0.64 L, Estim Creat Clear Calc 57.69, Est GFR (MDRD) Af Amer 160, Est GFR (MDRD) Non-Af 132, BUN/Creatinine Ratio 10.9, Glucose 131 H, Calcium 7.0 L, Phosphorus 2.3 L, Magnesium 1.4 L, Total Bilirubin 0.20, Direct Bilirubin 0.12, AST 19, ALT 15 L, Alkaline Phosphatase 96, Total Protein 5.3 L, Albumin 1.4 L, Globulin 3.9 04/17/23 21:40: Hgb 9.2 L, Hct 30.0 L 04/18/23 02:50: Hgb 8.3 L, Hct 27.5 L, Sodium 141, Potassium 3.8, Chloride 104, Carbon Dioxide 36.0 H, Anion Gap 1 L, BUN 6 L, Creatinine 0.44 L, Estim Creat Clear Calc 57.69, Est GFR (MDRD) Af Amer 251, Est GFR (MDRD) Non-Af 207, BUN/Creatinine Ratio 13.8, Glucose 92, Calcium 6.5 L*, Total Bilirubin 0.10 L, AST 20, ALT 13 L, Alkaline Phosphatase 77, Total Protein 4.4 L, Albumin 1.1 L, Globulin 3.3, Albumin/Globulin Ratio 0.3 L 04/18/23 07:00: WBC 6.9, RBC 2.81 L, Hgb 8.1 L, Hct 27.1 L, MCV 96.4 H, MCH 28.8, MCHC 29.9 L, RDW Std Deviation 59.2 H, RDW Coeff of Monalisa 17.2 H, Plt Count 636 H, MPV 8.6, Immature Gran % (Auto) 1.300 H, Neut % (Auto) 71.0 H, Lymph % (Auto) 11.9 L, Summers % (Auto) 11.0 H, Eos % (Auto) 3.9, Baso % (Auto) 0.9, Absolute Neuts (auto) 4.9, Absolute Lymphs (auto) 0.82 L, Nucleated RBC % 0 Physical Exam Const alert, oriented x3 and no apparent distress General Appearance: cooperative and well developed Orientation / Consciousness: awake, oriented to person, oriented to place and oriented to time HEENT normocephalic, head/scalp atraumatic and moist oral mucous membranes Eyes PERRL, EOMs intact bilaterally and conjunctivae normal Neck supple, no JVD, thyroid normal and no carotid bruits General: trachea midline Resp normal respiratory effort, no retractions, no use of accessory muscles and clear to auscultation bilaterally Auscultation: Negative for rales, rhonchi or wheezes Cardio regular rate, regular rhythm, S1 normal heart sound, S2 normal heart sound, no murmurs, no rub and no gallops GI normal to inspection, nondistended, normoactive bowel sounds, soft to palpation, non-tender and non-distended Extremity no clubbing, cyanosis or edema Skin no rashes or lesions noted General Skin Exam: no breakdown Neuro CN's II-XII intact bilaterally, moves all extremities, no focal motor deficits and no sensory deficits noted Sensorium / Orientation: awake, alert, oriented to person and oriented to place Speech: speech normal Psych affect normal Assessment & Plan Assessment/Plan (1) Lower GI bleed: PLAN: Plan 1. Lower GI bleed secondary to diverticular bleed-hemoglobin appears to be stable today, I will recheck a CBC tomorrow #2 chronic obstructive pulmonary disease-patient's remain on his present medications, monitor, evaluate, assess, and treat, patient is currently on 2 L #3 chronic hypoxic respiratory failure-patient remains on 2 L, pulse ox will be monitored #4 acute blood loss anemia-continue to monitor CBC, patient does not need a blood transfusion at this time #5 chronic severe protein and caloric malnutrition-nutritional services will participate in his care #6 hypocalcemia-patient's calcium will be rechecked tomorrow #7 generalized debility-patient will need to return to an extended care facility for inpatient rehab services at the time of discharge from the hospital Total clinical time spent by myself addressing patient's medical issues, reviewing all his data, and collaborating with patient's care team: 35 minutes Charges/Coding Visit Charges Inpatient E&M: 36576 Subs Hosp L2
[2023-04-19 02:00] VITALS: BP 134/79; PULSE 76; RESP 14; TEMP 36.9; O2SAT 99
[2023-04-19 04:38] VITALS: BMI 23.8
[2023-04-19] MEDS: oxyCODONE 5 MG Tablet PO ×3 (05:53→20:41)
[2023-04-19] MEDS: Acetaminophen 325 MG Tablet 650 MG PO ×2 (05:53→20:41)
[2023-04-19] MEDS: Sucralfate 1 GM Tablet PO ×4 (05:53→20:40)
[2023-04-19] MEDS: Budesonide Respules 0.5 MG/2 ML AMPUL.NEB. INHALATION ×2 (06:58→18:55)
[2023-04-19] MEDS: Ipratropium/Albuterol Sulfate 3 ML AMPUL.NEB INHALATION ×3 (06:58→18:55)
[2023-04-19 06:59] VITALS: PULSE 89; RESP 18; O2SAT 93
[2023-04-19] MEDS: Tamsulosin HCl 0.4 MG Capsule PO (10:01)
[2023-04-19] MEDS: Escitalopram Oxalate 10 MG Tablet PO (10:01)
[2023-04-19] MEDS: Pantoprazole Sodium 40 MG in 0.9% Normal Saline (100mL MB+) 100 ML 330 MG IV ×2 (10:01→22:11)
[2023-04-19] MEDS: Menthol/Lanolin/Calamine/Znox 113 GM Tube 1 APPLIC TOPICAL ×2 (10:01→20:41)
[2023-04-19 10:05] LABS: Hematocrit 31.4 % (40-54); Hemoglobin 9.4 g/dL (13.0-16.5)
--- NOTE | 2023-04-19 11:26 | CASEMGMT ---
SW met with patient. Introduced self and role at [facility]. Patient confirmed his plan is to return to [facility] at discharge. Plan: d/c back to [facility] pending insurance approval. Lily NEAL
[2023-04-19 12:20] VITALS: PULSE 90; RESP 18
[2023-04-19 13:49] VITALS: BP 148/88; PULSE 84; RESP 16; TEMP 36.7; O2SAT 95
[2023-04-19 17:10] LABS: Hemoglobin 9.2 g/dL (13.0-16.5)
--- NOTE | 2023-04-19 17:14 | PN.GI_ITS ---
Subjective Subjective Patient is doing well. He has not had any more lower GI bleeding overnight. He is tolerating a diet and sitting in chair right now. He did have 1 small bowel movement today that did not contain any blood. Objective Data Objective Data Vital Signs: Vital Signs Temp Pulse Resp BP Pulse Ox O2 Del Method O2 Flow Rate 98.0 F 84 16 148/88 H 95 Nasal Cannula 2 04/19/23 13:49 04/19/23 13:49 04/19/23 13:49 04/19/23 13:49 04/19/23 13:49 04/19/23 14:00 04/19/23 14:14 Oxygen Flow Rate (L/min) 2 Oxygen Delivery Method Nasal Cannula Weight: 134 lb 14.766 oz Body Mass Index (BMI) 23.8 Intake & Output: Intake and Output for Last 24 Hours 04/17/23 04/18/23 04/19/23 23:59 23:59 23:59 Intake Total 397.5 / 397.5 1467.5 / 1467.5 110 / 110 Output Total 650 / 650 1650 / 1650 2450 / 2450 Balance -252.5 / -252.5 -182.5 / -182.5 -2340 / -2340 Medical Nutrition Assessment Dietitian: Malnutrition Criteria Met Start: 04/18/23 09:44 Freq: Status: Active Protocol: Document 04/18/23 09:44 AG (Rec: 04/18/23 09:49 AG Desktop) Nutrition Malnutrition Evidence of Malnutrition Exists Yes Malnutrition (severe): Chronic Evidenced By Suboptimal Energy Intake ( Severe),Physical Changes ( Severe) Clinical Problem Chronic Disease or Condition Related Malnutrition Etiology severe, chronic malnutrition related to inadequate energy intake Signs/Symptoms as evidenced by estimated PO intake meeting <75% of estimated energy needs > 3 months, severe muscle wasting/ fat loss per physical exam Status Active Problem Recommendation Dietitian Recommendations/Changes recommend advance diet as tolerated to regular, ensure w / medpass when diet advanced. Lab / Micro Data 04/19/23 17:00 04/18/23 02:50 Labs: Laboratory Results - last 24 hr 04/19/23 09:55: Hgb 9.4 L, Hct 31.4 L 04/19/23 17:00: Hgb 9.2 L, Hct 31.0 L Physical Exam Const alert, oriented x3 and no apparent distress General Appearance: cooperative and well developed Orientation / Consciousness: awake, oriented to person, oriented to place and o riented to time HEENT normocephalic, head/scalp atraumatic and moist oral mucous membranes Eyes PERRL, EOMs intact bilaterally and conjunctivae normal Neck supple, no JVD, thyroid normal and no carotid bruits General: trachea midline Resp normal respiratory effort, no retractions, no use of accessory muscles and clear to auscultation bilaterally Auscultation: Negative for rales, rhonchi or wheezes Cardio regular rate, regular rhythm, S1 normal heart sound, S2 normal heart sound, no murmurs, no rub and no gallops GI normal to inspection, nondistended, normoactive bowel sounds, soft to palpation, non-tender and non-distended Extremity no clubbing, cyanosis or edema Skin no rashes or lesions noted General Skin Exam: no breakdown Neuro CN's II-XII intact bilaterally, moves all extremities, no focal motor deficits and no sensory deficits noted Sensorium / Orientation: awake, alert, oriented to person and oriented to place Speech: speech normal Psych affect normal Assessment & Plan Assessment/Plan (1) Acute blood loss anemia: PLAN: improved s/p 2 units of PRBCs monitor (2) Acute GI bleeding: PLAN: 2/2 spurting duodenal ulcer. Treated with injection and heater probe on PPI. Duodenal stent was placed to promote healing. Biopsies of his duodenal ulcer did not show any sign of malignancy. Lower GI bleeding with active bleeding diverticuli in the sigmoid colon status post clipping. No signs of bleeding at this time. Advance diet as tolerated (3) Hypotension: QUALIFIERS: Hypotension type: other hypotension type Qualified Code(s): I95.89 - Other hypotension PLAN: resolved 2/2 anemia PLAN: Plan Chronic conditions: * chronic obstructive pulmonary disease-patient will receive aerosol treatments * protein and caloric malnutrition-related to inadequate energy intake due to COPD and GI dysfunction-improving as he is eating more because he does not have a gastric outlet obstruction anymore. Charges/Coding Visit Charges Inpatient E&M: 06899 Subs Hosp L3
--- NOTE | 2023-04-19 18:08 | PN.HOSP_ITS ---
Reason for Visit Reason for Visit: Diagnoses Acute posthemorrhagic anemia (04/18/23) Other hypotension (04/18/23) Gastrointestinal hemorrhage, unspecified (04/18/23) Subjective Subjective Patient was seen and examined today, there is no evidence of any continued rectal bleeding, patient's hemoglobin has been stable today Objective Data Objective Data Vital Signs: Vital Signs Temp Pulse Resp BP Pulse Ox O2 Del Method O2 Flow Rate 98.0 F 84 16 148/88 H 95 Nasal Cannula 2 04/19/23 13:49 04/19/23 13:49 04/19/23 13:49 04/19/23 13:49 04/19/23 13:49 04/19/23 14:00 04/19/23 14:14 Oxygen Flow Rate (L/min) 2 Oxygen Delivery Method Nasal Cannula Weight: 61.2 kg Body Mass Index (BMI) 23.8 Intake & Output: Intake and Output for Last 24 Hours 04/17/23 04/18/23 04/19/23 23:59 23:59 23:59 Intake Total 397.5 / 397.5 1467.5 / 1467.5 110 / 110 Output Total 650 / 650 1650 / 1650 2450 / 2450 Balance -252.5 / -252.5 -182.5 / -182.5 -2340 / -2340 Medical Nutrition Assessment Dietitian: Malnutrition Criteria Met Start: 04/18/23 09:44 Freq: Status: Active Protocol: Document 04/18/23 09:44 AG (Rec: 04/18/23 09:49 AG Desktop) Nutrition Malnutrition Evidence of Malnutrition Exists Yes Malnutrition (severe): Chronic Evidenced By Suboptimal Energy Intake ( Severe),Physical Changes ( Severe) Clinical Problem Chronic Disease or Condition Related Malnutrition Etiology severe, chronic malnutrition related to inadequate energy intake Signs/Symptoms as evidenced by estimated PO intake meeting <75% of estimated energy needs > 3 months, severe muscle wasting/ fat loss per physical exam Status Active Problem Recommendation Dietitian Recommendations/Changes recommend advance diet as tolerated to regular, ensure w / medpass when diet advanced. Lab / Micro Data 04/19/23 17:00 04/18/23 02:50 Labs: Laboratory Results - last 24 hr 04/19/23 09:55: Hgb 9.4 L, Hct 31.4 L 04/19/23 17:00: Hgb 9.2 L, Hct 31.0 L Physical Exam Narrative alert, oriented x3 and no apparent distress General Appearance: cooperative and well developed Orientation / Consciousness: awake, oriented to person, oriented to place and oriented to time HEENT normocephalic, head/scalp atraumatic and moist oral mucous membranes Eyes PERRL, EOMs intact bilaterally and conjunctivae normal Neck supple, no JVD, thyroid normal and no carotid bruits General: trachea midline Resp normal respiratory effort, no retractions, no use of accessory muscles and clear to auscultation bilaterally Auscultation: Negative for rales, rhonchi or wheezes Cardio regular rate, regular rhythm, S1 normal heart sound, S2 normal heart sound, no murmurs, no rub and no gallops GI normal to inspection, nondistended, normoactive bowel sounds, soft to palpation, non-tender and non-distended Extremity no clubbing, cyanosis or edema Skin no rashes or lesions noted General Skin Exam: no breakdown Neuro CN's II-XII intact bilaterally, moves all extremities, no focal motor deficits and no sensory deficits noted Sensorium / Orientation: awake, alert, oriented to person and oriented to place Speech: speech normal Psych affect normal Assessment & Plan Assessment/Plan (1) Lower GI bleed: PLAN: Plan 1. Lower GI bleed secondary to diverticular bleed-hemoglobin appears to be stable today, I will recheck a hemoglobin tomorrow #2 chronic obstructive pulmonary disease-patient's remain on his present medications, monitor, evaluate, assess, and treat, patient is currently on 2 L #3 chronic hypoxic respiratory failure-patient remains on 2 L, pulse ox will be monitored #4 acute blood loss anemia-continue to monitor CBC, patient does not need a blood transfusion at this time #5 chronic severe protein and caloric malnutrition-as evidenced by estimated p .o. intake meeting less than 75% of estimated energy needs for more than 3 months, severe muscle wasting/fat loss per physical exam-advance diet as tolerated to regular, Ensure with med Pass when diet advanced #6 hypocalcemia-patient's calcium will be rechecked tomorrow #7 generalized debility-patient will need to return to an extended care facility for inpatient rehab services at the time of discharge from the hospital Total clinical time spent by myself addressing patient's medical issues, reviewing all his data, and collaborating with patient's care team: 35 minutes Charges/Coding Visit Charges Inpatient E&M: 71613 Subs Hosp L2
[2023-04-19 18:55] VITALS: PULSE 94; RESP 16
[2023-04-19 20:00] VITALS: BP 140/78; PULSE 99; RESP 18; TEMP 36.6; O2SAT 97
--- NOTE | 2023-04-19 20:00 | NURSING ---
Pt reporting 8/10 abdominal pain, abdomen firm/ distended. Upon examination, pt w/o change in behavior, grasping of the site, restlessness, etc. Medicated patient according to EMAR.
[2023-04-19] MEDS: 0.9% Saline Lock 10 ML Syringe IV (20:42)
[2023-04-20] VITALS (9 sets, daily range): BP systolic 126–168; BP diastolic 70–94; PULSE 80–103; RESP 16–20; TEMP 36.3–37.1; O2SAT 91–100; BMI 22.4
[2023-04-20] MEDS: oxyCODONE 5 MG Tablet PO ×3 (03:06→20:55)
[2023-04-20] MEDS: Acetaminophen 325 MG Tablet 650 MG PO ×2 (03:06→20:55)
[2023-04-20 03:08] LABS: Hematocrit 28.7 % (40-54); Hemoglobin 8.7 g/dL (13.0-16.5)
[2023-04-20 03:17] LABS: Calcium,Total 7.1 mg/dL (8.5-10.1)
[2023-04-20] MEDS: Sucralfate 1 GM Tablet PO ×4 (07:06→20:55)
[2023-04-20] MEDS: Ipratropium/Albuterol Sulfate 3 ML AMPUL.NEB INHALATION ×2 (07:31→19:35)
[2023-04-20] MEDS: Budesonide Respules 0.5 MG/2 ML AMPUL.NEB. INHALATION ×2 (07:31→19:35)
[2023-04-20] MEDS: Menthol/Lanolin/Calamine/Znox 113 GM Tube 1 APPLIC TOPICAL ×2 (08:31→20:56)
[2023-04-20] MEDS: Escitalopram Oxalate 10 MG Tablet PO (08:31)
[2023-04-20] MEDS: Tamsulosin HCl 0.4 MG Capsule PO (08:31)
--- NOTE | 2023-04-20 09:13 | CASEMGMT ---
Discharge Planning Updates sent to [facility]. Asked for precert to be started. Patricia Dash, Discharge Planning Asst.
--- NOTE | 2023-04-20 14:42 | PCM.PN.HOSP ---
Reason for Visit Reason for Visit: Diagnoses Acute posthemorrhagic anemia (04/18/23) Other hypotension (04/18/23) Gastrointestinal hemorrhage, unspecified (04/18/23) Subjective Subjective Patient was seen and examined today, hemoglobin dropped slightly to 8.7 this morning, calcium was 7.1. Patient appears stable at this time for transfer to the medical floor. Objective Data Objective Data Vital Signs: Vital Signs Temp Pulse Resp BP Pulse Ox O2 Del Method O2 Flow Rate 98.5 F 94 16 135/92 H 95 Nasal Cannula 2 04/20/23 14:27 04/20/23 14:27 04/20/23 14:27 04/20/23 14:27 04/20/23 14:27 04/20/23 14:27 04/20/23 14:27 Oxygen Flow Rate (L/min) 2 Oxygen Delivery Method Nasal Cannula Weight: 57.3 kg Body Mass Index (BMI) 22.4 Intake & Output: Intake and Output for Last 24 Hours 04/18/23 04/19/23 04/20/23 23:59 23:59 23:59 Intake Total 1467.5 / 1467.5 220 / 220 Output Total 1650 / 1650 2450 / 3450 5100 / 5100 Balance -182.5 / -182.5 -2230 / -3230 -5100 / -5100 Medical Nutrition Assessment Dietitian: Malnutrition Criteria Met Start: 04/18/23 09:44 Freq: Status: Active Protocol: Document 04/18/23 09:44 AG (Rec: 04/18/23 09:49 AG Desktop) Nutrition Malnutrition Evidence of Malnutrition Exists Yes Malnutrition (severe): Chronic Evidenced By Suboptimal Energy Intake ( Severe),Physical Changes ( Severe) Clinical Problem Chronic Disease or Condition Related Malnutrition Etiology severe, chronic malnutrition related to inadequate energy intake Signs/Symptoms as evidenced by estimated PO intake meeting <75% of estimated energy needs > 3 months, severe muscle wasting/ fat loss per physical exam Status Active Problem Recommendation Dietitian Recommendations/Changes recommend advance diet as tolerated to regular, ensure w / medpass when diet advanced. Lab / Micro Data 04/20/23 03:02 04/18/23 02:50 Labs: Laboratory Results - last 24 hr 04/19/23 17:00: Hgb 9.2 L, Hct 31.0 L 10/20/23 03:02: Hgb 8.7 L, Hct 28.7 L, Calcium 7.1 L Physical Exam Narrative alert, oriented x3 and no apparent distress General Appearance: cooperative and well developed Orientation / Consciousness: awake, oriented to person, oriented to place and oriented to time HEENT normocephalic, head/scalp atraumatic and moist oral mucous membranes Eyes PERRL, EOMs intact bilaterally and conjunctivae normal Neck supple, no JVD, thyroid normal and no carotid bruits General: trachea midline Resp normal respiratory effort, no retractions, no use of accessory muscles and clear to auscultation bilaterally Auscultation: Negative for rales, rhonchi or wheezes Cardio regular rate, regular rhythm, S1 normal heart sound, S2 normal heart sound, no murmurs, no rub and no gallops GI normal to inspection, nondistended, normoactive bowel sounds, soft to palpation, non-tender and non-distended Extremity no clubbing, cyanosis or edema Skin no rashes or lesions noted General Skin Exam: no breakdown Neuro CN's II-XII intact bilaterally, moves all extremities, no focal motor deficits and no sensory deficits noted Sensorium / Orientation: awake, alert, oriented to person and oriented to place Speech: speech normal Psych affect normal Assessment & Plan Assessment/Plan (1) Lower GI bleed: PLAN: Plan 1. Lower GI bleed secondary to diverticular bleed-hemoglobin appears to be stable today #2 chronic obstructive pulmonary disease-patient's remain on his present medications, monitor, evaluate, assess, and treat, patient is currently on 2 L #3 chronic hypoxic respiratory failure-patient remains on 2 L, pulse ox will be monitored #4 acute blood loss anemia-continue to monitor CBC, patient does not need a blood transfusion at this time #5 chronic severe protein and caloric malnutrition-as evidenced by estimated p.o. intake meeting less than 75% of estimated energy needs for more than 3 months, severe muscle wasting/fat loss per physical exam-advance diet as tolerated to regular, Ensure with med Pass when diet advanced #6 hypocalcemia-patient will be placed on oral calcium and vitamin D #7 generalized debility-patient will need to return to an extended care facility for inpatient rehab services at the time of discharge from the hospital Total clinical time spent by myself addressing patient's medical issues, reviewing all his data, and collaborating with patient's care team: 35 minutes Charges/Coding Visit Charges Inpatient E&M: 42094 Subs Hosp L2
[2023-04-20] MEDS: Calcium Carb/Vitamin D 1 TABLET Tablet PO (17:05)
[2023-04-20] MEDS: Pantoprazole Sodium 40 MG Tablet PO (20:55)
[2023-04-20] MEDS: MELATONIN 3 MG TABLET PO (20:55)
[2023-04-21] VITALS (8 sets, daily range): BP systolic 139–151; BP diastolic 83–88; PULSE 75–86; RESP 16–18; TEMP 36.6–36.9; O2SAT 91–98; BMI 22.4
[2023-04-21] MEDS: oxyCODONE 5 MG Tablet PO ×4 (03:11→22:42)
[2023-04-21] MEDS: Acetaminophen 325 MG Tablet 650 MG PO ×3 (03:12→22:41)
[2023-04-21] MEDS: Sucralfate 1 GM Tablet PO ×4 (06:03→22:40)
[2023-04-21] MEDS: Budesonide Respules 0.5 MG/2 ML AMPUL.NEB. INHALATION ×2 (07:00→19:23)
[2023-04-21] MEDS: Ipratropium/Albuterol Sulfate 3 ML AMPUL.NEB INHALATION ×3 (07:00→19:22)
[2023-04-21] MEDS: Menthol/Lanolin/Calamine/Znox 113 GM Tube 1 APPLIC TOPICAL ×2 (07:59→22:39)
[2023-04-21] MEDS: Calcium Carb/Vitamin D 1 TABLET Tablet PO ×2 (08:00→16:44)
[2023-04-21] MEDS: Tamsulosin HCl 0.4 MG Capsule PO (08:00)
[2023-04-21] MEDS: Pantoprazole Sodium 40 MG Tablet PO ×2 (08:01→22:40)
[2023-04-21] MEDS: Escitalopram Oxalate 10 MG Tablet PO (08:01)
--- NOTE | 2023-04-21 10:21 | PCM.PN.HOSP ---
Reason for Visit Reason for Visit: Diagnoses Acute posthemorrhagic anemia (04/18/23) Other hypotension (04/18/23) Gastrointestinal hemorrhage, unspecified (04/18/23) Subjective Subjective Patient was seen and examined today, he voices no complaints of any abdominal pain or rectal bleeding. Patient's blood pressures remained stable, he remains on 2 L of nasal cannula oxygen with a pulse ox of 96 Objective Data Objective Data Vital Signs: Vital Signs Temp Pulse Resp BP Pulse Ox O2 Del Method O2 Flow Rate 98.5 F 83 18 151/83 H 96 Nasal Cannula 2 04/21/23 08:00 04/21/23 08:00 04/21/23 08:00 04/21/23 08:00 04/21/23 08:00 04/21/23 08:00 04/21/23 08:00 Oxygen Flow Rate (L/min) 2 Oxygen Delivery Method Nasal Cannula Weight: 57.5 kg Body Mass Index (BMI) 22.4 Intake & Output: Intake and Output for Last 24 Hours 04/19/23 04/20/23 04/21/23 23:59 23:59 23:59 Intake Total 220 / 220 Output Total 2450 / 3450 6900 / 6900 950 / 950 Balance -2230 / -3230 -6900 / -6900 -950 / -950 Medical Nutrition Assessment Dietitian: Malnutrition Criteria Met Start: 04/18/23 09:44 Freq: Status: Active Protocol: Document 04/18/23 09:44 AG (Rec: 04/18/23 09:49 AG Desktop) Nutrition Malnutrition Evidence of Malnutrition Exists Yes Malnutrition (severe): Chronic Evidenced By Suboptimal Energy Intake ( Severe),Physical Changes ( Severe) Clinical Problem Chronic Disease or Condition Related Malnutrition Etiology severe, chronic malnutrition related to inadequate energy intake Signs/Symptoms as evidenced by estimated PO intake meeting <75% of estimated energy needs > 3 months, severe muscle wasting/ fat loss per physical exam Status Active Problem Recommendation Dietitian Recommendations/Changes recommend advance diet as tolerated to regular, ensure w / medpass when diet advanced. Lab / Micro Data 04/20/23 03:02 04/18/23 02:50 Physical Exam Narrative alert, oriented x3 and no apparent distress General Appearance: cooperative and well developed Orientation / Consciousness: awake, oriented to person, oriented to place and oriented to time HEENT normocephalic, head/scalp atraumatic and moist oral mucous membranes Eyes PERRL, EOMs intact bilaterally and conjunctivae normal Neck supple, no JVD, thyroid normal and no carotid bruits General: trachea midline Resp normal respiratory effort, no retractions, no use of accessory muscles and clear to auscultation bilaterally Auscultation: Negative for rales, rhonchi or wheezes Cardio regular rate, regular rhythm, S1 normal heart sound, S2 normal heart sound, no murmurs, no rub and no gallops GI normal to inspection, nondistended, normoactive bowel sounds, soft to palpation, non-tender and non-distended Extremity no clubbing, cyanosis or edema Skin no rashes or lesions noted General Skin Exam: no breakdown Neuro CN's II-XII intact bilaterally, moves all extremities, no focal motor deficits and no sensory deficits noted Sensorium / Orientation: awake, alert, oriented to person and oriented to place Speech: speech normal Psych affect normal Assessment & Plan Assessment/Plan (1) Lower GI bleed: PLAN: Plan 1. Lower GI bleed secondary to diverticular bleed-continue present care, hemoglobin will be repeated tomorrow #2 chronic obstructive pulmonary disease-patient's remain on his present medications, monitor, evaluate, assess, and treat, patient is currently on 2 L #3 chronic hypoxic respiratory failure-patient remains on 2 L, pulse ox will be monitored #4 acute blood loss anemia-continue to monitor CBC, patient does not need a blood transfusion at this time, hemoglobin will be repeated tomorrow #5 chronic severe protein and caloric malnutrition-as evidenced by estimated p.o. intake meeting less than 75% of estimated energy needs for more than 3 months, severe muscle wasting/fat loss per physical exam-advance diet as tolerated to regular, Ensure with med Pass when diet advanced #6 hypocalcemia-patient is on calcium and vitamin D #7 generalized debility-patient will need to return to an extended care facility for inpatient rehab services at the time of discharge from the hospital, we are currently awaiting pre-CERT Total clinical time spent by myself addressing patient's medical issues, reviewing all his data, and collaborating with patient's care team: 35 minutes Charges/Coding Visit Charges Inpatient E&M: 08908 Subs Hosp L2
--- NOTE | 2023-04-21 16:34 | PN.GI_ITS ---
Subjective Subjective Patient denies any recent rectal bleeding. Denies any abdominal pain. He denies any shortness pain or shortness of breath. Objective Data Objective Data Vital Signs: Vital Signs Temp Pulse Resp BP Pulse Ox O2 Del Method O2 Flow Rate 98.5 F 82 18 151/83 H 96 Nasal Cannula 2 04/21/23 08:00 04/21/23 13:27 04/21/23 13:27 04/21/23 08:00 04/21/23 08:00 04/21/23 08:00 04/21/23 08:00 Oxygen Flow Rate (L/min) 2 Oxygen Delivery Method Nasal Cannula Weight: 126 lb 12.253 oz Body Mass Index (BMI) 22.4 Intake & Output: Intake and Output for Last 24 Hours 04/19/23 04/20/23 04/21/23 23:59 23:59 23:59 Intake Total 220 / 220 Output Total 2450 / 3450 6900 / 6900 950 / 950 Balance -2230 / -3230 -6900 / -6900 -950 / -950 Medical Nutrition Assessment Dietitian: Malnutrition Criteria Met Start: 04/18/23 0 9:44 Freq: Status: Active Protocol: Document 04/18/23 09:44 AG (Rec: 04/18/23 09:49 AG Desktop) Nutrition Malnutrition Evidence of Malnutrition Exists Yes Malnutrition (severe): Chronic Evidenced By Suboptimal Energy Intake ( Severe),Physical Changes ( Severe) Clinical Problem Chronic Disease or Condition Related Malnutrition Etiology severe, chronic malnutrition related to inadequate energy intake Signs/Symptoms as evidenced by estimated PO intake meeting <75% of estimated energy needs > 3 months, severe muscle wasting/ fat loss per physical exam Status Active Problem Recommendation Dietitian Recommendations/Changes recommend advance diet as tolerated to regular, ensure w / medpass when diet advanced. Lab / Micro Data 04/20/23 03:02 04/18/23 02:50 Physical Exam Narrative alert, oriented x3 and no apparent distress General Appearance: cooperative and well developed Orientation / Consciousness: awake, oriented to person, oriented to place and oriented to time HEENT normocephalic, head/scalp atraumatic and moist oral mucous membranes Eyes PERRL, EOMs intact bilaterally and conjunctivae normal Neck supple, no JVD, thyroid normal and no carotid bruits General: trachea midline Resp normal respiratory effort, no retractions, no use of accessory muscles and clear to auscultation bilaterally Auscultation: Negative for rales, rhonchi or wheezes Cardio regular rate, regular rhythm, S1 normal heart sound, S2 normal heart sound, no murmurs, no rub and no gallops GI normal to inspection, nondistended, normoactive bowel sounds, soft to palpation, non-tender and non-distended Extremity no clubbing, cyanosis or edema Skin no rashes or lesions noted General Skin Exam: no breakdown Neuro CN's II-XII intact bilaterally, moves all extremities, no focal motor deficits and no sensory deficits noted Sensorium / Orientation: awake, alert, oriented to person and oriented to place Speech: speech normal Psych affect normal Assessment & Plan Assessment/Plan (1) Acute blood loss anemia: PLAN: improved s/p 2 units of PRBCs monitor (2) Acute GI bleeding: PLAN: 2/2 spurting duodenal ulcer. Treated with injection and heater probe on PPI. Duodenal stent was placed to promote healing. Biopsies of his duodenal ulcer did not show any sign of malignancy. Lower GI bleeding with active bleeding diverticuli in the sigmoid colon status post clipping. No signs of bleeding at this time. Advance diet as tolerated (3) Hypotension: QUALIFIERS: Hypotension type: other hypotension type Qualified Code(s): I95.89 - Other hypotension PLAN: resolved 2/2 anemia (4) Macrocytic anemia: PLAN: He has a macrocytic anemia with reactive thrombocytosis. I will check a B12 and folate levels and replete accordingly. I would also check thyroid levels as that can be associated with anemia, thrombocytosis and macrocytosis. PLAN: Plan Chronic conditions: * chronic obstructive pulmonary disease-patient will receive aerosol treatments * protein and caloric malnutrition-related to inadequate energy intake due to COPD and GI dysfunction-improving as he is eating more because he does not have a gastric outlet obstruction anymore. Charges/Coding Visit Charges Inpatient E&M: 45739 Subs Hosp L3
[2023-04-21] MEDS: MELATONIN 3 MG TABLET PO (22:39)
[2023-04-22] VITALS (10 sets, daily range): BP systolic 113–150; BP diastolic 60–82; PULSE 83–94; RESP 16–20; TEMP 36.6–37.2; O2SAT 92–98; BMI 22.4
[2023-04-22] MEDS: Acetaminophen 325 MG Tablet 650 MG PO ×4 (04:39→23:37)
[2023-04-22] MEDS: Sucralfate 1 GM Tablet PO ×4 (04:41→21:41)
[2023-04-22] MEDS: oxyCODONE 5 MG Tablet PO ×4 (04:42→23:38)
[2023-04-22 06:20] LABS: Hematocrit 28.2 % (40-54); Hemoglobin 8.4 g/dL (13.0-16.5)
[2023-04-22] MEDS: Budesonide Respules 0.5 MG/2 ML AMPUL.NEB. INHALATION ×2 (07:27→19:11)
[2023-04-22] MEDS: Ipratropium/Albuterol Sulfate 3 ML AMPUL.NEB INHALATION ×2 (07:27→19:10)
--- NOTE | 2023-04-22 08:12 | PN.HOSP_ITS ---
Reason for Visit Reason for Visit: Diagnoses Nutritional anemia, unspecified (04/18/23) Acute posthemorrhagic anemia (04/18/23) Other hypotension (04/18/23) Gastrointestinal hemorrhage, unspecified (04/18/23) Subjective Subjective Patient was seen and examined today, his hemoglobin today was 8.4, he has no specific complaints, there is not been any episodes of rectal bleeding or hematemesis. Objective Data Objective Data Vital Signs: Vital Signs Temp Pulse Resp BP Pulse Ox O2 Del Method O2 Flow Rate 98.9 F 86 16 150/82 H 98 Nasal Cannula 2 04/22/23 04:45 04/22/23 04:45 04/22/23 04:45 04/22/23 04:45 04/22/23 04:45 04/22/23 04:45 04/22/23 04:45 Oxygen Flow Rate (L/min) 2 Oxygen Delivery Method Nasal Cannula Weight: 57.3 kg Body Mass Index (BMI) 22.4 Intake & Output: Intake and Output for Last 24 Hours 04/20/23 04/21/23 04/22/23 23:59 23:59 23:59 Intake Total 1450 / 1450 300 / 300 Output Total 6900 / 6900 1425 / 1425 400 / 400 Balance -6900 / -6900 25 / 25 -100 / -100 Medical Nutrition Assessment Dietitian: Malnutrition Criteria Met Start: 04/18/23 09:44 Freq: Status: Active Protocol: Document 04/18/23 09:44 AG (Rec: 04/18/23 09:49 AG Desktop) Nutrition Malnutrition Evidence of Malnutrition Exists Yes Malnutrition (severe): Chronic Evidenced By Suboptimal Energy Intake ( Severe),Physical Changes ( Severe) Clinical Problem Chronic Disease or Condition Related Malnutrition Etiology severe, chronic malnutrition related to inadequate energy intake Signs/Symptoms as evidenced by estimated PO intake meeting <75% of estimated energy needs > 3 months, severe muscle wasting/ fat loss per physical exam Status Active Problem Recommendation Dietitian Recommendations/Changes recommend advance diet as tolerated to regular, ensure w / medpass when diet advanced. Lab / Micro Data 04/22/23 05:43 04/18/23 02:50 Labs: Laboratory Results - last 24 hr 04/22/23 05:43: Hgb 8.4 L, Hct 28.2 L Physical Exam Narrative alert, oriented x3 and no apparent distress General Appearance: cooperative and well developed Orientation / Consciousness: awake, oriented to person, oriented to place and oriented to time HEENT normocephalic, head/scalp atraumatic and moist oral mucous membranes Eyes PERRL, EOMs intact bilaterally and conjunctivae normal Neck supple, no JVD, thyroid normal and no carotid bruits General: trachea midline Resp normal respiratory effort, no retractions, no use of accessory muscles and clear to auscultation bilaterally Auscultation: Negative for rales, rhonchi or wheezes Cardio regular rate, regular rhythm, S1 normal heart sound, S2 normal heart sound, no murmurs, no rub and no gallops GI normal to inspection, nondistended, normoactive bowel sounds, soft to palpation, non-tender and non-distended Extremity no clubbing, cyanosis or edema Skin no rashes or lesions noted General Skin Exam: no breakdown Neuro CN's II-XII intact bilaterally, moves all extremities, no focal motor deficits and no sensory deficits noted Sensorium / Orientation: awake, alert, oriented to person and oriented to place Speech: speech normal Psych affect normal Assessment & Plan Assessment/Plan (1) Lower GI bleed: PLAN: Plan 1. Lower GI bleed secondary to diverticular bleed-continue present care #2 chronic obstructive pulmonary disease-patient's remain on his present medications, monitor, evaluate, assess, and treat, patient is currently on 2 L #3 chronic hypoxic respiratory failure-patient remains on 2 L, pulse ox will be monitored #4 acute blood loss anemia-continue to monitor CBC, patient does not need a blood transfusion at this time #5 chronic severe protein and caloric malnutrition-as evidenced by estimated p.o. intake meeting less than 75% of estimated energy needs for more than 3 months, severe muscle wasting/fat loss per physical exam-advance diet as tolerated to regular, Ensure with med Pass when diet advanced #6 hypocalcemia-patient is on calcium and vitamin D #7 generalized debility-patient will need to return to an extended care facility for inpatient rehab services at the time of discharge from the hospital, we are currently awaiting pre-CERT Total clinical time spent by myself addressing patient's medical issues, reviewing all his data, and collaborating with patient's care team: 25 minutes Charges/Coding Visit Charges Inpatient E&M: 36539 [facility] L1
[2023-04-22] MEDS: Tamsulosin HCl 0.4 MG Capsule PO (09:13)
[2023-04-22] MEDS: Pantoprazole Sodium 40 MG Tablet PO ×2 (09:13→21:42)
[2023-04-22] MEDS: Escitalopram Oxalate 10 MG Tablet PO (09:13)
[2023-04-22] MEDS: Calcium Carb/Vitamin D 1 TABLET Tablet PO ×2 (09:13→17:18)
[2023-04-22] MEDS: Menthol/Lanolin/Calamine/Znox 113 GM Tube 1 APPLIC TOPICAL ×2 (09:14→21:42)
--- NOTE | 2023-04-22 11:43 | PN.GI_ITS ---
Subjective Subjective Patient did not have any signs or symptoms of GI bleeding overnight. Objective Data Objective Data Vital Signs: Vital Signs Temp Pulse Resp BP Pulse Ox O2 Del Method O2 Flow Rate 98 F 91 18 113/72 97 Nasal Cannula 2 04/22/23 10:45 04/22/23 10:45 04/22/23 10:45 04/22/23 10:45 04/22/23 10:45 04/22/23 10:45 04/22/23 10:45 Oxygen Flow Rate (L/min) 2 Oxygen Delivery Method Nasal Cannula Weight: 126 lb 5.198 oz Body Mass Index (BMI) 22.4 Intake & Output: Intake and Output for Last 24 Hours 04/20/23 04/21/23 04/22/23 23:59 23:59 23:59 Intake Total 1450 / 1450 300 / 300 Output Total 6900 / 6900 1425 / 1425 800 / 800 Balance -6900 / -6900 25 / 25 -500 / -500 Medical Nutrition Assessment Dietitian: Malnutrition Criteria Met Start: 04/18/23 09:44 Freq: Status: Active Protocol: Document 04/18/23 09:44 AG (Rec: 04/18/23 09:49 AG Desktop) Nutrition Malnutrition Evidence of Malnutrition Exists Yes Malnutrition (severe): Chronic Evidenced By Suboptimal Energy Intake ( Severe),Physical Changes ( Severe) Clinical Problem Chronic Disease or Condition Related Malnutrition Etiology severe, chronic malnutrition related to inadequate energy intake Signs/Symptoms as evidenced by estimated PO intake meeting <75% of estimated energy needs > 3 months, severe muscle wasting/ fat loss per physical exam Status Active Problem Recommendation Dietitian Recommendations/Changes recommend advance diet as tolerated to regular, ensure w / medpass when diet advanced. Lab / Micro Data 04/22/23 05:43 04/18/23 02:50 Labs: Laboratory Results - last 24 hr 04/22/23 05:43: Hgb 8.4 L, Hct 28.2 L Physical Exam Narrative alert, oriented x3 and no apparent distress General Appearance: cooperative and well developed Orientation / Consciousness: awake, oriented to person, oriented to place and oriented to time HEENT normocephalic, head/scalp atraumatic and moist oral mucous membranes Eyes PERRL, EOMs intact bilaterally and conjunctivae normal Neck supple, no JVD, thyroid normal and no carotid bruits General: trachea midline Resp normal respiratory effort, no retractions, no use of accessory muscles and clear to auscultation bilaterally Auscultation: Negative for rales, rhonchi or wheezes Cardio regular rate, regular rhythm, S1 normal heart sound, S2 normal heart sound, no murmurs, no rub and no gallops GI normal to inspection, nondistended, normoactive bowel sounds, soft to palpation, non-tender and non-distended Extremity no clubbing, cyanosis or edema Skin no rashes or lesions noted General Skin Exam: no breakdown Neuro CN's II-XII intact bilaterally, moves all extremities, no focal motor deficits and no sensory deficits noted Sensorium / Orientation: awake, alert, oriented to person and oriented to place Speech: speech normal Psych affect normal Assessment & Plan Assessment/Plan (1) Acute blood loss anemia: PLAN: improved s/p 2 units of PRBCs monitor 04/22-patient's hemoglobin has drifted down from 9-8.7-8.4 currently. I do not suspect that he has anywhere that we have seen in his duodenum or his colon that is causing his decreased blood count at this time. He should get a capsule endoscopy as an outpatient. If he does continue to trend down then we may have to repeat his upper endoscopy prior to him being DC'd from the hospital. (2) Acute GI bleeding: PLAN: 2/2 spurting duodenal ulcer. Treated with injection and heater probe on PPI. Duodenal stent was placed to promote healing. Biopsies of his duodenal ulcer did not show any sign of malignancy. Lower GI bleeding with active bleeding diverticuli in the sigmoid colon status post clipping. No signs of bleeding at this time. Advance diet as tolerated (3) Hypotension: QUALIFIERS: Hypotension type: other hypotension type Qualified Code(s): I95.89 - Other hypotension PLAN: resolved 2/2 anemia (4) Macrocytic anemia: PLAN: He has a macrocytic anemia with reactive thrombocytosis. I will check a B12 and folate levels and replete accordingly. I would also check thyroid levels as that can be associated with anemia, thrombocytosis and macrocytosis. PLAN: Plan Chronic conditions: * chronic obstructive pulmonary disease-patient will receive aerosol treatments * protein and caloric malnutrition-related to inadequate energy intake due to COPD and GI dysfunction-improving as he is eating more because he does not have a gastric outlet obstruction anymore. Charges/Coding Visit Charges Inpatient E&M: 64754 Subs Hosp L3
[2023-04-22] MEDS: MELATONIN 3 MG TABLET PO (21:41)
[2023-04-23 02:21] VITALS: O2SAT 98
[2023-04-23 02:26] VITALS: BP 152/79; PULSE 86; RESP 16; TEMP 36.7; O2SAT 99
[2023-04-23 05:46] VITALS: BMI 22.4
[2023-04-23] MEDS: Acetaminophen 325 MG Tablet 650 MG PO ×2 (05:47→12:01)
[2023-04-23] MEDS: oxyCODONE 5 MG Tablet PO ×2 (05:47→12:01)
[2023-04-23] MEDS: Sucralfate 1 GM Tablet PO ×2 (05:48→12:00)
[2023-04-23] MEDS: Budesonide Respules 0.5 MG/2 ML AMPUL.NEB. INHALATION (06:56)
[2023-04-23] MEDS: Ipratropium/Albuterol Sulfate 3 ML AMPUL.NEB INHALATION ×2 (06:56→12:58)
[2023-04-23 06:57] VITALS: PULSE 78; RESP 18; O2SAT 93
[2023-04-23 07:52] LABS: Absolute Lymphocyte Count 1.25 X10^3/uL (0.83-4.51); Absolute Neutrophil Count 7.6 X10^3/uL (2.0-7.7); Basophil# 0.15 X10^3/uL; Basophil% 1.5 % (0-1); Eosinophil# 0.37 X10^3/uL; Eosinophils% 3.6 % (0-5); Hematocrit 29.9 % (40-54); Hemoglobin 8.9 g/dL (13.0-16.5); Lymphocyte # 1.25 X10^3/ul (0.83-4.51); Lymphocyte % 12.3 % (19-41); Mean Corp Hgb Conc 29.8 g/dL (32-36); Mean Corpuscular Hgb 28.6 pg (27.0-32.0); Mean Corpuscular Volume 96.1 fL (80-94); Mean Platelet Vol. 8.5 fl (6.2-12.0); Monocyte# 0.81 X10^3/uL; NRBC Flagged by Analyzer 0 % (0-5); Neutrophil # 7.55 X10^3/uL (2.7-7.7); Neutrophil % 74.2 % (47-70); Platelet Count 644 K/mm3 (150-450); RBC Distribution Width CV 15.9 % (11.6-14.6); RBC Distribution Width SD 55.8 fl (35.1-43.9); Red Blood Count 3.11 M/mm3 (4.6-6.2); White Blood Count 10.2 K/mm3 (4.4-11.0)
[2023-04-23 08:24] LABS: Anion Gap 3 (5-15); BUN 12 mg/dL (7-18); Calcium,Total 7.9 mg/dL (8.5-10.1); Chloride 98 mmol/L (98-107); Creatinine, Serum 0.67 mg/dL (0.70-1.30); EST Glomerular Filtration Rate 126 mL/min (>60); Est Glom Filt Rate - Afr Amer 153 mL/min (>60); Estimated Creatinine Clearance 57.69 ml/min; Glucose 95 mg/dL (74-106); Magnesium 1.5 mg/dL (1.6-2.6); Phosphorus 3.2 mg/dL (2.5-4.9); Sodium Level 134 mmol/L (136-145)
[2023-04-23 09:02] VITALS: BP 109/61; PULSE 83; RESP 18; TEMP 36.8; O2SAT 99
[2023-04-23] MEDS: Tamsulosin HCl 0.4 MG Capsule PO (09:11)
[2023-04-23] MEDS: Menthol/Lanolin/Calamine/Znox 113 GM Tube 1 APPLIC TOPICAL (09:11)
[2023-04-23] MEDS: Calcium Carb/Vitamin D 1 TABLET Tablet PO (09:11)
[2023-04-23] MEDS: Escitalopram Oxalate 10 MG Tablet PO (09:11)
[2023-04-23] MEDS: Pantoprazole Sodium 40 MG Tablet PO (09:11)
--- NOTE | 2023-04-23 09:48 | CASEMGMT ---
Discharge Planning [facility] has obtained auth. SW updated. Patricia Dash, Discharge Planning Asst.
--- NOTE | 2023-04-23 11:35 | PCM.TXEXTCAR ---
Diet Diet Order/Speech Therapy: 04/18/23 16:02 Diet: Regular - General Is pt able to select menu?: Yes Diet Comments: . Routine Orders/Code Status Routine Lab Work: CBC and BMP Code Status: Full Code Wound(s) coccyx: Wound Type: Pressure Injury Therapies Physical Therapy: Eval and Treat Occupational Therapy: Eval and Treat Problem/Diagnosis (1) Acute blood loss anemia: Status: Resolved Code(s): D62 - Acute posthemorrhagic anemia (2) Acute GI bleeding: Status: Resolved Code(s): K92.2 - Gastrointestinal hemorrhage, unspecified (3) Hypotension: Status: Resolved Code(s): I95.9 - Hypotension, unspecified (4) Macrocytic anemia: Status: Acute Code(s): D53.9 - Nutritional anemia, unspecified Allergies/Procedures Done in Hospital Allergies No Known Allergies Allergy (Verified 04/17/23 10:50) Procedures: Colonoscopy Type of Care/Length of Stay Estimated LOS: Convalescent Care Less Than 30 days Type of Care Needed: Skilled Rehab Potential: Good Prognosis: Good Additional Orders/Day of Discharge Day of Discharge: 04/23/23 Dietary and Speech Recommendations Dietitian Recommendations/Changes: recommend advance diet as tolerated to regular, ensure w/ medpass when diet advanced. Discharge Plan Admission Admit Date/Time: 04/18/23 16:48 Attending Provider: Jeremy Villafana Primary Care Provider: Peggy Uribe Consulting Providers: Jerilyn Lee; Enoch Reyes Discharge Orders/Prescriptions Prescriptions: Continued albuterol sulfate 0.63 mg/3 mL solution for nebulization 0.63 mg inhalation Q6H PRN (Reason: SHORTNESS OF BREATH/WHEEZING ) Qty: 90 5RF (DME) blood pressure test kit-medium Kit See Rx Instructions .Route Qty: 1 0RF Rx Instructions: As directed escitalopram oxalate [Lexapro] 10 mg tablet 10 mg PO DAILY Qty: 30 1RF Ensure Plus High Protein 0.08 gram-1.5 kcal/mL Liquid 120 ml PO TIDCM Qty: 1 0RF pantoprazole [Protonix] 40 mg tablet,delayed release (DR/EC) 40 mg PO BID Qty: 1 0RF sucralfate 1 gram Tablet 1 g PO 1HR_ACHS Rx Instructions: TAKE ONE TABLET BY MOUTH BEFORE MEALS AND AT BEDTIME acetaminophen 325 mg Tablet 650 mg PO Q4H PRN PRN (Reason: Pain 1-10 Or Fever) Qty: 0 0RF menthol-zinc oxide [Calmoseptine] 0.44-20.6 % Ointment 1 applic topical BID Qty: 0 0RF Protocol: *Topical Application Instructions APPLICATION INSTRUCTIONS: rectal area Trelegy Ellipta 100-62.5-25 mcg blister with device 1 inh inhalation DAILY Qty: 28 1RF tamsulosin 0.4 mg capsule 0.4 mg PO DAILY Qty: 30 1RF (DME) nebulizer and compressor [Comp-Air Nebulizer Compressor] Device See Rx Instructions .ROUTE .COMPLEX Qty: 1 0RF Dose Instruction: USE DIRECTED Rx Instructions: USE DIRECTED oxycodone 5 mg tablet 5 mg PO Q6H PRN (Reason: Pain Score 6-10) 8 Days Qty: 30 0RF Referrals / Follow Up: Peggy Uribe MD [Primary Care Provider] - Disposition Disposition (needs filled in before D/C Order can be placed): Intermediate Facility (3) Hypotension Qualifiers: Hypotension type: other hypotension type Qualified Code(s): I95.89 - Other hypotension
[2023-04-23] MEDS: 0.9% Saline Lock 10 ML Syringe IV ×2 (12:00→12:58)
--- NOTE | 2023-04-23 12:33 | CASEMGMT ---
Social Work SW met with pt to discuss advance directives.? Pt confirms he has completed a living will and health care POA naming his significant other Lindsey Ortez.? Pt notified that documents are not on file at [facility]. Pt thinks [employer] [facility] completed the documents. YOLETTE sent message to [facility] requesting documents be faxed to [facility]. ADRIAN Hloden
--- NOTE | 2023-04-23 12:37 | CASEMGMT ---
Social Work Precert has been obtained for pt to return to [facility]. Physician updated and plans to discharge pt today. SW met with pt and updated and pt is agreeable. [facility] updated that pt will dc later today. Disposition: [facility], skilled level of care ADRIAN Holden
[2023-04-23] MEDS: Magnesium Sulfate 2 GM in Dextrose 5%-Water (100mL Bag) 100 ML IV (12:53)
[2023-04-23 12:58] VITALS: PULSE 75; RESP 18
--- NOTE | 2023-04-23 14:57 | CASEMGMT ---
Discharge Planning Discharge orders, signed med list, covid results, and transport time sent to [facility] via [facility]. [facility] will transport patient by wheelchair at 4p (a cot may be sent depending on availability). Nursing, SW, and patient updated. Patient stated that he would update his sig other. Patricia Dash, Discharge Planning Asst.
[2023-04-23 15:03] VITALS: BP 108/65; PULSE 84; RESP 16; TEMP 36.8; O2SAT 99
--- NOTE | 2023-04-23 15:25 | DS.PCM_ITS ---
Providers Date of Admission: 04/18/23 Primary Care Physician: Dr. Peggy Uribe MD Consultations 04/17/23 18:46 Consult: Gastroenterology Routine Consulting Provider: Cecily [facility] Reason for Consult: Lower GI bleed EMERGENT Consult: No MD Notified: Yes Date Notified: 04/17/23 Time Notified: 18:13 Method of Notification: ED Physician Initiated Reason For Visit: GI BLEED, LOWER Diagnosis Discharge Diagnosis (1) Acute blood loss anemia: Status: Resolved Code(s): D62 - Acute posthemorrhagic anemia (2) Acute GI bleeding: Status: Resolved Code(s): K92.2 - Gastrointestinal hemorrhage, unspecified (3) Hypotension: Status: Resolved Code(s): I95.9 - Hypotension, unspecified Qualifiers: Hypotension type: other hypotension type Qualified Code(s): I95.89 - Other hypotension (4) Macrocytic anemia: Status: Acute Code(s): D53.9 - Nutritional anemia, unspecified Medications at Discharge Home Medications fluticasone fur. 100 mcg-umeclid 62.5 mcg-vilant 25 mcg inhalat.powder (Trelegy Ellipta) 1 inh inhalation DAILY SHORTNESS OF BREATH/WHEEZING #28 ea 02/14/23 tamsulosin 0.4 mg capsule 0.4 mg PO DAILY PROSTATE #30 caps 02/14/23 albuterol sulfate 0.63 mg/3 mL solution for nebulization 0.63 mg (3 mL) inhalation Q6H PRN SHORTNESS OF BREATH/WHEEZING #90 mL 03/08/23 blood pressure test kit-medium #1 ea 03/08/23 escitalopram oxalate 10 mg tablet (Lexapro) 10 mg PO DAILY DEPRESSION #30 tabs 03/08/23 nebulizer and compressor (Comp-Air Nebulizer Compressor) #1 ea 03/08/23 food supplemt, lactose-reduced 0.08 gram-1.5 kcal/mL oral liquid (Ensure Plus High Protein) 120 ml PO TIDCM SUPPLEMENT #1 mL 04/06/23 pantoprazole 40 mg tablet,delayed release (Protonix) 40 mg PO BID ACID REFLUX #1 TAB 04/06/23 sucralfate 1 gram tablet 1 g PO 1HR_ACHS ULCERS 04/09/23 acetaminophen 325 mg tablet 650 mg (2 x 325 mg) PO Q4H PRN PRN Pain 1-10 Or Fever #0 tabs 04/13/23 menthol 0.44 %-zinc oxide 20.6 % topical ointment (Calmoseptine) 1 applic topical BID #0 grams 04/13/23 oxycodone 5 mg tablet 5 mg PO Q6H PRN Pain Score 6-10 8 days #30 tabs 04/14/23 Hospital Course Operations None Procedures Colonoscopy Summary of Care Provided Minutes Spent on Discharge: 34 Hospital Course: Per HPI: The patient is a 68 y/o M w/ PMHx: Severe Chronic Protein-Calorie Malnutrition, Former EtOH abuse, Chronic anemia/Fe deficiency anemia, HTN, HLD, BPH, COPD w/ Chronic Hypoxic Respiratory Failure (2L NC), Former Tobacco use, Chronic LFT elevations, Anxiety and Depression, Hx Polysubstance abuse (cocain e), recent discharge 04/13/2023 following again recurrent admission for acute blood loss anemia with upper GI bleed secondary to spurting duodenal ulcer which was treated with injection and heater probe with PRBC administration during that admission who now represents to the [facility] ED on 04/17/23 with history of presentation for planned blood transfusion secondary to hemoglobin 04/16/2023 7.0 with 2 unit PRBC administered however upon return to facility staff noted bright red blood in the depends prompting call to his assistant manager Dr. Calero who advised patient to present to the ED for further evaluation and likely admission. He notes the discomfort is primarily in the left lower quadrant and he has had this chronically for many years but he does note that over the last 24 hours it has been worsened it is more crampy and aching but can be worsened by palpation as well. Patient was discharged on 04/13/2023 and since then repeat hemoglobins included as noted 04/16/2023 7.0. Work-up in the ED included T99.1, heart rate 97, BP 125/72, respiratory rate 16, 91% on 4 L nasal cannula, CBC with WC 7.8, hemoglobin 9.7, MCV 94.8, platelets 677 with lymphopenia, coags with PTT 21.9 otherwise not marked appearing, CMP with carbon oxide 37, BUN/creatinine 7/0.64, glucose 131, calcium 7.0 otherwise Paddock profile not marked appearing. During had during recent presentations both upper and lower scopes with upper endoscopy most recently on 04/10/2023 notable for normal esophagus, medium size hiatal hernia, red blood in the stomach with fluid aspiration performed with noted spurting duodenal ulcer with visible vessel which was injected and treated with heater probe. He he also had upper scopes 03/28/2023, repeat 03/29/2023 secondary to gastric outlet obstruction secondary to duodenal stricture with recurrent upper GI bleeding with intervention for bleeding associated with duodenal ulcers. Patient also had recent localized left forearm cellulitis treated with Keflex and also the admission prior to this patient was also treated for sepsis secondary to community acquired pneumonia. In the ED patient administered maintenance IV fluid Hospital Course: 1. Lower GI bleed secondary to diverticular particular bleed?68-year-old male has had significant recent medical history of GI bleeding [facility] because he had bright red blood in his stool. Apparently nursing staff at the prison felt that this was necessary to be evaluated at the hospital after he had received blood transfusions because of the his significant upper GI bleed history. He was recently admitted for a duodenal bleed that required stenting. He had a colonoscopy which was unremarkable and hemoglobin has remained stable at this time. Would recommend outpatient evaluation at the prison with repeated CBCs to monitor his hemoglobin. Given all the exams that he has had done would recommend only sending him back to the hospital if he is significantly symptomatic with vital sign derangement or significantly anemic. I discussed with him the plan for discharge today and he expressed understanding of the risk benefits of going back to the prison and would like to go back today. 2. Chronic severe protein calorie malnutrition, chronic hypoxic respiratory failure due to COPD are all chronic medical conditions which complicate his care. His home medications were continued where appropriate Physical Exam Narrative General: Alert, Oriented x3, Cooperative, No apparent distress HEENT: Atraumatic, PERRLA, EOMI, Normocephalic Oral: Moist Mucosa Neck: Supple, No JVD Lungs: Diminished, Normal air movement, No rhonchi, No wheeze, No rales Cardiovascular: Regular rate, Regular Rhythm, Normal S1, Normal S2, No murmurs Abdomen: Soft, Non Tender, Non-Distended, No Hepato-splenomegaly Extremities: No edema, Capillary Refill Less than 3 Seconds Skin: No rashes, No breakdown Musculoskeletal: No Tenderness to Palpation of Joints or Extremities Neurological: Cranial nerves II-XII grossly intact, Motor Exam 5/5 strength th roughout, Sensory exam intact to light touch and pain Psych/Mental Status: Normal Affect, Appropriate Medical Records Data Medical Nutrition Assessment Dietitian: Malnutrition Criteria Met Start: 04/18/23 09:4 4 Freq: Status: Active Protocol: Document 04/18/23 09:44 AG (Rec: 04/18/23 09:49 AG Desktop) Nutrition Malnutrition Evidence of Malnutrition Exists Yes Malnutrition (severe): Chronic Evidenced By Suboptimal Energy Intake ( Severe),Physical Changes ( Severe) Clinical Problem Chronic Disease or Condition Related Malnutrition Etiology severe, chronic malnutrition related to inadequate energy intake Signs/Symptoms as evidenced by estimated PO intake meeting <75% of estimated energy needs > 3 months, severe muscle wasting/ fat loss per physical exam Status Active Problem Recommendation Dietitian Recommendations/Changes recommend advance diet as tolerated to regular, ensure w / medpass when diet advanced. Weight / BMI Weight Weight: 126 lb 5.198 oz Body Mass Index (BMI) 22.4 ABG / Lab / Microbiology Data 04/23/23 07:42 04/23/23 07:42 Laboratory: Laboratory Results - last 24 hr 04/23/23 07:42: WBC 10.2, RBC 3.11 L, Hgb 8.9 L, Hct 29.9 L, MCV 96.1 H, MCH 28.6, MCHC 29.8 L, RDW Std Deviation 55.8 H, RDW Coeff of Monalisa 15.9 H, Plt Count 644 H, MPV 8.5, Immature Gran % (Auto) 0.400, Neut % (Auto) 74.2 H, Lymph % (Auto) 12.3 L, Edmunds % (Auto) 8.0, Eos % (Auto) 3.6, Baso % (Auto) 1.5 H, Absolute Neuts (auto) 7.6, Absolute Lymphs (auto) 1.25, Nucleated RBC % 0, Sodium 134 L, Potassium 4.0, Chloride 98, Carbon Dioxide 33.0 H, Anion Gap 3 L, BUN 12, Creatinine 0.67 L, Estim Creat Clear Calc 57.69, Est GFR (MDRD) Af Amer 153, Est GFR (MDRD) Non-Af 126, BUN/Creatinine Ratio 18.0, Glucose 95, Calcium 7.9 L, Phosphorus 3.2, Magnesium 1.5 L Microbiology: Microbiology 04/23/23 12:50 Nasal Secretion SARS-CoV-2 Antigen (Rapid) - Final Meaningful Use Info Meaningful Use Diagnoses (Choose all that apply): None applicable Discharge Plan Admission Admit Date/Time: 04/18/23 16:48 Attending Provider: Jeremy Villafana Primary Care Provider: Peggy Uribe Consulting Providers: Jerilyn Lee; Enoch Reyes Discharge Orders/Prescriptions Prescriptions: Continued albuterol sulfate 0.63 mg/3 mL solution for nebulization 0.63 mg inhalation Q6H PRN (Reason: SHORTNESS OF BREATH/WHEEZING ) Qty: 90 5RF (DME) blood pressure test kit-medium Kit See Rx Instructions .Route Qty: 1 0RF Rx Instructions: As directed escitalopram oxalate [Lexapro] 10 mg tablet 10 mg PO DAILY Qty: 30 1RF Ensure Plus High Protein 0.08 gram-1.5 kcal/mL Liquid 120 ml PO TIDCM Qty: 1 0RF pantoprazole [Protonix] 40 mg tablet,delayed release (DR/EC) 40 mg PO BID Qty: 1 0RF sucralfate 1 gram Tablet 1 g PO 1HR_ACHS Rx Instructions: TAKE ONE TABLET BY MOUTH BEFORE MEALS AND AT BEDTIME acetaminophen 325 mg Tablet 650 mg PO Q4H PRN PRN (Reason: Pain 1-10 Or Fever) Qty: 0 0RF menthol-zinc oxide [Calmoseptine] 0.44-20.6 % Ointment 1 applic topical BID Qty: 0 0RF Protocol: *Topical Application Instructions APPLICATION INSTRUCTIONS: rectal area Trelegy Ellipta 100-62.5-25 mcg blister with device 1 inh inhalation DAILY Qty: 28 1RF tamsulosin 0.4 mg capsule 0.4 mg PO DAILY Qty: 30 1RF (DME) nebulizer and compressor [Comp-Air Nebulizer Compressor] Device See Rx Instructions .ROUTE .COMPLEX Qty: 1 0RF Dose Instruction: USE DIRECTED Rx Instructions: USE DIRECTED oxycodone 5 mg tablet 5 mg PO Q6H PRN (Reason: Pain Score 6-10) 8 Days Qty: 30 0RF Referrals / Follow Up: Peggy Uribe MD [Primary Care Provider] - Disposition Disposition (needs filled in before D/C Order can be placed): [facility] Living Facility Charges/Coding Visit Charges Inpatient E&M: 16061 Disch Hosp >30min
--- NOTE | 2023-04-23 15:28 | NURSING ---
REPORT CALLED TO [facility] AND SPOKE WITH DRISS PRATER
== END 2023-04-23 16:18 | disposition skilled nursing facility (03) | DRG 377 ==
LOC: ED 18:15 → ICU 18:32 → MS3 04-20 18:45
PROVIDERS: Internal Medicine; Internal Medicine Gastroenterology; Admitting Provider Family Medicine; Emergency Provider Emergency Medicine; PCP Internal Medicine; Visit Provider Family Medicine
PROC: 0DJD8ZZ Inspection of Lower Intestinal Tract, Via Natural or Artificial Opening Endoscopic (ICD-10-PCS; CPT 45378; principal; 2023-04-18 13:10)
DX: K57.31 Diverticulosis of large intestine without perforation or abscess with bleeding (principal); E43 Unspecified severe protein-calorie malnutrition; J96.11 Chronic respiratory failure with hypoxia; D62 Acute posthemorrhagic anemia; L03.114 Cellulitis of left upper limb; E83.51 Hypocalcemia; I95.9 Hypotension, unspecified; J44.9 Chronic obstructive pulmonary disease, unspecified; D50.9 Iron deficiency anemia, unspecified; F10.10 Alcohol abuse, uncomplicated; I10 Essential (primary) hypertension; F32.A Depression, unspecified; D53.9 Nutritional anemia, unspecified; E78.5 Hyperlipidemia, unspecified; F14.90 Cocaine use, unspecified, uncomplicated; F41.9 Anxiety disorder, unspecified; K44.9 Diaphragmatic hernia without obstruction or gangrene; K26.4 Chronic or unspecified duodenal ulcer with hemorrhage; Z86.16 Personal history of COVID-19; Z79.51 Long term (current) use of inhaled steroids; R53.81 Other malaise; Z87.891 Personal history of nicotine dependence; N40.0 Benign prostatic hyperplasia without lower urinary tract symptoms; Z68.22 Body mass index [BMI] 22.0-22.9, adult
CPT/HCPCS: 36415; 36430; 80048; 80053; 80076; 82310; 83735; 84100; 85014; 85018; 85025; 85610; 85730; 86850; 86900; 86901; 86920; 86922; 87426; 94640; 94668; 97110; 97162; 97166; 97530; 97535; 97802; 99285; J7030; J7040; J7120; P9016; A4216; A4648; J0612

== ENCOUNTER → 2023-05-23 | Outpatient (CLI) | payer MEDICARE, SELFPAY ==
[2023-05-23 17:06] LABS: Absolute Lymphocyte Count 1.05 X10^3/uL (0.83-4.51); Absolute Neutrophil Count 7.5 X10^3/uL (2.0-7.7); Basophil# 0.12 X10^3/uL; Basophil% 1.3 % (0-1); Eosinophil# 0.22 X10^3/uL; Eosinophils% 2.3 % (0-5); Hematocrit 40.4 % (40-54); Hemoglobin 11.4 g/dL (13.0-16.5); Lymphocyte # 1.05 X10^3/ul (0.83-4.51); Lymphocyte % 11.1 % (19-41); Mean Corp Hgb Conc 28.2 g/dL (32-36); Mean Corpuscular Hgb 27.3 pg (27.0-32.0); Mean Corpuscular Volume 96.7 fL (80-94); Mean Platelet Vol. 10.6 fl (6.2-12.0); Monocyte# 0.54 X10^3/uL; Monocyte% 5.7 % (0-10); NRBC Flagged by Analyzer 0 % (0-5); Neutrophil # 7.53 X10^3/uL (2.7-7.7); Neutrophil % 79.2 % (47-70); Platelet Count 480 K/mm3 (150-450); RBC Distribution Width CV 15.1 % (11.6-14.6); RBC Distribution Width SD 53.2 fl (35.1-43.9); Red Blood Count 4.18 M/mm3 (4.6-6.2); White Blood Count 9.5 K/mm3 (4.4-11.0)
[2023-05-23 17:17] LABS: ALB/GLOB Ratio 0.7 RATIO (0.9-2.4); AST(SGOT) 19 U/L (15-37); Alanine Aminotransfer ALT/SGPT 20 U/L (16-61); Albumin, Serum 3.6 g/dL (3.2-5.0); Alkaline Phosphatase 128 U/L (45-117); Anion Gap 6 (5-15); BUN 15 mg/dL (7-18); BUN/Creat Ratio 19.9 RATIO (10-20); Calcium,Total 9.2 mg/dL (8.5-10.1); Chloride 104 mmol/L (98-107); Creatinine, Serum 0.75 mg/dL (0.70-1.30); EST Glomerular Filtration Rate 110 mL/min (>60); Est Glom Filt Rate - Afr Amer 133 mL/min (>60); Glucose 102 mg/dL (74-106); Potassium 4.4 mmol/L (3.5-5.1); Protein, Total 8.6 g/dL (6.4-8.2); Sodium Level 140 mmol/L (136-145)
== END | disposition home or self-care (01) ==
LOC: BIMLAB 15:02
PROVIDERS: PCP Internal Medicine; Referring Provider Physician Assistant; Visit Provider Physician Assistant
DX: D53.9 Nutritional anemia, unspecified (principal)
CPT/HCPCS: 36415; 80053; 85025